=== PATIENT | female | born 1935 | race Caucasian/White ===

== ENCOUNTER 2017-10-08 18:18 | Inpatient (IN) | payer MEDICARE ==
[~2017-10-08] VITALS: Ht 157.5 cm; Wt 89.0 kg
[~2017-10-08 18:18] MED LIST: BUPROPION HCL75 MG PO; FUROSEMIDE40 MG PO; ISOSORBIDE MONO30 MG PO; LISINOPRIL-HCT1 EAC1 PO; LISINOPRIL10 MG PO; NAMENDA10 MG PO; NITROSTAT0.4 MG SL; RANEXA500 MG PO; SIMVASTATIN40 MG PO; SOTALOL80 MG PO; ULTRAM 50MG50 MG PO; [UNRECOGNIZED DRUG - OTHER] PO
[2017-10-08 19:29] LABS: BILIRUBIN,URINE NEGATIVE (NEGATIVE); CLARITY,URINE SL CLOUDY (CLEAR); COLOR,URINE YELLOW (YELLOW); KETONES,URINE NEGATIVE (NEGATIVE); LEUKOCYTE ESTERASE ,URINE 1+ (NEGATIVE); NITRITE,URINE NEGATIVE (NEGATIVE); PROTEIN,URINE DIPSTICK NEGATIVE (NEGATIVE); URINE UROBILINOGEN 0.2 mg/dL (0.2 - 1)
[2017-10-08 19:47] LABS: BACTERIA,URINE MODERATE /HPF; EPITHELIAL CELLS,URINE MODERATE /LPF; TRANSITIONAL EPI CELLS,URINE FEW
[2017-10-08 20:10] LABS: BASOPHILS # (AUTO) 0.1 (0.0-0.1); BASOPHILS % 0.7 % (0.0-1.0); EOSINOPHILS # (AUTO) 0.2 (0.0-0.4); EOSINOPHILS % 1.6 % (0.0-6.0); HEMATOCRIT 36.7 % (34.2-44.1); HEMOGLOBIN 12.1 g/dL (12.0-16.0); LYMPHOCYTES % 29.7 % (18.0-39.1); MEAN CORPUSCULAR HEMOGLOBIN 29.4 pg (28-32); MEAN CORPUSCULAR VOLUME 89.1 fL (81-99); MONOCYTES # (AUTO) 0.7 (0.2-0.8); MONOCYTES % 7.4 % (4.4-11.3); NEUTROPHILS # (AUTO) 6.1 (2.1-6.9); NEUTROPHILS % 60.3 % (38.7-80.0); PLATELET COUNT 269 x10e3/uL (140-360); RED BLOOD COUNT 4.12 x10e6/uL (3.6-5.1); RED CELL DISTRIBUTION WIDTH 17.2 % (11.7-14.4)
--- NOTE | 2017-10-08 20:20 | Diagnostic Imaging Report ---
EXAMINATION: CHEST 2 VIEWS INDICATION: Shortness of breath COMPARISON: Chest x-ray 07/30/2016 FINDINGS: PA and lateral views TUBES and LINES: None. LUNGS: Lungs are well inflated. Unchanged residual scarring in the lung bases. Lungs are clear. There is no evidence of pneumonia or pulmonary edema. PLEURA: No pleural effusion or pneumothorax. HEART AND MEDIASTINUM: The cardiomediastinal silhouette is unremarkable. There are atherosclerotic calcifications within the aorta. BONES AND SOFT TISSUES: No acute osseous lesion. Soft tissues are unremarkable. UPPER ABDOMEN: No free air under the diaphragm. IMPRESSION: Unchanged mild residual scar in the lung bases. No acute pulmonary opacities. Signed by: Dr. Sushant Ny M.D. on 10/08/2017 8:17 PM
[2017-10-08 20:23] LABS: INR 1.99; PROTHROMBIN TIME 21.2 seconds (11.9-14.5)
[2017-10-08 20:24] LABS: PARTIAL THROMBOPLASTIN TIME 37.7 seconds (23.8-35.5)
[2017-10-08 20:30] LABS: ALBUMIN 3.6 g/dL (3.5-5.0); CALCIUM 9.4 mg/dL (8.4-10.2); CREATININE, SERUM 1.43 mg/dL (0.57-1.11)
[2017-10-08 20:39] LABS: CREATINE KINASE MB 1.8 ng/mL (0-5.0)
[2017-10-08 20:52] LABS: FREE THYROXINE INDEX 1.7312 (1.4-3.8); THYROID STIMULATING HORMONE 2.476 uIU/mL (0.350-4.940)
[2017-10-08] MEDS ORDERED: CEFTRIAXONE SOD 1 GM VIAL IV ONE (22:00)
[2017-10-08] MEDS ORDERED: METOPROLOL TARTRATE INJ 1 MG/ML VIAL IV ONE (22:00)
[2017-10-08] MEDS ORDERED: METOPROLOL TARTRATE INJ 1 MG/ML VIAL IV PRN (23:45)
[2017-10-08] MEDS ORDERED: SODIUM CHLORIDE 0.9% 1000ML 1,000 ML IV ONE (23:45)
[2017-10-09] VITALS (9 sets, daily range): BP systolic 112–156; BP diastolic 53–84
[2017-10-09 04:45] LABS: BASOPHILS # (AUTO) 0.1 (0.0-0.1); BASOPHILS % 0.6 % (0.0-1.0); EOSINOPHILS # (AUTO) 0.2 (0.0-0.4); EOSINOPHILS % 1.9 % (0.0-6.0); HEMATOCRIT 32.4 % (34.2-44.1); HEMOGLOBIN 10.4 g/dL (12.0-16.0); LYMPHOCYTES # (AUTO) 2.7 (1.0-3.2); LYMPHOCYTES % 32.1 % (18.0-39.1); MEAN CORPUSCULAR HEMOGLOBIN 29.4 pg (28-32); MEAN CORPUSCULAR HGB CONC 32.1 g/dL (31-35); MEAN CORPUSCULAR VOLUME 91.5 fL (81-99); MONOCYTES # (AUTO) 0.7 (0.2-0.8); MONOCYTES % 8.5 % (4.4-11.3); NEUTROPHILS # (AUTO) 4.7 (2.1-6.9); NEUTROPHILS % 56.5 % (38.7-80.0); PLATELET COUNT 248 x10e3/uL (140-360); RED BLOOD COUNT 3.54 x10e6/uL (3.6-5.1); RED CELL DISTRIBUTION WIDTH 17.2 % (11.7-14.4)
[2017-10-09 05:16] LABS: ALBUMIN/GLOBULIN RATIO 1.1 (0.8-2.0); ANION GAP 11.7 mmol/L (8-16); CALCIUM 8.7 mg/dL (8.4-10.2); CREATININE, SERUM 1.21 mg/dL (0.57-1.11); POTASSIUM 3.7 mmol/L (3.5-5.1)
[2017-10-09 06:27] LABS: CREATINE KINASE MB 1.6 ng/mL (0-5.0)
[2017-10-09 12:01] LABS: CREATINE KINASE MB 1.9 ng/mL (0-5.0)
[2017-10-09] MEDS: WARFARIN SOD 2.5 MG TAB PO SCH (16:24)
--- NOTE | 2017-10-09 16:28 | Consultation ---
DATE OF CONSULTATION: October 09, 2017 CARDIOLOGY CONSULTATION CHIEF COMPLAINT: My heart is racing and I don't feel well. REASON FOR CONSULTATION 1. Atrial fibrillation with RVR. 2. Coronary artery disease. HISTORY OF PRESENT ILLNESS: Patient is a 81-year-old white female who is well known to our service. She has a history of coronary artery disease status post stenting at an outside facility in year 1998, has chronic stable angina with small-vessel disease on most recent cath several years ago. Patient also has history of paroxysmal atrial fibrillation and has been difficult to rate control despite multiple medical regimens. Her medical management is complicated by her memory issues as it is difficult for her to understand and be compliant with all medications. She presented to our clinical yesterday for evaluation of palpitations and feeling unwell, was evaluated in clinic and was noted to be in AFib with RVR. Her home health nurse also noted her to be in AFib with RVR with rates at times in the 200s. Therefore, she was sent to the ER for further evaluation. Patient reports that looking at her diary of medications that she has been holding her metoprolol since September 21 and most recently was also holding her digoxin which was recently started to improve her rate control. She denies any chest pain, PND, orthopnea or worsening lower extremity swelling. She denies any syncope, fevers, chills or constitutional symptoms. REVIEW OF SYSTEMS: A 10-point review of systems was performed and was negative other than what is mentioned in HPI. PAST MEDICAL HISTORY 1. Coronary artery disease. 2. Paroxysmal atrial fibrillation. 3. Peripheral arterial disease. 4. Peripheral venous disease. 5. Dementia with memory loss. FAMILY HISTORY: No early history of CAD. SOCIAL HISTORY: Patient does not smoke or drink. PHYSICAL EXAMINATION VITAL SIGNS: Temperature 97.3, heart rate 118, respiratory rate 20, blood pressure 112/53, satting 95% on room air. EYES: Conjunctivae are clear. EARS, NOSE, MOUTH AND THROAT: Normal mucosa, no pallor or bleeding. NECK: Jugular venous pulsation noted with estimated right atrial pressure of 10 mmHg. MSK: Normal muscle tone and strength. No atrophy or abnormal movements. EXTREMITIES: No clubbing or cyanosis. SKIN: There are no chronic venous stasis changes or ulcerations noted. GENERAL: A well-developed, well-nourished white female, obese. CARDIOVASCULAR: PMI is nondisplaced. Regular heart tones. S1 and S2. No murmur, rubs or gallops. Normal carotid pulses. Palpable femoral pulses. Diminished pedal pulses are not palpable. Has 1+ peripheral edema with significant varicosities in bilateral lower extremities without chronic venous stasis changes or ulcerations. RESPIRATORY: No respiratory distress. Lungs are clear to auscultation bilaterally. ABDOMEN: Soft, nontender and obese. There are no masses or hepatosplenomegaly noted. NEURO AND PSYCH: Alert and oriented to person, place and time. Normal affect. ALLERGIES: NO KNOWN DRUG ALLERGIES. CARDIOVASCULAR MEDICATIONS 1. Aspirin 81 mg daily. 2. Atorvastatin 40 mg at bedtime. 3. Furosemide 40 mg daily. 4. Metoprolol succinate 50 mg daily. 5. Pantoprazole 40 mg daily. 6. Ranolazine 1000 mg twice a day. 7. Warfarin 2.5 mg every evening. 8. Digoxin 0.125 mg daily. LABS: All laboratory data reviewed, is notable for a hemoglobin of 10.4, creatinine of 1.2 with potassium of 3.7. Her BNP is noted to be 358. Her troponin has remained negative. Her TSH is normal at 2.4. Her PT is 21.2 and INR of 1.99. IMAGING: All imaging data reviewed, notable for a chest x-ray without significant cardiopulmonary abnormality. EGD reviewed, shows atrial fibrillation with RVR with rates in the 120s. TELEMETRY: Data reviewed, shows atrial fibrillation with RVR, rates in the 110s to 120s on average. ASSESSMENT 1. Coronary artery disease. 2. Paroxysmal atrial fibrillation. 3. Peripheral arterial disease. 4. Peripheral venous disease. 5. Hypertension. 6. Hyperlipidemia. Discussed with patient extensively regarding her medical regimen. Patient seems confused and forgetful regarding which medications she is supposed to be on and which medications she is supposed to stop taking. The patient reports that whenever she is not sure about a medication, she tends to just stop taking it and because of this she has not been taking her metoprolol succinate and most recently her digoxin, and this likely resulted in her AFib with RVR. Will resume her medications as stated above and see how her heart rates respond to this regimen. Will continue her anticoagulation for atrial fibrillation with warfarin as stated above. Her current INR is 1.99, which is acceptable. Thank you for involving us in this patient's care. Will continue to follow. Job#: [id number] EV
[2017-10-09] MEDS: RANOLAZINE 500 MG TABSR PO SCH (16:38)
[2017-10-09] MEDS ORDERED: ATORVASTATIN 40 MG TAB PO SCH (21:00)
[2017-10-09 21:45] LABS: CREATINE KINASE MB 2.2 ng/mL (0-5.0)
[2017-10-09] MEDS ORDERED: CEFTRIAXONE SOD 1 GM VIAL IV SCH (22:00)
[2017-10-10 00:12] VITALS: BP 126/24
[2017-10-10 05:41] VITALS: BP 134/55
[2017-10-10] MEDS ORDERED: PANTOPRAZOLE SOD 40 MG TABEC PO SCH (07:30)
[2017-10-10 08:00] VITALS: BP 117/58
[2017-10-10 08:30] VITALS: BP 117/58
[2017-10-10] MEDS ORDERED: FUROSEMIDE 40 MG TAB PO SCH (09:00)
[2017-10-10] MEDS ORDERED: METOPROLOL SUCCINATE 50 MG TAB XL PO SCH (09:00)
[2017-10-10] MEDS ORDERED: DIGOXIN 0.125 MG TAB PO SCH (09:00)
[2017-10-10] MEDS: RANOLAZINE 500 MG TABSR PO SCH ×2 (09:00→17:30)
[2017-10-10] MEDS ORDERED: ASPIRIN 81 MG ENTERIC COATED PO SCH (09:00)
--- NOTE | 2017-10-10 10:48 | Discharge Summary ---
Ms. Gomez is a 81-year-old female with a history of coronary artery disease, status post stent, hypertension, hyperlipidemia, some memory problems, came to the emergency room and seen by learning support aide because of irregular rate with rapid ventricular at 200 per minute. As per the patient, she has not been taking the medications as directed. She has not been taking the metoprolol or the digoxin. She was restarted on all of her medications. Her rate is doing much better. We are going to discharge her home if it is okay with learning support aide. PHYSICAL EXAMINATION GENERAL: She is awake and alert. VITALS: Temperature is 97, blood pressure 124/55, heart rate is 66, respiratory rate 18. LUNGS: Clear to auscultation. ABDOMEN: Distended and soft. BLOOD WORK: Potassium 3.7, creatinine 1.21, glucose 100. White count 8.37, hemoglobin 10.4, hematocrit 32.4, and platelets 248,000. INR 1.99. DISCHARGE DIAGNOSES 1. Paroxysmal atrial fibrillation with rapid ventricular rate. 2. Coronary artery disease, status post stent. 3. Hypertension. 4. Hyperlipidemia. 5. Dementia with memory loss. PLAN: Discharge her home today. She is going to be on: 1. Metoprolol 50 mg daily. 2. Furosemide 40 mg daily. 3. Warfarin 2.5 mg daily. 4. Digoxin 0.125 mg daily. 5. Atorvastatin 40 mg daily. 6. Protonix 40 mg daily. 7. Ranexa 1000 mg twice a day. She needs follow up with me in 1 week. All of this was discussed with the patient. All questions were answered to satisfaction. ULI ZAPATA MD Job#: [id number] HI
--- NOTE | 2017-10-10 11:33 | Progress Note ---
DATE: October 10, 2017 CARDIOLOGY PROGRESS NOTE SUBJECTIVE AND OVERNIGHT EVENTS: Feeling well today. No major events overnight. REVIEW OF SYSTEMS: Negative, other than as stated in the HPI. OBJECTIVE VITAL SIGNS: Temperature 96.6, heart rate 69, respiratory rate 19, blood pressure 117/58, satting 96% on room air. GENERAL: Well-developed, well-nourished, white female. CARDIOVASCULAR: PMI nondisplaced. Normal heart tones. Irregular rhythm. Normal S1 and S2. No murmur, rubs or gallops. Normal carotid pulses. Normal pedal pulses. Significant varicosities in bilateral lower extremities without ulcerations or chronic venous stasis changes. LUNGS: No respiratory distress. Clear to auscultation bilaterally. ABDOMEN: Soft, nontender and nondistended. No hepatosplenomegaly. NEURO AND PSYCH: Alert and oriented to person, place and time. Normal affect. CARDIOVASCULAR MEDICATIONS 1. Aspirin 81 mg daily. 2. Ranolazine 1,000 mg b.i.d. 3. Furosemide 40 mg daily. 4. Pantoprazole 40 mg daily. 5. Digoxin 0.125 mg daily. 6. Atorvastatin 40 mg at bedtime. 7. Metoprolol succinate 50 mg daily. 8. Warfarin 2.5 mg every evening. LABS: Lab data reviewed. No significant changes noted. IMAGING: No new imaging data to review today. TELEMETRY: Telemetry data reviewed. The patient is in atrial fibrillation with rates from 50s to 100s. ASSESSMENT 1. Coronary artery disease. 2. Paroxysmal atrial fibrillation. 3. Peripheral arterial disease. 4. Peripheral venous disease. 5. Hypertension. 6. Hyperlipidemia. PLAN: The patient's rates are much better controlled now that she is back on her recommended medical regimen. Please continue the above cardiovascular medication regimen. The patient is okay to discharge from a cardiovascular standpoint. We will follow her up in clinic 2 weeks after discharge. Thank you for involving me in this patient's care. We will continue to follow while she is in the hospital. Job#: [id number]
[2017-10-10 12:00] VITALS: BP 120/57
[2017-10-10 16:00] VITALS: BP 128/60
[2017-10-10] MEDS: WARFARIN SOD 2.5 MG TAB PO SCH (17:28)
[2017-10-10] MEDS ORDERED: CEFTRIAXONE SOD 1 GM VIAL IV SCH (22:00)
== END 2017-10-10 18:39 | disposition home or self-care (01) | DRG 310 ==
LOC: ER 18:18 → ERHOLD 23:50 → MED/SURG2 10-09 01:04
PROVIDERS: ADMIT Internal Medicine; ATTEND Internal Medicine
DX: I48.0 Paroxysmal atrial fibrillation (principal); I25.10 Atherosclerotic heart disease of native coronary artery without angina pectoris; I10 Essential (primary) hypertension; E78.5 Hyperlipidemia, unspecified; I73.9 Peripheral vascular disease, unspecified; F03.90 Unspecified dementia, unspecified severity, without behavioral disturbance, psychotic disturbance, mood disturbance, and anxiety; Z95.5 Presence of coronary angioplasty implant and graft; Z91.128 Patient's intentional underdosing of medication regimen for other reason; I87.2 Venous insufficiency (chronic) (peripheral); I25.2 Old myocardial infarction
CPT/HCPCS: 36415; 71046; 80053; 81001; 82550; 82553; 83605; 83880; 84436; 84443; 84479; 84484; 85025; 85379; 85610; 85730; 87040; 87086; 93005; 96361; 99284; J0696; J7030

== ENCOUNTER 2018-02-07 06:13 | Observation (INO) | payer MEDICARE ==
[2018-02-06 13:04] LABS: BASOPHILS % 0.4 % (0.0-1.0); EOSINOPHILS % 0.4 % (0.0-6.0); HEMATOCRIT 36.6 % (34.2-44.1); HEMOGLOBIN 11.7 g/dL (12.0-16.0); LYMPHOCYTES # (AUTO) 1.7 (1.0-3.2); LYMPHOCYTES % 18.5 % (18.0-39.1); MEAN CORPUSCULAR VOLUME 96.8 fL (81-99); MONOCYTES # (AUTO) 0.9 (0.2-0.8); MONOCYTES % 9.8 % (4.4-11.3); NEUTROPHILS # (AUTO) 6.5 (2.1-6.9); NEUTROPHILS % 70.6 % (38.7-80.0); PLATELET COUNT 250 x10e3/uL (140-360); RED BLOOD COUNT 3.78 x10e6/uL (3.6-5.1); RED CELL DISTRIBUTION WIDTH 16.7 % (11.7-14.4)
[2018-02-06 13:26] LABS: INR 1.02; PROTHROMBIN TIME 14.3 seconds (11.9-14.5)
[2018-02-06 13:34] LABS: ALBUMIN 3.5 g/dL (3.5-5.0); ALBUMIN/GLOBULIN RATIO 1.1 (0.8-2.0); ANION GAP 14.2 mmol/L (8-16); CALCIUM 9.5 mg/dL (8.4-10.2); CHOL/HDL RATIO 2.8 (3.0-3.6); CREATININE, SERUM 1.2 mg/dL (0.57-1.11); POTASSIUM 4.2 mmol/L (3.5-5.1)
[2018-02-07] VITALS (15 sets, daily range): BP systolic 108–179; BP diastolic 54–105
[~2018-02-07 06:13] MED LIST changes: +ALLOPURINOL100 MG PO; +ARICEPT5 MG PO; +ATORVASTATIN CA20 MG PO; +DIGOXIN125 MCG PO; +METOPROLOL SUCC50 MG PO; +PANTOPRAZOLE SO40 MG PO; +WARFARIN SODIU2.5 MG PO; +ZOFRAN ODT4 MG PO
[2018-02-07] MEDS ORDERED: ALPRAZOLAM 0.5 MG TAB ONE (06:54)
[2018-02-07] MEDS ORDERED: DIPHENHYDRAMINE HCL 25 MG CAP ONE (06:54)
[2018-02-07] MEDS ORDERED: LIDOCAINE HCL 2% LOCAL 20 ML VIAL ONE (06:54)
[2018-02-07] MEDS ORDERED: HEPARIN SOD/SOD CHLORIDE 2,000 ML ONE (06:55)
[2018-02-07] MEDS ORDERED: IOPAMIDOL 370 MG/ML 200 ML INFUS..BTL INJ ONE ×2 (06:55→08:54)
[2018-02-07] MEDS ORDERED: SODIUM CHLORIDE 0.9% 1000ML 1,000 ML ONE (06:55)
[2018-02-07] MEDS ORDERED: MIDAZOLAM HCL 2 MG/2 ML VIAL ONE ×2 (07:49→09:07)
[2018-02-07] MEDS ORDERED: FENTANYL CITRATE/PF 100MCG/2 ML INJ ONE (07:50)
[2018-02-07] MEDS ORDERED: ADENOSINE 3MG/1ML 30ML VIAL ONE (08:39)
[2018-02-07] MEDS ORDERED: SODIUM CHLORIDE 0.9% 50ML 50 ML ONE (08:41)
[2018-02-07] MEDS ORDERED: HEPARIN SOD (PORCINE) 1000 UNIT/ML 30ML ONE (08:44)
[2018-02-07] MEDS ORDERED: NITROGLYCERIN/D5W 200 MCG/ML 250 ML ONE (09:20)
[2018-02-07] MEDS ORDERED: ASPIRIN 325 MG TAB ONE (09:25)
[2018-02-07] MEDS ORDERED: TICAGRELOR 90 MG TABLET ONE (09:25)
[2018-02-07] MEDS ORDERED: ACETAMINOPHEN 325 MG TAB PO PRN (11:15)
[2018-02-07] MEDS ORDERED: SODIUM CHLORIDE 0.9% 1000ML 750 ML IV ONE (11:15)
[2018-02-07] MEDS ORDERED: MORPHINE SULFATE 2 MG/ML SYR IV PRN (11:15)
[2018-02-07] MEDS ORDERED: METOPROLOL SUCCINATE 50 MG TAB XL PO NR (11:30)
[2018-02-07] MEDS ORDERED: ATORVASTATIN 40 MG TAB PO SCH (21:00)
[2018-02-07] MEDS ORDERED: ATORVASTATIN 20 MG TAB PO SCH (21:00)
[2018-02-08] VITALS: BP 169/67
[2018-02-08 04:00] VITALS: BP 139/69
[2018-02-08 08:03] VITALS: BP 129/75
[2018-02-08] MEDS ORDERED: ASPIRIN 81 MG CHEW TAB PO SCH (09:00)
[2018-02-08] MEDS ORDERED: CLOPIDOGREL BISULFATE 75 MG TAB PO SCH (09:00)
[2018-02-08] MEDS ORDERED: DIGOXIN 0.125 MG TAB PO SCH (09:00)
[2018-02-08] MEDS ORDERED: METOPROLOL SUCCINATE 50 MG TAB XL PO SCH (09:00)
[2018-02-08 09:01] VITALS: BP 129/75
--- NOTE | 2018-02-08 11:06 | Operative Report ---
PROCEDURES PERFORMED 1. Conscious sedation, 45 minutes. 2. Selective coronary angiography times 2. 3. Left heart catheterization. 4. Intravascular ultrasound of the left circumflex. 5. Percutaneous transluminal coronary angioplasty and drug-eluting stent placement of the proximal left circumflex coronary artery. ESTIMATED BLOOD LOSS: Less than 20 mL. SPECIMENS REMOVED: None. PROCEDURE DETAILS: After informed consent was obtained, the patient was brought to the cardiac catheterization laboratory in the fasting, nonsedated state. Bilateral groins were prepped and draped in the usual sterile fashion. Two percent lidocaine was infiltrated over the right anterior groin for local anesthesia. Using micropuncture needle, the right common femoral artery was accessed via the modified Seldinger technique, and a 5-Tongan sheath was placed. Next, diagnostic coronary angiography was performed using a 5-Tongan JL4 and 3DRC catheter. Left heart catheterization was performed using a modified angled pigtail catheter. Diagnostic angiography revealed a 60% to 70% proximal left circumflex stenosis. Decision was made to further interrogate this lesion. Fraction flow reserve measurement software was nonfunctional. So, I chose to perform intravascular ultrasound of the lesion. Minimal luminal area here was 2.7 mm squared deeming this a significant stenosis. The lesion was predilated with a 2.5-mm balloon. The next lesion was stented with a 3 x 24 cm drug-eluting stent, and then post dilated with a 3.5 noncompliant balloon. Final angiography revealed excellent stent position with reverse HILDA-III flow distally. There was no evidence of vessel , distal embolization or vessel perforation at the end of the case. Hemostasis was achieved via Mynx device. The patient tolerated the procedure well with no immediate complications, and transported back to her room in stable condition. PROCEDURAL FINDINGS 1. Left main coronary artery is patent without significant coronary artery disease. 2. Left anterior descending coronary artery has a proximal 40% stenosis. The midportion of the LAD is patent with mild luminal irregularities. There appears to be a chronic total occlusion of a very apical portion of the LAD, which is a small vessel. There are bridging collaterals seen filling the distal aspect of the LAD. 3. Left circumflex coronary artery provides 3 obtuse marginal vessels. There is a proximal left circumflex stenosis of approximately 60% to 70%. The minimal luminal area here is 2.7 mm squared. There is one small first obtuse marginal vessel, which is patent. There is a 2nd obtuse marginal vessel with a previously placed stent, which has a chronic total occlusion. The distal vessel fills via collaterals. The mid to distal portion of the left circumflex has a patent stent. 4. The right coronary artery has a known chronic total occlusion, and the distal vessel itself fills via collaterals from the left coronary system. 5. Left ventricular end-diastolic pressure is 23 mmHg with no aortic valve gradient present upon pullback. INTERVENTIONAL RESULTS: Successful percutaneous coronary intervention of the left circumflex coronary artery. Pre-PCI HILDA flow was 2. Post PCI HILDA flow was 3. Post procedure stenosis less than 10%. IMPRESSION AND RECOMMENDATIONS: This is an 82-year-old woman who presented to the mechanical shop laborer with abnormal stress test showing possible inferior ischemia. She was found to have a significant proximal left circumflex coronary artery stenosis, and she underwent successful percutaneous coronary intervention. She will remain on dual antiplatelet therapy and receive optimal medical therapy for coronary artery disease. Job#: [id number] LC
--- NOTE | 2018-04-11 15:16 | Discharge Summary ---
DISCHARGE DIAGNOSIS: Coronary artery disease, status post percutaneous coronary intervention. DISCHARGE MEDICATIONS: See medication reconciliation form. DISCHARGE DISPOSITION: Home. DISCHARGE ACTIVITY: As tolerated. DISCHARGE FOLLOWUP: In 2 weeks. HOSPITAL DETAILS: The patient was brought to the cardiac catheterization laboratory on an outpatient basis after an abnormal stress test. She underwent successful percutaneous coronary intervention of the left circumflex coronary artery. She received optimal medical care and was monitored overnight. She was discharged in stable condition. ROBBIN GONZALEZ D.O. Job#: [id number] LC
== END 2018-02-08 12:57 | disposition home or self-care (01) ==
LOC: CATH LAB 06:13 → CATH LAB V 09:57 → IMCU 10:18
PROVIDERS: ADMIT Internal Medicine Interventional Cardiology; ATTEND Internal Medicine Interventional Cardiology
DX: I25.119 Atherosclerotic heart disease of native coronary artery with unspecified angina pectoris (principal); I48.0 Paroxysmal atrial fibrillation; Z79.01 Long term (current) use of anticoagulants; Z95.5 Presence of coronary angioplasty implant and graft; I25.10 Atherosclerotic heart disease of native coronary artery without angina pectoris; I10 Essential (primary) hypertension; I73.9 Peripheral vascular disease, unspecified; I70.219 Atherosclerosis of native arteries of extremities with intermittent claudication, unspecified extremity; Z01.812 Encounter for preprocedural laboratory examination; Z83.3 Family history of diabetes mellitus; Z82.49 Family history of ischemic heart disease and other diseases of the circulatory system; Z84.1 Family history of disorders of kidney and ureter
CPT/HCPCS: 92978; 93458; C9600; 36415; 80053; 80061; 85025; 85347; 85610; 92928; C1769; C1874; G0378; J0153; J1644; J2001; J2250; J7030; Q9967

== ENCOUNTER 2018-04-21 12:36 | Inpatient (IN) | payer MEDICARE ==
[~2018-04-21] VITALS: Ht 157.5 cm; Wt 80.9 kg
[2018-04-21] MEDS ORDERED: PLAVIX75 MG PO (12:53)
[2018-04-21 12:56] LABS: BASOPHILS % 0.4 % (0.0-1.0); EOSINOPHILS # (AUTO) 0.1 (0.0-0.4); EOSINOPHILS % 0.6 % (0.0-6.0); HEMATOCRIT 26.8 % (34.2-44.1); HEMOGLOBIN 8.8 g/dL (12.0-16.0); LYMPHOCYTES # (AUTO) 2.2 (1.0-3.2); LYMPHOCYTES % 22.4 % (18.0-39.1); MEAN CORPUSCULAR HEMOGLOBIN 30.2 pg (28-32); MEAN CORPUSCULAR HGB CONC 32.8 g/dL (31-35); MEAN CORPUSCULAR VOLUME 92.1 fL (81-99); MONOCYTES # (AUTO) 0.8 (0.2-0.8); MONOCYTES % 8.6 % (4.4-11.3); NEUTROPHILS # (AUTO) 6.5 (2.1-6.9); NEUTROPHILS % 67.4 % (38.7-80.0); PLATELET COUNT 267 x10e3/uL (140-360); RED BLOOD COUNT 2.91 x10e6/uL (3.6-5.1); RED CELL DISTRIBUTION WIDTH 15.9 % (11.7-14.4)
[2018-04-21 13:15] LABS: ALBUMIN 3.3 g/dL (3.5-5.0); ALBUMIN/GLOBULIN RATIO 1.1 (0.8-2.0); CALCIUM 8.5 mg/dL (8.4-10.2); CREATININE, SERUM 1.02 mg/dL (0.57-1.11)
--- NOTE | 2018-04-21 13:19 | NUR ---
PER PT SHE'S NOTICED A LOT BRUISING ON EXTEMITIES X 4 DAYS PT COULD NOT WALK AND DAUGHTER ADVISED HER TO GO TO HOSP PT C/O RECTAL BLEEDING AND BLOOD IN BOWELS X 3 DAYS AND STATES WHEN SHE BLOWS HER NOSE SHE NOTICES BLOOD CLOTS PT STATES HISTORY OF A FIB DENIES ANY PAIN BUT STATES SHE IS GENERALLY SORE WITH NUMBNESS TO BILATERAL HANDS PT DENIES FEELING HEART RACE PT SPO2 100% ON ROOM AIR
--- NOTE | 2018-04-21 13:39 | NUR ---
PT PUT IN HOSP BED
--- NOTE | 2018-04-21 13:55 | Diagnostic Imaging Report ---
A single frontal view of the chest. HISTORY: Chest pain, weakness, shortness of breath, rapid heartbeat COMPARISON: Chest radiograph November 20, 2017 DISCUSSION: Portable technique, limits sensitivity of the exam. Soft tissue attenuation partially limits sensitivity of the exam. Overlying monitoring leads. Tubes/Lines: None Lungs and pleura: The lungs are well inflated. No evidence of a consolidative pneumonia or pulmonary alveolar edema. No definite pleural effusion or pneumothorax is identified. Heart and mediastinum: The cardiomediastinal silhouette appears unremarkable. Atherosclerotic vascular calcifications at the aortic arch. Bones and soft tissues: Appear unremarkable, given this limited exam. IMPRESSION: 1. No acute radiographic abnormality. 2. No significant interval change. Signed by: Dr. Richard Catalan D.O., M.M.M. on 04/21/2018 1:52 PM
[2018-04-21] MEDS ORDERED: PHYTONADIONE 10 MG/ML AMP SC ONE (14:30)
[2018-04-21] MEDS: OCTREOTIDE ACETATE 500 MCG in SODIUM CHLORIDE 0.9% 250ML 249 ML IV SCH (14:32)
[2018-04-21] MEDS ORDERED: PANTOPRAZOLE 40 MG 10ML VIAL IV ONE (15:00)
[2018-04-21] MEDS ORDERED: ONDANSETRON HCL 4 MG ORAL DISINTEGRATING TAB PO PRN (15:00)
[2018-04-21] MEDS ORDERED: NITROGLYCERIN 0.4 MG SUBL SL PRN (15:00)
[2018-04-21 15:03] LABS: INR > 15; PARTIAL THROMBOPLASTIN TIME > 150.0 seconds (23.8-35.5); PROTHROMBIN TIME > 100.0 seconds (11.9-14.5)
--- NOTE | 2018-04-21 15:03 | NUR ---
FERNANDO FROM LAB CALLED TO REPORT COAGS PT >100, INR >15, PTT >150. INFORMED DR. DU OF CRITICAL VALUES.
[2018-04-21] MEDS: PANTOPRAZOL 40MG/SOD CHL 0.9% 50 ML IV SCH (15:26)
[2018-04-21 15:29] LABS: BAND NEUTROPHILS % (MANUAL) 2 %; LYMPHOCYTES % (MANUAL) 13 % (19-48); MONOCYTES % (MANUAL) 10 % (3.4-9.0); NEUTROPHILS % (MANUAL) 75 % (40-74)
[2018-04-21 15:30] LABS: ANISOCYTOSIS F; OVALOCYTES FEW; PLATELET ESTIMATE SLIGHTLY DECREASED; PLATELET MORPHOLOGY COMMENT NORMAL; POLYCHROMASIA FEW; RBC MORPHOLOGY COMMENT ABNORMAL
[2018-04-21 15:31] LABS: ELLIPTOCYTE, RBC SLIGHT; POIKILOCYTOSIS MODERATE; TEAR DROP CELLS FEW
--- NOTE | 2018-04-21 16:00 | NUR ---
Dr. Kline notified of coagulation studies. No new orders obtained at this time. Patient to receive 3 units of FFP.
[2018-04-21] MEDS ORDERED: SODIUM CHLORIDE 0.9% 250ML 250 ML ONE (16:01)
--- NOTE | 2018-04-21 16:30 | NUR ---
pt re-evaluated 15 min after ffp admin and pt denies any complaints at this time
--- NOTE | 2018-04-21 16:57 | History and Physical ---
HPI: Patient is an 82-year-old female with past medical history positive for chronic atrial fibrillation, hypertension, history of diabetes. Patient admitted to the hospital because of rectal bleeding. REVIEW OF SYSTEMS CARDIOVASCULAR: No chest pain or palpitation. RESPIRATORY: No shortness of breath. No cough. GASTROINTESTINAL: No nausea. No vomiting. No diarrhea. She did have rectal bleeding. GENITOURINARY: No frequency or dysuria. ALLERGIES: NOT ALLERGIC TO ANY MEDICATION. SOCIAL HISTORY: She does not smoke. She does not drink. PAST MEDICAL HISTORY: Chronic atrial fibrillation, hypertension, diabetes. PHYSICAL EXAMINATION VITAL SIGNS: Afebrile. Blood pressure is 147/57, temperature 98.1, heart rate 97 per minute, respiratory rate 16 per minute, oxygen saturation 100%. IMAGING: The chest x-ray showed no acute radiographic abnormality, no significant interval change. LAB WORK: We had a coagulation, which is pending. Digoxin is 0.55. FINAL IMPRESSION 1. Rectal bleeding, most likely secondary to coagulopathy. 2. Chronic atrial fibrillation. 3. Hypertension. 4. Uncontrolled diabetes mellitus type 2. 5. Coagulopathy secondary to Coumadin. 6. Acute anemia secondary to rectal bleeding. 7. Rhabdomyolysis. PLAN OF TREATMENT: Patient going to be on Protonix drip. Vitamin K has been given. Fresh frozen plasma has been given. We are going resume the rest of the home medications which include allopurinol 100 mg twice a day, Lipitor 40 mg daily. We are going to hold on the Plavix because of rectal bleeding. Continue digoxin 0.125 mg daily, Aricept 5 mg at bedtime, furosemide 40 mg daily, isosorbide mononitrate 30 mg daily, Namenda 10 mg daily, metoprolol 50 mg daily, Zofran 4 mg p.o. q.6 hours as needed for nausea and vomiting. Continue Ranexa 1000 mg twice a day, simvastatin 40 mg daily. Coumadin is going to placed on hold because of the bleeding. Continue bupropion 150 mg daily and nitroglycerin 0.4 mg sublingual p.r.n. for chest pain. Patient is going to be admitted to the hospital. Dr. Erick Liriano has been consulted from a gastroenterology point of view and Dr. Jha from the cardiology point of view. We are going to repeat a PT and INR and a CBC tomorrow. Job#: [id number] LPA
[2018-04-21] MEDS ORDERED: ALLOPURINOL 100 MG TAB PO SCH (17:00)
--- NOTE | 2018-04-21 17:00 | NUR ---
pt reassessed at 1700 pt resting comfortably denies any complaints at this time
--- NOTE | 2018-04-21 17:10 | Consultation ---
DATE OF CONSULTATION: April 21, 2018 CARDIOLOGY CONSULTATION NOTE INDICATION: Atrial fibrillation. HISTORY OF PRESENT ILLNESS: Ms. Gomez is an 82-year-old female with history of atrial fibrillation. She has had marked abnormalities in her coagulation profile. She comes to the emergency room with marked bruising, GI bleeding, in atrial fibrillation. Hemoglobin is 8.8. INR is greater than 15. PTT is greater than 150. Her kidney function is normal and BNP is 406. PAST MEDICAL HISTORY: Atrial fibrillation, congestive heart failure, coronary artery disease. SOCIAL HISTORY: Patient does not smoke or drink. ALLERGIES: NO KNOWN DRUG ALLERGIES. REVIEW OF SYSTEMS: Negative except as dictated in the history of present illness. PHYSICAL EXAMINATION VITAL SIGNS: Afebrile. Heart rate 107, blood pressure 152/71, and O2 sats 100%. CARDIOVASCULAR: Irregularly irregular rhythm. Systolic murmur. RESPIRATORY: Lungs, decreased breath sounds. A 2+ edema. Diffuse bruising on the skin and hematomas are noted. LABS: Reviewed. EKG shows atrial fibrillation. Chest x-ray shows no acute abnormality. ASSESSMENT 1. Atrial fibrillation, unable to anticoagulate. 2. Gastrointestinal bleeding with supratherapeutic INR. RECOMMENDATIONS: Reversal of supratherapeutic INR with plasma as well as vitamin K. No further anticoagulation, rate control beta geovanna and the patient will be referred for left atrial appendage closer as an outpatient. Job#: [id number] GLENNA
[2018-04-21] MEDS: RANOLAZINE 500 MG TABSR PO SCH (18:00)
[2018-04-21 18:41] LABS: HEMOGLOBIN 7.3 g/dL (12.0-16.0)
--- NOTE | 2018-04-21 18:50 | NUR ---
FERNANDO FROM LAB CALLED TO REPORT H&H 7.06/22. INFORMED DR. DU AND ABBY RN/CATHERINE BASILIO PT'S PRIMARY NURSES.
[2018-04-21 19:10] LABS: INR 3.7; PROTHROMBIN TIME 39.2 seconds (11.9-14.5)
--- NOTE | 2018-04-21 19:10 | NUR ---
Report to MAURY Wilde. Charge nurse notified CATHERINE Rosales in nuclear medicine with patient at this time because of IMCU status.
[2018-04-21 20:00] VITALS: BP 126/74
--- NOTE | 2018-04-21 20:20 | NUR ---
REPORT CALLED TO RN ROOM 198 AT THIS TIME.
--- NOTE | 2018-04-21 20:29 | Diagnostic Imaging Report ---
EXAM: G I BLEED INDICATION: Rectal bleeding, dizziness COMPARISON: CT of the abdomen and pelvis November 21, 2017 FINDINGS: The patient's own red blood cells were labeled with 25.8 mCi of technetium-99m pertechnetate using the in vitro method (UltraTag). Dynamic images of the abdomen were obtained through 60 minutes. Distribution of tracer activity appears physiologic throughout the abdomen. No abnormal accumulation of tracer is seen within the gastrointestinal lumen. IMPRESSION: There is no scan evidence of active gastrointestinal bleeding at this time. Signed by: Dr. Kenzie Bruce M.D. on 04/21/2018 8:26 PM
--- NOTE | 2018-04-21 20:35 | NUR ---
RECEIVED REPORT FROM [facility] ICU, PT AAOX3, BREATHING EVEN AND UNLABORED. PT BRUISED ALL OVER BODY FROM LOW PTL COUNT, UPON ASSESSMENT PT HAS STAGE 1 TO SACRAL. WILL INFORM CHARGE NURSE. PT CAME TO AND MADE COMFORTABLE., ORIENTED TO CALL VERDUZCO USE. AND SAFETY MEASURES.
[2018-04-21] MEDS: SIMVASTATIN 40 MG TAB PO SCH (21:00)
[2018-04-21] MEDS ORDERED: ATORVASTATIN 40 MG TAB PO SCH (21:00)
[2018-04-21] MEDS: DONEPEZIL HCL 5 MG TAB PO SCH (21:00)
[2018-04-21 22:00] VITALS: BP_SYST 124; BP_SYST 126; BP_SYST 130; BP_DIAS 63; BP_DIAS 74
[2018-04-22] VITALS (8 sets, daily range): BP systolic 102–133; BP diastolic 57–87
--- NOTE | 2018-04-22 00:01 | NUR ---
PT RESTING WELL WITH EYES CLOSED BREATHING EVEN AND UNLABORED. DENIES ANY RECTAL BLEEDING AT THIS TIME,
[2018-04-22] MEDS ORDERED: ONDANSETRON HCL 4 MG ORAL DISINTEGRATING TAB PO PRN (01:00)
[2018-04-22] MEDS ORDERED: METOPROLOL SUCCINATE 50 MG TAB XL PO ONE (01:30)
[2018-04-22 02:40] LABS: HEMATOCRIT 20.6 % (34.2-44.1); HEMOGLOBIN 6.9 g/dL (12.0-16.0)
[2018-04-22] MEDS ORDERED: OCTREOTIDE ACETATE 2 ML ONE (03:10)
[2018-04-22] MEDS ORDERED: SODIUM CHLORIDE 0.9% 250ML 250 ML ONE ×3 (03:10→22:06)
[2018-04-22] MEDS: PANTOPRAZOL 40MG/SOD CHL 0.9% 50 ML IV SCH ×5 (04:00→18:00)
[2018-04-22] MEDS: OCTREOTIDE ACETATE 500 MCG in SODIUM CHLORIDE 0.9% 250ML 249 ML IV SCH ×2 (06:59→10:00)
--- NOTE | 2018-04-22 07:00 | NUR ---
HANDOFF REPORT REC'D DURING WALKING ROUNDS. PT AWAKE AND ALERT. NAD OBSERVED OR REPORTED.
--- NOTE | 2018-04-22 07:06 | NUR ---
REPORTED OFF TO LOGAN OCONNOR RN, PT STABLE, AWAKE AT THIS TIME AND READY FOR THE MORNINGS ACTIVITY.
[2018-04-22] MEDS: ACETAMINOPHEN 325 MG TAB PO PRN ×2 (09:00→20:37)
[2018-04-22] MEDS ORDERED: BUPROPION HCL 75 MG TAB PO SCH (09:00)
[2018-04-22] MEDS ORDERED: PANTOPRAZOLE 40 MG 10ML VIAL IV SCH (09:00)
[2018-04-22] MEDS ORDERED: METOPROLOL SUCCINATE 50 MG TAB XL PO SCH (09:00)
[2018-04-22] MEDS ORDERED: RANOLAZINE 500 MG TABSR PO SCH (09:00)
[2018-04-22] MEDS: RANOLAZINE 500 MG TABSR PO SCH ×2 (09:00→17:00)
[2018-04-22] MEDS ORDERED: DIGOXIN 0.125 MG TAB PO SCH (09:00)
[2018-04-22] MEDS ORDERED: FUROSEMIDE 40 MG TAB PO SCH (09:00)
[2018-04-22] MEDS ORDERED: ISOSORBIDE DINITRATE 20 MG TAB PO SCH (09:00)
[2018-04-22 09:01] LABS: BASOPHILS % 0.4 % (0.0-1.0); EOSINOPHILS # (AUTO) 0.1 (0.0-0.4); EOSINOPHILS % 1.1 % (0.0-6.0); LYMPHOCYTES # (AUTO) 1.9 (1.0-3.2); LYMPHOCYTES % 25.3 % (18.0-39.1); MEAN CORPUSCULAR HEMOGLOBIN 30.8 pg (28-32); MEAN CORPUSCULAR HGB CONC 32.8 g/dL (31-35); MEAN CORPUSCULAR VOLUME 93.8 fL (81-99); MONOCYTES # (AUTO) 0.9 (0.2-0.8); NEUTROPHILS # (AUTO) 4.5 (2.1-6.9); NEUTROPHILS % 60.7 % (38.7-80.0); PLATELET COUNT 205 x10e3/uL (140-360); RED BLOOD COUNT 2.08 x10e6/uL (3.6-5.1); RED CELL DISTRIBUTION WIDTH 15.9 % (11.7-14.4)
--- NOTE | 2018-04-22 09:05 | NUR ---
Dr. Miguel Ángel ro. Questioned Dr. Del Rosario regarding Ranexa ER order. Per Dr. Del Rosario, defer to cardiology. Call placed to Dr. Jha, awaiting call back. Addendum: 04/22/18 at 1106 by Ana Murillo RN Dr. Del Rosario aware of CBC result.
[2018-04-22 09:09] LABS: HEMATOCRIT 19.5 % (34.2-44.1); HEMOGLOBIN 6.4 g/dL (12.0-16.0)
[2018-04-22 09:12] LABS: INR 1.8; PROTHROMBIN TIME 22.3 seconds (11.9-14.5)
[2018-04-22 09:19] LABS: ANION GAP 14.2 mmol/L (8-16); BLOOD UREA NITROGEN 20 mg/dL (7-26); BUN/CREATININE RATIO 24 (6-25); CALCIUM 8.7 mg/dL (8.4-10.2); CARBON DIOXIDE 25 mmol/L (22-29); CHLORIDE 106 mmol/L (98-107); CREATININE, SERUM 0.83 mg/dL (0.57-1.11); EST GLOMERULAR FILTRATION RATE > 60 ML/MIN (60-); GLUCOSE 106 mg/dL (74-118); POTASSIUM 4.2 mmol/L (3.5-5.1); SODIUM 141 mmol/L (136-145)
[2018-04-22] MEDS: MEMANTINE 10 MG TAB PO SCH (09:30)
[2018-04-22] MEDS: PANTOPRAZOLE SOD 40 MG TABEC PO SCH (09:30)
[2018-04-22] MEDS: FUROSEMIDE 40 MG TAB PO SCH (09:30)
[2018-04-22] MEDS: ALLOPURINOL 100 MG TAB PO SCH ×2 (09:30→18:29)
[2018-04-22] MEDS: METOPROLOL SUCCINATE 50 MG TAB XL PO SCH (09:30)
[2018-04-22] MEDS: ISOSORBIDE MONONITRATE 30 MG TAB CR PO SCH (09:30)
[2018-04-22] MEDS: DIGOXIN 0.125 MG TAB PO SCH (09:30)
[2018-04-22] MEDS: BUPROPION HCL 75 MG TAB PO SCH (09:30)
--- NOTE | 2018-04-22 09:43 | Progress Note ---
DATE: April 22, 2018 SUBJECTIVE: Ms. Gomez is an 82-year-old female with history of hypertension, diabetes, atrial fibrillation, dementia, came to the emergency room because she started having bruising in her arms and rectal bleeding. She was found to have a low hemoglobin, INR was greater than 15, PTT was greater than 150. So, patient was admitted to the hospital, received blood transfusion, fresh frozen plasma. She has been seen by narrow fabric loom fixer and GI. PHYSICAL EXAMINATION: GENERAL: Today, she is awake, she is alert, but she does not remember she says how she takes her medications at home, and I think she sometimes gets confused how she takes her medications. VITAL SIGNS: Temperature is 98.2, blood pressure is 133/70. HEART: Irregularly irregular. LUNGS: Clear to auscultation. ABDOMEN: Distended and soft. SKIN: She has big bruises in her arms especially in the right upper extremity. BLOOD WORK: Potassium is 4.0, creatinine 1.02, glucose is 101. White count from today is pending, but the hemoglobin was 6.9 and 20.6 before blood transfusion. BMP from today is pending. Creatine kinase was 211. BNP was 406. INR went down to 3.70 yesterday, the one from today is pending. Digoxin is 0.55. Stool guaiac came back positive. Chest x-ray on admission showed no acute abnormalities. GI bleed scan showed there is no scan evidence of active GI bleeding at this time. ASSESSMENT: 1. Rectal bleeding secondary to coagulopathy. 2. Coagulopathy secondary to Coumadin. 3. History of chronic atrial fibrillation. 4. Hypertension. 5. Acute anemia secondary to rectal bleeding. 6. Rhabdomyolysis. 7. Diabetes type 2. PLAN: At present time is to continue to monitor hemoglobin and hematocrit, transfuse patient as needed. She already received fresh frozen plasma. Continue to monitor INR. Upon discharge, this patient is going to need help by her probably family member to remember how to take her medications and not to take double doses or forget to take her medications. All this was discussed with patient. All questions were answered to satisfaction. The overall prognosis of the patient remains guarded. Job#: [id number]
--- NOTE | 2018-04-22 10:21 | NUR ---
2nd call placed to Dr. Jha at this time. Addendum: 04/22/18 at 1023 by Ana Murillo RN Awaiting call back from bonsai tender, Dr. Schultz.
--- NOTE | 2018-04-22 11:50 | NUR ---
Call back rec'd from Dr. Teresa Chavez. Orders rec'd.
[2018-04-22] MEDS ORDERED: ACETAMINOPHEN 325 MG TAB PO STA (11:57)
[2018-04-22] MEDS ORDERED: SODIUM CHLORIDE 0.9% 250ML 250 ML IV ONE ×2 (13:00→18:30)
--- NOTE | 2018-04-22 14:55 | NUR ---
WOUND CARE CONSULT - INITIAL EVALUATION - Patient admitted from home to ER for Lower GI Bleed, Nausea and Vomiting. Coumadin requiring further control. -DX: LGI BLEED, Anemia -HX: CAD, CHF, HTN< DM type 2. - Pt is NPO - Pending GI Studies for Bleed. LABS: WBC9.65 HGB6.9 HCT20.6 NEUT%67.4 ALB3.3 QYD192 WC CONSULTED FOR POSSIBLE PRESSURE ULCER STAGE 1 to SACRUM/ GLUTEAL VISIT: - Patient in bed, calm and in good spirits. AAOX4 - Denies wounds - Bruising noted throughout different parts body. - Left Gluteal Bruise. Not in a bony area. Patient Ambulates with walker/ cane. - No Redness noted to sacral area. - No Redness to bilateral heels. - Able to turn self - States to get out of bed with assistance from staff to bedside commode for toileting. - Aníbal Score 18 - Patient on Alt- Pressure Mattress. - Okay to keep on at this time since pt is frail and easily bruises. IMPRESSION: No Pressure Ulcers Identified No Rash Noted No Wounds noted. RECOMMENDATION: - Continue Alternating Air Mattress. - Shear Friction Precautions. Thank you for consulting with Wound Care. Addendum: 04/22/18 at 1508 by Jose C Emery RN Amended: Links added.
--- NOTE | 2018-04-22 17:55 | NUR ---
Dr. Ihsan ro. Orders rec'd.
[2018-04-22] MEDS ORDERED: FUROSEMIDE INJ 10 MG/ML 2 ML VIAL IV PRN (18:30)
--- NOTE | 2018-04-22 18:30 | NUR ---
DaughterMarleen called and updated on POC. [phone]
[2018-04-22] MEDS ORDERED: PHYTONADIONE 10 MG/ML AMP IV ONE (18:45)
--- NOTE | 2018-04-22 18:52 | NUR ---
Handoff report and walking rounds with incoming night warehouse manager nurse. Pt stable at this time, infusing 2nd unit of blood. Son at bedside. Call light in reach.
[2018-04-22] MEDS: ATORVASTATIN 20 MG TAB PO SCH (20:37)
[2018-04-22] MEDS: SIMVASTATIN 40 MG TAB PO SCH (20:37)
[2018-04-22] MEDS: DONEPEZIL HCL 5 MG TAB PO SCH (20:37)
[2018-04-22] MEDS ORDERED: SIMVASTATIN 40 MG TAB PO SCH (21:00)
[2018-04-22] MEDS: FUROSEMIDE INJ 10 MG/ML 2 ML VIAL IV PRN (21:15)
--- NOTE | 2018-04-22 22:20 | NUR ---
Transfusing 3 of 3 units of blood at this time as order.
[2018-04-23] VITALS (9 sets, daily range): BP systolic 114–131; BP diastolic 40–76
--- NOTE | 2018-04-23 00:02 | Progress Note ---
DATE: April 22, 2018 CARDIOLOGY PROGRESS NOTE SUBJECTIVE: No major events overnight. OBJECTIVE VITAL SIGNS: Temperature 97.6, pulse 85, respiratory rate 16, blood pressure 107/87, and satting 100% on room air. GENERAL: Elderly, frail, chronically ill appearing. CARDIOVASCULAR: Irregular rhythm. Systolic murmur. Palpable carotid pulses. Palpable radial pulses. LUNGS: Clear to auscultation. No respiratory distress. ABDOMEN: Soft, nontender, and nondistended. NEURO AND PSYCH: Alert and oriented to person, place, and time. Normal affect. CARDIOVASCULAR MEDICATIONS: Reviewed. LABORATORY DATA: Reviewed. ASSESSMENT 1. Atrial fibrillation, off anticoagulation. 2. Gastrointestinal bleeding with supratherapeutic international normalized ratio. RECOMMENDATIONS 1. INR has now been reversed with FFP and vitamin K. No further anticoagulation. 2. Rate control with beta geovanna. 3. Will refer her for left atrial appendage closure as an outpatient once acute issues resolve. 4. Transfuse as needed. Job#: [id number]
[2018-04-23] MEDS: OCTREOTIDE ACETATE 500 MCG in SODIUM CHLORIDE 0.9% 250ML 249 ML IV SCH ×4 (00:39→23:22)
[2018-04-23] MEDS: PANTOPRAZOLE INJ 40 MG in SODIUM CHLORIDE 0.9% 50ML 50 ML IV SCH ×5 (00:39→20:32)
[2018-04-23] MEDS: FUROSEMIDE INJ 10 MG/ML 2 ML VIAL IV PRN (01:43)
[2018-04-23] MEDS ORDERED: PEG (High)/E-LYTE SOLN 4,000 ML BTL PO ONE (05:00)
[2018-04-23 05:32] LABS: BASOPHILS # (AUTO) 0.1 (0.0-0.1); BASOPHILS % 0.7 % (0.0-1.0); EOSINOPHILS # (AUTO) 0.1 (0.0-0.4); HEMATOCRIT 32.8 % (34.2-44.1); HEMOGLOBIN 10.8 g/dL (12.0-16.0); LYMPHOCYTES # (AUTO) 2.2 (1.0-3.2); LYMPHOCYTES % 20.1 % (18.0-39.1); MEAN CORPUSCULAR HEMOGLOBIN 30.3 pg (28-32); MEAN CORPUSCULAR HGB CONC 32.9 g/dL (31-35); MEAN CORPUSCULAR VOLUME 92.1 fL (81-99); MONOCYTES # (AUTO) 1.1 (0.2-0.8); MONOCYTES % 9.7 % (4.4-11.3); NEUTROPHILS # (AUTO) 7.4 (2.1-6.9); NEUTROPHILS % 67.2 % (38.7-80.0); PLATELET COUNT 227 x10e3/uL (140-360); RED BLOOD COUNT 3.56 x10e6/uL (3.6-5.1); RED CELL DISTRIBUTION WIDTH 15.9 % (11.7-14.4)
[2018-04-23 05:58] LABS: INR 1.14; PROTHROMBIN TIME 15.6 seconds (11.9-14.5)
[2018-04-23 06:11] LABS: ANION GAP 16.6 mmol/L (8-16); CALCIUM 8.9 mg/dL (8.4-10.2); CREATININE, SERUM 0.94 mg/dL (0.57-1.11); POTASSIUM 3.6 mmol/L (3.5-5.1)
[2018-04-23] MEDS ORDERED: CITRATE OF MAGNESIA 300ML BOTTLE PO STA (08:13)
[2018-04-23] MEDS ORDERED: BISACODYL 5 MG TAB EC PO ONE ×3 (08:15→09:15)
[2018-04-23] MEDS: MEMANTINE 10 MG TAB PO SCH (08:28)
[2018-04-23] MEDS: PANTOPRAZOLE SOD 40 MG TABEC PO SCH (08:28)
[2018-04-23] MEDS: BUPROPION HCL 75 MG TAB PO SCH (08:28)
[2018-04-23] MEDS: FUROSEMIDE 40 MG TAB PO SCH (08:28)
[2018-04-23] MEDS: ALLOPURINOL 100 MG TAB PO SCH ×2 (08:28→16:52)
[2018-04-23] MEDS: ISOSORBIDE MONONITRATE 30 MG TAB CR PO SCH (08:28)
[2018-04-23] MEDS: DIGOXIN 0.125 MG TAB PO SCH (08:42)
[2018-04-23] MEDS: METOPROLOL SUCCINATE 50 MG TAB XL PO SCH (08:43)
[2018-04-23] MEDS: RANOLAZINE 500 MG TABSR PO SCH ×2 (08:43→16:52)
[2018-04-23] MEDS ORDERED: CITRATE OF MAGNESIA 300ML BOTTLE PO ONE (09:15)
--- NOTE | 2018-04-23 09:33 | Progress Note ---
DATE: April 23, 2018 SUBJECTIVE: Ms. Gomez is 82-year-old female with history of hypertension, diabetes, atrial fibrillation, dementia, came to the emergency room complaining of rectal bleeding and bruising in her arms. INR was every elevated, received fresh frozen plasma and vitamin K. She has been seen by GI, library page, and spiral tube winder. Anticoagulation was stopped. Patient is going to go for EGD and colonoscopy today. PHYSICAL EXAMINATION: GENERAL: She is awake and alert. VITAL SIGNS: Temperature is 98.6, blood pressure 129/66. HEART: Irregularly irregular. LUNGS: Clear to auscultation. ABDOMEN: Soft. BLOOD WORK: Potassium 3.6, creatinine is 0.94, glucose is 91. White count is 11, hemoglobin is 9.8, hematocrit is 32.8, platelets are 223,000. INR is 1.14. ASSESSMENT: 1. Rectal bleeding secondary to coagulopathy. 2. Anemia secondary to rectal bleeding. 3. Coagulopathy secondary to Coumadin. 4. Chronic atrial fibrillation. 5. Hypertension. 6. Diabetes type 2. 7. Dementia. 8. Rhabdomyolysis. PLAN: At present time is to continue to transfuse the patient p.r.n. Continue to monitor hemoglobin and hematocrit. INR today is normal. Patient is going to go for EGD and colonoscopy today. As per spiral tube winder, we are going to stop anticoagulation, control heart rate with beta blockers, and she will need left atrial appendage closure as an outpatient after these acute issues are resolved. All this was discussed with patient. All questions were answered to satisfaction. Job#: [id number]
--- NOTE | 2018-04-23 15:10 | NUR ---
Visit made by the Spiritual Care Department Pastoral Visitor, Janie Costello. PV provided pastoral presence, prayer, hospitality, and supportive listening. Pastoral Visitor informed pt/family of the scope of Drawing Supervisor Services and availability. GERHARD CHAVEZ Concrete Buster Operator Spiritual Care Department O: [phone] Pager: [phone] ([phone] number calling from)
[2018-04-23] MEDS ORDERED: BISACODYL 5 MG TAB EC PO NR ×3 (15:45→16:45)
--- NOTE | 2018-04-23 18:01 | NUR ---
informed dr irwin patient with episode of N/V x1, new orders received
--- NOTE | 2018-04-23 19:16 | Progress Note ---
DATE: April 23, 2018 CARDIOLOGY PROGRESS NOTE SUBJECTIVE: No major events overnight. Reports some dyspepsia and nausea. OBJECTIVE: VITAL SIGNS: Temperature 98.3, pulse 90, respiratory rate 20, blood pressure 131/76, satting 98% on room air. GENERAL: Elderly female, in no acute distress. CARDIOVASCULAR: Irregular rate and rhythm. No murmurs, rubs, or gallops. Palpable carotid pulses. Palpable radial pulses. LUNGS: Diminished breath sounds anteriorly at the bases. ABDOMEN: Obese, soft, nontender, nondistended. NEURO AND PSYCH: Alert and oriented to person, place, and time. Normal affect. INPATIENT MEDICATIONS: Reviewed. LABORATORY DATA: Reviewed, notable for hemoglobin drop down to 6.4 again yesterday, status post blood transfusion, hemoglobin today is 10.8. IMAGING DATA: Reviewed. TELEMETRY DATA: Shows atrial fibrillation, rate controlled. ASSESSMENT AND PLAN: 1. Atrial fibrillation, chronic. 2. Gastrointestinal bleeding due to supratherapeutic INR. RECOMMENDATIONS: INR has now normalized. Patient will be low risk for any GI procedures from a cardiovascular standpoint. Transfuse as needed. No further anticoagulation for atrial fibrillation until patient seen in clinic 2 weeks after discharge. Thank you for this consult. Will continue to follow. Job#: [id number]
[2018-04-23] MEDS: ONDANSETRON HCL INJ 2MG/ML 2ML 2 MG/ML VIAL IV PRN (20:09)
[2018-04-23] MEDS: SIMVASTATIN 40 MG TAB PO SCH (20:32)
[2018-04-23] MEDS: ATORVASTATIN 20 MG TAB PO SCH (20:32)
[2018-04-23] MEDS: DONEPEZIL HCL 5 MG TAB PO SCH (20:32)
[2018-04-23 23:06] LABS: INR 1.06; PROTHROMBIN TIME 14.8 seconds (11.9-14.5)
[2018-04-23 23:07] LABS: PARTIAL THROMBOPLASTIN TIME 30.9 seconds (23.8-35.5)
[2018-04-24] MEDS: PANTOPRAZOLE INJ 40 MG in SODIUM CHLORIDE 0.9% 50ML 50 ML IV SCH ×5 (02:35→20:58)
[2018-04-24 04:00] VITALS: BP 122/65
[2018-04-24] MEDS ORDERED: CITRATE OF MAGNESIA 300ML BOTTLE PO ONE (05:00)
[2018-04-24 05:37] LABS: BASOPHILS # (AUTO) 0.1 (0.0-0.1); BASOPHILS % 0.5 % (0.0-1.0); EOSINOPHILS # (AUTO) 0.1 (0.0-0.4); EOSINOPHILS % 0.8 % (0.0-6.0); HEMOGLOBIN 11.3 g/dL (12.0-16.0); LYMPHOCYTES % 19.5 % (18.0-39.1); MEAN CORPUSCULAR HEMOGLOBIN 30.2 pg (28-32); MEAN CORPUSCULAR HGB CONC 33.2 g/dL (31-35); MEAN CORPUSCULAR VOLUME 90.9 fL (81-99); MONOCYTES # (AUTO) 1.1 (0.2-0.8); MONOCYTES % 10.6 % (4.4-11.3); NEUTROPHILS % 66.7 % (38.7-80.0); PLATELET COUNT 263 x10e3/uL (140-360); RED BLOOD COUNT 3.74 x10e6/uL (3.6-5.1); RED CELL DISTRIBUTION WIDTH 16.6 % (11.7-14.4)
[2018-04-24 05:52] LABS: INR 1.1; PROTHROMBIN TIME 15.2 seconds (11.9-14.5)
[2018-04-24 06:03] LABS: ANION GAP 16.8 mmol/L (8-16); CALCIUM 8.9 mg/dL (8.4-10.2); CREATININE, SERUM 1.23 mg/dL (0.57-1.11)
[2018-04-24 06:06] LABS: POTASSIUM 2.8 mmol/L (3.5-5.1)
--- NOTE | 2018-04-24 06:15 | NUR ---
PAGED DR. ZAPATA FOR K 2.8, AWAITING CALL BACK.
[2018-04-24] MEDS ORDERED: POTASSIUM CHLORIDE 20MEQ/100ML 100 ML IV ONE ×3 (07:00→11:00)
[2018-04-24 08:00] VITALS: BP 130/76
[2018-04-24] MEDS: ONDANSETRON HCL INJ 2MG/ML 2ML 2 MG/ML VIAL IV PRN (08:47)
[2018-04-24] MEDS: ALLOPURINOL 100 MG TAB PO SCH ×2 (08:58→18:39)
[2018-04-24] MEDS: RANOLAZINE 500 MG TABSR PO SCH ×2 (08:58→18:47)
[2018-04-24] MEDS ORDERED: ACETAMINOPHEN 1000 MG/100 ML IV PRN (09:00)
[2018-04-24] MEDS: PANTOPRAZOLE SOD 40 MG TABEC PO SCH (09:00)
[2018-04-24] MEDS: METOPROLOL SUCCINATE 50 MG TAB XL PO SCH (09:00)
[2018-04-24] MEDS ORDERED: MORPHINE SULFATE INJ 4 MG/ML INJ 1ML IV PRN (09:00)
[2018-04-24] MEDS: FUROSEMIDE 40 MG TAB PO SCH (09:00)
--- NOTE | 2018-04-24 09:42 | Progress Note ---
DATE: April 24, 2018 Ms. Gomez is an 82-year-old female with a history of hypertension, diabetes, atrial fibrillation, dementia, came to the emergency room complaining of rectal bleeding and bruising in her arms. INR was very elevated. She received fresh frozen plasma and vitamin K. She is not very sure how she was taking her Coumadin. We are waiting for INR to go down so the patient can go for an EGD and colonoscopy. That is going to be probably today. PHYSICAL EXAMINATION GENERAL: She is awake and alert. VITALS: Temperature is 98.4, blood pressure 122/65. HEART: Irregularly irregular. LUNGS: Clear to auscultation. ABDOMEN: Soft. BLOOD WORK: Potassium is 2.8, creatinine is 1.23. White count 10.4, hemoglobin 11.3, hematocrit 34. INR is 1.1. PTT is 30.9. ASSESSMENT AND PLAN 1. Rectal bleeding secondary to coagulopathy. 2. Anemia secondary to rectal bleeding. 3. Coagulopathy secondary to Coumadin. 4. Chronic atrial fibrillation. 5. Hypertension. 6. Diabetes, type 2. 7. Dementia. 8. Hypokalemia. PLAN: At the present time, is to continue to monitor hemoglobin and hematocrit. Transfuse the patient as needed. We are going to replace her potassium. She is supposed to go for EGD and colonoscopy today. She has been cleared by landcare facilitator. Anticoagulation was stopped. The patient is going to continue on beta blockers. She will need a left atrial appendage closure as an outpatient once these acute problems resolve. All of this was discussed with the patient. All questions were answered to satisfaction. Job#: [id number] LC
[2018-04-24] MEDS: OCTREOTIDE ACETATE 500 MCG in SODIUM CHLORIDE 0.9% 250ML 249 ML IV SCH ×2 (10:46→23:04)
[2018-04-24 13:03] VITALS: BP 130/66
[2018-04-24 14:37] VITALS: BP 144/77
--- NOTE | 2018-04-24 15:02 | NUR ---
Patient transported to endoscopy floor.
--- NOTE | 2018-04-24 16:28 | Operative Report ---
DATE OF PROCEDURE: April 24, 2018 REFERRING PHYSICIAN: Dr. Marce Miller PROCEDURES PERFORMED 1. Esophagogastroduodenoscopy with biopsies. 2. Colonoscopy with polypectomy. INDICATIONS FOR EGD: Upper abdominal pain and nausea. INDICATIONS FOR COLONOSCOPY: Rectal bleeding. MEDICATION: Patient was done under MAC. Please see anesthesiologist's note. PROCEDURE: With the patient in the left lateral decubitus position, the flexible fiberoptic Olympus gastroscope was introduced into the esophagus under direct visualization without any difficulty. There was some patchy erythema noted in the distal esophagus. The scope was then advanced with ease into the stomach traversing a small hiatal hernia. Mucosa overlying the antrum and the body revealed some patchy erythema and low-grade to moderate edema, and biopsies were obtained and sent to stain for H. pylori. Approximately, a 1.5 cm submucosal lesion was noted in the proximal antrum greater curvature and that was biopsied. The pylorus was of normal contour and shape. It was intubated with ease. The scope was advanced all the way to the 2nd portion of the duodenum. The scope was then withdrawn slowly. Mucosa overlying the proximal 2nd portion and the duodenal bulb appeared to be within normal limits. The scope was then withdrawn back into the stomach and retroflexed. Mucosa overlying the fundus and the cardia appeared to be within normal limits. The scope was then straightened out. It was subsequently withdrawn. Patient tolerated the procedure well. IMPRESSION 1. Distal esophagitis, mild. 2. Small hiatal hernia. 3. Gastritis, biopsied. Biopsies sent to stain for Helicobacter pylori. 4. Approximately, 1.5 cm submucosal lesion, proximal antrum greater curvature, biopsied. PLAN: Follow up histology. Initiate Protonix 40 mg 1 p.o. q.a.m. a.c. Patient was then turned around. After adequate lubrication of the anal canal, a flexible fiberoptic Olympus colonoscope was inserted into the rectum with ease and advanced all the way to the cecum. Mucosa overlying the cecum appeared to be within normal limits. The scope was then withdrawn slowly. An approximately 8 mm sessile polyp was noted in the midaspect of the ascending colon. That was removed per snare electrocautery and polypectomy site was hemoclipped. The rest of the ascending and transverse other than for scattered diverticular disease appeared to be within normal limits. One polyp was hot biopsied from the descending colon. Diverticular disease was more prominent in the left colon. Four polyps up to 1.2 cm in size were snared from the sigmoid colon. One polypectomy site was hemoclipped times 2. One polyp was snared from the rectum. The scope was then retroflexed into the distal rectum and hypertrophic anal papillae were noted. The scope was then straightened out. It was subsequently withdrawn. Patient tolerated the procedure well. IMPRESSION 1. Ascending colon polyp, approximately 8 mm in size snared and hemoclipped times 1. 2. Diverticulosis, more prominent in the left colon. 3. Descending colon polyp, hot biopsied. 4. Sigmoid colon polyps times 4 up to 1.2 cm in size and snared and one polypectomy site was hemoclipped times 2. 5. Rectal polyps, snared. 6. Hypertrophic anal papillae. PLAN: Follow up histology. Timing of followup colonoscopy pending pathology report. Job#: [id number] RI cc:MARCE MILLER MD
[2018-04-24] MEDS ORDERED: GLUCAGON FOR INJ 1 MG VIAL ONE (17:28)
[2018-04-24] MEDS ORDERED: PROPOFOL IV EMULSION 10 MG/ML 50 ML VIAL ONE (17:28)
--- NOTE | 2018-04-24 18:05 | Progress Note ---
DATE: April 24, 2018 SUBJECTIVE: No major events overnight. Had GI procedure today. OBJECTIVE VITAL SIGNS: Temperature 98.9, pulse 76, blood pressure 132/79, satting 100% on 2 liters. GENERAL: Elderly white female, in no acute distress. CARDIOVASCULAR: Irregular rate and rhythm. No murmurs, rubs, or gallops. LUNGS: Clear to auscultation bilaterally. Decreased at the bases. ABDOMEN: Soft, nontender, nondistended. NEURO AND PSYCH: Alert and oriented to person, place and time. Normal affect. INPATIENT MEDICATIONS: Reviewed. LABORATORY DATA: Reviewed. IMAGING DATA: Reviewed. TELEMETRY DATA: Reviewed. ASSESSMENTS 1. Atrial fibrillation, chronic. 2. Gastrointestinal bleeding due to subtherapeutic international normalized ratio. RECOMMENDATIONS: Continue holding anticoagulation. Transfuse as needed. Follow up in clinic 2 weeks post discharge. Will refer her for a left atrial appendage closure device as being on long-term anticoagulation is not a good option for her. Job#: [id number] ARON
[2018-04-24] MEDS ORDERED: FENTANYL CITRATE/PF 100MCG/2 ML INJ ONE (18:16)
[2018-04-24] MEDS: DIGOXIN 0.125 MG TAB PO SCH (18:38)
[2018-04-24] MEDS: BUPROPION HCL 75 MG TAB PO SCH (18:39)
[2018-04-24] MEDS: MEMANTINE 10 MG TAB PO SCH (18:39)
[2018-04-24] MEDS: ISOSORBIDE MONONITRATE 30 MG TAB CR PO SCH (18:47)
[2018-04-24 20:00] VITALS: BP 152/59
[2018-04-24] MEDS: SIMVASTATIN 40 MG TAB PO SCH (20:21)
[2018-04-24] MEDS: ATORVASTATIN 20 MG TAB PO SCH (20:21)
[2018-04-24] MEDS: DONEPEZIL HCL 5 MG TAB PO SCH (20:21)
--- NOTE | 2018-04-24 23:02 | NUR ---
patient is awaken, no distress noted, denied any discomfort, bed alarm is on, will continue to monitor.
[2018-04-24 23:25] VITALS: BP 152/59
[2018-04-25] VITALS (7 sets, daily range): BP systolic 88–168; BP diastolic 51–75
[2018-04-25] MEDS: PANTOPRAZOLE INJ 40 MG in SODIUM CHLORIDE 0.9% 50ML 50 ML IV SCH (02:20)
--- NOTE | 2018-04-25 06:33 | NUR ---
patient is resting eyes closed, no distress noted, vitals checked, bed alarm is on. will continue to monitor.
[2018-04-25] MEDS: OCTREOTIDE ACETATE 500 MCG in SODIUM CHLORIDE 0.9% 250ML 249 ML IV SCH (08:00)
[2018-04-25] MEDS: ONDANSETRON HCL INJ 2MG/ML 2ML 2 MG/ML VIAL IV PRN (08:32)
[2018-04-25] MEDS: FUROSEMIDE 40 MG TAB PO SCH (09:00)
--- NOTE | 2018-04-25 09:16 | Progress Note ---
DATE: April 25, 2018 Ms. Gomez is an 82-year-old female with a history of hypertension, diabetes, atrial fibrillation, dementia, came to the emergency room complaining of rectal bleeding and bruising in her arms. She was found to have a very elevated INR. She has received fresh frozen plasma and vitamin K. Patient was also confused how she was taking Coumadin. She has memory problems. Went for EGD and colonoscopy yesterday. She did show some hiatal hernia and gastritis. Colonoscopy showed she had 7 polyps removed. PHYSICAL EXAMINATION GENERAL: Today, she is awake and alert. She is feeling better. She is still nauseated. VITALS: Temperature is 97.6, blood pressure 131/51. HEART: Irregularly irregular. LUNGS: Clear to auscultation. ABDOMEN: Distended and soft. BLOOD WORK: Potassium is 3.7, creatinine is 1.23, glucose is 92. White count 10.4, hemoglobin 11.3, hematocrit 34. ASSESSMENT AND PLAN 1. Rectal bleeding secondary to coagulopathy. 2. Coagulopathy secondary to Coumadin use. 3. Anemia secondary to rectal bleeding, improving. 4. Chronic atrial fibrillation. 5. Hypertension. 6. Diabetes, type 2. 7. Dementia. 8. Hypokalemia, resolved. PLAN: At the present time with this patient is continue to monitor hemoglobin and hematocrit. Start her on heart-healthy diet. Continue PPI. Continue beta blockers. Anticoagulation was stopped. She will need a left atrial appendage closure as an outpatient once she is stable. All of this was discussed with the patient. All questions were answered to satisfaction. We are planning to probably discharge her tomorrow if stable. Job#: [id number] [place]
[2018-04-25] MEDS: RANOLAZINE 500 MG TABSR PO SCH ×2 (10:30→17:28)
[2018-04-25] MEDS: DIGOXIN 0.125 MG TAB PO SCH (10:30)
[2018-04-25] MEDS: METOPROLOL SUCCINATE 50 MG TAB XL PO SCH (10:30)
[2018-04-25] MEDS: BUPROPION HCL 75 MG TAB PO SCH (10:40)
[2018-04-25] MEDS: MEMANTINE 10 MG TAB PO SCH (10:41)
[2018-04-25] MEDS: ALLOPURINOL 100 MG TAB PO SCH ×2 (10:41→17:28)
[2018-04-25] MEDS: ISOSORBIDE MONONITRATE 30 MG TAB CR PO SCH (10:42)
--- NOTE | 2018-04-25 12:49 | Progress Note ---
DATE: April 25, 2018 CARDIOLOGY PROGRESS NOTE SUBJECTIVE: No major events overnight. Had EGD done yesterday. Hemoglobin remains stable. OBJECTIVE VITAL SIGNS: Temperature afebrile, pulse 66, respiratory rate 18, blood pressure 131/51, satting 96% on room air. GENERAL: Elderly female in no acute distress. CARDIOVASCULAR: Irregular rate and rhythm. No murmurs, rubs or gallops. LUNGS: Clear to auscultation. Decreased breath sounds at the bases. ABDOMEN: Soft, nontender, nondistended. Obese. NEURO AND PSYCH: Alert and oriented to person, place, and time. Normal affect. LABORATORY DATA: Reviewed. IMAGING DATA: Reviewed. TELEMETRY DATA: Reviewed. Shows rate-controlled atrial fibrillation. ASSESSMENT AND PLAN 1. Atrial fibrillation, chronic. 2. Gastrointestinal bleeding due to coagulopathy. 3. Coagulopathy secondary to supratherapeutic use of anticoagulant. RECOMMENDATION: Discontinue Coumadin. Follow up in clinic 2 weeks post discharge. Will plan for left atrial appendage closure device as an outpatient. Thank you for this consult. We will continue to follow. Job#: [id number]
[2018-04-25] MEDS ORDERED: ONDANSETRON HCL INJ 2MG/ML 2ML 2 MG/ML VIAL IV PRN (13:15)
--- NOTE | 2018-04-25 15:55 | NUR ---
pt arrived to room via wheel chair, resp even and unlabored pt was accompanied by her family members, no has no c/o pain no c/o SOB when asked, pt oriented to room and call light. call light in reach.
[2018-04-25] MEDS: PANTOPRAZOLE SOD 40 MG TABEC PO SCH (17:29)
--- NOTE | 2018-04-25 19:28 | NUR ---
Patient received asleep in bed. Arousable to tactile stimuli. No signs of pain or respiratory distress. Fall precautions maintained. Call light within reach.
--- NOTE | 2018-04-25 19:33 | NUR ---
report given to oncoming nurse for continued care.
[2018-04-25] MEDS: DONEPEZIL HCL 5 MG TAB PO SCH (20:30)
[2018-04-25] MEDS: ATORVASTATIN 20 MG TAB PO SCH (20:30)
[2018-04-25] MEDS: SIMVASTATIN 40 MG TAB PO SCH (20:30)
[2018-04-26] VITALS: BP 146/65
[2018-04-26 04:00] VITALS: BP 131/60
[2018-04-26 04:17] VITALS: BP 146/65
--- NOTE | 2018-04-26 07:15 | NUR ---
PATIENT SEEN THIS AM IN BED, BEDSIDE ROUNDS COMPLETE. PATIENT LEFT TO SLEEP.
[2018-04-26 08:00] VITALS: BP 134/75
--- NOTE | 2018-04-26 08:16 | NUR ---
PATIENT TRANSFERRED TO [place] [id number] FROM [facility] LAST NIGHT. PATIENT WITH LGI BLEED BUT STABLE. CM SPOKE TO DR. ZAPATA. STATES PATIENT WILL GO HOME WITH NO ANTICOAG PER CARDIOLOGY NOTE. MD TO WRITE DISCHARGE ORDER.
[2018-04-26] MEDS: FUROSEMIDE 40 MG TAB PO SCH (09:00)
--- NOTE | 2018-04-26 09:35 | NUR ---
CASE MANAGEMENT INITIAL ASSESSMENT Doorperson Or Luggage Porter to bedside to discuss plan of care with patient/family. CM/SW role and care transitions discussed. Anticipated discharge plan discussed along with duration of care. CM discussed patients right to make decisions in care. CM/SW work hours given. Patient lives: PATIENT LIVES ON [address] IN [facility] WITH DAUGHTER Admit/Transfer: ED POA/Emergency contact: DAUGHTER- KELTON NEVILLE [phone] Current/Previous Home Health: NO PCP/Follow-up Care: DR. ZAPATA Current/Previous DME: LEW[facility] L[facility] Other Services: NONE AT THIS TIME Employment Status: RETIRED Areas of Concerns: NONE AT THIS TIME Referral Needs: NONE Education Needs: N/A IMM/ADRIAN given and signed (if applicable): IMM Goal for discharge: DISCHARGE HOME INDEPENDENT WITH NO NEEDS CM left business card at the bedside with contact information. Name and number was also written on the patients whiteboard. Patient verbalized understanding of discussion. CM will follow-up with ongoing discharge and transition of care needs.
--- NOTE | 2018-04-26 11:00 | NUR ---
PATIENT GIVEN MEDS THIS AM WITH NO ISSUE, PATIENT COMPLAINS OF MILD NAUSEA, THE PATIENT WANTS TO LEAVE TO GO HOME TO EAT. SHE HAS BEEN GIVEN HER DISCHARGE INSTRUCTIONS AND SHE HAS VERB UNDERSTANDING. A RX FOR PROTONIX WAS GIVEN TO PATIENT.
[2018-04-26] MEDS: ISOSORBIDE MONONITRATE 30 MG TAB CR PO SCH (11:26)
[2018-04-26] MEDS: DIGOXIN 0.125 MG TAB PO SCH (11:27)
[2018-04-26] MEDS: RANOLAZINE 500 MG TABSR PO SCH (11:28)
[2018-04-26] MEDS: MEMANTINE 10 MG TAB PO SCH (11:28)
[2018-04-26] MEDS: PANTOPRAZOLE SOD 40 MG TABEC PO SCH (11:28)
[2018-04-26] MEDS: ALLOPURINOL 100 MG TAB PO SCH (11:29)
[2018-04-26] MEDS: BUPROPION HCL 75 MG TAB PO SCH (11:29)
[2018-04-26] MEDS: METOPROLOL SUCCINATE 50 MG TAB XL PO SCH (11:29)
[2018-04-26 11:54] VITALS: BP 145/64
--- NOTE | 2018-04-26 12:27 | NUR ---
CM SPOKE TO PATIENT AT BEDSIDE REGARDING IMM LETTER. IMM LETTER GIVEN WITH EXPLANATION. ORIGINAL SIGNED AND PLACED IN CHART; COPY OF ORIGINAL DOCUMENT GIVEN TO PATIENT AT BEDSIDE AND PLACED IN CARE TRANSITION FOLDER. CM CONTACT INFORMATION GIVEN TO PATIENT FOR ANY NEEDS OR CONCERNS. PATIENT WITH NO FURTHER QUESTIONS.
[2018-04-26 13:02] VITALS: BP 145/64
--- NOTE | 2018-04-26 13:21 | NUR ---
PATIENTS DAUGHTER HERE TO PICK HER UP FOR DISCHARGE.
--- NOTE | 2018-04-26 13:48 | Discharge Summary ---
Ms. Gomez is an 82-year-old female with a history of hypertension, diabetes, atrial fibrillation, dementia, came to the hospital because of rectal bleeding and bruising in her arms. Her INR was found to be very elevated. She received fresh frozen plasma and vitamin K. She has not been very good about taking her Coumadin because of her memory problems. Had an EGD and a colonoscopy yesterday. EGD showed gastritis and hiatal hernia. On colonoscopy, she had 7 polyps removed. Today, she is doing much better. She is not going to be on any anticoagulation, so the plan is to discharge her home. PHYSICAL EXAMINATION GENERAL: She is awake and alert. VITAL SIGNS: Temperature is 96.4 and blood pressure 134/75. HEART: Irregularly irregular. LUNGS: Clear to auscultation. ABDOMEN: Soft. BLOOD WORK: Potassium 3.7, creatinine 1.23, glucose is 92. White count is 10.4, hemoglobin 11.3, hematocrit 34. DISCHARGE DIAGNOSES 1. Rectal bleeding secondary to coagulopathy. 2. Coagulopathy secondary to Coumadin overuse. 3. Anemia secondary to rectal bleeding, resolving. 4. Chronic atrial fibrillation. 5. Hypertension. 6. Diabetes, type 2. 7. Dementia. PLAN: At the present time, is to discharge the patient home since hemoglobin and hematocrit have been stable. Continue ADA diet. Continue PPIs and beta geovanna. Coumadin is going to be stopped. Patient is going to have to follow up with motor carrier inspector in 2 weeks for left atrial appendage closure as an outpatient. All this was discussed with the patient and nurse. All questions were answered to satisfaction. Please see home medication reconciliation list. She needs followup with me in 1 week. She is to call me or come back to the emergency room if any recurrent problem. Job#: [id number] [place]
--- NOTE | 2018-04-26 13:53 | NUR ---
CM SPOKE TO PATIENT AT BEDSIDE REGARDING PATIENT DISCHARGE PLAN AND HOME HEALTH ORDER. PATIENT INFORMED OF HOME HEALTH SERVICES AND VERBALLY AGREED TO HOME HEALTH SERVICES. PATIENT GIVEN CHOICE AND CHOSE [facility]. CLINICAL SENT TO [facility] AT [phone]. PATIENT DISCHARGING HOME WITH HOME HEALTH SERVICES FROM: [facility] (P) [phone] (F) [phone] PATIENT INFORMED TO CALL CM IF HOME HEALTH COMPANY DOES NOT REACH OUT TO SERVICE MEDICATION EDUCATION. CM GAVE PATIENT CONTACT INFORMATION. Addendum: 04/26/18 at 1357 by Hannah Stockton CM CHOICE LETTER SIGNED AND PLACED IN CHART.
== END 2018-04-26 13:33 | disposition home health service (06) | DRG 813 ==
LOC: ER 12:36 → ERHOLD 14:04 → IMCU 20:48 → MED/SURG2 04-25 13:19
PROVIDERS: ADMIT Internal Medicine; ATTEND Internal Medicine
PROC: 30233K1 Transfusion of Nonautologous Frozen Plasma into Peripheral Vein, Percutaneous Approach (ICD-10-PCS; principal; 2018-04-21)
PROC: 0DDK8ZX Extraction of Ascending Colon, Via Natural or Artificial Opening Endoscopic, Diagnostic (ICD-10-PCS; 2018-04-21)
PROC: 0DDN8ZX Extraction of Sigmoid Colon, Via Natural or Artificial Opening Endoscopic, Diagnostic (ICD-10-PCS; 2018-04-21)
PROC: 0DDP8ZX Extraction of Rectum, Via Natural or Artificial Opening Endoscopic, Diagnostic (ICD-10-PCS; 2018-04-21)
PROC: 0DDM8ZX Extraction of Descending Colon, Via Natural or Artificial Opening Endoscopic, Diagnostic (ICD-10-PCS; 2018-04-21)
PROC: 30233N1 Transfusion of Nonautologous Red Blood Cells into Peripheral Vein, Percutaneous Approach (ICD-10-PCS; 2018-04-21)
PROC: 0DB68ZX Excision of Stomach, Via Natural or Artificial Opening Endoscopic, Diagnostic (ICD-10-PCS; 2018-04-24 14:48)
PROC: 0DB78ZX Excision of Stomach, Pylorus, Via Natural or Artificial Opening Endoscopic, Diagnostic (ICD-10-PCS; 2018-04-24 14:48)
DX: D68.32 Hemorrhagic disorder due to extrinsic circulating anticoagulants (principal); D62 Acute posthemorrhagic anemia; M62.82 Rhabdomyolysis; T45.515A Adverse effect of anticoagulants, initial encounter; Y92.019 Unspecified place in single-family (private) house as the place of occurrence of the external cause; Z79.01 Long term (current) use of anticoagulants; I48.2 Chronic atrial fibrillation; I10 Essential (primary) hypertension; F03.90 Unspecified dementia, unspecified severity, without behavioral disturbance, psychotic disturbance, mood disturbance, and anxiety; K29.70 Gastritis, unspecified, without bleeding
CPT/HCPCS: 36415; 43239; 45378; 45384; 45385; 71045; 78278; 80048; 80053; 80162; 82270; 82550; 82553; 82948; 83880; 84132; 84484; 85014; 85018; 85025; 85610; 85730; 86850; 86900; 86920; 88305; 88312; 93005; 96366; 99284; A9512; J1610; J1940; J2270; J2353; J2405; J3430; J3480; J7050; P9016; P9017

== ENCOUNTER → 2018-08-20 | Day surgery (SDC) | payer MEDICARE ==
[2018-08-16 13:50] LABS: BASOPHILS % 0.4 % (0.0-1.0); EOSINOPHILS # (AUTO) 0.1 (0.0-0.4); HEMATOCRIT 35.2 % (34.2-44.1); HEMOGLOBIN 11.4 g/dL (12.0-16.0); LYMPHOCYTES % 29.1 % (18.0-39.1); MEAN CORPUSCULAR HEMOGLOBIN 31.2 pg (28-32); MEAN CORPUSCULAR HGB CONC 32.4 g/dL (31-35); MEAN CORPUSCULAR VOLUME 96.4 fL (81-99); MONOCYTES # (AUTO) 0.5 (0.2-0.8); NEUTROPHILS # (AUTO) 4.2 (2.1-6.9); NEUTROPHILS % 62.2 % (38.7-80.0); PLATELET COUNT 223 x10e3/uL (140-360); RED BLOOD COUNT 3.65 x10e6/uL (3.6-5.1); RED CELL DISTRIBUTION WIDTH 14.6 % (11.7-14.4)
[2018-08-16 13:53] LABS: INR 1.69; PROTHROMBIN TIME 20.5 seconds (11.9-14.5)
[2018-08-16 14:03] LABS: ALBUMIN 3.4 g/dL (3.5-5.0); ANION GAP 11.6 mmol/L (8-16); CALCIUM 9.3 mg/dL (8.4-10.2); CREATININE, SERUM 0.97 mg/dL (0.57-1.11); POTASSIUM 4.6 mmol/L (3.5-5.1)
[~2018-08-20] VITALS: Ht 157.5 cm; Wt 79.4 kg
[~2018-08-20] MED LIST changes: +ASPIR 8181 MG PO; +BENZOCAINE 20% SPR 60 ML CAN ONE; +FENTANYL CITRATE/PF 100MCG/2 ML INJ ONE; +LIDOCAINE HCL 2% LOCAL INJ 5 ML SDV VIAL INJ ONE; +METOPROLOL PO; +MIDAZOLAM HCL 2 MG/2 ML VIAL ONE; +PLAVIX75 MG PO; +PROPOFOL IV EMULSION 10 MG/ML 20 ML VIAL ONE; +SODIUM CHLORIDE 0.9% 1000ML 1,000 ML ONE; +WARFARIN SODIUM3 MG PO
--- OUTSIDE RECORDS SUMMARY | 2018-08-20 09:15 | XMS REPORT | Continuity of Care Document ---
Author Author [facility] Interface Address Unknown Phone Unavailable Problems Problem Status Onset Date Classification Date Reported Comments Source PREADMIT / WATCHMAN / GA / CHANTEL Active 05/29/2018 [facility] LT HEART CATH / CORONARY STENTS Active 02/01/2018 [facility] a-fib Active Problem 04/26/2018 [facility] Diverticulitis large intestine Active Problem 04/26/2018 [facility] LGI bleed Active Problem 04/26/2018 [facility] Nausea Active Problem 04/26/2018 [facility] SBO Active Problem 04/26/2018 [facility] UTI Active Problem 04/26/2018 [facility] Medications Medication Details Route Status Patient Instructions Ordering Provider Order Date Source Furosemide 40 MG Oral Tablet 40 mg, 1 tab, Route: PO, Drug form: TAB, Daily, Dosing Weight 82.364, kg, Start date: 06/06/18 9:00:00 IN MOLD COATER, Duration: 30 day, Stop date: 07/05/18 9:00:00 CDTNotes: (Same as: Lasix) May cause GI upset. Give with food or milk. Inactive 06/06/2018 [facility] Warfarin 3 mg, Route: PO, Drug form: TAB, Every Other Day, Dosing Weight 82.364, kg, Start date: 06/06/18 9:00:00 IN MOLD COATER, Duration: 30 day, Stop date: 07/04/18 9:00:00 CDT Inactive 06/06/2018 [facility] 24 HR Metoprolol Tartrate 50 MG Extended Release Tablet [Toprol] 50 mg, 1 tab, Route: PO, Drug form: ERTAB, Daily, Start date: 06/06/18 9:00:00 IN MOLD COATER, Duration: 30 day, Stop date: 07/05/18 9:00:00 CDTNotes: (Same as: Toprol XL) May split tab, but do not crush. Inactive 06/06/2018 [facility] Isosorbide 30 mg, 1 tab, Route: PO, Drug form: ERTAB, QAM, Dosing Weight 82.364, kg, Start date: 06/06/18 9:00:00 IN MOLD COATER, Duration: 30 day, Stop date: 07/05/18 9:00:00 CDTNotes: (Same as:Imdur) "Do Not Crush" Take on empty stomach/ full glass of water. Do not crush Inactive 06/06/2018 [facility] Digoxin 0.125 MG Oral Tablet 125 microgram, 1 tab, Route: PO, Drug form: TAB, Daily, Dosing Weight 82.364, kg, Start date: 06/06/18 9:00:00 IN MOLD COATER, Duration: 30 day, Stop date: 07/05/18 9:00:00 CDTNotes: Take on an Empty Stomach (Same as: Lanoxin) Inactive 06/06/2018 [facility] Bupropion 150 mg, 1 tab, Route: PO, Drug form: ERTAB, Daily, Dosing Weight 82.364, kg, Start date: 06/06/18 9:00:00 IN MOLD COATER, Duration: 30 day, Stop date: 07/05/18 9:00:00 CDTNotes: (Do not crush) (Same As: Wellbutrin SR) Inactive 06/06/2018 [facility] Aspirin 81 mg, 1 tab, Route: PO, Drug form: ECTAB, Daily, Dosing Weight 82.364, kg, Start date: 06/06/18 9:00:00 IN MOLD COATER, Duration: 30 day, Stop date: 07/05/18 9:00:00 CDTNotes: Do not crush or chew. (Same As: Ecotrin) Inactive 06/06/2018 [facility] Magnesium Sulfate 2 gm, 50 mL, Route: IVPB, Drug form: INJ, PRN, Dosing Weight 82.364, kg, PRN Abnormal Lab Result, For NON-ICU Patients Only., Start date: 06/06/18 4:36:00 IN MOLD COATER, Duration: 30 day, Stop date: 07/06/18 5:35:00 CDTNotes: WASTE: F/P - Sink; E - Municipal Trash Bin Inactive 06/06/2018 [facility] Magnesium Oxide 800 mg, 2 tab, Route: PO, Drug form: TAB, PRN, Dosing Weight 82.364, kg, PRN Abnormal Lab Result, For NON-ICU Patients Only., Start date: 06/06/18 4:36:00 IN MOLD COATER, Duration: 30 day, Stop date: 07/06/18 5 :35:00 CDTNotes: (Same as: Mag-Ox 400) Magnesium oxide [id number] elemental magnesium Dose=____mg magnesium oxide (___mg elemental magnesium) Inactive 06/06/2018 [facility] Calcium Gluconate 2 gm, 20 mL, Route: IVPB, PRN, Dosing Weight 82.364, kg, PRN Abnormal Lab Result, For NON-ICU Patients Only., Start date: 06/06/18 4:36:00 IN MOLD COATER, Duration: 30 day, Stop date: 07/06/18 5:35:00 CDTNotes: WASTE: F/P - Sink; E - Municipal Trash Bin Inactive 06/06/2018 [facility] potassium phosphate 15 mmol, 5 mL, Route: IVPB, PRN, Dosing Weight 82.364, kg, PRN Abnormal Lab Result, For NON-ICU Patients Only., Start date: 06/06/18 4:36:00 IN MOLD COATER, Duration: 30 day, Stop date: 07/06/18 5:35:00 CDTNotes: (Same as: K Phosphate.) Do not infuse phosphorous concurrently in the same line as TPN or IVF that contains calcium. For double lumen central lines, phosphorous may be infused in a separate lumen from TPN. 1 mMol phoshate has 1.47 mEq potassium Infuse over 4 hours Inactive 06/06/2018 [facility] sodium phosphate 15 mmol, 5 mL, Route: IVPB, PRN, Dosing Weight 82.364, kg, PRN Abnormal Lab Result, For NON-ICU Patients Only., Start date: 06/06/18 4:36:00 IN MOLD COATER, Duration: 30 day, Stop date: 07/06/18 5:35:00 CDTNotes: Infuse over 4 hour. Do not infuse phosphorous concurrently in the same line as TPN or IVF that contains calcium. For double lumen central lines, phosphorous may be infused in a separate lumen from TPN. Inactive 06/06/2018 [facility] potassium phosphate-sodium phosphate 250 mg-280 mg-160 mg oral powder for reconstitution 2 pkt, Route: PO, Drug Form: PDR/REC, Dosing Weight 82.364, kg, PRN, PRN Abnormal Lab Result, For NON-ICU Patients Only, Start date: 06/06/18 4:36:00 IN MOLD COATER, Duration: 30 day, Stop date: 07/06/18 5:35:00 CDTNotes: (Same as: Phos-NaK) Each 1.5 gm pkt has 250mg phosphorous. Mix w/2.5oz water and stir. Inactive 06/06/2018 [facility] Potassium Chloride 20 mEq, 1 tab, Route: PO, Drug form: ERTAB, PRN, Dosing Weight 82.364, kg, PRN Abnormal Lab Result, For NON-ICU Patients Only, Start date: 06/06/18 4:36:00 IN MOLD COATER, Duration: 30 day, Stop date: 07/06/18 5:35:00 CDTNotes: (Same as: K-Dur 20) "Do Not Crush" Give with food and full glass of water For patients unable to swallow tablet, dissolve in one half glass of water. Allow about 2 minutes for the tablets to disintegrate. Stir before giving to prepare slurry and administer. Please exclude Patients with feeding tube less than 14 [place] (Dobhoff, J-tube etc) and pediatric and patients. Inactive 06/06/2018 [facility] Warfarin 6 mg, 2 tab, Route: PO, Drug form: TAB, ONCE, Dosing Weight 82.364, kg, Start date: 06/05/18 23:45:00 IN MOLD COATER, Stop date: 06/05/18 23:45:00 CSTNotes: Nurse to ensure documentation of patient education per a nticoagulation policy. Avoid large intake of vitamin-K containing foods diet. (Same As: Coumadin) WASTE: F/P - P Waste Black; E - P Waste Black No Longer Active 06/06/2018 [facility] Ranexa 500 mg oral tablet, extended release 1,000 mg, 2 tab, Route: PO, Drug form: TAB, BID, Dosing Weight 82.364, kg, Start date: 06/05/18 22:04:00 IN MOLD COATER, Duration: 30 day, Stop date: 07/05/18 17:00:00 CDTNotes: Same as Ranexa "Do Not Crush" No Longer Active 06/06/2018 [facility] Zyloprim 100 mg, 1 tab, Route: PO, Drug form: TAB, BID, Dosing Weight 82.364, kg, Start date: 06/05/18 22:04:00 IN MOLD COATER, Duration: 30 day, Stop date: 07/05/18 17:00:00 CDTNotes: (Same as: Zyloprim) No Longer Active 06/06/2018 [facility] Saline Flush 0.9% 10 ml, Route: IVP, Drug Form: INJ, Dosing Weight 82.364, kg, Q12H, Start date: 06/05/18 21:00:00 IN MOLD COATER, Duration: 30 day, Stop date: 07/05/18 9:00:00 CDTNotes: (Same as: BD Posiflush) No Longer Active 06/06/2018 [facility] Ranexa 1,000 mg, 2 tab, Route: PO, Drug form: TAB, BID, Dosing Weight 82.364, kg, Start date: 06/05/18 17:00:00 IN MOLD COATER, Duration: 30 day, Stop date: 07/05/18 9:00:00 CDTNotes: Same as Ranexa "Do Not Crush" Inactive 06/05/2018 [facility] Allopurinol 100 mg, 1 tab, Route: PO, Drug form: TAB, BID, Dosing Weight 82.364, kg, Start date: 06/05/18 17:00:00 IN MOLD COATER, Duration: 30 day, Stop date: 07/05/18 9:00:00 CDTNotes: (Same as: Zyloprim) Inactive 06/05/2018 [facility] Naloxone 0.4 mg, 1 mL, Route: IVP, Drug form: INJ, Q2MIN, Dosing Weight 82.364, kg, PRN Narcotic Reversal, Start date: 06/05/18 12:23:00 IN MOLD COATER, Duration: 8 doses or times, Stop date: 06/06/18 12:25:00 CSTNotes: Same as Narcan Inactive 06/05/2018 [facility] Flumazenil 0.2 mg, 2 mL, Route: IVP, Drug form: INJ, PRN, Dosing Weight 82.364, kg, PRN Benzodiazepine Reversal, Initial dose, Start date: 06/05/18 12:23:00 IN MOLD COATER, Duration: 1 day, Stop date: 06/06/18 12:25:00 CS TNotes: (Same as: Romazicon) Inactive 06/05/2018 [facility] Ondansetron 4 mg, 2 mL, Route: IVP, Drug form: INJ, ONCE, Dosing Weight 82.364, kg, PRN Nausea & Vomiting, Start date: 06/05/18 12:23:00 CSTNotes: (Same as: Zofran) MEDICATION WASTE Product Size: 4 mg Product Wasted: ___ mg Inactive 06/05/2018 [facility] Saline Flush 0.9% 10 ml, Route: IVP, Drug Form: INJ, Dosing Weight 82.364, kg, PRN, PRN Line Flush, Start date: 06/05/18 12:14:00 IN MOLD COATER, Duration: 30 day, Stop date: 07/05/18 13:13:00 CDTNotes: (Same as: BD Posiflush) No Longer Active 06/05/2018 [facility] DME Rx-external wearable defibrillator Inactive 06/05/2018 [facility] glycopyrrolate (ANES) Route: IV, Drug form: INJ, ONCE, Stop date: 06/05/18 12:11:00 IN MOLD COATER Inactive 06/05/2018 [facility] neostigmine (ANES) Route: IV, Drug form: INJ, ONCE, Stop date: 06/05/18 12:11:00 IN MOLD COATER Inactive 06/05/2018 [facility] ondansetron (ANES) Route: IV, Drug form: INJ, ONCE, Stop date: 06/05/18 12:11:00 IN MOLD COATER Inactive 06/05/2018 [facility] heparin (ANES) Route: IV, Drug form: INJ, ONCE, Stop date: 06/05/18 12:11:00 IN MOLD COATER Inactive 06/05/2018 [facility] protamine (ANES) 10 mg Route: IV, Drug form: INJ, Start date: 06/05/18 12:03:00 IN MOLD COATER, Stop date: 06/05/18 13:03:00 IN MOLD COATER Inactive 06/05/2018 [facility] fentaNYL (ANES) Route: IV, Drug form: INJ, ONCE, Stop date: 06/05/18 11:27:00 IN MOLD COATER Inactive 06/05/2018 [facility] rocuronium (ANES) Route: IV, Drug form: INJ, ONCE, Stop date: 06/05/18 11:27:00 IN MOLD COATER Inactive 06/05/2018 [facility] propofol (ANES) Route: IV, Drug form: INJ, ONCE, Stop date: 06/05/18 11:27:00 IN MOLD COATER Inactive 06/05/2018 [facility] lidocaine (ANES) Route: IV, Drug form: INJ, ONCE, Stop date: 06/05/18 11:22:00 IN MOLD COATER Inactive 06/05/2018 [facility] Sodium Chloride 0.9% IV ([facility]) 1000 mL Route: IV, Total Volume: 1,000, Start date: 06/05/18 10:20:00 IN MOLD COATER, Stop date: 06/05/18 11:20:00 IN MOLD COATER Inactive 06/05/2018 [facility] metoprolol succinate 50 mg oral capsule, extended release 50 mg=1 cap, PO, BID, 0 Refill(s) Active 06/05/2018 [facility] isosorbide mononitrate 30 mg oral tablet, extended release 30 mg=1 tab, PO, QAM, 0 Refill(s) Active 06/05/2018 [facility] warfarin 6 mg oral tablet 6 mg=1 tab, PO, Every Other Day, 0 Refill(s) Active 06/05/2018 [facility] warfarin 3 mg oral tablet 3 mg=1 tab, PO, Every Other Day, 0 Refill(s) Active 06/05/2018 [facility] Aspirin 81 mg, PO, Daily, 0 Refill(s) Active 06/05/2018 [facility] Bupropion 150 mg, PO, Daily, 0 Refill(s) Active 06/05/2018 [facility] allopurinol 100 mg oral tablet 100 mg=1 tab, PO, BID, 0 Refill(s) Active 06/05/2018 [facility] Ranexa 1,000 mg, PO, BID, 0 Refill(s) Active 06/05/2018 [facility] pantoprazole 40 mg oral granule =1 Pack, PO, BID, # 30 ea, 0 Refill(s) Active 06/05/2018 [facility] Furosemide 40 MG Oral Tablet 40 mg=1 tab, PO, Daily, 0 Refill(s) Active 06/05/2018 [facility] Digoxin 0.125 MG Oral Tablet 125 microgram=1 tab, PO, Daily, 0 Refill(s) Active 06/05/2018 [facility] NS 1,000 mL 1,000 mL, Rate: 50 ml/hr, Infuse over: 20 hr, Route: IV, Dosing Weight 82.364 kg, Total Volume: 1,000, Start date: 06/05/18 6:36:00 IN MOLD COATER, Duration: 30 day, Stop date: 07/05/18 6:35:00 CDT, 1.93, m2 No Longer Active 06/05/2018 [facility] Simvastatin 40 Mg Tablet, 40 Mg Oral Today At 9:00PM Active 04/26/2018 [facility] Warfarin Sodium 2.5 Mg Tablet, 2.5 Mg Oral Daily Active 04/26/2018 [facility] Warfarin Sodium 2.5 Mg Tablet, 5 Mg Oral Use As Directed Active 11/24/2017 [facility] Lisinopril 10 Mg Tablet, 20 Mg Oral Daily Active 11/20/2017 [facility] Memantine Hcl (Namenda) 10 Mg Tablet, 10 Mg Oral Daily Active 11/20/2017 [facility] Sotalol Hcl (Sotalol) 80 Mg Tablet, 80 Mg Oral Twice A Day Active 11/20/2017 [facility] Acetaminophen/Diphenhydramine (Ra Acetaminophen Pm Caplet) 1 Each Tablet, 1 Tab Oral Bedtime Active 10/10/2017 [facility] Tramadol Hcl (Ultram 50MG*) 50 Mg Tab, 50 Mg Oral Every 6 Hours as needed for Pain Active 10/10/2017 [facility] Lisinopril/Hydrochlorothiazide (Lisinopril-Hctz 20-25 Mg Tab) 1 Each Tablet, 1 Tab Oral Daily Active 07/28/2016 [facility] Allopurinol 100 Mg Tablet Twice A Day Active [facility] Atorvastatin Calcium 20 Mg Tablet Bedtime Active [facility] Bupropion Hcl 75 Mg Tablet Daily Active [facility] Clopidogrel Bisulfate (Plavix) 75 Mg Tablet Daily Active [facility] Digoxin 125 Mcg Tablet Daily Active [facility] Donepezil Hcl (Aricept) 5 Mg Tablet Bedtime Active [facility] Furosemide 40 Mg Tablet Daily Active [facility] Isosorbide Mononitrate (Isosorbide Mononitrate Er) 30 Mg Tab.er.24h Daily Active [facility] Memantine Hcl (Namenda) 10 Mg Tablet Daily Active [facility] Metoprolol Succinate 50 Mg Tab.er.24h Daily Active [facility] Nitroglycerin (Nitrostat) 0.4 Mg Tab.subl As Needed Active [facility] Ondansetron (Zofran Odt) 4 Mg Tab.rapdis Every 6 Hours as needed for Nausea Active [facility] Pantoprazole Sodium (Protonix) 40 Mg Tablet.dr Daily Active [facility] Ranolazine (Ranexa) 500 Mg Tabsr Twice A Day Active [facility] Allergies, Adverse Reactions, Alerts Substance Category Reaction Severity Reaction type Status Date Reported Comments Source No Known Drug Allergies Unknown Allergy to Substance Active 10/08/2017 [facility] Immunizations Immunization Date Given Site Status Last Updated Comments Source pneumococcal 13-valent vaccine 06/06/2018 Not Given [facility] influenza virus vaccine, inactivated 06/06/2018 Not Given [facility] Results Order Name Results Value Reference Range Date Interpretation Comments Source CHEM PANEL Magnesium Lvl 1.9 mg/dL 1.8 - 2.4 06/06/2018 [facility] CHEM PANEL eGFR 73 mL/min/1.73m2 06/06/2018 Result Comment: The eGFR is calculated using the CKD-EPI formula. In most young, healthy individuals the eGFR will be >90 mL/min/1.73m2. The eGFR declines with age. An eGFR of 60-89 may be normal in some populations, particularly the elderly, for whom the CKD-EPI formula has not been extensively validated. Use of the eGFR is not recommended in the following populations: Individuals with unstable creatinine concentrations, including patients and those with serious co-morbid conditions. Patients with extremes in muscle mass or diet. The data above are obtained from the National Kidney Disease Education Program (NKDEP) which additionally recommends that when the eGFR is used in patients with extremes of body mass index for purposes of drug dosing, the eGFR should be multiplied by the estimated BMI. [facility] CHEM PANEL Calcium Lvl 7.9 mg/dL 8.5 - 10.5 06/06/2018 [facility] CHEM PANEL CO2 25 meq/L 24 - 32 06/06/2018 [facility] CHEM PANEL AGAP 12.7 meq/L 10.0 - 20.0 06/06/2018 [facility] CHEM PANEL Potassium Lvl 3.7 meq/L 3.5 - 5.1 06/06/2018 [facility] CHEM PANEL Chloride Lvl 112 meq/L 95 - 109 06/06/2018 [facility] CHEM PANEL Glucose Lvl 73 mg/dL 70 - 99 06/06/2018 [facility] CHEM PANEL BUN 14 mg/dL 7 - 22 06/06/2018 [facility] CHEM PANEL Creatinine Lvl 0.77 mg/dL 0.50 - 1.40 06/06/2018 [facility] CHEM PANEL Sodium Lvl 146 meq/L 135 - 145 06/06/2018 [facility] CHEM PANEL Phosphorus 3.2 mg/dL 2.5 - 4.5 06/06/2018 [facility] HEMATOLOGY Lymphocytes # 1.5 K/CMM 1.0 - 5.5 06/06/2018 [facility] HEMATOLOGY Monocytes # 0.6 K/CMM 0.0 - 0.8 06/06/2018 [facility] HEMATOLOGY Eosinophils 0.4 % 0.0 - 4.0 06/06/2018 [facility] HEMATOLOGY Basophils 0.4 % 0.0 - 1.0 06/06/2018 [facility] HEMATOLOGY Neutrophils # 4.9 K/CMM 1.5 - 8.1 06/06/2018 [facility] HEMATOLOGY Monocytes 8.0 % 2.0 - 12.0 06/06/2018 [facility] HEMATOLOGY Lymphocytes 21.6 % 20.0 - 40.0 06/06/2018 [facility] HEMATOLOGY Segs 69.6 % 45.0 - 75.0 06/06/2018 [facility] HEMATOLOGY PT 21.5 s 12.0 - 14.7 06/06/2018 [facility] HEMATOLOGY PTT 56.6 s 22.9 - 35.8 06/06/2018 [facility] HEMATOLOGY INR 1.91 0.85 - 1.17 06/06/2018 [facility] HEMATOLOGY Hgb 11.2 g/dL 12.0 - 16.0 06/06/2018 [facility] HEMATOLOGY MPV 9.2 fL 7.4 - 10.4 06/06/2018 [facility] HEMATOLOGY Platelet 260 K/CMM 133 - 450 06/06/2018 [facility] HEMATOLOGY RDW 19.9 % 11.5 - 14.5 06/06/2018 [facility] HEMATOLOGY MCHC 32.8 g/dL 32.0 - 36.0 06/06/2018 [facility] HEMATOLOGY RBC 3.49 M/CMM 4.20 - 5.40 06/06/2018 [facility] HEMATOLOGY WBC 7.0 K/CMM 3.7 - 10.4 06/06/2018 [facility] HEMATOLOGY MCH 32.2 pg 27.0 - 31.0 06/06/2018 [facility] HEMATOLOGY MCV 98.4 fL 80.0 - 98.0 06/06/2018 [facility] HEMATOLOGY Hct 34.3 % 36.0 - 48.0 06/06/2018 [facility] HEMATOLOGY INR 1.83 0.85 - 1.17 06/05/2018 [facility] HEMATOLOGY PT 20.8 s 12.0 - 14.7 06/05/2018 [facility] HEMATOLOGY PTT 61.7 s 22.9 - 35.8 06/05/2018 [facility] BLOOD BANK RESULTS RBC product Product available (06/05/18 6:40 AM) 06/05/2018 [facility] BLOOD BANK RESULTS Antibody Scrn Negative (06/05/18 6:40 AM) 06/05/2018 [facility] BLOOD BANK RESULTS ABO/Rh B POS 06/05/2018 [facility] CHEM PANEL Magnesium Lvl 1.9 mg/dL 1.8 - 2.4 06/05/2018 [facility] CHEM PANEL Phosphorus 3.2 mg/dL 2.5 - 4.5 06/05/2018 [facility] ELECTROLYTES AGAP 12.3 meq/L 10.0 - 20.0 06/05/2018 [facility] ELECTROLYTES Calcium Lvl 8.5 mg/dL 8.5 - 10.5 06/05/2018 [facility] ELECTROLYTES CO2 27 meq/L 24 - 32 06/05/2018 [facility] ELECTROLYTES Chloride Lvl 110 meq/L 95 - 109 06/05/2018 [facility] ELECTROLYTES Potassium Lvl 3.3 meq/L 3.5 - 5.1 06/05/2018 [facility] ELECTROLYTES Sodium Lvl 146 meq/L 135 - 145 06/05/2018 [facility] ELECTROLYTES eGFR 49 mL/min/1.73m2 06/05/2018 Result Comment: The eGFR is calculated using the CKD-EPI formula. In most young, healthy individuals the eGFR will be >90 mL/min/1.73m2. The eGFR declines with age. An eGFR of 60-89 may be normal in some populations, particularly the elderly, for whom the CKD-EPI formula has not been extensively validated. Use of the eGFR is not recommended in the following populations: Individuals with unstable creatinine concentrations, including patients and those with serious co-morbid conditions. Patients with extremes in muscle mass or diet. The data above are obtained from the National Kidney Disease Education Program (NKDEP) which additionally recommends that when the eGFR is used in patients with extremes of body mass index for purposes of drug dosing, the eGFR should be multiplied by the estimated BMI. [facility] ELECTROLYTES Glucose Lvl 93 mg/dL 70 - 99 06/05/2018 [facility] ELECTROLYTES Creatinine Lvl 1.07 mg/dL 0.50 - 1.40 06/05/2018 [facility] ELECTROLYTES BUN 17 mg/dL 7 - 22 06/05/2018 [facility] HEMATOLOGY Eosinophils # 0.1 K/CMM 0.0 - 0.5 06/05/2018 [facility] HEMATOLOGY Lymphocytes # 1.9 K/CMM 1.0 - 5.5 06/05/2018 [facility] HEMATOLOGY Monocytes # 0.6 K/CMM 0.0 - 0.8 06/05/2018 [facility] HEMATOLOGY Eosinophils 0.6 % 0.0 - 4.0 06/05/2018 [facility] HEMATOLOGY Neutrophils # 5.1 K/CMM 1.5 - 8.1 06/05/2018 [facility] HEMATOLOGY Basophils 0.6 % 0.0 - 1.0 06/05/2018 [facility] HEMATOLOGY Monocytes 8.4 % 2.0 - 12.0 06/05/2018 [facility] HEMATOLOGY Segs 66.0 % 45.0 - 75.0 06/05/2018 [facility] HEMATOLOGY Lymphocytes 24.4 % 20.0 - 40.0 06/05/2018 [facility] HEMATOLOGY MCH 32.7 pg 27.0 - 31.0 06/05/2018 [facility] HEMATOLOGY MCV 98.4 fL 80.0 - 98.0 06/05/2018 [facility] HEMATOLOGY MCHC 33.2 g/dL 32.0 - 36.0 06/05/2018 [facility] HEMATOLOGY Hct 36.4 % 36.0 - 48.0 06/05/2018 [facility] HEMATOLOGY Hgb 12.1 g/dL 12.0 - 16.0 06/05/2018 [facility] HEMATOLOGY MPV 9.1 fL 7.4 - 10.4 06/05/2018 [facility] HEMATOLOGY RDW 20.0 % 11.5 - 14.5 06/05/2018 [facility] HEMATOLOGY Platelet 278 K/CMM 133 - 450 06/05/2018 [facility] HEMATOLOGY WBC 7.7 K/CMM 3.7 - 10.4 06/05/2018 [facility] HEMATOLOGY RBC 3.70 M/CMM 4.20 - 5.40 06/05/2018 [facility] Capillary blood glucose measurement by glucometer (mass/volume) 88 70 - 120 04/24/2018 [facility] Serum or plasma potassium measurement (moles/volume) 3.7 3.5 - 5.1 04/24/2018 [facility] Blood leukocytes automated count (number/volume) 10.44 4.8 - 10.8 04/24/2018 [facility] Blood erythrocytes automated count (number/volume) 3.74 3.6 - 5.1 04/24/2018 [facility] Blood hemoglobin measurement (moles/volume) 11.3 12.0 - 16.0 04/24/2018 [facility] Automated blood hematocrit (volume fraction) 34.0 34.2 - 44.1 04/24/2018 [facility] Automated erythrocyte mean corpuscular volume 90.9 81 - 99 04/24/2018 [facility] Automated erythrocyte mean corpuscular hemoglobin (mass per erythrocyte) 30.2 28 - 32 04/24/2018 [facility] Automated erythrocyte mean corpuscular hemoglobin concentration measurement (mass/volume) 33.2 31 - 35 04/24/2018 [facility] RDW BldCo-Rto 16.6 11.7 - 14.4 04/24/2018 [facility] Automated blood platelet count (count/volume) 263 140 - 360 04/24/2018 [facility] Automated blood segmented neutrophil count as percentage of total leukocytes 66.7 38.7 - 80.0 04/24/2018 [facility] Automated blood lymphocyte count as percentage ot total leukocytes 19.5 18.0 - 39.1 04/24/2018 [facility] Automated blood monocyte count as percentage of total leukocytes 10.6 4.4 - 11.3 04/24/2018 [facility] Automated blood eosinophil count as percentage of total leukocytes 0.8 0.0 - 6.0 04/24/2018 [facility] Automated blood basophil count as percentage of total leukocytes 0.5 0.0 - 1.0 04/24/2018 [facility] IM GRANULOCYTES % 1.9 0.0 - 1.0 04/24/2018 [facility] Automated blood neutrophil count 7.0 2.1 - 6.9 04/24/2018 [facility] Blood lymphocytes count (number/volume) 2.0 1.0 - 3.2 04/24/2018 [facility] Blood monocytes automated count (number/volume) 1.1 0.2 - 0.8 04/24/2018 [facility] Automated blood eosinophil count 0.1 0.0 - 0.4 04/24/2018 [facility] Automated blood basophil count (count/volume) 0.1 0.0 - 0.1 04/24/2018 [facility] Absolute Immature Granulocyte (auto 0.20 0 - 0.1 04/24/2018 [facility] Prothrombin time (PT) in platelet poor plasma by coagulation assay 15.2 11.9 - 14.5 04/24/2018 [facility] INR in Platelet poor plasma by Coagulation assay 1.10 04/24/2018 [facility] Serum or plasma sodium measurement (moles/volume) 139 136 - 145 04/24/2018 [facility] Serum or plasma chloride measurement (moles/volume) 104 98 - 107 04/24/2018 [facility] Serum or plasma carbon dioxide, total measurement (moles/volume) 21 22 - 29 04/24/2018 [facility] Serum or plasma anion gap 16.8 8 - 16 04/24/2018 [facility] Serum or plasma urea nitrogen measurement (mass/volume) 31 7 - 26 04/24/2018 [facility] Serum or plasma creatinine measurement (mass/volume) 1.23 0.57 - 1.11 04/24/2018 [facility] Serum or plasma urea nitrogen/creatinine mass ratio 25 6 - 25 04/24/2018 [facility] Estimated glomerular filtration rate (GFR) determination 42 60 04/24/2018 [facility] Glucose measurement 92 74 - 118 04/24/2018 [facility] Serum or plasma calcium measurement (mass/volume) 8.9 8.4 - 10.2 04/24/2018 [facility] Activated partial thromboplastin time (aPTT) in platelet poor plasma bycoagulation assay 30.9 23.8 - 35.5 04/23/2018 [facility] Differential Total Cells Counted 100 04/21/2018 [facility] Manual blood neutrophils/100 leukocytes 75 40 - 74 04/21/2018 [facility] Manual blood band neutrophils form/100 leukocytes 2 04/21/2018 [facility] Manual blood lymphocytes/100 leukocytes 13 19 - 48 04/21/2018 [facility] Manual blood monocytes/100 leukocytes 10 3.4 - 9.0 04/21/2018 [facility] Blood platelets count by estimate (number/volume) SLIGHTLY DECREASED 04/21/2018 [facility] Platelet morphology NORMAL 04/21/2018 [facility] Blood polychromasia detection by light microscopy FEW 04/21/2018 [facility] Blood poikilocytosis detection by light microscopy MODERATE 04/21/2018 [facility] Blood anisocytosis detection by light microscopy F 04/21/2018 [facility] Blood dacrocytes detection by light microscopy FEW 04/21/2018 [facility] Blood ovalocytes detection by light microscopy FEW 04/21/2018 [facility] Elliptocyte detection SLIGHT 04/21/2018 [facility] RBC morphology ABNORMAL 04/21/2018 [facility] Serum or plasma total bilirubin measurement (mass/volume) 1.1 0.2 - 1.2 04/21/2018 [facility] Aspartate Amino Transf (AST/SGOT) 20 5 - 34 04/21/2018 [facility] Serum or plasma alanine aminotransferase measurement (enzymatic activity/volume) 11 0 - 55 04/21/2018 [facility] Serum or plasma protein measurement (mass/volume) 6.4 6.5 - 8.1 04/21/2018 [facility] Serum or plasma albumin measurement (mass/volume) 3.3 3.5 - 5.0 04/21/2018 [facility] Plasma globulin measurement (mass/volume) 3.1 2.3 - 3.5 04/21/2018 [facility] Serum or plasma albumin/globulin mass ratio 1.1 0.8 - 2.0 04/21/2018 [facility] Serum or plasma alkaline phosphatase measurement (enzymatic activity/volume) 74 40 - 150 04/21/2018 [facility] BNP Bld-mCnc 406.0 0 - 100 04/21/2018 [facility] Serum or plasma creatine kinase measurement (enzymatic activity/volume) 211 29 - 168 04/21/2018 [facility] Serum or plasma creatine kinase MB measurement (mass/volume) 2.00 0 - 5.0 04/21/2018 [facility] Troponin I measurement by highly sensitive enzyme immunoassay 0.009 0 - 0.300 04/21/2018 [facility] Serum or plasma digoxin measurement (mass/volume) 0.55 0.8 - 2.0 04/21/2018 [facility] Stool gastrointestinal hemoglobin detection POSITIVE NEGATIVE 04/21/2018 [facility] Activated clotting time at point of care 343 02/07/2018 [facility] Serum or plasma triglyceride measurement (mass/volume) 129 0 - 149 02/06/2018 [facility] Serum or plasma cholesterol measurement (mass/volume) 167 0 - 199 02/06/2018 [facility] Serum or plasma cholesterol in LDL measurement (mass/volume) 82 60 - 130 02/06/2018 [facility] Serum or plasma cholesterol in HDL measurement (mass/volume) 59 40 - 60 02/06/2018 [facility] Serum or plasma total cholesterol/cholesterol in HDL mass ratio 2.8 3.0 - 3.6 02/06/2018 [facility] Manual blood eosinophil count as percentage of total leukocytes 2 0 - 7 11/23/2017 [facility] Blood hypochromia detection by light microscopy SLIGHT 11/23/2017 [facility] Blood macrocytes detection by light microscopy MODERATE 11/23/2017 [facility] Urine color determination JOHN YELLOW 11/20/2017 [facility] Urine clarity CLEAR CLEAR 11/20/2017 [facility] Specific gravity of Urine by Test strip 1.030 1.010 - 1.025 11/20/2017 [facility] Urine pH measurement by automated test strip 6 5 - 7 11/20/2017 [facility] Urine leukocyte esterase detection by dipstick NEGATIVE NEGATIVE 11/20/2017 [facility] Urine nitrite detection NEGATIVE NEGATIVE 11/20/2017 [facility] Urine protein measurement by test strip (mass/volume) TRACE NEGATIVE 11/20/2017 [facility] Urine glucose detection NEGATIVE NEGATIVE 11/20/2017 [facility] Urine ketones detection by automated test strip NEGATIVE NEGATIVE 11/20/2017 [facility] Urine urobilinogen measurement by test strip (mass/volume) 0.2 0.2 - 1 11/20/2017 [facility] Urine total bilirubin measurement (mass/volume) NEGATIVE NEGATIVE 11/20/2017 [facility] Urine erythrocytes detection NEGATIVE NEGATIVE 11/20/2017 [facility] Automated urine sediment leukocyte count by microscopy (number/high power field) NONE 0 - 5 11/20/2017 [facility] Erythrocytes detection in urine sediment by light microscopy NONE 0 - 5 11/20/2017 [facility] Bacteria detection in urine sediment by light microscopy NONE NONE 11/20/2017 [facility] Epithelial cells detection in urine sediment by light microscopy FEW NONE 11/20/2017 [facility] Mucus detection in urine sediment by light microscopy MODERATE RARE 11/20/2017 [facility] Lactic Acid Level 9.2 4.5 - 19.8 11/20/2017 [facility] Blood culture NO GROWTH AFTER 5 DAYS, FINAL REPORT 11/20/2017 [facility] Serum or plasma amylase measurement (enzymatic activity/volume) 79 25 - 125 11/20/2017 [facility] Serum or plasma lipase measurement (enzymatic activity/volume) 29 8 - 78 11/20/2017 [facility] Fibrin D-dimer DDU measurement in platelet poor plasma (mass/volume) 0.26 0.00 - 0.45 10/08/2017 [facility] Free thyroxine index 1.7312 1.4 - 3.8 10/08/2017 [facility] Serum or plasma thyroxine (T4) measurement (mass/volume) 5.40 4.5 - 10.9 10/08/2017 [facility] Serum or plasma triiodothyronine resin uptake (T3RU) 32.06 22.5 - 37.0 10/08/2017 [facility] Serum or plasma thyrotropin measurement by detection limit <=0.005 miu/l (units/volume) 2.476 0.350 - 4.940 10/08/2017 [facility] Transitional cells detection in urine sediment by light microscopy FEW NONE 10/08/2017 [facility] Vital Signs Vital Sign Value Date Comments Source Systolic (mm Hg) 121 06/06/2018 [facility] Diastolic (mm Hg) 70 06/06/2018 [facility] Systolic (mm Hg) 125 06/06/2018 [facility] Diastolic (mm Hg) 77 06/06/2018 [facility] Systolic (mm Hg) 136 06/06/2018 [facility] Diastolic (mm Hg) 78 06/06/2018 [facility] Temperature Oral (F) 98.5 F 06/06/2018 [facility] Temperature Oral (F) 98.8 F 06/06/2018 [facility] Respitory Rate 13 06/06/2018 [facility] Respitory Rate 13 06/06/2018 [facility] Respitory Rate 13 06/06/2018 [facility] Temperature Oral (F) 99.6 F 06/06/2018 [facility] Height 157.48 cm 06/05/2018 [facility] Weight 82.364 06/05/2018 [facility] BMI Calculated 33.21 06/05/2018 [facility] Encounters Location Location Details Encounter Type Encounter Number Reason For Visit Attending Provider ADM Date DC Date Status Source Discharged Inpatient [id number] ULI ZAPATA MD 10/08/2017 10/10/2017 [facility] Discharged Inpatient [id number] ULI ZAPATA MD 11/21/2017 11/24/2017 [facility] Discharged Inpatient (obs) [id number] KEN BAUMANN MD 02/07/2018 02/08/2018 [facility] Discharged Inpatient [id number] ULI ZAPATA MD 04/21/2018 04/26/2018 [facility] Inpatient [id number] Helen Louis 06/05/2018 06/06/2018 [facility] Procedures Procedure Code Date Perfomer Comments Source EGD with biopsy [id number] 04/24/2018 [facility] Colonoscopy with polypectomy [id number] 04/24/2018 [facility] ENDOLUMINL IVUS OCT C 1ST [id number] 02/07/2018 [facility] L HRT ARTERY/VENTRICLE ANGIO [id number] 02/07/2018 [facility] Computed tomography of abdomen and pelvis with contrast [id number] 11/21/2017 [facility] US Gallbladder [id number] 11/20/2017 [facility] X-ray of chest, two views [id number] 10/08/2017 [facility] PCI - Percutaneous coronary intervention [id number] [facility]
--- OUTSIDE RECORDS SUMMARY | 2018-08-20 09:16 | XMS REPORT | Summary of Care ---
Author Author [facility] Organization [facility] Address Unknown Phone Unavailable Encounter VENICE Alfonso(SAYRA) [id number] Date(s): 06/05/18 - 06/06/18 [facility] [address] [employer] provided by [facility] [employer] [facility] [place] [address]- Discharge Disposition: Home or Self Care Attending Physician: Helen Louis MD Admitting Physician: Helen Louis MD Referring Physician: Helen Louis MD Vital Signs 1 2 3 Most recent to oldest [Reference Range]: 157.48 cm (06/05/18 6:35 AM) Height 98.5 DegF (06/06/18 8:00 AM) 98.8 DegF (06/06/18 5:37 AM) 99.6 DegF *HI* (06/05/18 10:30 PM) Temperature Oral [96.4-99.1 DegF] 121/70 mmHg (06/06/18 12:00 PM) 125/77 mmHg (06/06/18 11:00 AM) 136/78 mmHg (06/06/18 10:00 AM) Blood Pressure [90-140/60-90 mmHg] 13 BRMIN *LOW* (06/06/18 4:00 AM) 13 BRMIN *LOW* (06/06/18 3:00 AM) 13 BRMIN *LOW* (06/06/18 2:00 AM) Respiratory Rate [14-20 BRMIN] 82.364 kg (06/05/18 6:35 AM) Weight 33.21 m2 (06/05/18 6:35 AM) Body Mass Index Problem List No data available for this section Allergies, Adverse Reactions, Alerts Substance Reaction Severity Status NKDA Active Medications allopurinol 100 mg, 1 tab, Route: PO, Drug form: TAB, BID, Dosing Weight 82.364, kg, Start d ate: 06/05/18 17:00:00 [employer], Duration: 30 day, Stop date: 07/05/18 9:00:00 CDT Notes: (Same as: Zyloprim) Start Date: 06/05/18 Stop Date: 06/05/18 Status: Deleted allopurinol 100 mg oral tablet 100 mg=1 tab, PO, BID, 0 Refill(s) Start Date: 06/05/18 Status: Ordered ANES flumazenil 0.2 mg, 2 mL, Route: IVP, Drug form: INJ, PRN, Dosing Weight 82.364, kg, PRN Cody zodiazepine Reversal, Initial dose, Start date: 06/05/18 12:23:00 [employer] MILL WORKER, Duration: 1 day, Stop date: 06/06/18 12:25:00 [employer] MILL WORKER Notes: (Same as: Romazicon) Start Date: 06/05/18 Stop Date: 06/05/18 Status: Discontinued ANES naloxone 0.4 mg, 1 mL, Route: IVP, Drug form: INJ, Q2MIN, Dosing Weight 82.364, kg, PRN N arcotic Reversal, Start date: 06/05/18 12:23:00 [employer]IL MILL WORKER, Duration: 8 doses or times, Stop date: 06/06/18 12:25:00 [employer]IL MILL WORKER Notes: Same as Narcan Start Date: 06/05/18 Stop Date: 06/05/18 Status: Discontinued ANES ondansetron 4 mg, 2 mL, Route: IVP, Drug form: INJ, ONCE, Dosing Weight 82.364, kg, PRN Naus ea & Vomiting, Start date: 06/05/18 12:23:00 NAIL MILL WORKER Notes: (Same as: Zofran) MEDICATION WASTE Product Size: 4 mgProduct Was carmen: ___ mg Start Date: 06/05/18 Stop Date: 06/05/18 Status: Discontinued aspirin 81 mg, 1 tab, Route: PO, Drug form: ECTAB, Daily, Dosing Weight 82.364, kg, Star t date: 06/06/18 9:00:00 NA[employer] MILL WORKER, Duration: 30 day, Stop date: 07/05/18 9:00:00 CDT Notes: Do not crush or chew.(Same As: Ecotrin) Start Date: 06/06/18 Stop Date: 06/06/18 Status: Discontinued aspirin 81 mg, PO, Daily, 0 Refill(s) Start Date: 06/05/18 Status: Ordered buPROPion 150 mg, 1 tab, Route: PO, Drug form: ERTAB, Daily, Dosing Weight 82.364, kg, Sta rt date: 06/06/18 9:00:00 NAIL MILL WORKER, Duration: 30 day, Stop date: 07/05/18 9:00:00 CDT Notes: (Do not crush) (Same As: Wellbutrin SR) Start Date: 06/06/18 Stop Date: 06/06/18 Status: Discontinued buPROPion 150 mg, PO, Daily, 0 Refill(s) Start Date: 06/05/18 Status: Ordered calcium gluconate + Sodium Chloride 0.9% IV 100 mL 3 gm, 30 mL, Route: IVPB, PRN, Dosing Weight 82.364, kg, PRN Abnormal Lab Result , For NON-ICU Patients Only., Start date: 06/06/18 4:36:00 NAIL MILL WORKER, Duration: 30 day , Stop date: 07/06/18 5:35:00 CDT Notes: WASTE: F/P - Sink; E - Municipal Trash Bin Start Date: 06/06/18 Stop Date: 06/06/18 Status: Discontinued calcium gluconate + Sodium Chloride 0.9% IV 80 mL 2 gm, 20 mL, Route: IVPB, PRN, Dosing Weight 82.364, kg, PRN Abnormal Lab Result , For NON-ICU Patients Only., Start date: 06/06/18 4:36:00 NAIL MILL WORKER, Duration: 30 day , Stop date: 07/06/18 5:35:00 CDT Notes: WASTE: F/P - Sink; E - Municipal Trash Bin Start Date: 06/06/18 Stop Date: 06/06/18 Status: Discontinued digoxin 125 mcg (0.125 mg) oral tablet 125 microgram=1 tab, PO, Daily, 0 Refill(s) Start Date: 06/05/18 Status: Ordered digoxin 125 mcg (0.125 mg) oral tablet 125 microgram, 1 tab, Route: PO, Drug form: TAB, Daily, Dosing Weight 82.364, kg , Start date: 06/06/18 9:00:00 NA[employer] MILL WORKER, Duration: 30 day, Stop date: 07/05/18 9:00:0 0 CDT Notes: Take on an Empty Stomach (Same as: Lanoxin) Start Date: 06/06/18 Stop Date: 06/06/18 Status: Discontinued DME Rx-external wearable defibrillator Start Date: 06/05/18 Stop Date: 06/05/18 Status: Incomplete fentaNYL (ANES) Route: IV, Drug form: INJ, ONCE, Stop date: 06/05/18 11:27:00 NA[employer] MILL WORKER Start Date: 06/05/18 Stop Date: 06/05/18 Status: Completed furosemide 40 mg oral tablet 40 mg=1 tab, PO, Daily, 0 Refill(s) Start Date: 06/05/18 Status: Ordered furosemide 40 mg oral tablet 40 mg, 1 tab, Route: PO, Drug form: TAB, Daily, Dosing Weight 82.364, kg, Start date: 06/06/18 9:00:00 NAIL MILL WORKER, Duration: 30 day, Stop date: 07/05/18 9:00:00 CDT Notes: (Same as: Lasix) May cause GI upset. Give with food or milk. Start Date: 06/06/18 Stop Date: 06/06/18 Status: Discontinued glycopyrrolate (ANES) Route: IV, Drug form: INJ, ONCE, Stop date: 06/05/18 12:11:00 NA[employer] MILL WORKER Start Date: 06/05/18 Stop Date: 06/05/18 Status: Completed heparin (ANES) Route: IV, Drug form: INJ, ONCE, Stop date: 06/05/18 12:11:00 NAIL MILL WORKER Start Date: 06/05/18 Stop Date: 06/05/18 Status: Completed isosorbide mononitrate 30 mg, 1 tab, Route: PO, Drug form: ERTAB, QAM, Dosing Weight 82.364, kg, Start date: 06/06/18 9:00:00 NAIL MILL WORKER, Duration: 30 day, Stop date: 07/05/18 9:00:00 CDT Notes: (Same as:Imdur)"Do Not Crush" Take on empty stomach/ full glass of water . Do not crush Start Date: 06/06/18 Stop Date: 06/06/18 Status: Discontinued isosorbide mononitrate 30 mg oral tablet, extended release 30 mg=1 tab, PO, QAM, 0 Refill(s) Start Date: 06/05/18 Status: Ordered lidocaine (ANES) Route: IV, Drug form: INJ, ONCE, Stop date: 06/05/18 11:22:00 NAIL MILL WORKER Start Date: 06/05/18 Stop Date: 06/05/18 Status: Completed magnesium oxide 800 mg, 2 tab, Route: PO, Drug form: TAB, PRN, Dosing Weight 82.364, kg, PRN Abn ormal Lab Result, For NON-ICU Patients Only., Start date: 06/06/18 4:36:00 NAIL MILL WORKER, Duration: 30 day, Stop date: 07/06/18 5:35:00 CDT Notes: (Same as: Mag-Ox 400)Magnesium oxide [id number] elemental magnesiumDose= ____mg magnesium oxide (___mg elemental magnesium) Start Date: 06/06/18 Stop Date: 06/06/18 Status: Discontinued magnesium sulfate 2 gm, 50 mL, Route: IVPB, Drug form: INJ, PRN, Dosing Weight 82.364, kg, PRN Abn ormal Lab Result, For NON-ICU Patients Only., Start date: 06/06/18 4:36:00 NAIL MILL WORKER, Duration: 30 day, Stop date: 07/06/18 5:35:00 CDT Notes: WASTE: F/P - Sink; E - Municipal Trash Bin Start Date: 06/06/18 Stop Date: 06/06/18 Status: Discontinued magnesium sulfate 1 gm, 100 mL, Route: IVPB, Drug form: INJ, PRN, Dosing Weight 82.364, kg, PRN Ab normal Lab Result, For NON-ICU Patients Only., Start date: 06/06/18 4:36:00 NAIL MILL WORKER, Duration: 30 day, Stop date: 07/06/18 5:35:00 CDT Notes: WASTE: F/P - Sink; E - Municipal Trash Bin Start Date: 06/06/18 Stop Date: 06/06/18 Status: Discontinued metoprolol succinate 50 mg oral capsule, extended release 50 mg=1 cap, PO, BID, 0 Refill(s) Start Date: 06/05/18 Status: Ordered neostigmine (ANES) Route: IV, Drug form: INJ, ONCE, Stop date: 06/05/18 12:11:00 NAIL MILL WORKER Start Date: 06/05/18 Stop Date: 06/05/18 Status: Completed NS 1,000 mL 1,000 mL, Rate: 50 ml/hr, Infuse over: 20 hr, Route: IV, Dosing Weight 82.364 kg , Total Volume: 1,000, Start date: 06/05/18 6:36:00 NAIL MILL WORKER, Duration: 30 day, Stop date: 07/05/18 6:35:00 CDT, 1.93, m2 Start Date: 06/05/18 Stop Date: 06/06/18 Status: Discontinued ondansetron (ANES) Route: IV, Drug form: INJ, ONCE, Stop date: 06/05/18 12:11:00 NAIL MILL WORKER Start Date: 06/05/18 Stop Date: 06/05/18 Status: Completed pantoprazole 40 mg oral granule =1 Pack, PO, BID, # 30 ea, 0 Refill(s) Start Date: 06/05/18 Status: Ordered potassium chloride 20 mEq, 1 tab, Route: PO, Drug form: ERTAB, PRN, Dosing Weight 82.364, kg, PRN A bnormal Lab Result, For NON-ICU Patients Only, Start date: 06/06/18 4:36:00 NAIL MILL WORKER, Duration: 30 day, Stop date: 07/06/18 5:35:00 CDT Notes: (Same as: K-Dur 20)"Do Not Crush" Give with food and full glass of water For patients unable to swallow tablet, dissolve in one half glass of water. Allo w about 2 minutes for the tablets to disintegrate. Stir before giving to prepare slurry and administer.Please exclude Patients with feeding tube less than 14 [place] (Dobhoff, J-tube etc) and pediatric and patients. Start Date: 06/06/18 Stop Date: 06/06/18 Status: Discontinued potassium chloride 20 mEq, 15 mL, Route: NJ, Drug form: LIQ, PRN, Dosing Weight 82.364, kg, PRN Abn ormal Lab Result, For NON-ICU Patients Only, Start date: 06/06/18 4:36:00 NAIL MILL WORKER, D uration: 30 day, Stop date: 07/06/18 5:35:00 CDT Notes: (Same as: Potassium Chloride) Start Date: 06/06/18 Stop Date: 06/06/18 Status: Discontinued potassium chloride 10 mEq, 50 mL, Route: IVPB, Drug form: INJ, PRN, Dosing Weight 82.364, kg, PRN A bnormal Lab Result, For NON-ICU Patients Only, Start date: 06/06/18 4:36:00 NAIL MILL WORKER, Duration: 30 day, Stop date: 07/06/18 5:35:00 CDT Notes: (Same as: KCL) Infuse over 2 hours. Start Date: 06/06/18 Stop Date: 06/06/18 Status: Discontinued potassium phosphate + Sodium Chloride 0.9% IV 250 mL 15 mmol, 5 mL, Route: IVPB, PRN, Dosing Weight 82.364, kg, PRN Abnormal Lab Resu lt, For NON-ICU Patients Only., Start date: 06/06/18 4:36:00 NAIL MILL WORKER, Duration: 30 d ay, Stop date: 07/06/18 5:35:00 CDT Notes: (Same as: K Phosphate.)Do not infuse phosphorous concurrently in the same line as TPN or IVF that contains calcium. For double lumen central lines, phosp horous may be infused in a separate lumen from TPN. 1 mMol phoshate has 1.47 mE q potassium Infuse over 4 hours Start Date: 06/06/18 Stop Date: 06/06/18 Status: Discontinued potassium phosphate + Sodium Chloride 0.9% IV 250 mL 30 mmol, 10 mL, Route: IVPB, PRN, Dosing Weight 82.364, kg, PRN Abnormal Lab Res ult, For NON-ICU Patients Only., Start date: 06/06/18 4:36:00 NAIL MILL WORKER, Duration: 30 day, Stop date: 07/06/18 5:35:00 CDT Notes: (Same as: K Phosphate.)Do not infuse phosphorous concurrently in the same line as TPN or IVF that contains calcium. For double lumen central lines, phosp horous may be infused in a separate lumen from TPN. 1 mMol phoshate has 1.47 mE q potassium Infuse over 4 hours Start Date: 06/06/18 Stop Date: 06/06/18 Status: Discontinued potassium phosphate-sodium phosphate 250 mg-280 mg-160 mg oral powder for recons titution 2 pkt, Route: PO, Drug Form: PDR/REC, Dosing Weight 82.364, kg, PRN, PRN Abnorma l Lab Result, For NON-ICU Patients Only, Start date: 06/06/18 4:36:00 NAIL MILL WORKER, Durat ion: 30 day, Stop date: 07/06/18 5:35:00 CDT Notes: (Same as: Phos-NaK) Each 1.5 gm pkt has 250mg phosphorous. Mix w/2.5oz w ater and stir. Start Date: 06/06/18 Stop Date: 06/06/18 Status: Discontinued propofol (ANES) Route: IV, Drug form: INJ, ONCE, Stop date: 06/05/18 11:27:00 NAIL MILL WORKER Start Date: 06/05/18 Stop Date: 06/05/18 Status: Completed protamine (ANES) 10 mg Route: IV, Drug form: INJ, Start date: 06/05/18 12:03:00 NAIL MILL WORKER, Stop date: 9 13:03:00 NAIL MILL WORKER Start Date: 06/05/18 Stop Date: 06/05/18 Status: Completed Ranexa 1,000 mg, 2 tab, Route: PO, Drug form: TAB, BID, Dosing Weight 82.364, kg, Start date: 06/05/18 17:00:00 NAIL MILL WORKER, Duration: 30 day, Stop date: 07/05/18 9:00:00 CDT Notes: Same as Ranexa"Do Not Crush" Start Date: 06/05/18 Stop Date: 06/05/18 Status: Deleted Ranexa 1,000 mg, PO, BID, 0 Refill(s) Start Date: 06/05/18 Status: Ordered Ranexa 500 mg oral tablet, extended release 1,000 mg, 2 tab, Route: PO, Drug form: TAB, BID, Dosing Weight 82.364, kg, Start date: 06/05/18 22:04:00 NAIL MILL WORKER, Duration: 30 day, Stop date: 07/05/18 17:00:00 CDT Notes: Same as Ranexa"Do Not Crush" Start Date: 06/05/18 Stop Date: 06/06/18 Status: Discontinued rocuronium (ANES) Route: IV, Drug form: INJ, ONCE, Stop date: 06/05/18 11:27:00 NAIL MILL WORKER Start Date: 06/05/18 Stop Date: 06/05/18 Status: Completed Saline Flush 0.9% 10 ml, Route: IVP, Drug Form: INJ, Dosing Weight 82.364, kg, Q12H, Start date: 0 06/05/18 21:00:00 NAIL MILL WORKER, Duration: 30 day, Stop date: 07/05/18 9:00:00 CDT Notes: (Same as: BD Posiflush) Start Date: 06/05/18 Stop Date: 06/06/18 Status: Discontinued Saline Flush 0.9% 10 ml, Route: IVP, Drug Form: INJ, Dosing Weight 82.364, kg, PRN, PRN Line Flush , Start date: 06/05/18 12:14:00 NAIL MILL WORKER, Duration: 30 day, Stop date: 07/05/18 13:13 :00 CDT Notes: (Same as: BD Posiflush) Start Date: 06/05/18 Stop Date: 06/06/18 Status: Discontinued Sodium Chloride 0.9% IV (ANES) 1000 mL Route: IV, Total Volume: 1,000, Start date: 06/05/18 10:20:00 NAIL MILL WORKER, Stop date: 11:20:00 NAIL MILL WORKER Start Date: 06/05/18 Stop Date: 06/05/18 Status: Completed sodium phosphate + Sodium Chloride 0.9% IV 250 mL 15 mmol, 5 mL, Route: IVPB, PRN, Dosing Weight 82.364, kg, PRN Abnormal Lab Resu lt, For NON-ICU Patients Only., Start date: 06/06/18 4:36:00 NAIL MILL WORKER, Duration: 30 d ay, Stop date: 07/06/18 5:35:00 CDT Notes: Infuse over 4 hour. Do not infuse phosphorous concurrently in the same li ne as TPN or IVF that contains calcium. For double lumen central lines, phosphor ous may be infused in a separate lumen from TPN. Start Date: 06/06/18 Stop Date: 06/06/18 Status: Discontinued sodium phosphate + Sodium Chloride 0.9% IV 250 mL 30 mmol, 10 mL, Route: IVPB, PRN, Dosing Weight 82.364, kg, PRN Abnormal Lab Res ult, For NON-ICU Patients Only., Start date: 06/06/18 4:36:00 NAIL MILL WORKER, Duration: 30 day, Stop date: 07/06/18 5:35:00 CDT Notes: Infuse over 4 hour. Do not infuse phosphorous concurrently in the same li ne as TPN or IVF that contains calcium. For double lumen central lines, phosphor ous may be infused in a separate lumen from TPN. Start Date: 06/06/18 Stop Date: 06/06/18 Status: Discontinued Toprol-XL 50 mg oral tablet, extended release 50 mg, 1 tab, Route: PO, Drug form: ERTAB, Daily, Start date: 06/06/18 9:00:[address], Duration: 30 day, Stop date: 07/05/18 9:00:00 CDT Notes: (Same as: Toprol XL) May split tab, but do not crush. Start Date: 06/06/18 Stop Date: 06/06/18 Status: Discontinued warfarin 6 mg, 2 tab, Route: PO, Drug form: TAB, ONCE, Dosing Weight 82.364, kg, Start da te: 06/05/18 23:45:00 NAIL MILL WORKER, Stop date: 06/05/18 23:45:00 NAIL MILL WORKER Notes: Nurse to ensure documentation of patient education per anticoagulation po licy.Avoid large intake of vitamin-K containing foods diet.(Same As: Coumadin)WA MOOK: F/P - P Waste Black; E - P Waste Black Start Date: 06/05/18 Stop Date: 06/06/18 Status: Completed warfarin 3 mg, Route: PO, Drug form: TAB, Every Other Day, Dosing Weight 82.364, kg, Star t date: 06/06/18 9:00:00 NAIL MILL WORKER, Duration: 30 day, Stop date: 07/04/18 9:00:00 CDT Start Date: 06/06/18 Stop Date: 06/06/18 Status: Discontinued warfarin 3 mg oral tablet 3 mg=1 tab, PO, Every Other Day, 0 Refill(s) Start Date: 06/05/18 Status: Ordered warfarin 6 mg oral tablet 6 mg=1 tab, PO, Every Other Day, 0 Refill(s) Start Date: 06/05/18 Status: Ordered Zyloprim 100 mg, 1 tab, Route: PO, Drug form: TAB, BID, Dosing Weight 82.364, kg, Start d ate: 06/05/18 22:04:00 NAIL MILL WORKER, Duration: 30 day, Stop date: 07/05/18 17:00:00 CDT Notes: (Same as: Zyloprim) Start Date: 06/05/18 Stop Date: 06/06/18 Status: Discontinued Results BLOOD BANK RESULTS Most recent to 1 2 oldest [Reference Range]: ABO/Rh B POS *Unknown* (06/05/18 6:40 AM) Antibody Scrn Negative (06/05/18 6:40 AM) RBC product Product available (06/05/18 6:40 AM) ELECTROLYTES Most recent to 1 2 oldest [Reference Range]: Sodium Lvl [135-145 146 mEq/L 146 mEq/L mEq/L] *HI* *HI* (06/06/18 12:53 AM) (06/05/18 6:40 AM) Potassium Lvl 3.7 mEq/L 3.3 mEq/L [3.5-5.1 mEq/L] (06/06/18 12:53 AM) *LOW* (06/05/18 6:40 AM) Chloride Lvl [95-109 112 mEq/L 110 mEq/L mEq/L] *HI* *HI* (06/06/18 12:53 AM) (06/05/18 6:40 AM) CO2 [24-32 mEq/L] 25 mEq/L 27 mEq/L (06/06/18 12:53 AM) (06/05/18 6:40 AM) AGAP [10.0-20.0 12.7 mEq/L 12.3 mEq/L mEq/L] (06/06/18 12:53 AM) (06/05/18 6:40 AM) CHEM PANEL Most recent to 1 2 oldest [Reference Range]: Creatinine Lvl 0.77 mg/dL 1.07 mg/dL [0.50-1.40 mg/dL] (06/06/18 12:53 AM) (06/05/18 6:40 AM) eGFR 73 mL/min/1.73m2 1 49 mL/min/1.73m2 2 *NA* *NA* (06/06/18 12:53 AM) (06/05/18 6:40 AM) BUN [7-22 mg/dL] 14 mg/dL 17 mg/dL (06/06/18 12:53 AM) (06/05/18 6:40 AM) Glucose Lvl [70-99 73 mg/dL 93 mg/dL mg/dL] (06/06/18 12:53 AM) (06/05/18 6:40 AM) Calcium Lvl 7.9 mg/dL 8.5 mg/dL [8.5-10.5 mg/dL] *LOW* (06/05/18 6:40 AM) (06/06/18 12:53 AM) Phosphorus [2.5-4.5 3.2 mg/dL 3.2 mg/dL mg/dL] (06/06/18 12:53 AM) (06/05/18 6:40 AM) Magnesium Lvl 1.9 mg/dL 1.9 mg/dL [1.8-2.4 mg/dL] (06/06/18 12:53 AM) (06/05/18 6:40 AM) 1Result Comment: The eGFR is calculated using the [...] from the National Kidney Disease Education Program ( NKDEP) which additionally recommends that when the eGFR is used in patients with extremes of body mass index for purposes of drug dosing, the eGFR should be mul tiplied by the estimated BMI. 2Result Comment: The eGFR is calculated using the [...] from the National Kidney Disease Education Program ( NKDEP) which additionally recommends that when the eGFR is used in patients with extremes of body mass index for purposes of drug dosing, the eGFR should be mul tiplied by the estimated BMI. HEMATOLOGY Most recent to 1 2 oldest [Reference Range]: WBC [3.7-10.4 K/CMM] 7.0 K/CMM 7.7 K/CMM (06/06/18 12:53 AM) (06/05/18 6:40 AM) RBC [4.20-5.40 3.49 M/CMM 3.70 M/CMM M/CMM] *LOW* *LOW* (06/06/18 12:53 AM) (06/05/18 6:40 AM) Hgb [12.0-16.0 g/dL] 11.2 g/dL 12.1 g/dL *LOW* (06/05/18 6:40 AM) (06/06/18 12:53 AM) Hct [36.0-48.0 %] 34.3 % 36.4 % *LOW* (06/05/18 6:40 AM) (06/06/18 12:53 AM) MCV [80.0-98.0 fL] 98.4 fL 98.4 fL *HI* *HI* (06/06/18 12:53 AM) (06/05/18 6:40 AM) MCH [27.0-31.0 pg] 32.2 pg 32.7 pg *HI* *HI* (06/06/18 12:53 AM) (06/05/18 6:40 AM) MCHC [32.0-36.0 32.8 g/dL 33.2 g/dL g/dL] (06/06/18 12:53 AM) (06/05/18 6:40 AM) RDW [11.5-14.5 %] 19.9 % 20.0 % *HI* *HI* (06/06/18 12:53 AM) (06/05/18 6:40 AM) MPV [7.4-10.4 fL] 9.2 fL 9.1 fL (06/06/18 12:53 AM) (06/05/18 6:40 AM) Platelet [133-450 260 K/CMM 278 K/CMM K/CMM] (06/06/18 12:53 AM) (06/05/18 6:40 AM) Segs [45.0-75.0 %] 69.6 % 66.0 % (06/06/18 12:53 AM) (06/05/18 6:40 AM) Lymphocytes 21.6 % 24.4 % [20.0-40.0 %] (06/06/18 12:53 AM) (06/05/18 6:40 AM) Monocytes [2.0-12.0 8.0 % 8.4 % %] (06/06/18 12:53 AM) (06/05/18 6:40 AM) Eosinophils [0.0-4.0 0.4 % 0.6 % %] (06/06/18 12:53 AM) (06/05/18 6:40 AM) Basophils [0.0-1.0 0.4 % 0.6 % %] (06/06/18 12:53 AM) (06/05/18 6:40 AM) Neutrophils # 4.9 K/CMM 5.1 K/CMM [1.5-8.1 K/CMM] (06/06/18 12:53 AM) (06/05/18 6:40 AM) Lymphocytes # 1.5 K/CMM 1.9 K/CMM [1.0-5.5 K/CMM] (06/06/18 12:53 AM) (06/05/18 6:40 AM) Monocytes # [0.0-0.8 0.6 K/CMM 0.6 K/CMM K/CMM] (06/06/18 12:53 AM) (06/05/18 6:40 AM) Eosinophils # 0.1 K/CMM [0.0-0.5 K/CMM] (06/05/18 6:40 AM) PT [12.0-14.7 21.5 seconds 20.8 seconds seconds] *HI* *HI* (06/06/18 12:53 AM) (06/05/18 7:33 AM) INR [0.85-1.17] 1.91 1.83 *HI* *HI* (06/06/18 12:53 AM) (06/05/18 7:33 AM) PTT [22.9-35.8 56.6 seconds 61.7 seconds seconds] *HI* *HI* (06/06/18 12:53 AM) (06/05/18 7:33 AM) Immunizations Not Given Vaccine Date Status Refusal Reason pneumococcal 13-valent vaccine 06/06/18 Not Given Patient Refuses influenza virus vaccine, inactivated 06/06/18 Not Given Patient Refuses Procedures Procedure Date Related Diagnosis Body Site Status PCI - Percutaneous coronary intervention Completed Social History Social History Type Response Smoking Status Current some day smoker; Type: Cigarettes; Previous treatment: None; Ready to change: No; Concerns about tobacco use in household: No; Exposure to Tobacco Smoke None; Cigarette Smoking Last 365 Days Yes; Reg Smoking Cessation Counseling No; Number of years: 30; entered on: 06/05/18 Assessment and Plan No data available for this section
[2018-08-20 10:25] VITALS: BP 175/46
--- NOTE | 2018-08-20 12:30 | NUR ---
1155 - pt received for CHANTEL/cardioversion, placed on bedside monitoring. pt positioned for procedure. IV site patent to left AC area , VS wnl, SB (50's) rhythm , anesthesia time out performed 1157 - hurricaine spray (spray 1) to oral cavity by Meng 1202 - hurricaine spray (spray 2) to oral cavity by Meng 1208 - all responsible staff present, Time-out performed 1209 - bite block positioned and CHANTEL probe passed 1215 - CHANTEL probe removed , no gross trauma or distress observed 1223 - pt taken to PACU 20 for further recovery. HOB elevated, side rails up x2, door open, call light at side, bed low and locked
== END | disposition home or self-care (01) ==
LOC: OR 09:08 → EDSTATUS 12:00
PROVIDERS: ATTEND Internal Medicine Interventional Cardiology
DX: I48.0 Paroxysmal atrial fibrillation (principal); I35.8 Other nonrheumatic aortic valve disorders; I25.10 Atherosclerotic heart disease of native coronary artery without angina pectoris; I25.118 Atherosclerotic heart disease of native coronary artery with other forms of angina pectoris; I11.0 Hypertensive heart disease with heart failure; I50.812 Chronic right heart failure; M25.50 Pain in unspecified joint; F17.210 Nicotine dependence, cigarettes, uncomplicated; Z01.812 Encounter for preprocedural laboratory examination; Z79.82 Long term (current) use of aspirin; Z79.01 Long term (current) use of anticoagulants; Z68.32 Body mass index [BMI] 32.0-32.9, adult; Z95.5 Presence of coronary angioplasty implant and graft; Z82.49 Family history of ischemic heart disease and other diseases of the circulatory system
CPT/HCPCS: 36415; 80053; 85025; 85610; 93312; 93320; 93325; J2001; J2250; J2704; J7030

== ENCOUNTER → 2018-08-21 | Outpatient (CLI) | payer MEDICARE ==
[~2018-08-21] MED LIST changes: -BENZOCAINE 20% SPR 60 ML CAN ONE; -FENTANYL CITRATE/PF 100MCG/2 ML INJ ONE; -LIDOCAINE HCL 2% LOCAL INJ 5 ML SDV VIAL INJ ONE; -MIDAZOLAM HCL 2 MG/2 ML VIAL ONE; -PROPOFOL IV EMULSION 10 MG/ML 20 ML VIAL ONE; -SODIUM CHLORIDE 0.9% 1000ML 1,000 ML ONE
--- NOTE | 2018-08-21 10:28 | Diagnostic Imaging Report ---
EXAMINATION: Renal ultrasound. CLINICAL HISTORY :Chronic kidney disease stage IV COMPARISON: CT abdomen and pelvis with contrast 11/21/2017 TECHNIQUE: Grayscale and color Doppler evaluation of the kidneys and bladder was performed in transverse and longitudinal planes. DISCUSSION: RIGHT KIDNEY: The right kidney measures 10.8 cm in length and shows normal echogenicity. Exophytic simple cysts projects from the lower pole and measure 3.4 x 2.9 x 3.1 cm and 4 x 3.9 x 3.2 cm. No hydronephrosis or shadowing calculus. LEFT KIDNEY: The left kidney measures 10 cm in length and shows normal echogenicity. Exophytic cysts projecting from the lower pole and measure 2.3 x 2.1 x 2.7 cm and 10.5 x 5.4 x 9.1 cm. No hydronephrosis or shadowing calculus. BLADDER: Poorly distended. Right ureteral jet is identified. No left ureteral jet is identified likely due to timing of scan acquisition. No post void residual volume could be obtained secondary to inadequate bladder distention. IMPRESSION: Bilateral simple renal cysts, as previously noted on comparison CT. Signed by: Dr. Seamus Cordova M.D. on 08/21/2018 10:25 AM
== END ==
LOC: US 08:19
PROVIDERS: ATTEND Internal Medicine Nephrology
DX: N18.4 Chronic kidney disease, stage 4 (severe) (principal)
CPT/HCPCS: 76770; 76857

== ENCOUNTER 2018-09-25 11:59 | Emergency (ER) | payer MEDICARE ==
[~2018-09-25] VITALS: Ht 157.5 cm; Wt 79.4 kg
--- OUTSIDE RECORDS SUMMARY | 2018-09-25 12:02 | XMS REPORT | Summary of Care ---
Author Author [facility] Organization [facility] Address Unknown Phone Unavailable Encounter [facility] Lgr_[email or web address](FIN) [id number] Date(s): 02/06/18 - 02/06/18 [facility] [address] [place] [address]- Attending Physician: Hamzah Schultz DO Referring Physician: Hamzah Schultz DO Vital Signs No data available for this section Problem List No data available for this section Allergies, Adverse Reactions, Alerts No Known Medication Allergies Medications No data available for this section Results No data available for this section Immunizations Not Given Vaccine Date Status Refusal [...]
--- OUTSIDE RECORDS SUMMARY | 2018-09-25 12:02 | XMS REPORT | Continuity of Care Document ---
Author Author [facility] [employer] [facility] Emergency Department Interface Address Unknown Phone Unavailable Problems Problem Status Onset Date Classification Date Reported Comments Source PREADMIT / WATCHMAN / GA / CHANTEL Active 05/29/2018 [facility] LT HEART CATH / CORONARY STENTS Active 02/01/2018 [facility] a-fib Active Problem 04/26/2018 [facility] Diverticulitis large intestine Active Problem 04/26/2018 [facility] LGI bleed Active Problem 04/26/2018 [facility] Nausea Active Problem 04/26/2018 [facility] SBO Active Problem 04/26/2018 [facility] UTI Active Problem 04/26/2018 [facility] Medications Medication Details Route Status Patient Instructions Ordering Provider Order Date Source Furosemide 40 MG Oral Tablet 40 mg, 1 tab, Route: PO, Drug form: TAB, Daily, Dosing Weight 82.364, kg, Start date: 06/06/18 9:00:00 OFFICE MANAGER EXECUTIVE ASSISTANT, Duration: 30 day, Stop date: 07/05/18 9:00:00 CDTNotes: (Same as: Lasix) May cause GI upset. Give with food or milk. Inactive 06/06/2018 [facility] Warfarin 3 mg, Route: PO, Drug form: TAB, Every Other Day, Dosing Weight 82.364, kg, Start date: 06/06/18 9:00:00 OFFICE MANAGER EXECUTIVE ASSISTANT, Duration: 30 day, Stop date: 07/04/18 9:00:00 CDT Inactive 06/06/2018 [facility] 24 HR Metoprolol Tartrate 50 MG Extended Release Tablet [Toprol] 50 mg, 1 tab, Route: PO, Drug form: ERTAB, Daily, Start date: 06/06/18 9:00:00 OFFICE MANAGER EXECUTIVE ASSISTANT, Duration: 30 day, Stop date: 07/05/18 9:00:00 CDTNotes: (Same as: Toprol XL) May split tab, but do not crush. Inactive 06/06/2018 [facility] Isosorbide 30 mg, 1 tab, Route: PO, Drug form: ERTAB, QAM, Dosing Weight 82.364, kg, Start date: 06/06/18 9:00:00 OFFICE MANAGER EXECUTIVE ASSISTANT, Duration: 30 day, Stop date: 07/05/18 9:00:00 CDTNotes: (Same as:Imdur) "Do Not Crush" Take on empty stomach/ full glass of water. Do not crush Inactive 06/06/2018 [facility] Digoxin 0.125 MG Oral Tablet 125 microgram, 1 tab, Route: PO, Drug form: TAB, Daily, Dosing Weight 82.364, kg, Start date: 06/06/18 9:00:00 OFFICE MANAGER EXECUTIVE ASSISTANT, Duration: 30 day, Stop date: 07/05/18 9:00:00 CDTNotes: Take on an Empty Stomach (Same as: Lanoxin) Inactive 06/06/2018 [facility] Bupropion 150 mg, 1 tab, Route: PO, Drug form: ERTAB, Daily, Dosing Weight 82.364, kg, Start date: 06/06/18 9:00:00 OFFICE MANAGER EXECUTIVE ASSISTANT, Duration: 30 day, Stop date: 07/05/18 9:00:00 CDTNotes: (Do not crush) (Same As: Wellbutrin SR) Inactive 06/06/2018 [facility] Aspirin 81 mg, 1 tab, Route: PO, Drug form: ECTAB, Daily, Dosing Weight 82.364, kg, Start date: 06/06/18 9:00:00 OFFICE MANAGER EXECUTIVE ASSISTANT, Duration: 30 day, Stop date: 07/05/18 9:00:00 CDTNotes: Do not crush or chew. (Same As: Ecotrin) Inactive 06/06/2018 [facility] Magnesium Sulfate 2 gm, 50 mL, Route: IVPB, Drug form: INJ, PRN, Dosing Weight 82.364, kg, PRN Abnormal Lab Result, For NON-ICU Patients Only., Start date: 06/06/18 4:36:00 OFFICE MANAGER EXECUTIVE ASSISTANT, Duration: 30 day, Stop date: 07/06/18 5:35:00 CDTNotes: WASTE: F/P - Sink; E - Municipal Trash Bin Inactive 06/06/2018 [facility] Magnesium Oxide 800 mg, 2 tab, Route: PO, Drug form: TAB, PRN, Dosing Weight 82.364, kg, PRN Abnormal Lab Result, For NON-ICU Patients Only., Start date: 06/06/18 4:36:00 OFFICE MANAGER EXECUTIVE ASSISTANT, Duration: 30 day, Stop date: 07/06/18 5 :35:00 CDTNotes: (Same as: Mag-Ox 400) Magnesium oxide [id number] elemental magnesium Dose=____mg magnesium oxide (___mg elemental magnesium) Inactive 06/06/2018 [facility] Calcium Gluconate 2 gm, 20 mL, Route: IVPB, PRN, Dosing Weight 82.364, kg, PRN Abnormal Lab Result, For NON-ICU Patients Only., Start date: 06/06/18 4:36:00 OFFICE MANAGER EXECUTIVE ASSISTANT, Duration: 30 day, Stop date: 07/06/18 5:35:00 CDTNotes: WASTE: F/P - Sink; E - Municipal Trash Bin Inactive 06/06/2018 [facility] potassium phosphate 15 mmol, 5 mL, Route: IVPB, PRN, Dosing Weight 82.364, kg, PRN Abnormal Lab Result, For NON-ICU Patients Only., Start date: 06/06/18 4:36:00 OFFICE MANAGER EXECUTIVE ASSISTANT, Duration: 30 day, Stop date: 07/06/18 5:35:00 CDTNotes: (Same as: K Phosphate.) Do not infuse phosphorous concurrently in the same line as TPN or IVF that contains calcium. For double lumen central lines, phosphorous may be infused in a separate lumen from TPN. 1 mMol phoshate has 1.47 mEq potassium Infuse over 4 hours Inactive 06/06/2018 [facility] sodium phosphate 15 mmol, 5 mL, Route: IVPB, PRN, Dosing Weight 82.364, kg, PRN Abnormal Lab Result, For NON-ICU Patients Only., Start date: 06/06/18 4:36:00 OFFICE MANAGER EXECUTIVE ASSISTANT, Duration: 30 day, Stop date: 07/06/18 5:35:00 CDTNotes: Infuse over 4 hour. Do not infuse phosphorous concurrently in the same line as TPN or IVF that contains calcium. For double lumen central lines, phosphorous may be infused in a separate lumen from TPN. Inactive 06/06/2018 [facility] potassium phosphate-sodium phosphate 250 mg-280 mg-160 mg oral powder for reconstitution 2 pkt, Route: PO, Drug Form: PDR/REC, Dosing Weight 82.364, kg, PRN, PRN Abnormal Lab Result, For NON-ICU Patients Only, Start date: 06/06/18 4:36:00 OFFICE MANAGER EXECUTIVE ASSISTANT, Duration: 30 day, Stop date: 07/06/18 5:35:00 CDTNotes: (Same as: Phos-NaK) Each 1.5 gm pkt has 250mg phosphorous. Mix w/2.5oz water and stir. Inactive 06/06/2018 [facility] Potassium Chloride 20 mEq, 1 tab, Route: PO, Drug form: ERTAB, PRN, Dosing Weight 82.364, kg, PRN Abnormal Lab Result, For NON-ICU Patients Only, Start date: 06/06/18 4:36:00 OFFICE MANAGER EXECUTIVE ASSISTANT, Duration: 30 day, Stop date: 07/06/18 5:35:00 CDTNotes: (Same as: K-Dur 20) "Do Not Crush" Give with food and full glass of water For patients unable to swallow tablet, dissolve in one half glass of water. Allow about 2 minutes for the tablets to disintegrate. Stir before giving to prepare slurry and administer. Please exclude Patients with feeding tube less than 14 [place] (Dobhoff, J-tube etc) and pediatric and patients. Inactive 06/06/2018 [facility] Warfarin 6 mg, 2 tab, Route: PO, Drug form: TAB, ONCE, Dosing Weight 82.364, kg, Start date: 06/05/18 23:45:00 OFFICE MANAGER EXECUTIVE ASSISTANT, Stop date: 06/05/18 23:45:00 CSTNotes: Nurse to ensure documentation of patient education per a nticoagulation policy. Avoid large intake of vitamin-K containing foods diet. (Same As: Coumadin) WASTE: F/P - P Waste Black; E - P Waste Black No Longer Active 06/06/2018 [facility] Ranexa 500 mg oral tablet, extended release 1,000 mg, 2 tab, Route: PO, Drug form: TAB, BID, Dosing Weight 82.364, kg, Start date: 06/05/18 22:04:00 OFFICE MANAGER EXECUTIVE ASSISTANT, Duration: 30 day, Stop date: 07/05/18 17:00:00 CDTNotes: Same as Ranexa "Do Not Crush" No Longer Active 06/06/2018 [facility] Zyloprim 100 mg, 1 tab, Route: PO, Drug form: TAB, BID, Dosing Weight 82.364, kg, Start date: 06/05/18 22:04:00 OFFICE MANAGER EXECUTIVE ASSISTANT, Duration: 30 day, Stop date: 07/05/18 17:00:00 CDTNotes: (Same as: Zyloprim) No Longer Active 06/06/2018 [facility] Saline Flush 0.9% 10 ml, Route: IVP, Drug Form: INJ, Dosing Weight 82.364, kg, Q12H, Start date: 06/05/18 21:00:00 OFFICE MANAGER EXECUTIVE ASSISTANT, Duration: 30 day, Stop date: 07/05/18 9:00:00 CDTNotes: (Same as: BD Posiflush) No Longer Active 06/06/2018 [facility] Ranexa 1,000 mg, 2 tab, Route: PO, Drug form: TAB, BID, Dosing Weight 82.364, kg, Start date: 06/05/18 17:00:00 OFFICE MANAGER EXECUTIVE ASSISTANT, Duration: 30 day, Stop date: 07/05/18 9:00:00 CDTNotes: Same as Ranexa "Do Not Crush" Inactive 06/05/2018 [facility] Allopurinol 100 mg, 1 tab, Route: PO, Drug form: TAB, BID, Dosing Weight 82.364, kg, Start date: 06/05/18 17:00:00 OFFICE MANAGER EXECUTIVE ASSISTANT, Duration: 30 day, Stop date: 07/05/18 9:00:00 CDTNotes: (Same as: Zyloprim) Inactive 06/05/2018 [facility] Naloxone 0.4 mg, 1 mL, Route: IVP, Drug form: INJ, Q2MIN, Dosing Weight 82.364, kg, PRN Narcotic Reversal, Start date: 06/05/18 12:23:00 OFFICE MANAGER EXECUTIVE ASSISTANT, Duration: 8 doses or times, Stop date: 06/06/18 12:25:00 CSTNotes: Same as Narcan Inactive 06/05/2018 [facility] Flumazenil 0.2 mg, 2 mL, Route: IVP, Drug form: INJ, PRN, Dosing Weight 82.364, kg, PRN Benzodiazepine Reversal, Initial dose, Start date: 06/05/18 12:23:00 OFFICE MANAGER EXECUTIVE ASSISTANT, Duration: 1 day, Stop date: 06/06/18 12:25:00 CS TNotes: (Same as: Romazicon) Inactive 06/05/2018 [facility] Ondansetron 4 mg, 2 mL, Route: IVP, Drug form: INJ, ONCE, Dosing Weight 82.364, kg, PRN Nausea & Vomiting, Start date: 06/05/18 12:23:00 CSTNotes: (Same as: Zofran) MEDICATION WASTE Product Size: 4 mg Product Wasted: ___ mg Inactive 06/05/2018 [facility] Saline Flush 0.9% 10 ml, Route: IVP, Drug Form: INJ, Dosing Weight 82.364, kg, PRN, PRN Line Flush, Start date: 06/05/18 12:14:00 OFFICE MANAGER EXECUTIVE ASSISTANT, Duration: 30 day, Stop date: 07/05/18 13:13:00 CDTNotes: (Same as: BD Posiflush) No Longer Active 06/05/2018 [facility] DME Rx-external wearable defibrillator Inactive 06/05/2018 [facility] glycopyrrolate (ANES) Route: IV, Drug form: INJ, ONCE, Stop date: 06/05/18 12:11:00 OFFICE MANAGER EXECUTIVE ASSISTANT Inactive 06/05/2018 [facility] neostigmine (ANES) Route: IV, Drug form: INJ, ONCE, Stop date: 06/05/18 12:11:00 OFFICE MANAGER EXECUTIVE ASSISTANT Inactive 06/05/2018 [facility] ondansetron (ANES) Route: IV, Drug form: INJ, ONCE, Stop date: 06/05/18 12:11:00 OFFICE MANAGER EXECUTIVE ASSISTANT Inactive 06/05/2018 [facility] heparin (ANES) Route: IV, Drug form: INJ, ONCE, Stop date: 06/05/18 12:11:00 OFFICE MANAGER EXECUTIVE ASSISTANT Inactive 06/05/2018 [facility] protamine (ANES) 10 mg Route: IV, Drug form: INJ, Start date: 06/05/18 12:03:00 OFFICE MANAGER EXECUTIVE ASSISTANT, Stop date: 06/05/18 13:03:00 OFFICE MANAGER EXECUTIVE ASSISTANT Inactive 06/05/2018 [facility] fentaNYL (ANES) Route: IV, Drug form: INJ, ONCE, Stop date: 06/05/18 11:27:00 OFFICE MANAGER EXECUTIVE ASSISTANT Inactive 06/05/2018 [facility] rocuronium (ANES) Route: IV, Drug form: INJ, ONCE, Stop date: 06/05/18 11:27:00 OFFICE MANAGER EXECUTIVE ASSISTANT Inactive 06/05/2018 [facility] propofol (ANES) Route: IV, Drug form: INJ, ONCE, Stop date: 06/05/18 11:27:00 OFFICE MANAGER EXECUTIVE ASSISTANT Inactive 06/05/2018 [facility] lidocaine (ANES) Route: IV, Drug form: INJ, ONCE, Stop date: 06/05/18 11:22:00 OFFICE MANAGER EXECUTIVE ASSISTANT Inactive 06/05/2018 [facility] Sodium Chloride 0.9% IV ([facility]) 1000 mL Route: IV, Total Volume: 1,000, Start date: 06/05/18 10:20:00 OFFICE MANAGER EXECUTIVE ASSISTANT, Stop date: 06/05/18 11:20:00 OFFICE MANAGER EXECUTIVE ASSISTANT Inactive 06/05/2018 [facility] metoprolol succinate 50 mg oral capsule, extended release 50 mg=1 cap, PO, BID, 0 Refill(s) Active 06/05/2018 [facility] isosorbide mononitrate 30 mg oral tablet, extended release 30 mg=1 tab, PO, QAM, 0 Refill(s) Active 06/05/2018 [facility] warfarin 6 mg oral tablet 6 mg=1 tab, PO, Every Other Day, 0 Refill(s) Active 06/05/2018 [facility] warfarin 3 mg oral tablet 3 mg=1 tab, PO, Every Other Day, 0 Refill(s) Active 06/05/2018 [facility] Aspirin 81 mg, PO, Daily, 0 Refill(s) Active 06/05/2018 [facility] Bupropion 150 mg, PO, Daily, 0 Refill(s) Active 06/05/2018 [facility] allopurinol 100 mg oral tablet 100 mg=1 tab, PO, BID, 0 Refill(s) Active 06/05/2018 [facility] Ranexa 1,000 mg, PO, BID, 0 Refill(s) Active 06/05/2018 [facility] pantoprazole 40 mg oral granule =1 Pack, PO, BID, # 30 ea, 0 Refill(s) Active 06/05/2018 [facility] Furosemide 40 MG Oral Tablet 40 mg=1 tab, PO, Daily, 0 Refill(s) Active 06/05/2018 [facility] Digoxin 0.125 MG Oral Tablet 125 microgram=1 tab, PO, Daily, 0 Refill(s) Active 06/05/2018 [facility] NS 1,000 mL 1,000 mL, Rate: 50 ml/hr, Infuse over: 20 hr, Route: IV, Dosing Weight 82.364 kg, Total Volume: 1,000, Start date: 06/05/18 6:36:00 OFFICE MANAGER EXECUTIVE ASSISTANT, Duration: 30 day, Stop date: 07/05/18 6:35:00 CDT, 1.93, m2 No Longer Active 06/05/2018 [facility] Simvastatin 40 Mg Tablet, 40 Mg Oral Today At 9:00PM Active 04/26/2018 [facility] Warfarin Sodium 2.5 Mg Tablet, 2.5 Mg Oral Daily Active 04/26/2018 [facility] Warfarin Sodium 2.5 Mg Tablet, 5 Mg Oral Use As Directed Active 11/24/2017 [facility] Lisinopril 10 Mg Tablet, 20 Mg Oral Daily Active 11/20/2017 [facility] Memantine Hcl (Namenda) 10 Mg Tablet, 10 Mg Oral Daily Active 11/20/2017 [facility] Sotalol Hcl (Sotalol) 80 Mg Tablet, 80 Mg Oral Twice A Day Active 11/20/2017 [facility] Acetaminophen/Diphenhydramine (Ra Acetaminophen Pm Caplet) 1 Each Tablet, 1 Tab Oral Bedtime Active 10/10/2017 [facility] Tramadol Hcl (Ultram 50MG*) 50 Mg Tab, 50 Mg Oral Every 6 Hours as needed for Pain Active 10/10/2017 [facility] Lisinopril/Hydrochlorothiazide (Lisinopril-Hctz 20-25 Mg Tab) 1 Each Tablet, 1 Tab Oral Daily Active 07/28/2016 [facility] Allopurinol 100 Mg Tablet Twice A Day Active [facility] Atorvastatin Calcium 20 Mg Tablet Bedtime Active [facility] Bupropion Hcl 75 Mg Tablet Daily Active [facility] Clopidogrel Bisulfate (Plavix) 75 Mg Tablet Daily Active [facility] Digoxin 125 Mcg Tablet Daily Active [facility] Donepezil Hcl (Aricept) 5 Mg Tablet Bedtime Active [facility] Furosemide 40 Mg Tablet Daily Active [facility] Isosorbide Mononitrate (Isosorbide Mononitrate Er) 30 Mg Tab.er.24h Daily Active [facility] Memantine Hcl (Namenda) 10 Mg Tablet Daily Active [facility] Metoprolol Succinate 50 Mg Tab.er.24h Daily Active [facility] Nitroglycerin (Nitrostat) 0.4 Mg Tab.subl As Needed Active [facility] Ondansetron (Zofran Odt) 4 Mg Tab.rapdis Every 6 Hours as needed for Nausea Active [facility] Pantoprazole Sodium (Protonix) 40 Mg Tablet.dr Daily Active [facility] Ranolazine (Ranexa) 500 Mg Tabsr Twice A Day Active [facility] Allergies, Adverse Reactions, Alerts Substance Category Reaction Severity Reaction type Status Date Reported Comments Source No Known Drug Allergies Unknown Allergy to Substance Active 10/08/2017 [facility] No Known Medication Allergies Assertion Drug allergy [facility] Immunizations Immunization Date Given Site Status Last Updated Comments Source pneumococcal 13-valent vaccine 06/06/2018 Not Given [facility] influenza virus vaccine, inactivated 06/06/2018 Not Given [facility] Results Order Name Results Value Reference Range Date Interpretation Comments Source CHEM PANEL Magnesium Lvl 1.9 mg/dL 1.8 - 2.4 06/06/2018 [facility] CHEM PANEL eGFR 73 mL/min/1.73m2 06/06/2018 Result [...] should be multiplied by the estimated BMI. [facility] CHEM PANEL Calcium Lvl 7.9 mg/dL 8.5 - 10.5 06/06/2018 [facility] CHEM PANEL CO2 25 meq/L 24 - 32 06/06/2018 [facility] CHEM PANEL AGAP 12.7 meq/L 10.0 - 20.0 06/06/2018 [facility] CHEM PANEL Potassium Lvl 3.7 meq/L 3.5 - 5.1 06/06/2018 [facility] CHEM PANEL Chloride Lvl 112 meq/L 95 - 109 06/06/2018 [facility] CHEM PANEL Glucose Lvl 73 mg/dL 70 - 99 06/06/2018 [facility] CHEM PANEL BUN 14 mg/dL 7 - 22 06/06/2018 [facility] CHEM PANEL Creatinine Lvl 0.77 mg/dL 0.50 - 1.40 06/06/2018 [facility] CHEM PANEL Sodium Lvl 146 meq/L 135 - 145 06/06/2018 [facility] CHEM PANEL Phosphorus 3.2 mg/dL 2.5 - 4.5 06/06/2018 [facility] HEMATOLOGY Lymphocytes # 1.5 K/CMM 1.0 - 5.5 06/06/2018 [facility] HEMATOLOGY Monocytes # 0.6 K/CMM 0.0 - 0.8 06/06/2018 [facility] HEMATOLOGY Eosinophils 0.4 % 0.0 - 4.0 06/06/2018 [facility] HEMATOLOGY Basophils 0.4 % 0.0 - 1.0 06/06/2018 [facility] HEMATOLOGY Neutrophils # 4.9 K/CMM 1.5 - 8.1 06/06/2018 [facility] HEMATOLOGY Monocytes 8.0 % 2.0 - 12.0 06/06/2018 [facility] HEMATOLOGY Lymphocytes 21.6 % 20.0 - 40.0 06/06/2018 [facility] HEMATOLOGY Segs 69.6 % 45.0 - 75.0 06/06/2018 [facility] HEMATOLOGY PT 21.5 s 12.0 - 14.7 06/06/2018 [facility] HEMATOLOGY PTT 56.6 s 22.9 - 35.8 06/06/2018 [facility] HEMATOLOGY INR 1.91 0.85 - 1.17 06/06/2018 [facility] HEMATOLOGY Hgb 11.2 g/dL 12.0 - 16.0 06/06/2018 [facility] HEMATOLOGY MPV 9.2 fL 7.4 - 10.4 06/06/2018 [facility] HEMATOLOGY Platelet 260 K/CMM 133 - 450 06/06/2018 [facility] HEMATOLOGY RDW 19.9 % 11.5 - 14.5 06/06/2018 [facility] HEMATOLOGY MCHC 32.8 g/dL 32.0 - 36.0 06/06/2018 [facility] HEMATOLOGY RBC 3.49 M/CMM 4.20 - 5.40 06/06/2018 [facility] HEMATOLOGY WBC 7.0 K/CMM 3.7 - 10.4 06/06/2018 [facility] HEMATOLOGY MCH 32.2 pg 27.0 - 31.0 06/06/2018 [facility] HEMATOLOGY MCV 98.4 fL 80.0 - 98.0 06/06/2018 [facility] HEMATOLOGY Hct 34.3 % 36.0 - 48.0 06/06/2018 [facility] HEMATOLOGY INR 1.83 0.85 - 1.17 06/05/2018 [facility] HEMATOLOGY PT 20.8 s 12.0 - 14.7 06/05/2018 [facility] HEMATOLOGY PTT 61.7 s 22.9 - 35.8 06/05/2018 [facility] BLOOD BANK RESULTS RBC product Product available (06/05/18 6:40 AM) 06/05/2018 [facility] BLOOD BANK RESULTS Antibody Scrn Negative (06/05/18 6:40 AM) 06/05/2018 [facility] BLOOD BANK RESULTS ABO/Rh B POS 06/05/2018 [facility] CHEM PANEL Magnesium Lvl 1.9 mg/dL 1.8 - 2.4 06/05/2018 [facility] CHEM PANEL Phosphorus 3.2 mg/dL 2.5 - 4.5 06/05/2018 [facility] ELECTROLYTES AGAP 12.3 meq/L 10.0 - 20.0 06/05/2018 [facility] ELECTROLYTES Calcium Lvl 8.5 mg/dL 8.5 - 10.5 06/05/2018 [facility] ELECTROLYTES CO2 27 meq/L 24 - 32 06/05/2018 [facility] ELECTROLYTES Chloride Lvl 110 meq/L 95 - 109 06/05/2018 [facility] ELECTROLYTES Potassium Lvl 3.3 meq/L 3.5 - 5.1 06/05/2018 [facility] ELECTROLYTES Sodium Lvl 146 meq/L 135 - 145 06/05/2018 [facility] ELECTROLYTES eGFR 49 mL/min/1.73m2 06/05/2018 Result Comment: [...] should be multiplied by the estimated BMI. [facility] ELECTROLYTES Glucose Lvl 93 mg/dL 70 - 99 06/05/2018 [facility] ELECTROLYTES Creatinine Lvl 1.07 mg/dL 0.50 - 1.40 06/05/2018 [facility] ELECTROLYTES BUN 17 mg/dL 7 - 22 06/05/2018 [facility] HEMATOLOGY Eosinophils # 0.1 K/CMM 0.0 - 0.5 06/05/2018 [facility] HEMATOLOGY Lymphocytes # 1.9 K/CMM 1.0 - 5.5 06/05/2018 [facility] HEMATOLOGY Monocytes # 0.6 K/CMM 0.0 - 0.8 06/05/2018 [facility] HEMATOLOGY Eosinophils 0.6 % 0.0 - 4.0 06/05/2018 [facility] HEMATOLOGY Neutrophils # 5.1 K/CMM 1.5 - 8.1 06/05/2018 [facility] HEMATOLOGY Basophils 0.6 % 0.0 - 1.0 06/05/2018 [facility] HEMATOLOGY Monocytes 8.4 % 2.0 - 12.0 06/05/2018 [facility] HEMATOLOGY Segs 66.0 % 45.0 - 75.0 06/05/2018 [facility] HEMATOLOGY Lymphocytes 24.4 % 20.0 - 40.0 06/05/2018 [facility] HEMATOLOGY MCH 32.7 pg 27.0 - 31.0 06/05/2018 [facility] HEMATOLOGY MCV 98.4 fL 80.0 - 98.0 06/05/2018 [facility] HEMATOLOGY MCHC 33.2 g/dL 32.0 - 36.0 06/05/2018 [facility] HEMATOLOGY Hct 36.4 % 36.0 - 48.0 06/05/2018 [facility] HEMATOLOGY Hgb 12.1 g/dL 12.0 - 16.0 06/05/2018 [facility] HEMATOLOGY MPV 9.1 fL 7.4 - 10.4 06/05/2018 [facility] HEMATOLOGY RDW 20.0 % 11.5 - 14.5 06/05/2018 [facility] HEMATOLOGY Platelet 278 K/CMM 133 - 450 06/05/2018 [facility] HEMATOLOGY WBC 7.7 K/CMM 3.7 - 10.4 06/05/2018 [facility] HEMATOLOGY RBC 3.70 M/CMM 4.20 - 5.40 06/05/2018 [facility] Capillary blood glucose measurement by glucometer (mass/volume) 88 70 - 120 04/24/2018 [facility] Serum or plasma potassium measurement (moles/volume) 3.7 3.5 - 5.1 04/24/2018 [facility] Blood leukocytes automated count (number/volume) 10.44 4.8 - 10.8 04/24/2018 [facility] Blood erythrocytes automated count (number/volume) 3.74 3.6 - 5.1 04/24/2018 [facility] Blood hemoglobin measurement (moles/volume) 11.3 12.0 - 16.0 04/24/2018 [facility] Automated blood hematocrit (volume fraction) 34.0 34.2 - 44.1 04/24/2018 [facility] Automated erythrocyte mean corpuscular volume 90.9 81 - 99 04/24/2018 [facility] Automated erythrocyte mean corpuscular hemoglobin (mass per erythrocyte) 30.2 28 - 32 04/24/2018 [facility] Automated erythrocyte mean corpuscular hemoglobin concentration measurement (mass/volume) 33.2 31 - 35 04/24/2018 [facility] RDW BldCo-Rto 16.6 11.7 - 14.4 04/24/2018 [facility] Automated blood platelet count (count/volume) 263 140 - 360 04/24/2018 [facility] Automated blood segmented neutrophil count as percentage of total leukocytes 66.7 38.7 - 80.0 04/24/2018 [facility] Automated blood lymphocyte count as percentage ot total leukocytes 19.5 18.0 - 39.1 04/24/2018 [facility] Automated blood monocyte count as percentage of total leukocytes 10.6 4.4 - 11.3 04/24/2018 [facility] Automated blood eosinophil count as percentage of total leukocytes 0.8 0.0 - 6.0 04/24/2018 [facility] Automated blood basophil count as percentage of total leukocytes 0.5 0.0 - 1.0 04/24/2018 [facility] IM GRANULOCYTES % 1.9 0.0 - 1.0 04/24/2018 [facility] Automated blood neutrophil count 7.0 2.1 - 6.9 04/24/2018 [facility] Blood lymphocytes count (number/volume) 2.0 1.0 - 3.2 04/24/2018 [facility] Blood monocytes automated count (number/volume) 1.1 0.2 - 0.8 04/24/2018 [facility] Automated blood eosinophil count 0.1 0.0 - 0.4 04/24/2018 [facility] Automated blood basophil count (count/volume) 0.1 0.0 - 0.1 04/24/2018 [facility] Absolute Immature Granulocyte (auto 0.20 0 - 0.1 04/24/2018 [facility] Prothrombin time (PT) in platelet poor plasma by coagulation assay 15.2 11.9 - 14.5 04/24/2018 [facility] INR in Platelet poor plasma by Coagulation assay 1.10 04/24/2018 [facility] Serum or plasma sodium measurement (moles/volume) 139 136 - 145 04/24/2018 [facility] Serum or plasma chloride measurement (moles/volume) 104 98 - 107 04/24/2018 [facility] Serum or plasma carbon dioxide, total measurement (moles/volume) 21 22 - 29 04/24/2018 [facility] Serum or plasma anion gap 16.8 8 - 16 04/24/2018 [facility] Serum or plasma urea nitrogen measurement (mass/volume) 31 7 - 26 04/24/2018 [facility] Serum or plasma creatinine measurement (mass/volume) 1.23 0.57 - 1.11 04/24/2018 [facility] Serum or plasma urea nitrogen/creatinine mass ratio 25 6 - 25 04/24/2018 [facility] Estimated glomerular filtration rate (GFR) determination 42 60 04/24/2018 [facility] Glucose measurement 92 74 - 118 04/24/2018 [facility] Serum or plasma calcium measurement (mass/volume) 8.9 8.4 - 10.2 04/24/2018 [facility] Activated partial thromboplastin time (aPTT) in platelet poor plasma bycoagulation assay 30.9 23.8 - 35.5 04/23/2018 [facility] Differential Total Cells Counted 100 04/21/2018 [facility] Manual blood neutrophils/100 leukocytes 75 40 - 74 04/21/2018 [facility] Manual blood band neutrophils form/100 leukocytes 2 04/21/2018 [facility] Manual blood lymphocytes/100 leukocytes 13 19 - 48 04/21/2018 [facility] Manual blood monocytes/100 leukocytes 10 3.4 - 9.0 04/21/2018 [facility] Blood platelets count by estimate (number/volume) SLIGHTLY DECREASED 04/21/2018 [facility] Platelet morphology NORMAL 04/21/2018 [facility] Blood polychromasia detection by light microscopy FEW 04/21/2018 [facility] Blood poikilocytosis detection by light microscopy MODERATE 04/21/2018 [facility] Blood anisocytosis detection by light microscopy F 04/21/2018 [facility] Blood dacrocytes detection by light microscopy FEW 04/21/2018 [facility] Blood ovalocytes detection by light microscopy FEW 04/21/2018 [facility] Elliptocyte detection SLIGHT 04/21/2018 [facility] RBC morphology ABNORMAL 04/21/2018 [facility] Serum or plasma total bilirubin measurement (mass/volume) 1.1 0.2 - 1.2 04/21/2018 [facility] Aspartate Amino Transf (AST/SGOT) 20 5 - 34 04/21/2018 [facility] Serum or plasma alanine aminotransferase measurement (enzymatic activity/volume) 11 0 - 55 04/21/2018 [facility] Serum or plasma protein measurement (mass/volume) 6.4 6.5 - 8.1 04/21/2018 [facility] Serum or plasma albumin measurement (mass/volume) 3.3 3.5 - 5.0 04/21/2018 [facility] Plasma globulin measurement (mass/volume) 3.1 2.3 - 3.5 04/21/2018 [facility] Serum or plasma albumin/globulin mass ratio 1.1 0.8 - 2.0 04/21/2018 [facility] Serum or plasma alkaline phosphatase measurement (enzymatic activity/volume) 74 40 - 150 04/21/2018 [facility] BNP Bld-mCnc 406.0 0 - 100 04/21/2018 [facility] Serum or plasma creatine kinase measurement (enzymatic activity/volume) 211 29 - 168 04/21/2018 [facility] Serum or plasma creatine kinase MB measurement (mass/volume) 2.00 0 - 5.0 04/21/2018 [facility] Troponin I measurement by highly sensitive enzyme immunoassay 0.009 0 - 0.300 04/21/2018 [facility] Serum or plasma digoxin measurement (mass/volume) 0.55 0.8 - 2.0 04/21/2018 [facility] Stool gastrointestinal hemoglobin detection POSITIVE NEGATIVE 04/21/2018 [facility] Activated clotting time at point of care 343 02/07/2018 [facility] Serum or plasma triglyceride measurement (mass/volume) 129 0 - 149 02/06/2018 [facility] Serum or plasma cholesterol measurement (mass/volume) 167 0 - 199 02/06/2018 [facility] Serum or plasma cholesterol in LDL measurement (mass/volume) 82 60 - 130 02/06/2018 [facility] Serum or plasma cholesterol in HDL measurement (mass/volume) 59 40 - 60 02/06/2018 [facility] Serum or plasma total cholesterol/cholesterol in HDL mass ratio 2.8 3.0 - 3.6 02/06/2018 [facility] Manual blood eosinophil count as percentage of total leukocytes 2 0 - 7 11/23/2017 [facility] Blood hypochromia detection by light microscopy SLIGHT 11/23/2017 [facility] Blood macrocytes detection by light microscopy MODERATE 11/23/2017 [facility] Urine color determination JOHN YELLOW 11/20/2017 [facility] Urine clarity CLEAR CLEAR 11/20/2017 [facility] Specific gravity of Urine by Test strip 1.030 1.010 - 1.025 11/20/2017 [facility] Urine pH measurement by automated test strip 6 5 - 7 11/20/2017 [facility] Urine leukocyte esterase detection by dipstick NEGATIVE NEGATIVE 11/20/2017 [facility] Urine nitrite detection NEGATIVE NEGATIVE 11/20/2017 [facility] Urine protein measurement by test strip (mass/volume) TRACE NEGATIVE 11/20/2017 [facility] Urine glucose detection NEGATIVE NEGATIVE 11/20/2017 [facility] Urine ketones detection by automated test strip NEGATIVE NEGATIVE 11/20/2017 [facility] Urine urobilinogen measurement by test strip (mass/volume) 0.2 0.2 - 1 11/20/2017 [facility] Urine total bilirubin measurement (mass/volume) NEGATIVE NEGATIVE 11/20/2017 [facility] Urine erythrocytes detection NEGATIVE NEGATIVE 11/20/2017 [facility] Automated urine sediment leukocyte count by microscopy (number/high power field) NONE 0 - 5 11/20/2017 [facility] Erythrocytes detection in urine sediment by light microscopy NONE 0 - 5 11/20/2017 [facility] Bacteria detection in urine sediment by light microscopy NONE NONE 11/20/2017 [facility] Epithelial cells detection in urine sediment by light microscopy FEW NONE 11/20/2017 [facility] Mucus detection in urine sediment by light microscopy MODERATE RARE 11/20/2017 [facility] Lactic Acid Level 9.2 4.5 - 19.8 11/20/2017 [facility] Blood culture NO GROWTH AFTER 5 DAYS, FINAL REPORT 11/20/2017 [facility] Serum or plasma amylase measurement (enzymatic activity/volume) 79 25 - 125 11/20/2017 [facility] Serum or plasma lipase measurement (enzymatic activity/volume) 29 8 - 78 11/20/2017 [facility] Fibrin D-dimer DDU measurement in platelet poor plasma (mass/volume) 0.26 0.00 - 0.45 10/08/2017 [facility] Free thyroxine index 1.7312 1.4 - 3.8 10/08/2017 [facility] Serum or plasma thyroxine (T4) measurement (mass/volume) 5.40 4.5 - 10.9 10/08/2017 [facility] Serum or plasma triiodothyronine resin uptake (T3RU) 32.06 22.5 - 37.0 10/08/2017 [facility] Serum or plasma thyrotropin measurement by detection limit <=0.005 miu/l (units/volume) 2.476 0.350 - 4.940 10/08/2017 [facility] Transitional cells detection in urine sediment by light microscopy FEW NONE 10/08/2017 [facility] Vital Signs Vital Sign Value Date Comments Source Systolic (mm Hg) 121 06/06/2018 [facility] Diastolic (mm Hg) 70 06/06/2018 [facility] Systolic (mm Hg) 125 06/06/2018 [facility] Diastolic (mm Hg) 77 06/06/2018 [facility] Systolic (mm Hg) 136 06/06/2018 [facility] Diastolic (mm Hg) 78 06/06/2018 [facility] Temperature Oral (F) 98.5 F 06/06/2018 [facility] Temperature Oral (F) 98.8 F 06/06/2018 [facility] Respitory Rate 13 06/06/2018 [facility] Respitory Rate 13 06/06/2018 [facility] Respitory Rate 13 06/06/2018 [facility] Temperature Oral (F) 99.6 F 06/06/2018 [facility] Height 157.48 cm 06/05/2018 [facility] Weight 82.364 06/05/2018 [facility] BMI Calculated 33.21 06/05/2018 [facility] Encounters Location Location Details Encounter Type Encounter Number Reason For Visit Attending Provider ADM Date DC Date Status Source Discharged Inpatient [id number] ULI ZAPATA MD 10/08/2017 10/10/2017 [facility] Discharged Inpatient [id number] ULI ZAPATA MD 11/21/2017 11/24/2017 [facility] Bedded Outpatient [id number] Hamzah Antoine 02/06/2018 02/06/2018 [facility] Discharged Inpatient (obs) [id number] KEN BAUMANN MD 02/07/2018 02/08/2018 [facility] Discharged Inpatient [id number] ULI ZAPATA MD 04/21/2018 04/26/2018 [facility] Inpatient [id number] Helenosman Louis 06/05/2018 06/06/2018 [facility] Procedures Procedure Code Date Perfomer Comments Source EGD with biopsy [id number] 04/24/2018 [facility] Colonoscopy with polypectomy [id number] 04/24/2018 [facility] ENDOLUMINL IVUS OCT C 1ST [id number] 02/07/2018 [facility] L HRT ARTERY/VENTRICLE ANGIO [id number] 02/07/2018 [facility] Computed tomography of abdomen and pelvis with contrast [id number] 11/21/2017 [facility] US Gallbladder [id number] 11/20/2017 [facility] X-ray of chest, two views [id number] 10/08/2017 [facility] PCI - Percutaneous coronary intervention [id number] [facility] PCI - Percutaneous coronary intervention [id number] [facility]
--- NOTE | 2018-09-25 13:08 | NUR ---
RADIOLOGY AT BEDSIDE AT THIS TIME FOR CXR.
--- NOTE | 2018-09-25 14:07 | Diagnostic Imaging Report ---
Examination: Single AP view of the chest. COMPARISON: 04/21/2018 INDICATION: Cough, rib pain DISCUSSION: The lungs are well-inflated. No focal airspace consolidation, pleural effusion, or pneumothorax. Atherosclerotic calcification of the thoracic aorta. Cardiomediastinal contour is otherwise unremarkable when accounting for portable, AP technique. No acute osseous abnormality. IMPRESSION: No acute cardiopulmonary abnormality. Signed by: Dr. Seamus Cordova M.D. on 09/25/2018 2:03 PM
[2018-09-25] MEDS ORDERED: AZITHROMYCIN250 MG PO (14:18)
[2018-09-25 14:36] VITALS: BP 122/83
== END 2018-09-25 14:35 | disposition home or self-care (01) ==
LOC: ER 11:59
DX: R05 Cough (principal); J00 Acute nasopharyngitis [common cold]
CPT/HCPCS: 71045; 87400; 93005; 99283

== ENCOUNTER 2019-10-27 17:19 | Observation (INO) | payer MEDICARE, OTHER ==
[~2019-10-27] VITALS: Ht 157.5 cm; Wt 76.7 kg
[~2019-10-27 17:19] MED LIST changes: +AZITHROMYCIN250 MG PO
--- NOTE | 2019-10-27 17:42 | NUR ---
report to callie jones
[2019-10-27 18:18] LABS: BASOPHILS # (AUTO) 0.1 (0.0-0.1); BASOPHILS % 0.7 % (0.0-1.0); EOSINOPHILS # (AUTO) 0.1 (0.0-0.4); EOSINOPHILS % 1.1 % (0.0-6.0); HEMATOCRIT 36.2 % (34.2-44.1); HEMOGLOBIN 11.1 g/dL (12.0-16.0); LYMPHOCYTES # (AUTO) 1.7 (1.0-3.2); LYMPHOCYTES % 22.4 % (18.0-39.1); MEAN CORPUSCULAR HEMOGLOBIN 27.5 pg (28-32); MEAN CORPUSCULAR HGB CONC 30.7 g/dL (31-35); MEAN CORPUSCULAR VOLUME 89.8 fL (81-99); MONOCYTES # (AUTO) 0.5 (0.2-0.8); MONOCYTES % 6.6 % (4.4-11.3); NEUTROPHILS # (AUTO) 5.1 (2.1-6.9); NEUTROPHILS % 68.8 % (38.7-80.0); PLATELET COUNT 232 x10e3/uL (140-360); RED BLOOD COUNT 4.03 x10e6/uL (3.6-5.1); RED CELL DISTRIBUTION WIDTH 16.4 % (11.7-14.4)
[2019-10-27 18:23] LABS: INR 0.99; PROTHROMBIN TIME 13.6 seconds (11.9-14.5)
[2019-10-27 18:24] LABS: PARTIAL THROMBOPLASTIN TIME 34.8 seconds (23.8-35.5)
[2019-10-27] MEDS ORDERED: METOPROLOL TARTRATE INJ 1 MG/ML VIAL IV ONE (18:30)
[2019-10-27 18:33] LABS: ALBUMIN 3.5 g/dL (3.5-5.0); ALBUMIN/GLOBULIN RATIO 1.1 (0.8-2.0); ANION GAP 14.5 mmol/L (8-16); CREATININE, SERUM 1.09 mg/dL (0.57-1.11); POTASSIUM 4.5 mmol/L (3.5-5.1)
--- NOTE | 2019-10-27 18:35 | Emergency Department Note ---
History of Present Illnes History of Present Illness Chief Complaint: Respiratory History of Present Illness This is a 84 year old female sent from [facility] (dr simeon) for afib with rvr, pt went to see [facility] secondary to sob with exertion for past 2 weeks, denies chest pain, denies fever . Historian: Patient Arrival Mode: Car Onset (how long ago): week(s) (2) Location: chest Quality: sob Radiation: Reports non-radiation Severity: moderate Onset quality: gradual Duration (how long): week(s) (2) Timing of current episode: intermittent Progression: unchanged Chronicity: recurrent Context: Denies recent illness, Denies recent surgery Relieving factors: rest Exacerbating factors: movement Associated symptoms: Reports denies other symptoms Treatments prior to arrival: none Past Medical/Family History Physician Review I have reviewed the patient's past medical and family history. Any updates have been documented here. 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 simeon per pt informatiom Social History Smoking Cessation: Current every day smoker Counseling Performed: No Alcohol Use: Occasional Any Illegal Drug Use: No Physically hurt or threatened: No Other Last Tetanus: UNKNOWN Any Pre-Existing Lines (PICC,: No Review of Systems Review of Systems Constitutional: Reports no symptoms EENTM: Reports no symptoms Cardiovascular: Reports no symptoms Respiratory: Reports as per HPI Gastrointestinal: Reports no symptoms Genitourinary: Reports no symptoms Musculoskeletal: Reports no symptoms Integumentary: Reports no symptoms Neurological: Reports no symptoms Psychological: Reports no symptoms Endocrine: Reports no symptoms Hematological/Lymphatic: Reports no symptoms Physical Exam Related Data Allergies: Coded Allergies: No Known Drug Allergies (Unverified Allergy, Unknown, 10/08/17) Triage Vital Signs Vital Signs Date Time Temp Pulse Resp B/P (MAP) Pulse Ox O2 Delivery O2 Flow Rate FiO2 10/27/19 17:23 97.8 115 26 130/87 98 Room Air Vital signs reviewed: Yes Physical Exam CONSTITUTIONAL Constitutional: Present well-developed, Present well-nourished HENT HENT: Present normocephalic, Present atraumatic, Present oropharynx clear/moist, Present nose normal HENT L/R: Present left ext ear normal, Present right ext ear normal EYES Eyes: Reports PERRL, Reports conjunctivae normal NECK Neck: Present ROM normal PULMONARY Pulmonary: Present effort normal, Present breath sounds normal CARDIOVASCULAR Cardiovascular: Present irregular rhythm (irregurlary irregular), Present heart sounds normal, Present capillary refill normal, Present tachycardia GASTROINTESTINAL Abdominal: Present soft, Present nontender, Present bowel sounds normal GENITOURINARY Genitourinary: Present exam deferred SKIN Skin: Present warm, Present dry MUSCULOSKELETAL Musculoskeletal: Present ROM normal NEUROLOGICAL Neurological: Present alert, Present oriented x 3, Present no gross motor or sensory deficits PSYCHOLOGICAL Psychological: Present mood/affect normal, Present judgement normal Results Laboratory Result Diagram: 10/27/19 7240 Laboratory Laboratory Tests Test 10/27/19 17:30 White Blood Count 7.44 x10e3/uL (4.8-10.8) Red Blood Count 4.03 x10e6/uL (3.6-5.1) Hemoglobin 11.1 g/dL (12.0-16.0) Hematocrit 36.2 % (34.2-44.1) Mean Corpuscular Volume 89.8 fL (81-99) Mean Corpuscular Hemoglobin 27.5 pg (28-32) Mean Corpuscular Hemoglobin Concent 30.7 g/dL (31-35) Red Cell Distribution Width 16.4 % (11.7-14.4) Platelet Count 232 x10e3/uL (140-360) Neutrophils (%) (Auto) 68.8 % (38.7-80.0) Lymphocytes (%) (Auto) 22.4 % (18.0-39.1) Monocytes (%) (Auto) 6.6 % (4.4-11.3) Eosinophils (%) (Auto) 1.1 % (0.0-6.0) Basophils (%) (Auto) 0.7 % (0.0-1.0) Neutrophils # (Auto) 5.1 (2.1-6.9) Lymphocytes # (Auto) 1.7 (1.0-3.2) Monocytes # (Auto) 0.5 (0.2-0.8) Eosinophils # (Auto) 0.1 (0.0-0.4) Basophils # (Auto) 0.1 (0.0-0.1) Absolute Immature Granulocyte (auto 0.03 x10e3/uL (0-0.1) Prothrombin Time 13.6 seconds (11.9-14.5) Prothromb Time International Ratio 0.99 Activated Partial Thromboplast Time 34.8 seconds (23.8-35.5) Sodium Level 140 mmol/L (136-145) Potassium Level 4.5 mmol/L (3.5-5.1) Chloride Level 110 mmol/L (98-107) Carbon Dioxide Level 20 mmol/L (22-29) Anion Gap 14.5 mmol/L (8-16) Blood Urea Nitrogen 16 mg/dL (7-26) Creatinine 1.09 mg/dL (0.57-1.11) Estimat Glomerular Filtration Rate 48 ML/MIN (60-) BUN/Creatinine Ratio 15 (6-25) Glucose Level 120 mg/dL (74-118) Calcium Level 9.0 mg/dL (8.4-10.2) Total Bilirubin 0.9 mg/dL (0.2-1.2) Aspartate Amino Transf (AST/SGOT) 16 IU/L (5-34) Alanine Aminotransferase (ALT/SGPT) 11 IU/L (0-55) Alkaline Phosphatase 72 IU/L (40-150) Creatine Kinase 52 IU/L (29-168) Creatine Kinase MB 2.90 ng/mL (0-5.0) Troponin I 0.021 ng/mL (0-0.300) Total Protein 6.7 g/dL (6.5-8.1) Albumin 3.5 g/dL (3.5-5.0) Globulin 3.2 g/dL (2.3-3.5) Albumin/Globulin Ratio 1.1 (0.8-2.0) Digoxin Level 0.42 ng/mL (0.8-2.0) Laboratory Tests Test 10/27/19 17:30 White Blood Count 7.44 x10e3/uL (4.8-10.8) Red Blood Count 4.03 x10e6/uL (3.6-5.1) Hemoglobin 11.1 g/dL (12.0-16.0) Hematocrit 36.2 % (34.2-44.1) Mean Corpuscular Volume 89.8 fL (81-99) Mean Corpuscular Hemoglobin 27.5 pg (28-32) Mean Corpuscular Hemoglobin Concent 30.7 g/dL (31-35) Red Cell Distribution Width 16.4 % (11.7-14.4) Platelet Count 232 x10e3/uL (140-360) Neutrophils (%) (Auto) 68.8 % (38.7-80.0) Lymphocytes (%) (Auto) 22.4 % (18.0-39.1) Monocytes (%) (Auto) 6.6 % (4.4-11.3) Eosinophils (%) (Auto) 1.1 % (0.0-6.0) Basophils (%) (Auto) 0.7 % (0.0-1.0) Neutrophils # (Auto) 5.1 (2.1-6.9) Lymphocytes # (Auto) 1.7 (1.0-3.2) Monocytes # (Auto) 0.5 (0.2-0.8) Eosinophils # (Auto) 0.1 (0.0-0.4) Basophils # (Auto) 0.1 (0.0-0.1) Absolute Immature Granulocyte (auto 0.03 x10e3/uL (0-0.1) Prothrombin Time 13.6 seconds (11.9-14.5) Prothromb Time International Ratio 0.99 Activated Partial Thromboplast Time 34.8 seconds (23.8-35.5) Lab results reviewed: Yes Imaging Imaging results reviewed: Yes Impressions Procedure: [id number] DX/CHEST SINGLE (PORTABLE) Exam Date: 10/27/19 Exam Time: 1830 REPORT STATUS: Signed EXAMINATION: CHEST SINGLE (PORTABLE) INDICATION: Shortness of breath. COMPARISON: 09/25/2018. FINDINGS: TUBES and LINES: None. LUNGS: Normal lung volumes. There are hazy opacification of bilateral lung bases. No focal consolidation. The pulmonary vasculature appears prominent. PLEURA: There is probable small left pleural effusion. No pneumothorax. HEART AND MEDIASTINUM: The heart is enlarged. The mediastinal silhouette is otherwise within normal limits and unchanged with atherosclerotic calcification of the thoracic aortic arch. BONES AND SOFT TISSUES: No acute osseous lesion. Soft tissues are unremarkable. UPPER ABDOMEN: No free air under the diaphragm. IMPRESSION: 1. Cardiomegaly with pulmonary vascular congestion. 2. Hazy opacification of bilateral lung bases which may represent atelectasis and/or pneumonia in the proper clinical setting. Signed by: Oksana William MD on 10/27/2019 8:13 PM Dictated By: OKSANA WILLIAM MD 12 Transcribed By: RILEY on 10/27/192012 COPY TO: LIANG GOMEZ MD~ Procedures 12 Lead ECG Interpretation ECG Interpretation : ECG: ECG 1 Cigarette Book Maker: Interpreted by ED physician Date: Oct 27, 2019 Time: 17:58 Rhythm: atrial fibrillation Rate: tachycardia BPM: 124 QRS axis: normal ST segments normal: No T waves normal: Yes Other findings: no other findings Additional Comments mild st segment depression leads v4,v5,v6 Critical Care Time Critcal care necessary due to: circulatory failure Critcal care time spent by me: develop tx plan w patient/surrogate, discussion w consultants, discussion w primary provider, evaluation patient response to tx, examination of patient, obtaining hx from patient/surrogate, order/perform tx or interventions, order/review laboratory studies, order/review radiographic studies, re-evaluation of patient condition, review of old charts Assessment & Plan Medical Decision Making MDM pt with h/o afib with rvr presents with co exertional sob for last 2 weeks, was at [facility] and sent to er due to afib with rvr lopressor 5 mg iv ordered, i spoke with dr simeon and he agrees with this course of action at this time. cbc, cmp, cardiac enzymes, digoxin level, cxr, bnp, pt/ptt, ekg ordered to eval for myocardial infarction, electrolyte abnormality, digoxin level, pulmonary edema, PT FOUND TO BE SUB THERAPEUTIC ON DIGOXIN, 0.5 MG DIGOXIN IV ORDERED, DISCUSSED WITH DR SIMEON I SPOKE WITH DR ZAPATA, ADMIT TO OBSERVATION Reassessment Reassessment time: 20:51 Reassessment AFTER LOPRESSOR 5 MG IV HEART RATE NO 90 TO 105. Assessment & Plan Final Impression: (1) Atrial fibrillation with RVR Depart Disposition: ADMITTED Last Vital Signs Date Time Temp Pulse Resp B/P (MAP) Pulse Ox O2 Delivery O2 Flow Rate FiO2 10/27/19 18:02 92 21 124/86 97 Room Air 10/27/19 17:23 97.8 Home Meds Active Scripts Azithromycin (Z-AYSE) 250 Mg Tablet, 250 MG PO UD, #1 UDPKT Z-Pack Prov:LORRI MOLINA LEADING FIREFIGHTER 09/25/18 Reported Medications Warfarin Sodium (WARFARIN SODIUM) 3 Mg Tablet, 3 MG PO UD, #30 TAB PATIENT TAKES SUNDAY THROUGH Sunday08/16/18 Aspirin (ASPIR 81) 81 Mg Tablet.dr, 81 MG PO DAILY 08/16/18 [Metoprolol] No Conflict Check, 50 MG PO BID 08/16/18 Atorvastatin Calcium (ATORVASTATIN CALCIUM) 20 Mg Tablet, 40 MG PO HS, #30 TAB 02/06/18 Memantine Hcl (NAMENDA) 10 Mg Tablet, 10 MG PO DAILY, #30 TAB 02/06/18 Ondansetron (ZOFRAN ODT) 4 Mg Tab.rapdis, 4 MG PO Q6H PRN for NAUSEA, TAB 11/20/17 Digoxin (DIGOXIN) 125 Mcg Tablet, 0.125 MG PO DAILY, #30 TAB 11/20/17 Allopurinol (ALLOPURINOL) 100 Mg Tablet, 100 MG PO BID, #30 TAB 11/20/17 Pantoprazole Sodium* (PROTONIX) 40 Mg Tablet.dr, 40 MG PO BID, TAB 11/20/17 Donepezil Hcl (ARICEPT) 5 Mg Tablet, 5 MG PO HS, #30 TAB 11/20/17 Bupropion Hcl (BUPROPION HCL) 75 Mg Tablet, 150 MG PO DAILY, #30 TAB 07/28/16 Furosemide (FUROSEMIDE) 40 Mg Tablet, 40 MG PO Daily, #30 TAB 07/28/16 Ranolazine (RANEXA) 500 Mg Tabsr, 1000 MG PO BID, #60 TAB 07/28/16 Isosorbide Mononitrate (ISOSORBIDE MONONITRATE ER) 30 Mg Tab.er.24h, 30 MG PO DAILY, #30 TAB 01/18/15 Nitroglycerin (NITROSTAT) 0.4 Mg Tab.subl, 0.4 MG SL PRN 01/18/15 Medications in the ED Metoprolol Tartrate 5 mg ONCE ONCE IV ; Start 10/27/19 at 18:30; Stop 10/27/19 at 18:31; Status UNV WENDY CHAVEZ MD Oct 27, 2019 18:35
[2019-10-27 18:39] LABS: CREATINE KINASE MB 2.9 ng/mL (0-5.0)
[2019-10-27] MEDS ORDERED: DIGOXIN INJ 0.25 MG/ML 2 ML AMP IV ONE (20:00)
--- NOTE | 2019-10-27 20:16 | Diagnostic Imaging Report ---
EXAMINATION: CHEST SINGLE (PORTABLE) INDICATION: Shortness of breath. COMPARISON: 09/25/2018. FINDINGS: TUBES and LINES: None. LUNGS: Normal lung volumes. There are hazy opacification of bilateral lung bases. No focal consolidation. The pulmonary vasculature appears prominent. PLEURA: There is probable small left pleural effusion. No pneumothorax. HEART AND MEDIASTINUM: The heart is enlarged. The mediastinal silhouette is otherwise within normal limits and unchanged with atherosclerotic calcification of the thoracic aortic arch. BONES AND SOFT TISSUES: No acute osseous lesion. Soft tissues are unremarkable. UPPER ABDOMEN: No free air under the diaphragm. IMPRESSION: 1. Cardiomegaly with pulmonary vascular congestion. 2. Hazy opacification of bilateral lung bases which may represent atelectasis and/or pneumonia in the proper clinical setting. Signed by: Evelin Cruz MD on 10/27/2019 8:13 PM
[2019-10-27] MEDS ORDERED: ONDANSETRON HCL INJ 2MG/ML 2ML 2 MG/ML VIAL IV PRN (21:00)
[2019-10-27] MEDS ORDERED: SODIUM CHLORIDE FLUSH 10 ML SYR INJ PRN (21:00)
[2019-10-28] VITALS (9 sets, daily range): BP systolic 119–174; BP diastolic 58–101
--- NOTE | 2019-10-28 00:10 | NUR ---
Received the patient from er in a wheel chair.aaox3.ambulatory.no chest pain voiced.no resp.distress noted.iv to left hand #20 g is patent.oriented to the unit.pt denied further needs.call light within reach.instructed to call for assistance as needed.
--- NOTE | 2019-10-28 02:00 | NUR ---
Blood marysol and sent to the lab.
[2019-10-28 02:35] LABS: CREATINE KINASE MB 2.4 ng/mL (0-5.0)
--- NOTE | 2019-10-28 07:00 | NUR ---
BEDSIDE SHIFT REPORT RECEIVED FROM THE DIGITAL BUSINESS ANALYST RN. EDUCATED PT ABOUT FALL PRECAUTIONS. PT VERBALIZED UNDERSTANDING. CALL LIGHT WITH IN EASY REACH. INSTRUCTED PT TO USE CALL LIGHT FOR ALL THE NEEDS. BED IS LOW AND LOCKED. SIDE RAILS X2. PT DENIES NEEDS AT THIS TIME.
--- NOTE | 2019-10-28 07:10 | NUR ---
Bed side shift report given to oncoming Rn.stable condition.
[2019-10-28] MEDS ORDERED: ONDANSETRON HCL 4 MG ORAL DISINTEGRATING TAB PO PRN (08:30)
[2019-10-28] MEDS ORDERED: NITROGLYCERIN 0.4 MG SUBL SL PRN (08:30)
[2019-10-28] MEDS ORDERED: WARFARIN SOD 3 MG TAB PO SCH (08:30)
--- NOTE | 2019-10-28 08:42 | History and Physical ---
HISTORY OF PRESENT ILLNESS: Ms. Gomez is an 84-year-old female with history of coronary artery disease, hypertension, hyperlipidemia, tobacco use, atrial fibrillation, coronary artery disease, status post stent, and chronic kidney disease, came to the emergency room, sent by jar capper from his office because of atrial fibrillation with rapid ventricular rate and shortness of breath for the past two weeks. She denies any chest pain or any fever. PAST MEDICAL HISTORY: She has atrial fibrillation, coronary artery disease, status post stent, hypertension, dementia, hyperlipidemia, tobacco use, and chronic kidney disease. SURGICAL HISTORY: She had a stent. SOCIAL HISTORY: She still smokes. She does not drink. ALLERGIES: NO KNOWN DRUG ALLERGIES. PHYSICAL EXAMINATION: GENERAL: Today, she is awake and alert. VITAL SIGNS: Temperature is 98.9, blood pressure is 142/90, heart is irregularly irregular, around 100 per minute. LUNGS: Decreased breath sounds bilaterally. ABDOMEN: Soft. EXTREMITIES: Lower extremity mild edema. LABORATORY DATA: On the blood work, coronavirus is pending. Potassium 4.5, creatinine is 1.09, and GFR is 48. Her white count 7.44, hemoglobin 11.1, and hematocrit 36.2. Chest x-ray shows cardiomegaly with pulmonary vascular congestion and some hazy opacity in bilateral lung bases that may represent atelectasis. ASSESSMENT: 1. Atrial fibrillation with rapid ventricular rate. 2. Shortness of breath. 3. Coronary artery disease, status post stent. 4. Hypertension. 5. Dementia. 6. Hyperlipidemia. 7. Tobacco use. 8. Chronic kidney disease, stage 3. PLAN: At present time is to get a Cardiology consult. Cardiac enzymes x3, EKG, and echocardiogram. The patient received IV metoprolol and digoxin. Continue home medications. All this was discussed in detail with the patient. All questions were answered to satisfaction. MD ALIA Parks/MYESHA /[id number]
[2019-10-28] MEDS ORDERED: FUROSEMIDE 40 MG TAB PO SCH (09:00)
[2019-10-28] MEDS ORDERED: NON-FORMULARY MEDICATION ([Metoprolol] 50 MG) PO SCH (09:00)
[2019-10-28] MEDS ORDERED: BUPROPION HCL 75 MG TAB PO SCH (09:00)
[2019-10-28] MEDS ORDERED: ACETAMINOPHEN 325 MG TAB PO PRN (09:15)
--- NOTE | 2019-10-28 09:30 | NUR ---
HOME MEDS RECONFIRMED WITH PT. STOPPED TAKING WARFARIN PER THE PT.
[2019-10-28] MEDS: ASPIRIN 81 MG ENTERIC COATED PO SCH (09:47)
[2019-10-28] MEDS: RANOLAZINE 500 MG TABSR PO SCH ×2 (09:48→16:40)
[2019-10-28] MEDS: METOPROLOL TARTRATE 50 MG TAB PO SCH ×2 (09:48→21:09)
[2019-10-28] MEDS: ISOSORBIDE MONONITRATE 30 MG TAB CR PO SCH (09:48)
[2019-10-28] MEDS: DIGOXIN 0.125 MG TAB PO SCH (09:48)
[2019-10-28] MEDS: PANTOPRAZOLE SOD 40 MG TABEC PO SCH ×2 (09:48→16:39)
[2019-10-28] MEDS: MEMANTINE 10 MG TAB PO SCH ×2 (09:48→16:39)
[2019-10-28] MEDS: BUPROPION HCL 150 MG TABCR PO SCH (09:49)
[2019-10-28] MEDS: ALLOPURINOL 100 MG TAB PO SCH ×2 (09:49→16:40)
[2019-10-28 09:55] LABS: BASOPHILS % 0.7 % (0.0-1.0); EOSINOPHILS # (AUTO) 0.1 (0.0-0.4); EOSINOPHILS % 1.1 % (0.0-6.0); HEMATOCRIT 37.2 % (34.2-44.1); HEMOGLOBIN 11.2 g/dL (12.0-16.0); LYMPHOCYTES # (AUTO) 1.4 (1.0-3.2); LYMPHOCYTES % 23.2 % (18.0-39.1); MEAN CORPUSCULAR HEMOGLOBIN 27.1 pg (28-32); MEAN CORPUSCULAR HGB CONC 30.1 g/dL (31-35); MEAN CORPUSCULAR VOLUME 89.9 fL (81-99); MONOCYTES # (AUTO) 0.5 (0.2-0.8); MONOCYTES % 8.6 % (4.4-11.3); NEUTROPHILS # (AUTO) 4.1 (2.1-6.9); NEUTROPHILS % 66.2 % (38.7-80.0); PLATELET COUNT 197 x10e3/uL (140-360); RED BLOOD COUNT 4.14 x10e6/uL (3.6-5.1); RED CELL DISTRIBUTION WIDTH 16.3 % (11.7-14.4)
[2019-10-28 10:20] LABS: ALBUMIN 3.3 g/dL (3.5-5.0); ANION GAP 13.3 mmol/L (8-16); CALCIUM 8.8 mg/dL (8.4-10.2); CREATININE, SERUM 0.97 mg/dL (0.57-1.11); POTASSIUM 4.3 mmol/L (3.5-5.1)
[2019-10-28 10:46] LABS: CREATINE KINASE MB 2.5 ng/mL (0-5.0)
--- NOTE | 2019-10-28 12:15 | NUR ---
DR. GONZALEZ AT BEDSIDE. PT STOPPED TAKING WARFARIN INFORMED TO
--- NOTE | 2019-10-28 14:04 | Consultation ---
DATE OF CONSULTATION: Cardiology Consultation HISTORY OF PRESENT ILLNESS: This is an 84-year-old woman with a history of dementia, coronary artery disease, congestive heart failure, paroxysmal atrial fibrillation, hyperlipidemia, tobacco use, and chronic kidney disease, who was seen by my colleague as an outpatient yesterday, was sent over to the emergency department for shortness of breath and atrial fibrillation with rapid ventricular response. The patient has a history of a Watchman and is currently not on anticoagulation. She is currently feeling better. Denies any ongoing chest pain or shortness of breath. PAST MEDICAL HISTORY: As stated above in the HPI. PAST SURGICAL HISTORY: Percutaneous coronary intervention and Watchman. SOCIAL HISTORY: No illicit drug or alcohol use. Tobacco abuse. ALLERGIES: NO KNOWN DRUG ALLERGIES. MEDICATIONS: See medications reconciliation form. PAST FAMILY HISTORY: Noncontributory to current illness. PHYSICAL EXAMINATION: VITAL SIGNS: Temperature is 98.6, heart rate 68, respirations are 21, blood pressure is 147/71, and oxygen saturation 97% on room air. GENERAL: Well appearing, well built, no apparent distress. Alert and oriented x3. HEAD: Normocephalic and atraumatic. EYES: The extraocular muscles intact. Conjunctiva clear. NECK: No JVD. No bruits. CARDIOVASCULAR: She is irregularly irregular. Normal rate. LUNGS: Diminished breath sounds at bases. ABDOMEN: Soft, nontender, and nondistended. EXTREMITIES: No clubbing, cyanosis, or edema. VASCULAR: 2+ pulses. SKIN: Warm, dry, and intact. NEUROLOGIC: No focal deficits noted. LABORATORY DATA: Reviewed. Hemoglobin is 11.2. Creatinine 0.97. Troponins are negative x3. Chest x-ray shows cardiomegaly with pulmonary vascular congestion. A 12-lead electrocardiogram showed atrial fibrillation with rapid ventricular response. Echocardiogram was technically difficult and poor quality, however, showed reduced ejection fraction of approximately 30%. IMPRESSION: 1. Kbaau-ot-jwomnil systolic congestive heart failure. 2. Atrial fibrillation with rapid ventricular response. 3. Hypertension. 4. Hyperlipidemia. 5. Dementia. 6. Tobacco abuse. RECOMMENDATIONS: The patient's rate is better controlled on metoprolol and digoxin. It appears that her ejection fraction has worsened and is approximately 25% to 30%. She is status post Watchman, so no anticoagulation is required at this point in time. Consider aspirin only. Continue rate-controlling agents. We will start optimal medical therapy for heart failure. We will increase Lasix to 40 b.i.d. DO MARIO Hanley/MYESHA /[id number]
[2019-10-28] MEDS: FUROSEMIDE 40 MG TAB PO SCH (16:39)
--- NOTE | 2019-10-28 19:00 | NUR ---
BEDSIDE SHIFT REPORT GIVEN TO THE MAILROOM ASSISTANT RN. PT DENIED FURTHER NEEDS.
--- NOTE | 2019-10-28 19:12 | NUR ---
Received the patient in report.no pain voiced.stable condition.sitting in the recyliner.bed locked and in lowest position.phone and call light within reach.instructed to call for assistance as needed.
--- NOTE | 2019-10-28 20:10 | NUR ---
Assessment done.no resp.distress.no pain voiced.iv to left hand is patent.tele #[id number] showing afib. 84.bed locked and in lowest position.phone and call light within reach.instructed to call for assistance as needed.
[2019-10-28] MEDS ORDERED: DONEPEZIL HCL 5 MG TAB PO SCH (21:00)
[2019-10-28] MEDS ORDERED: ATORVASTATIN 40 MG TAB PO SCH (21:00)
[2019-10-28] MEDS ORDERED: ATORVASTATIN 20 MG TAB PO SCH (21:00)
--- NOTE | 2019-10-28 21:23 | NUR ---
Report given to Joaquim Mosley.Jesus
--- NOTE | 2019-10-28 21:46 | NUR ---
Transferring the patient to room #215 via wheel chair in a stable condition along with all the belongings.
[2019-10-29 00:21] VITALS: BP 128/75
[2019-10-29 04:44] VITALS: BP 146/82
--- NOTE | 2019-10-29 06:58 | NUR ---
Received bedside shift report from off going nurse. Patient is resting in bed. No acute stress noted. Call light within reach. Bed in the lowest position.
[2019-10-29 07:46] VITALS: BP 136/95
[2019-10-29] MEDS: ASPIRIN 81 MG ENTERIC COATED PO SCH (08:57)
[2019-10-29] MEDS: PANTOPRAZOLE SOD 40 MG TABEC PO SCH (08:58)
[2019-10-29] MEDS: DIGOXIN 0.125 MG TAB PO SCH (08:58)
[2019-10-29] MEDS: MEMANTINE 10 MG TAB PO SCH (08:58)
[2019-10-29] MEDS: ISOSORBIDE MONONITRATE 30 MG TAB CR PO SCH (08:58)
[2019-10-29] MEDS: METOPROLOL TARTRATE 50 MG TAB PO SCH (08:58)
[2019-10-29] MEDS: FUROSEMIDE 40 MG TAB PO SCH (08:58)
[2019-10-29] MEDS: BUPROPION HCL 150 MG TABCR PO SCH (08:58)
[2019-10-29] MEDS: RANOLAZINE 500 MG TABSR PO SCH (08:58)
[2019-10-29] MEDS: ALLOPURINOL 100 MG TAB PO SCH (08:59)
[2019-10-29] MEDS ORDERED: LISINOPRIL 10 MG TAB PO SCH (09:00)
[2019-10-29 09:40] VITALS: BP 136/95
--- NOTE | 2019-10-29 09:58 | Discharge Summary ---
HOSPITAL COURSE: Ms. Gomez is an 84-year-old female with history of coronary artery disease, hypertension, hyperlipidemia, tobacco use, atrial fibrillation, chronic kidney disease, came to the emergency room, sent by Cardiology because her heart rate was very fast and she was short of breath. She has been seen by lithoplate maker. She has history of Watchman, so she does not need any anticoagulation. PHYSICAL EXAMINATION: GENERAL: Today, she is awake and alert. She wants to go home. VITAL SIGNS: Temperature is 97.5, blood pressure 136/95. HEART: Irregularly irregular, around 90 per minutes. LUNGS: Clear to auscultation. ABDOMEN: Soft. LABORATORY DATA: On the blood work, white count 6.13, hemoglobin 11.2, hematocrit 37.2, potassium 4.3, creatinine 0.97. Glucose 87. Coronavirus negative. Chest x-ray shows some cardiomegaly with pulmonary vascular congestion. As per lithoplate maker, ejection fraction has been declined, is around 25-30%. IMPRESSION: 1. Ugslu-iy-ocxvqlr systolic congestive heart failure. 2. Atrial fibrillation with rapid ventricular rate. 3. Hypertension. 4. Hyperlipidemia. 5. Dementia. 6. Tobacco use. 7. Chronic kidney disease. PLAN: At present time is continue metoprolol 50 mg twice a day. Digoxin 0.125 mg daily. Increase Lasix to 40 mg twice a day. Continue on aspirin. She does not need any anticoagulation because she has a Watchman. Follow up with me in one week. So, discharge her home if it is okay with lithoplate maker. Please see home medication reconciliation list. All this was discussed with the patient. All questions were answered to satisfaction. MD ALIA Parks/MODL /[id number]
[2019-10-29 11:30] VITALS: BP 119/52
--- NOTE | 2019-10-29 11:45 | NUR ---
DR. GONZALEZ IN TO SEE PATIENT, RECEIVED CLEARANCE FROM MD. PER MD, CONTINUE ALL HOME MEDICATIONS. FOLLOW UP WITH DR. BAUMANN NEXT WEEK.
[2019-10-29] MEDS ORDERED: LOPRESSOR25 MG PO (12:09)
[2019-10-29] MEDS ORDERED: LISINOPRIL5 MG PO (12:11)
--- NOTE | 2019-10-29 12:40 | NUR ---
RECEIVED DISCHARGE ORDER FROM DR. ZAPATA. PATIENT IS IN STABLE CONDITION. IV LINE TO LEFT HAND DISCONTINUED WITH TIP INTACT. DAUGHTER (KELTON) CALLED TO REVIEW DISCHARGE TEACHING, SHE VERBALIZED UNDERSTANDING. PATIENT ALSO RECEIVED DISCHARGE TEACHING AND VERBALIZED UNDERSTANDING. DISCHARGE FOLDER WITH PAPERWORK AND PRESCRIPTIONS ON HAND. ALL PERSONAL ITEMS ON HAND. PATIENT ACCOMPANIED TO PRIVATE AUTO VIA WHEELCHAIR BY STAFF.
--- NOTE | 2019-10-29 12:49 | Progress Note ---
DATE: Cardiology Progress Note SUBJECTIVE: The patient feels well. She is requesting to go home. Denies any chest pain, shortness of breath or palpitations. OBJECTIVE: VITAL SIGNS: Temperature is 97.6, heart rate is 79, respirations are 18, blood pressure is 119/52, and ox saturation 98% on room air. GENERAL: Well-appearing woman, in no apparent distress. Alert and oriented x3. HEAD: Normocephalic, atraumatic. CARDIOVASCULAR: Irregularly irregular. Normal rate. LUNGS: Diminished breath sounds at the bases. ABDOMEN: Soft, nontender, nondistended. EXTREMITIES: Trace edema. CARDIOVASCULAR MEDICATIONS: Reviewed. LABORATORY DATA: Reviewed. TELEMETRY: Telemetry monitoring was personally reviewed by myself and shows atrial fibrillation with controlled ventricular response. IMPRESSION: 1. Acute on chronic systolic heart failure. 2. Atrial fibrillation. 3. Hypertension. 4. Hyperlipidemia. 5. Dementia. 6. Tobacco abuse. RECOMMENDATIONS: Echocardiogram was reviewed. Continue optimal medical therapy with metoprolol, digoxin, and lisinopril. No anticoagulation is needed at this point time as she is status post Watchman. Continue Lasix 40 mg p.o. b.i.d. The patient is stable for discharge from a cardiovascular standpoint with close outpatient followup. DO MARIO Hanley/MODL /[id number]
--- OUTSIDE RECORDS SUMMARY | 2019-10-31 18:59 | XMS REPORT | Continuity of Care Document ---
Author Author [facility] [employer] [facility] [employer] Information [employer] Address Unknown Phone Unavailable Care Team Providers Care Barrel Lathe Operator Inside Name Role Phone [facility] Information Exchange Unavailable Un available Problems Problem Status Onset Date Classification Date Reported Comments Source PREADMIT / WATCHMAN / GA / CHANTEL Active 05/29/2018 [facility] LT HEART CATH / CORONARY STENTS Active 02/01/2018 [facility] Medications Medication Details Route Status Patient Instructions Ordering Provider Order Date Source Furosemide 40 MG Oral Tablet N otes: (Same as: Lasix) May cause GI upset. Give with food or milk. Inactive 06/06/2018 [facility] nter Warfarin 3 mg, Route: PO, Drug form: TAB, Every Other Day, Dosing Weight 82.364, kg, Start date: 06/06/18 9:00:00 EQUITY HOLDER, Duration: 30 day, Stop date: 07/04/18 9:00:00 CDT Inactive 06/06/2018 [facility] nter 24 HR Metoprolol Tartrate 50 MG Extended Release Tablet [Toprol] Notes: (Same as: Toprol XL) May split t ab, but do not crush. Inactive 06/06/2018 [facility] Isosorbide Notes: (Same as:Imd ur) "Do Not Crush" Take on empty stomach/ full glass of water. Do not crush Inactive 06/06/2018 [facility] Digoxin 0.125 MG Oral Tablet N otes: Take on an Empty Stomach (Same as: Lanoxin) Inactive 06/06/2018 [facility] nter Bupropion Notes: (Do not crush ) (Same As: Wellbutrin SR) Inactive 06/06/2018 [facility] Aspirin Notes: Do not crush or chew. (Same As: Ecotrin) Inactive 06/06/2018 [facility] Magnesium Sulfate Notes: WASTE : F/P - Sink; E - Municipal Trash Bin Inactive 06/06/2018 [facility] Magnesium Oxide Notes: (Same a s: Mag-Ox 400) Magnesium oxide [id number] elemental magnesium Dose=____mg magnesium oxide (___mg elemental magnesium) Inactive 06/06/2018 [facility] Calcium Gluconate Notes: WASTE : F/P - Sink; E - Municipal Trash Bin Inactive 06/06/2018 [facility] potassium phosphate Notes: ([facility] as: K Phosphate.) Do not infuse phosphorous concurrently in the same line as TPN or IVF that contains calcium. For double lumen central lines, phosphorous may be infused in a separate lumen from TPN. 1 mMol phoshate has 1.47 mEq potassium Infuse over 4 hours Inactive 06/06/2018 [facility] sodium phosphate Notes: Infuse over 4 hour. Do not infuse phosphorous concurrently in the same line as TPN or IVF that contains calcium. For double lumen central lines, phosphorous may be infused in a separate lumen from TPN. Inactive 06/06/2018 [facility] nter potassium phosphate-sodium phosphate 250 mg-280 mg-160 mg oral powder for reconstitution Notes: (Same as: Phos-NaK) Each 1.5 gm pkt has 250mg phosphorous. Mix w/2.5oz water and stir. Inactive 06/06/2018 [facility] Potassium Chloride Notes: ([facility] e as: K-Dur 20) "Do Not Crush" Give with food and full glass of water For patients unable to swallow tablet, dissolve in one half glass of water. Allow about 2 minutes for the tab lets to disintegrate. Stir before giving to prepare slurry and administer. Please exclude Patients with feeding tube less than 14 [place]ian (Dobhoff, J-tube etc) and pediatric and patients. Inactive 06/06/2018 [facility] nter Warfarin Notes: Nurse to leda e documentation of patient education per anticoagulation policy. Avoid large intake of vitamin-K containing foods diet. (Same As: Coumadin) WASTE: F/P - P Waste Black; E - P Waste Black No Longer Active 06/06/2018 [facility] Ranexa 500 mg oral tablet, extended release Notes: Same as Ranexa "Do Not Crush" No Longer Active 06/06/2018 [facility] nter Zyloprim Notes: (Same as: Zylo prim) No Longer Active 06/06/2018 [facility] Saline Flush 0.9% Notes: (Same as: BD Posiflush) No Longer Active 06/06/2018 [facility] Ranexa Notes: Same as Ranexa " Do Not Crush" Inactive 06/05/2018 [facility] Allopurinol Notes: (Same as: Erendira yloprim) Inactive 06/05/2018 [facility] Naloxone Notes: Same as Narcan Inactive 06/05/2018 [facility] Flumazenil Notes: (Same as: Lora mazicon) Inactive 06/05/2018 [facility] Ondansetron Notes: (Same as: Erendira parra) MEDICATION WASTE Product Size: 4 mg Product Wasted: ___ mg Inactive 06/05/2018 [facility] Saline Flush 0.9% Notes: (Same as: BD Posiflush) No Longer Active 06/05/2018 [facility] DME Rx-external wearable defibrillator Inactive 06/05/2018 [facility] glycopyrrolate (ANES) Route: I V, Drug form: INJ, ONCE, Stop date: 06/05/18 12:11:00 EQUITY HOLDER Inactive 06/05/2018 [facility] nter neostigmine (ANES) Route: IV, Drug form: INJ, ONCE, Stop date: 06/05/18 12:11:00 EQUITY HOLDER Inactive 06/05/2018 [facility] nter ondansetron (ANES) Route: IV, Drug form: INJ, ONCE, Stop date: 06/05/18 12:11:00 EQUITY HOLDER Inactive 06/05/2018 [facility] nter heparin (ANES) Route: IV, Drug form: INJ, ONCE, Stop date: 06/05/18 12:11:00 EQUITY HOLDER Inactive 06/05/2018 [facility] nter protamine (ANES) 10 mg Route: IV, Drug form: INJ, Start date: 06/05/18 12:03:00 EQUITY HOLDER, Stop date: 06/05/18 13:03:00 EQUITY HOLDER Inactive 06/05/2018 [facility] fentaNYL (ANES) Route: IV, Ilir g form: INJ, ONCE, Stop date: 06/05/18 11:27:00 EQUITY HOLDER Inactive 06/05/2018 [facility] nter rocuronium (ANES) Route: IV, D rug form: INJ, ONCE, Stop date: 06/05/18 11:27:00 EQUITY HOLDER Inactive 06/05/2018 [facility] nter propofol (ANES) Route: IV, Ilir g form: INJ, ONCE, Stop date: 06/05/18 11:27:00 EQUITY HOLDER Inactive 06/05/2018 [facility] nter lidocaine (ANES) Route: IV, Dr ug form: INJ, ONCE, Stop date: 06/05/18 11:22:00 EQUITY HOLDER Inactive 06/05/2018 [facility] nter Sodium Chloride 0.9% IV (ANES) 1000 mL Route: IV, Total Volume: 1,000, Start date: 06/05/18 10:20:00 EQUITY HOLDER, Stop date: 06/05/18 11:20:00 EQUITY HOLDER Inactive 06/05/2018 [facility] metoprolol succinate 50 mg oral capsule, extended release 50 mg = 1 cap, PO, BID, 0 Refill(s) Active 06/05/2018 [facility] nt isosorbide mononitrate 30 mg oral tablet , extended release 30 mg = 1 tab, PO, QAM, 0 Refill(s) Active 06/05/2018 [facility] warfarin 6 mg oral tablet 6 mg = 1 tab, PO, Every Other Day, 0 Refill(s) Active 06/05/2018 [facility] warfarin 3 mg oral tablet 3 mg = 1 tab, PO, Every Other Day, 0 Refill(s) Active 06/05/2018 [facility] Aspirin 81 mg, PO, Daily, 0 Re fill(s) Active 06/05/2018 [facility] Bupropion 150 mg, PO, Daily, 0 Refill(s) Active 06/05/2018 [facility] allopurinol 100 mg oral tablet 100 mg = 1 tab, PO, BID, 0 Refill(s) Active 06/05/2018 [facility] Ranexa 1,000 mg, PO, BID, 0 Re fill(s) Active 06/05/2018 [facility] pantoprazole 40 mg oral granule = 1 Pack, PO, BID, # 30 ea, 0 Refill(s) Active 06/05/2018 [facility] Furosemide 40 MG Oral Tablet 4 0 mg = 1 tab, PO, Daily, 0 Refill(s) Active 06/05/2018 [facility] Digoxin 0.125 MG Oral Tablet 1 25 microgram = 1 tab, PO, Daily, 0 Refill(s) Active 06/05/2018 [facility] NS 1,000 mL 1,000 mL, Rate: 50 ml/hr, Infuse over: 20 hr, Route: IV, Dosing Weight 82.364 kg, Total Volume: 1,000, Start date: 06/05/18 6:36:00 EQUITY HOLDER, Duration: 30 day, Stop date: 07/05/18 6:35:00 CDT, 1.93, m2 No Longer Active 06/05/2018 [facility] Allergies, Adverse Reactions, Alerts Substance Category Reaction Severity Reaction type Status Date Reported Comments Source No Known Medication Allergies Assertion Drug aller gy [facility] Immunizations Immunization Date Given Site Status Last Updated Comments Source pneumococcal 13-valent vaccine 06/06/2018 Not Given [facility] out[place] influenza virus vaccine, inactivated 06/06/2018 Not Given [facility] Results Order Name Results Value Reference Range Date Interpretation Comments Source CHEM PANEL Magnesium Lvl 1.9 1.8 - 2.4 06/06/2018 [facility] CHEM PANEL eGFR 73 06/06/2018 Result Comment: The eGFR is calculated [...] should be multiplied by the estimated BMI. [facility] CHEM PANEL Calcium Lvl 7.9 8.5 - 10.5 06/06/2018 [facility] CHEM PANEL CO2 25 24 - 32 06/06/2018 [facility] CHEM PANEL AGAP 12.7 10.0 - 20.0 06/06/2018 [facility] CHEM PANEL Potassium Lvl 3.7 3.5 - 5.1 06/06/2018 [facility] CHEM PANEL Chloride Lvl 112 95 - 109 06/06/2018 [facility] CHEM PANEL Glucose Lvl 73 70 - 99 06/06/2018 [facility] CHEM PANEL BUN 14 7 - 22 06/06/2018 [facility] CHEM PANEL Creatinine Lvl 0.77 0.50 - 1.40 06/06/2018 [facility] CHEM PANEL Sodium Lvl 146 135 - 145 06/06/2018 [facility] CHEM PANEL Phosphorus 3.2 2.5 - 4.5 06/06/2018 [facility] HEMATOLOGY Lymphocytes # 1.5 1.0 - 5.5 06/06/2018 [facility] HEMATOLOGY Monocytes # 0.6 0.0 - 0.8 06/06/2018 [facility] HEMATOLOGY Eosinophils 0.4 0.0 - 4.0 06/06/2018 [facility] HEMATOLOGY Basophils 0.4 0.0 - 1.0 06/06/2018 [facility] HEMATOLOGY Neutrophils # 4.9 1.5 - 8.1 06/06/2018 [facility] HEMATOLOGY Monocytes 8.0 2.0 - 12.0 06/06/2018 [facility] HEMATOLOGY Lymphocytes 21.6 20.0 - 40.0 06/06/2018 [facility] HEMATOLOGY Segs 69.6 45.0 - 75.0 06/06/2018 [facility] HEMATOLOGY PT 21.5 12.0 - 14.7 06/06/2018 [facility] HEMATOLOGY PTT 56.6 22.9 - 35.8 06/06/2018 [facility] HEMATOLOGY INR 1.91 0.85 - 1.17 06/06/2018 [facility] HEMATOLOGY Hgb 11.2 12.0 - 16.0 06/06/2018 [facility] HEMATOLOGY MPV 9.2 7.4 - 10.4 06/06/2018 [facility] HEMATOLOGY Platelet 260 133 - 450 06/06/2018 [facility] HEMATOLOGY RDW 19.9 11.5 - 14.5 06/06/2018 [facility] HEMATOLOGY MCHC 32.8 32.0 - 36.0 06/06/2018 [facility] HEMATOLOGY RBC 3.49 4.20 - 5.40 06/06/2018 [facility] HEMATOLOGY WBC 7.0 3.7 - 10.4 06/06/2018 [facility] HEMATOLOGY MCH 32.2 27.0 - 31.0 06/06/2018 [facility] HEMATOLOGY MCV 98.4 80.0 - 98.0 06/06/2018 [facility] HEMATOLOGY Hct 34.3 36.0 - 48.0 06/06/2018 [facility] HEMATOLOGY INR 1.83 0.85 - 1.17 06/05/2018 [facility] HEMATOLOGY PT 20.8 12.0 - 14.7 06/05/2018 [facility] HEMATOLOGY PTT 61.7 22.9 - 35.8 06/05/2018 [facility] BLOOD BANK RESULTS RBC product Product available (06/05/18 6:40 AM) 06/05/2018 [facility] BLOOD BANK RESULTS Antibody Scrn Negative (06/05/18 6:40 AM) 06/05/2018 [facility] BLOOD BANK RESULTS ABO/Rh B POS 06/05/2018 [facility] CHEM PANEL Magnesium Lvl 1.9 1.8 - 2.4 06/05/2018 [facility] CHEM PANEL Phosphorus 3.2 2.5 - 4.5 06/05/2018 [facility] ELECTROLYTES AGAP 12.3 10.0 - 20.0 06/05/2018 [facility] ELECTROLYTES Calcium Lvl 8.5 8.5 - 10.5 06/05/2018 [facility] ELECTROLYTES CO2 27 24 - 32 06/05/2018 [facility] ELECTROLYTES Chloride Lvl 110 95 - 109 06/05/2018 [facility] ELECTROLYTES Potassium Lvl 3.3 3.5 - 5.1 06/05/2018 [facility] ELECTROLYTES Sodium Lvl 146 135 - 145 06/05/2018 [facility] ELECTROLYTES eGFR 49 06/05/2018 Result Comment: The eGFR is calculated [...] should be multiplied by the estimated BMI. [facility] ELECTROLYTES Glucose Lvl 93 70 - 99 06/05/2018 [facility] ELECTROLYTES Creatinine Lvl 1.0 7 0.50 - 1.40 06/05/2018 [facility] ELECTROLYTES BUN 17 7 - 22 06/05/2018 [facility] HEMATOLOGY Eosinophils # 0.1 0.0 - 0.5 06/05/2018 [facility] HEMATOLOGY Lymphocytes # 1.9 1.0 - 5.5 06/05/2018 [facility] HEMATOLOGY Monocytes # 0.6 0.0 - 0.8 06/05/2018 [facility] HEMATOLOGY Eosinophils 0.6 0.0 - 4.0 06/05/2018 [facility] HEMATOLOGY Neutrophils # 5.1 1.5 - 8.1 06/05/2018 [facility] HEMATOLOGY Basophils 0.6 0.0 - 1.0 06/05/2018 [facility] HEMATOLOGY Monocytes 8.4 2.0 - 12.0 06/05/2018 [facility] HEMATOLOGY Segs 66.0 45.0 - 75.0 06/05/2018 [facility] HEMATOLOGY Lymphocytes 24.4 20.0 - 40.0 06/05/2018 [facility] HEMATOLOGY MCH 32.7 27.0 - 31.0 06/05/2018 [facility] HEMATOLOGY MCV 98.4 80.0 - 98.0 06/05/2018 [facility] HEMATOLOGY MCHC 33.2 32.0 - 36.0 06/05/2018 [facility] HEMATOLOGY Hct 36.4 36.0 - 48.0 06/05/2018 [facility] HEMATOLOGY Hgb 12.1 12.0 - 16.0 06/05/2018 [facility] HEMATOLOGY MPV 9.1 7.4 - 10.4 06/05/2018 [facility] HEMATOLOGY RDW 20.0 11.5 - 14.5 06/05/2018 [facility] HEMATOLOGY Platelet 278 133 - 450 06/05/2018 [facility] HEMATOLOGY WBC 7.7 3.7 - 10.4 06/05/2018 [facility] HEMATOLOGY RBC 3.70 4.20 - 5.40 06/05/2018 [facility] Pathology Reports No Data Provided for This Section Diagnostic Reports No Data Provided for This Section Consultation Notes No Data Provided for This Section Discharge Summaries No Data Provided for This Section History and Physicals No Data Provided for This Section Vital Signs Vital Sign Value Date Comments Source Systolic (mm Hg) 121 06/06/2018 [facility] Diastolic (mm Hg) 70 06/06/2018 [facility] Systolic (mm Hg) 125 06/06/2018 [facility] Diastolic (mm Hg) 77 06/06/2018 [facility] Systolic (mm Hg) 136 06/06/2018 [facility] Diastolic (mm Hg) 78 06/06/2018 [facility] Temperature Oral (F) 98.5 F 06/06/2018 [facility] Temperature Oral (F) 98.8 F 06/06/2018 [facility] Respitory Rate 13 06/06/2018 [facility] Respitory Rate 13 06/06/2018 [facility] Respitory Rate 13 06/06/2018 [facility] Temperature Oral (F) 99.6 F 06/06/2018 [facility] Height 157.48 cm 06/05/2018 [facility] Weight 82.364 06/05/2018 [facility] BMI Calculated 33.21 06/05/2018 [facility] Encounters Location Location Details Encounter Type Encounter Number Reason For Visit Attending Provider ADM Date DC Date Status Source [facility] Bedded Outpatient [id number] Hamzah Schultz 02/06/2018 02/06/2018 [facility] Inpatient [id number] Helen Louis 06/05/2018 06/06/2018 [facility] Procedures Procedure Code Date Perfomer Comments Source PCI - Percutaneous coronary intervention [id number] [facility] Assessment and Plan No Data Provided for This Section Plan of Care No Data Provided for This Section Social History Social History Date Source Social History TypeResponse Smoking Status Current some day smoker; Type: Cigarettes; Previous treatment: None; Ready to change: No; Concerns about tobacco use in household: No; Exposure to Tobacco Smoke None; Cigarette Smoking Last 365 Days Yes; Reg Smoking Cessation Counseling No; Number of years: 30; entered on: 06/05/18 06/05/2018 [facility] Social History TypeResponse Smoking Status Current some day smoker; Type: Cigarettes; Previous treatment: None; Ready to change: No; Concerns about tobacco use in household: No; Exposure to Tobacco Smoke None; Cigarette Smoking Last 365 Days Yes; Reg Smoking Cessation Counseling No; Number of years: 30; entered on: 06/05/18 06/05/2018 [facility] Family History No Data Provided for This Section Advance Directives No Data Provided for This Section Functional Status No Data Provided for This Section
--- OUTSIDE RECORDS SUMMARY | 2019-10-31 18:59 | XMS REPORT | Continuity of Care Document ---
Author Author [facility] t Organization [facility] Address [address] [place] [address] [address] [place] [address] Phone Unavailable Care Team Providers Care Executive Director Of Marketing Name Role Phone BENNY SEQUEIRA, MD MCNALLY PCP Alejandra CHAVEZ Attphys Unavailable Bel ROWLEY Attphys Unavailable ANGELI MATTHEWS Attphys Unavailable Helen Louis Attphys MARCE MILLER Attphys Unavailable Dominic Schultz Attphys BOCGWYN ULI Attphys Unavailable Loan VIVAS Attphys Unavailable Louis Helen Admphys MARCE MILLER Admphys Unavailable ULI ZAPATA Admphys Unavailable Payers Payer Name Policy Type Policy Number Effective Date Expiration Date Bel green [facility] Medicare Complete [id number] 2019 00:00:00 [facility] Problems Condition Name Condition Details Condition Category Status Onset Date Resolution Date Last Treatment Date Treating Clinician Comments Source PREADMIT / WATCHMAN / GA / CHANTEL PREADMIT / WATCHMAN / GA / CHANTEL Active 05/29/2018 [facility] Diagnosis Active 2018-05-29 00:00:00 2018-06-07 12:14:00 Mireya Hua LT HEART CATH / CORONARY STENTS LT HEART CATH / CORONARY STENTS Active 02/01/2018 [facility] Active 2018-02-01 00:00: 00 2018-03-09 15:29:00 [facility] Chronic atrial fibrillation Chronic a-fib Problem Active [facility] Small bowel obstruction SBO (small bowel obstruction) Problem Active [facility] Urinary tract infection UTI (urinary tract infection) Problem Active [facility] Diverticulitis of large intestine Diverticulitis large intestine Pr oblem Active [facility] Lower gastrointestinal hemorrhage LGI bleed Problem Active [facility] Nausea Nausea Problem Active [facility] Atrial fibrillation with rapid ventricular response Problem Active [facility] Allergies, Adverse Reactions, Alerts Allergy Name Allergy Type Status Severity Reaction(s) Onset Date Inacti ve Date Treating Clinician Comments Source No Known Medication Allergies No Known Medication Allergies Active [facility] Social History Social Habit Start Date Stop Date Quantity Comments Source Sex Assigned At 1935 00:00:00 1935 00:00:[address] [facility] Smoking Status Start Date Stop Date Source Social History 2018-06-05 13:41:18 [facility] Medications Ordered Medication Name Filled Medication Name Start Date Stop Da te Current Medication? Ordering Clinician Indication Dosage Frequency Signature (SIG) Comments Components Source Azithromycin (Z-Raheel) 250 Mg TABLET Azithromycin (Z-Raheel) 250 Mg TABLET 2018-09-25 14:18:00 Yes [address] [facility] Furosemide 40 MG Oral Tablet 2018-06-06 15:00:00 No Notes: (Same as: Lasix) May cause GI upset. Give with food or milk. [facility] Warfarin 2018-06-06 15:00:00 No 3 mg, Route: PO, Drug form: TAB, Every Other Day, Dosing Weight 82.364, kg, Start date: 06/06/18 9:00:00 CHANGE ROOM ATTENDANT, Duration: 30 day, Stop date: 07/04/18 9:00:00 CDT [facility] 24 HR Metoprolol Tartrate 50 MG Extended Release Tablet [Top rol] 2018-06-06 15:00:00 No Notes: (Sa me as: Toprol XL) May split tab, but do not crush. [facility] Isosorbide 2018-06-06 15:00:00 No Notes: (Same as:Imdur) "Do Not Crush" Take on empty stomach/ full glass of water. Do not crush [facility] Digoxin 0.125 MG Oral Tablet 2018-06-06 15:00:00 No Notes: Take on an Empty Stomach (Same as: Lanoxin) [facility] orial Javid Bupropion 2018-06-06 15:00:00 No Notes: (Do not crush) (Same As: Wellbutrin SR) [facility] Javid Aspirin 2018-06-06 15:00:00 No Notes: Do not crush or chew. (Same As: Ecotrin) [facility] Magnesium Sulfate 2018-06-06 10:36:00 No Notes: WASTE: F/P - Sink; E - [employer] [facility] Magnesium Oxide 2018-06-06 10:36:00 No Notes: (Same as: Mag-Ox 400) Magnesium oxide [id number] elemental magnesium Dose=____mg magnesium oxide (___mg elemental magnesium) [facility] Her fuentes Calcium Gluconate 2018-06-06 10:36:00 No Notes: WASTE: F/P - Sink; E - [facility] potassium phosphate 2018-06-06 10:36:00 No Notes: (Same as: K Phosphate.) Do not infuse phosphorous concurrently in the same line as TPN or IVF that contains calcium. For double lumen central lines, phosphorous may be infused in a separate lumen from TPN. 1 mMol phoshate has 1.47 mEq potassium Infuse over 4 hours [facility] sodium phosphate 2018-06-06 10:36:00 No Notes: Infuse over 4 hour. Do not infuse phosphorous concurrently in the same line as TPN or IVF that contains calcium. For double lumen central lines, phosphorous may be infused in a separate lumen from TPN. [facility] potassium phosphate-sodium phosphate 250 mg-280 mg-160 mg oral powder for reconstitution 2018-06-06 10:36:00 No Notes: (Same as: Phos-NaK) Each 1.5 gm pkt has 250mg phosphorous. Mix w/2.5oz water and stir. [facility] Potassium Chloride 2018-06-06 10:36:00 No Notes: (Same as: K-Dur 20) "Do Not Crush" Give with food and full glass of water For patients unable to swallow tablet, dissolve in one half glass of water. Allow about 2 minutes for the tablets to disintegrate. Stir before giving to prepare slurry and administer. Please exclude Patient s with feeding tube less than 14 [place] (Dobhoff, J-tube etc) and pediatric and patients. Mireya Pelayoann Warfarin 2018-06-06 05:45:00 No Notes: Nurse to ensure documentation of patient education per anticoagulation policy. Avoid large intake of vitamin- K containing foods diet. (Same As: Coumadin) WASTE: F/P - P Waste Black; E - P Waste Black Mireya Hua Ranexa 500 mg oral tablet, extended release 2018-06-06 04:04:00 No Notes: Same as Ranexa "Do Not Crush" [facility]rial Javid Zyloprim 2018-06-06 04:04:00 No Notes: (Isac e as: Zyloprim) [facility] Javid Saline Flush 0.9% 2018-06-06 03:00:00 No Notes: (Same as: BD Posiflush) [facility] Javid Ranexa 2018-06-05 23:00:00 No Notes : Same as Ranexa "Do Not Crush" [facility] Javid Allopurinol 2018-06-05 23:00:00 No Notes: ( Same as: Zyloprim) [facility] Javid Naloxone 2018-06-05 18:23:00 No Notes: Same as Narcan [facility] Flumazenil 2018-06-05 18:23:00 No Notes: (S allan as: Romazicon) [facility] Ondansetron 2018-06-05 18:23:00 No Notes: (Same as: Zofran) MEDICATION WASTE Product Size: 4 mg Product Wasted: ___ mg [facility] Saline Flush 0.9% 2018-06-05 18:14:00 No Notes: (Same as: BD Posiflush) [facility] Javid DME Rx-external wearable defibrillator 2018-06-05 18:12:00 Yes [facility] Silver glycopyrrolate (ANES) 2018-06-05 18:11:00 No Route: IV, Drug form: INJ, ONCE, Stop date: 06/05/18 12:11:00 CHANGE ROOM ATTENDANT Mireya Hua neostigmine (ANES) 2018-06-05 18:11:00 No Route: IV, Drug form: INJ, ONCE, Stop date: 06/05/18 12:11:00 CHANGE ROOM ATTENDANT [facility] Silver ondansetron (ANES) 2018-06-05 18:11:00 No Route: IV, Drug form: INJ, ONCE, Stop date: 06/05/18 12:11:00 CHANGE ROOM ATTENDANT Mireya Hua heparin (ANES) 2018-06-05 18:11:00 No Route: IV, Drug form: INJ, ONCE, Stop date: 06/05/18 12:11:00 CHANGE ROOM ATTENDANT Jovi Hua protamine (ANES) 10 mg 2018-06-05 18:03:00 No Route: IV, Drug form: INJ, Start date: 06/05/18 12:03:00 CHANGE ROOM ATTENDANT, Stop date: 06/05/18 13:03:00 CHANGE ROOM ATTENDANT Mireya Hua fentaNYL (ANES) 2018-06-05 17:27:00 No Route: IV, Drug form: INJ, ONCE, Stop date: 06/05/18 11:27:00 CHANGE ROOM ATTENDANT Jovi Hua rocuronium (ANES) 2018-06-05 17:27:00 No Route: IV, Drug form: INJ, ONCE, Stop date: 06/05/18 11:27:00 CHANGE ROOM ATTENDANT Jovi salgadorizuri Hua propofol (ANES) 2018-06-05 17:27:00 No Route: IV, Drug form: INJ, ONCE, Stop date: 06/05/18 11:27:00 CHANGE ROOM ATTENDANT Jovi salgadorizuri Hua lidocaine (ANES) 2018-06-05 17:22:00 No Route: IV, Drug form: INJ, ONCE, Stop date: 06/05/18 11:22:00 CHANGE ROOM ATTENDANT Jovi Hua Sodium Chloride 0.9% IV (ANES) 1000 mL 2018-06-05 16:20:00 No Route: IV, Total Volume: 1,000, Start date: 06/05/18 10:20:00 CHANGE ROOM ATTENDANT, Stop date: 06/05/18 11:20:00 CHANGE ROOM ATTENDANT [facility] metoprolol succinate 50 mg oral capsule, extended release 2018-06-05 13:21:00 Yes 50 mg = 1 cap, PO, BID, 0 Refill (s) Mireya Silver isosorbide mononitrate 30 mg oral tablet, extended release 2018-06-05 13:21:00 Yes 30 mg = 1 tab, PO, QAM, 0 Refil l(s) [facility] warfarin 6 mg oral tablet 2018-06-05 13:21:00 Yes 6 mg = 1 tab, PO, Every Other Day, 0 Refill(s) Mireya mittal warfarin 3 mg oral tablet 2018-06-05 13:21:00 Yes 3 mg = 1 tab, PO, Every Other Day, 0 Refill(s) Mireya mittal Aspirin 2018-06-05 13:21:00 Yes 81 mg, PO, D aily, 0 Refill(s) [facility] Bupropion 2018-06-05 13:21:00 Yes 15 0 mg, PO, Daily, 0 Refill(s) [facility] allopurinol 100 mg oral tablet 2018-06-05 13:21:00 Yes 100 mg = 1 tab, PO, BID, 0 Refill(s) [facility] Ranexa 2018-06-05 13:21:00 Yes 1,000 mg, PO, BID, 0 Refill(s) [facility] pantoprazole 40 mg oral granule 2018-06-05 13:21:00 Yes = 1 Pack, PO, BID, # 30 ea, 0 [facility] 40 MG Oral Tablet 2018-06-05 13:07:00 Yes 40 mg = 1 tab, PO, Daily, 0 Refill(s) [facility] Digoxin 0.125 MG Oral Tablet 2018-06-05 13:07:00 Yes 125 microgram = 1 tab, PO, Daily, 0 Refill(s) [facility] NS 1,000 mL 2018-06-05 12:36:00 No 1,000 mL, Rate: 50 ml/hr, Infuse over: 20 hr, Route: IV, Dosing Weight 82.364 kg, Total Volume: 1,000, Start date: 06/05/18 6:36:00 CHANGE ROOM ATTENDANT, Duration: 30 day, Stop date: 07/05/18 6:35:00 CDT, 1.93, m2 [facility] Allopurinol Allopurinol Yes [address] [facility] Aspirin (Aspir 81) 81 Mg TABLET. Aspirin (Aspir 81) 81 Mg TABLET. Yes [address] [facility] Atorvastatin Calcium Atorvastatin Calcium Yes [address] [facility] Bupropion Hcl Bupropion Hcl Yes [address] [facility] Digoxin Digoxin Yes .[address] [facility] Donepezil Hcl (Aricept) 5 Mg TABLET Donepezil Hcl (Aricept) 5 Mg TABL ET Yes 5 Bedtime [facility] Furosemide Furosemide Yes [address] [facility] Isosorbide Mononitrate (Isosorbide Mononitrate Er) 30 Mg TAB.ER.24H Isosorbide Mononitrate (Isosorbide Mononitrate Er) 30 Mg TAB.ER.24H Yes 30 Daily [facility] Lisinopril Lisinopril Yes 5 Daily [facility] Memantine Hcl (Namenda) 10 Mg TABLET Memantine Hcl (Namenda) 10 Mg TABLET Yes 10 Twice A Day [facility] Metoprolol Metoprolol Yes [address] [facility] Metoprolol Tartrate (Lopressor) 25 Mg TAB Metoprolol T artrate (Lopressor) 25 Mg TAB Yes [address] [facility] Nitroglycerin (Nitrostat) 0.4 Mg TAB.SUBL Nitroglyceri n (Nitrostat) 0.4 Mg TAB.SUBL Yes .[address] [facility] Ondansetron (Zofran Odt) 4 Mg TAB.RAPDIS Ondansetron ( Zofran Odt) 4 Mg TAB.RAPDIS Yes 4 Every 6 Hours as needed for Nausea [facility] Pantoprazole Sodium (Protonix) 40 Mg TABLET. Pantopr azole Sodium (Protonix) 40 Mg TABLET. Yes [address] [facility] Ranolazine (Ranexa) 500 Mg TABSR Ranolazine (Ranexa) 500 Mg TABSR Yes [address] [facility] Warfarin Sodium Warfarin Sodium 2019-10-28 00:00:00 No 3 Use As Directed [facility] Clopidogrel Bisulfate (Plavix) 75 Mg TABLET Clopidogre l Bisulfate (Plavix) 75 Mg TABLET 2018-08-16 00:00:[address] [facility] Metoprolol Succinate Metoprolol Succinate 2018-08-16 00:00:00 No 50 Daily [facility] Simvastatin Simvastatin 2018-04-26 00:00:00 No 40 T bart At 9:00PM [facility] Warfarin Sodium Warfarin Sodium 2018-04-26 00:00:[address] [facility] Warfarin Sodium Warfarin Sodium 2017-11-24 00:00:00 No 5 Use As Directed [facility] Lisinopril Lisinopril 2017-11-20 00:00:[address] [facility] Memantine Hcl (Namenda) 10 Mg TABLET Memantine Hcl (Namenda) 10 Mg TABLET 2017-11-20 00:00:[address] [facility] Sotalol Hcl (Sotalol) 80 Mg TABLET Sotalol Hcl (Sotalol) 80 Mg T ABLET 2017-11-20 00:00:00 No [address] [facility] Acetaminophen/Diphenhydramine (Ra Acetaminophen Pm Cap let) 1 Each TABLET Acetaminophen/Diphenhydramine (Ra Acetaminophen Pm Caplet) 1 Each TABLET 2017-10-10 00:00:[address] [facility] Tramadol Hcl (Ultram 50MG*) 50 Mg TAB Tramadol Hcl (Ultram 50MG* ) 50 Mg TAB 2017-10-10 00:00:00 No 50 Every 6 Hours as nee ded for Pain [facility] Lisinopril/Hydrochlorothiazide (Lisinopril-Hctz 20-25 Mg Tab) 1 Each TABLET Lisinopril/Hydrochlorothiazide (Lisinopril-Hctz 20-25 Mg Tab) 1 Each TABLET 2016-07-28 00:00:[address] [facility] Vital Signs Vital Name Observation Time Observation Value Comments Source Body Temperature 2019-10-29 11:30:00 97.6 [degF] [facility] Weight 2019-10-28 00:20:00 169 [lb_av] [facility] BMI (Body Mass Index) 2019-10-28 00:20:00 30.9 kg/m2 [facility] Systolic (mm Hg) 2018-06-06 18:00:00 Dick rial Javid Diastolic (mm Hg) 2018-06-06 18:00:00 Mem orial Silver Systolic (mm Hg) 2018-06-06 17:00:00 Dick rial Javid Diastolic (mm Hg) 2018-06-06 17:00:00 Mem orial Javid Systolic (mm Hg) 2018-06-06 16:00:00 Dick rial Silver Diastolic (mm Hg) 2018-06-06 16:00:00 Mem orial Javid Temperature Oral (F) 2018-06-06 14:00:00 98.5 F [facility] Temperature Oral (F) 2018-06-06 11:37:00 98.8 F [facility] Respitory Rate 2018-06-06 10:00:00 Memori al Silver Respitory Rate 2018-06-06 09:00:00 Memori al Silver Respitory Rate 2018-06-06 08:00:00 Memori al Javid Temperature Oral (F) 2018-06-06 04:30:00 99.6 F [facility] Height 2018-06-05 12:35:00 157.48 cm [facility] Weight 2018-06-05 12:35:00 [facility] BMI Calculated 2018-06-05 12:35:00 Memori al Javid Procedures Procedure Date / Time Performed Performing Clinician Kay e PCI - Percutaneous coronary intervention [facility] Plan of Care Planned Activity Planned Date Details Comments Source Instructions Atrial Fibrillation [facility] Encounters Start Date/Time End Date/Time Encounter Type Admission Type Attendi [facility] Care Department Encounter ID Source 2019-10-27 20:57:00 2019-10-29 12:45:00 Discharged Inpatient (obs) 1 WENDY CHAVEZ [facility] [id number] [facility] 2018-09-25 11:59:00 2018-09-25 14:35:00 Departed Emergency Room 1 MAXIMINO ROWLEY [facility] [id number] [facility] 2018-08-21 08:19:00 2018-08-21 08:19:00 Registered Clinic 3 ANGELI MATTHEWS [facility] [id number] [facility] 2018-08-20 09:08:00 2018-08-20 09:08:00 Registered Surgical Day Care [facility] [id number] [facility] 2018-06-05 06:14:00 2018-06-06 12:10:00 Outpatient Bianca Louis [facility] [id number] 2018-04-21 14:04:00 2018-04-26 13:33:00 Discharged Inpatient 1 MARCE MILLER [facility] [id number] [facility] 2018-02-07 09:57:00 2018-02-08 12:57:00 Discharged Inpatient (obs) [facility] [id number] [facility] 2018-02-06 09:00:00 2018-02-06 09:00:00 Outpatient Cody Schultz [facility] [id number] 2017-11-21 02:10:00 2017-11-24 13:28:00 Discharged Inpatient 1 ULI ZAPATA [facility] [id number] [facility] 2017-10-08 23:50:00 2017-10-10 18:39:00 Discharged Inpatient 1 CARMEN VIVAS [facility] [id number] [facility] Results Test Description Test Time Test Comments Results Result Comments Source Blood leukocytes automated count (number/volume) 2019-10-28 09:51:00 Test Item White Blood Count (test code = 6690-2) 6.13 4.8-10.8 [facility] count (number/volume)2019-10-28 09:51:00* Test Item Value Reference Range Interpretation Comments Red Blood Count (test code = 789-8) 4.14 3.6-5.1 [facility] measurement (moles/volume)2019-10-28 09:51:00* Test Item Value Reference Range Interpretation Comments Hemoglobin (test code = 70154-9) 11.2 12.0-16.0 [facility] hematocrit (volume fraction)2019-10-28 09:51:00* Test Item Value Reference Range Interpretation Comments Hematocrit (test code = 4544-3) 37.2 34.2-44.1 [facility] eryth[facility] mean corpuscular [id number] 09:51:00* Test Item Value Reference Range Interpretation Comments Mean Corpuscular Volume (test code = 787-2) 89.9 81-99 [facility] mean corpuscular hemoglobin (mass per erythrocyte)2019-10-28 09:51:00* Test Item Value Reference Range Interpretation Comments Mean Corpuscular Hemoglobin (test code = 785-6) 27.1 28-32 [facility] mean corpuscular hemoglobin concentration measurement (mass/volume)2019-10-28 09:51:00* Test Item Value Reference Range Interpretation Comments Mean Corpuscular Hemoglobin Concent (test code = 786-4) 30.1 31-35 [facility] HospitalRDW [id number] 09:51:00* Test Item Value Reference Range Interpretation Comments Red Cell Distribution Width (test code = 91153-7) 16.3 11.7 -14.4 [facility] platelet count (count/volume)2019-10-28 09:51:00* Test Item Value Reference Range Interpretation Comments Platelet Count (test code = 777-3) 197 140-360 [facility] segmented neutrophil count as percentage of total yoxilghmhy2324-98-68 09:51:00* Test Item Value Reference Range Interpretation Comments Neutrophils (%) (Auto) (test code = 66104-9) 66.2 38.7-80.0 [facility] lymphocyte count as percentage ot total [id number] 09:51:00* Test Item Value Reference Range Interpretation Comments Lymphocytes (%) (Auto) (test code = 736-9) 23.2 18.0-39.1 [facility] monocyte count as percentage of total hjwulmwguo7446-03-50 09:51:00* Test Item Value Reference Range Interpretation Comments Monocytes (%) (Auto) (test code = 5905-5) 8.6 4.4-11.3 [facility] eosinophil count as percentage of total [id number] 09:51:00* Test Item Value Reference Range Interpretation Comments Eosinophils (%) (Auto) (test code = 713-8) 1.1 0.0-6.0 [facility] basophil count as percentage of total [id number] 09:51:00* Test Item Value Reference Range Interpretation Comments Basophils (%) (Auto) (test code = 706-2) 0.7 0.0-1.0 [facility] HospitalFluoroscopic procedure less than one hour [id number] 09:51:00* Test Item Value Reference Range Interpretation Comments IM GRANULOCYTES % (test code = IM GRANULOCYTES %) 0.2 0.0- 1.0 [facility] neutrophil count 2019-10-28 09:51:00* Test Item Value Reference Range Interpretation Comments Neutrophils # (Auto) (test code = 751-8) 4.1 2.1-6.9 [facility] lymphocytes count (number/volume) 2019-10-28 09:51:00* Test Item Value Reference Range Interpretation Comments Lymphocytes # (Auto) (test code = 74628-3) 1.4 1.0-3.2 [facility] monocytes automated count (number/volume)2019-10-28 09:51:00* Test Item Value Reference Range Interpretation Comments Monocytes # (Auto) (test code = 742-7) 0.5 0.2-0.8 [facility] eosinophil count 2019-10-28 09:51:00* Test Item Value Reference Range Interpretation Comments Eosinophils # (Auto) (test code = 711-2) 0.1 0.0-0.4 [facility] basophil count (count/volume)2019-10-28 09:51:00* Test Item Value Reference Range Interpretation Comments Basophils # (Auto) (test code = 704-7) 0.0 0.0-0.1 [facility]Fluor[facility] procedure less than one hour [id number] 09:51:00* Test Item Value Reference Range Interpretation Comments Absolute Immature Granulocyte (auto (matthew t code = Absolute Immature Granulocyte (auto) 0.01 0-0.1 [facility] plasma sodium measurement (moles/volume)2019-10-28 09:51:00* Test Item Value Reference Range Interpretation Comments Sodium Level (test code = 2951-2) 142 136-145 [facility] or plasma potassium measurement (moles/volume)2019-10-28 09:51:00* Test Item Value Reference Range Interpretation Comments Potassium Level (test code = 2823-3) 4.3 3.5-5.1 [facility] or plasma chloride measurement (moles/volume)2019-10-28 09:51:00* Test Item Value Reference Range Interpretation Comments Chloride Level (test code = 2075-0) 108 98-107 [facility] or plasma carbon dioxide, total measurement (moles/volume)2019-10-28 09:51:00* Test Item Value Reference Range Interpretation Comments Carbon Dioxide Level (test code = 2028-9) 25 22-29 [facility] or plasma anion [id number] 09:51:00* Test Item Value Reference Range Interpretation Comments Anion Gap (test code = 98741-9) 13.3 8-16 [facility] or plasma urea nitrogen measurement (mass/volume)2019-10-28 09:51:00* Test Item Value Reference Range Interpretation Comments Blood Urea Nitrogen (test code = 3094-0) 15 7-26 [facility] or plasma creatinine measurement (mass/volume)2019-10-28 09:51:00* Test Item Value Reference Range Interpretation Comments Creatinine (test code = 2160-0) 0.97 0.57-1.11 [facility] or plasma urea nitrogen/creatinine mass [id number] 09:51:00* Test Item Value Reference Range Interpretation Comments BUN/Creatinine Ratio (test code = 3097-3) 15 6-25 [facility] glomerular filtration rate (GFR) ifdpudjjnnoqb4555-11-68 09:51:00* Test Item Value Reference Range Interpretation Comments Estimat Glomerular Filtration Rate (test code = 405740963) 55 >60 Ranges were taken from the National Kidney Disease Education Program and the [facility] [employer] literature.Reference ranges:60 or greater: [id number] ( for 3 consecutive months): Chronic kidney disease 15 or less: Kidney failureSt. [facility] HospitalGlucose rrimactewvo5236-89-59 09:51:00* Test Item Value Reference Range Interpretation Comments Glucose Level (test code = [id number]) 87 74-118 [facility] Hospitalerum or plasma calcium measurement (mass/volume)2019-10-28 09:51:00* Test Item Value Reference Range Interpretation Comments Calcium Level (test code = 35078-5) 8.8 8.4-10.2 [facility] Hospitalerum or plasma total bilirubin measurement (mass/volume)2019-10-28 09:51:00* Test Item Value Reference Range Interpretation Comments Total Bilirubin (test code = 1975-2) 0.8 0.2-1.2 [facility] HospitalFluoroscopic procedure less than one hour gyythckk5837-71-02 09:51:00* Test Item Value Reference Range Interpretation Comments Aspartate Amino Transf (AST/SGOT) (test code = Aspartate Amino Transf (AST/SGOT)) 16 5-34 [facility] Hospitalerum or plasma alanine aminotransferase measurement (enzymatic activity/volume)2019-10-28 09:51:00* Test Item Value Reference Range Interpretation Comments Alanine Aminotransferase (ALT/SGPT) (test code = 1742-6) 11 0-55 [facility] Hospitalerum or plasma protein measurement (mass/volume)2019-10-28 09:51:00* Test Item Value Reference Range Interpretation Comments Total Protein (test code = 2885-2) 6.6 6.5-8.1 [facility] Hospitalerum or plasma albumin measurement (mass/volume)2019-10-28 09:51:00* Test Item Value Reference Range Interpretation Comments Albumin (test code = 1751-7) 3.3 3.5-5.0 [facility] HospitalPlasma globulin measurement (mass/volume) 2019-10-28 09:51:00* Test Item Value Reference Range Interpretation Comments Globulin (test code = 07804-0) 3.3 2.3-3.5 [facility] Hospitalerum or plasma albumin/globulin mass iriwq1773-49-74 09:51:00* Test Item Value Reference Range Interpretation Comments Albumin/Globulin Ratio (test code = 1759-0) 1.0 0.8-2.0 [facility] Hospitalerum or plasma alkaline phosphatase measurement (enzymatic activity/volume)2019-10-28 09:51:00* Test Item Value Reference Range Interpretation Comments Alkaline Phosphatase (test code = 6768-6) 68 40-150 [facility] Hospitalerum or plasma triglyceride measurement (mass/volume)2019-10-28 09:51:00* Test Item Value Reference Range Interpretation Comments Triglycerides Level (test code = 2571-8) 128 0-149 [facility] Hospitalerum or plasma cholesterol measurement (mass/volume)2019-10-28 09:51:00* Test Item Value Reference Range Interpretation Comments Cholesterol Level (test code = 2093-3) 158 0-199 Less than 200 mg/dL Low Htje924 - 239 mg/dL Borderline Vkcd682 m g/dl and greater High Risk [facility] Hospitalerum or plasma cholesterol in LDL measurement (mass/volume) 2019-10-28 09:51:00* Test Item Value Reference Range Interpretation Comments LDL Cholesterol (test code = 2089-1) 92 60-130 [facility] Hospitalerum or plasma cholesterol in HDL measurement (mass/volume)2019-10-28 09:51:00* Test Item Value Reference Range Interpretation Comments HDL Cholesterol (test code = 2085-9) 40 40-60 [facility] Hospitalerum or plasma total cholesterol/cholesterol in HDL mass yvemk8226-58-78 09:51:00* Test Item Value Reference Range Interpretation Comments Cholesterol/HDL Ratio (test code = 9830-1) 4.0 3.0-3.6 [facility] Hospitalerum or plasma creatine kinase measurement (enzymatic activity/volume)2019-10-28 09:51:00* Test Item Value Reference Range Interpretation Comments Creatine Kinase (test code = 2157-6) 57 29-168 [facility] Hospitalerum or plasma creatine kinase MB measurement (mass/volume)2019-10-28 09:51:00* Test Item Value Reference Range Interpretation Comments Creatine Kinase MB (test code = 28488-9) 2.50 0-5.0 [facility] HospitalTroponin I measurement by highly sensitive enzyme uisguasmgit9538-72-07 09:51:00* Test Item Value Reference Range Interpretation Comments Troponin I (test code = 39822-2) 0.009 0-0.300 [facility] HospitalCHEST SINGLE (PORTABLE)2019-10-27 20:10:00 [facility] [address] [place] [address] Patient Name: NBA SALES MR #: [id number] : 1935 Age/Sex: 84/F Req #: [id number] Adm Physician: Ordered by: LIANG GOMEZ MD Report #: [id number] Location: ER Room/Bed: Procedure: [id number] DX/CHEST SINGLE (PORTABLE) Exam Date: 10/27/19 Exam Time: 1830 REPORT STATUS: Signed EXAMINATION: CHEST SINGLE (PORTABLE) INDICATION: Shortness of breath. COMPARISO N: 09/25/2018. FINDINGS: TUBES and LINES: None. LUNGS: Normal lung volumes. There are hazy opacification of bilateral lung bases. No focal consolidation. The pulmonary vasculature appears prominent. PLEURA: There is probable small left pleural effusion. No pneumothorax. HEART AND MEDIASTINUM: The heart is enlarged. The mediastinal silhouette is otherwise wi thin normal limits and unchanged with atherosclerotic calcification of the tho racic aortic arch. BONES AND SOFT TISSUES: No acute osseous lesion. Soft tissues are unremarkable. UPPER ABDOMEN: No free air under the diaphragm. IMPRESSION: 1. Cardiomegaly with pulmonary vascular congestion. 2. Hazy opacification of bilateral lung bases which may represent atelectasis and/or pneumonia in the proper clinical setting. Signed by: Oksana huggins MD on 10/27/2019 8:13 PM Dictated By: OKSANA WILLIAM MD 12 Transcribed By: RILEY on 10/26 COPY TO: LIANG GOMEZ MD Fluoroscopic procedure less than one hour hpsvpmob6976-79-04 19:52:00* Test Item Value Reference Range Interpretation Comments Coronavirus (PCR) (test code = Coronavirus (PCR)) NOT DETECTED NOTD ETECTED SARS-COV2/RT-PCRNegative results do not preclude SARS-CoV-2 infection and should not be used as the sole basis for patient management decisions. Negative result s must be combined with clinical observations, patient history, and epidemiologi yue information. A false negative result may occur if a specimen is improperly c ollected, transported or handled.The limit of detection for this assay is 250 co pies/mLThe SARS-CoV-2 test is a rapid, real-time RT-PCR test intended for the qu alitative detection of nucleic acid from SARS-CoV-2 in nasopharyngeal swab speci men collected from individuals suspected of COVID-19 by their healthcare provide r. This test has not been Food and Drug Administration (FDA) cleared or approved and has been authorized by FDA under an Emergency Use Authorization (EUA). This EUA will be effective until the declaration that circumstances exist justifying the authorization of the emergency use of in vitro diagnostic test for detectio n and or diagnosis of COVID-19 is terminated under section 564(b) of the Act, or the the EUA is revoked under 564(g) of the ACT.Testing performed by [facility], [place] [address]KYL [facility] CampusProthrombin time (PT) in platelet poor plasma by coagulation arlel6585-24-61 17:30:00* Test Item Value Reference Range Interpretation Comments Prothrombin Time (test code = 5902-2) 13.6 11.9-14.5 [facility] HospitalINR in Platelet poor plasma by Coagulation xjzup3937-52-60 17:30:00* Test Item Value Reference Range Interpretation Comments Prothromb Time International Ratio (test code = 6301-6) 0.99 Oral Anticoagulant Therapy INR Values:1. Low Intensity Therapy 1.5 - 2.02 . Moderate Intensity Therapy 2.0 - 3.03. High Intensity Therapy(1) 2.5 - 3. 54. High Intensity Therapy(2) 3.0 - 4.05. Panic Value INR > 5.0 [facility] HospitalActivated partial thromboplastin time (aPTT) in platelet poor plasma by coagulation bqcho4971-10-85 17:30:00* Test Item Value Reference Range Interpretation Comments Activated Partial Thromboplast Time (test code = 05857-1) 34.8 23.8-35.5 [facility] Hospitalerum or plasma digoxin measurement (mass/volume)2019-10-27 17:30:00* Test Item Value Reference Range Interpretation Comments Digoxin Level (test code = 21600-2) 0.42 0.8-2.0 [facility] HospitalCHEST SINGLE (PORTABLE)2018-09-25 14:01:00 [facility] [address] [place] [address] Patient Name: NBA SALES MR #: [id number] : 1935 Age/Sex: 82/F Req #: [id number] Adm Physician: Ordered by: LORRI MOLINA NP Report #: [id number] Location: ER Room/Bed: Procedure: [id number] DX/ CHEST SINGLE (PORTABLE) Exam Date: 09/25/18 Exam Dillan e: 1300 REPORT STATUS: Signed Ex amination: Single AP view of the chest. COMPARISON: 04/21/2018 INDICATI ON: Cough, rib pain DISCUSSION: The lungs are well-inflated. No f ocal airspace consolidation, pleural effusion, or pneumothorax. Atheroscleroti c calcification of the thoracic aorta. Cardiomediastinal contour is otherwise unremarkable when accounting for portable, AP technique. No acute osseous abnormality. IMPRESSION: No acute cardiopulmonary abnormality. Signed by: Dr. Fidelina Cordova M.D. on 09/25/2018 2:03 PM Dictated By: NILTON CORDOVA MD 1403 Trans cribed By: RILEY on 09/25/18 1403 COPY TO: LORRI MOLINA [employer] Influenza Virus Types A,B Vbpkfhi2688-91-67 13:08:00* Test Item Value Reference Range Interpretation Comments Influenza Virus Types A,B Antigen (test code = 25843-1) NEGATIVE NEGATIVE [facility] CampusUS RENAL RETROPERITONEAL AMXD2289-04-69 10:21:00 [place] [address] Patient Name: NBA SALES MR #: [id number] : 1935 Age/Sex: 82/F Req #: [id number] Adm Physician: Ordered by: ANGELI MATTHEWS MD Report #: [id number] Location: Room/Bed: Procedure: [id number] US/US RENAL RETROPERITONEAL COMP Exam Date: Exam Time: REPORT STATUS: Signed EXAMINATIO N: Renal ultrasound. CLINICAL HISTORY :Chronic kidney disease stage IV COMPARISON: CT abdomen and pelvis with contrast 11/21/2017 TECHNIQUE: Sekou nicholas and color Doppler evaluation of the kidneys and bladder was performed in transverse and longitudinal planes. DISCUSSION: RIGHT KIDNEY: The rig ht kidney measures 10.8 cm in length and shows normal echogenicity. Exophytic simple cysts projects from the lower pole and measure 3.4 x 2.9 x 3.1 cm and 4 x 3.9 x 3.2 cm. No hydronephrosis or shadowing calculus. LEFT KIDNEY: The left kidney measures 10 cm in length and shows normal echogenicity. Exoph ytic cysts projecting from the lower pole and measure 2.3 x 2.1 x 2.7 cm and 1 0.5 x 5.4 x 9.1 cm. No hydronephrosis or shadowing calculus. BLADDER: Poor ly distended. Right ureteral jet is identified. No left ureteral jet is identi fied likely due to timing of scan acquisition. No post void residual volume could be obtained secondary to inadequate bladder distention. I MPRESSION: Bilateral simple renal cysts, as previously noted on compari son CT. Signed by: Dr. Fidelina Cordova M.D. on 08/21/2018 10:25 A M Dictated By: FIDELINA CORDOVA MD 1025 Transcribed By: RILEY on 08/21/18 1025 COPY TO: ANGELI ASHFORD MD US PELVIC (NON OB) NARVAEZ OR F/T9200-55-07 10:21:00 [place] [address] Patient Name: NBA SALES MR #: [id number] : 1935 Age/Sex: 82/F Req #: [id number] Adm Physician: Ordered by: ANGELI MATTHEWS MD Report #: [id number] Location: Room/Bed: Procedure: [id number] US/US PELVIC (NON OB) NARVAEZ OR F/U Exam Date: Exam Time: REPORT STATUS: Signed EXAMINATIO N: Renal ultrasound. CLINICAL HISTORY :Chronic kidney disease stage IV COMPARISON: CT abdomen and pelvis with contrast 11/21/2017 TECHNIQUE: Sekou nicholas and color Doppler evaluation of the kidneys and bladder was performed in transverse and longitudinal planes. DISCUSSION: RIGHT KIDNEY: The rig ht kidney measures 10.8 cm in length and shows normal echogenicity. Exophytic simple cysts projects from the lower pole and measure 3.4 x 2.9 x 3.1 cm and 4 x 3.9 x 3.2 cm. No hydronephrosis or shadowing calculus. LEFT KIDNEY: The left kidney measures 10 cm in length and shows normal echogenicity. Exoph ytic cysts projecting from the lower pole and measure 2.3 x 2.1 x 2.7 cm and 1 0.5 x 5.4 x 9.1 cm. No hydronephrosis or shadowing calculus. BLADDER: Poor ly distended. Right ureteral jet is identified. No left ureteral jet is identi fied likely due to timing of scan acquisition. No post void residual volume could be obtained secondary to inadequate bladder distention. I MPRESSION: Bilateral simple renal cysts, as previously noted on compari son CT. Signed by: Dr. Fidelina Cordova M.D. on 08/21/2018 10:25 A M Dictated By: FIDELINA CORDOVA MD 1029 Transcribed By: RILEY on 08/21/18 1025 COPY TO: ANGELI ASHFORD MD Sodium Asrqr1665-18-18 14:04:00* Test Item Value Reference Range Interpretation Comments Sodium Level (test code = 2951-2) 138 136-145 [facility] HospitalPotassium Kkcii9415-39-64 14:04:00* Test Item Value Reference Range Interpretation Comments Potassium Level (test code = 2823-3) 4.6 3.5-5.1 [facility] HospitalChloride Gxuzd4441-51-39 14:04:00* Test Item Value Reference Range Interpretation Comments Chloride Level (test code = 2075-0) 107 98-107 [facility] HospitalCarbon Dioxide Bcvmy3132-91-87 14:04:00* Test Item Value Reference Range Interpretation Comments Carbon Dioxide Level (test code = 2028-9) 24 22-29 [facility] HospitalAnion Htw1674-13-92 14:04:00* Test Item Value Reference Range Interpretation Comments Anion Gap (test code = 17092-5) 11.6 8-16 [facility] HospitalBlood Urea Bjtexatb2353-92-47 14:04:00* Test Item Value Reference Range Interpretation Comments Blood Urea Nitrogen (test code = 3094-0) 22 7-26 [facility] HospitalCreatinine2019-05-17 14:04:00* Test Item Value Reference Range Interpretation Comments Creatinine (test code = 2160-0) 0.97 0.57-1.11 [facility] HospitalBUN/Creatinine Serde3320-25-78 14:04:00* Test Item Value Reference Range Interpretation Comments BUN/Creatinine Ratio (test code = 3097-3) 23 6-25 [facility] HospitalEstimat Glomerular Filtration Rate 2018-08-16 14:04:00* Test Item Value Reference Range Interpretation Comments Estimat Glomerular Filtration Rate (test code = 572121051) 55 >60 L Ranges were taken from the National Kidney Disease Education Program and the [facility] Kidney Foundation literature.Reference ranges:60 or greater: Zbukzy35-53 ( for 3 consecutive months): Chronic kidney disease 15 or less: Kidney failureSt. Joseph Health [facility] HospitalGlucose Hmavx0016-08-31 14:04:00* Test Item Value Reference Range Interpretation Comments Glucose Level (test code = ISL2377) 88 74-118 [facility] HospitalCalcium Oewpp0509-59-11 14:04:00* Test Item Value Reference Range Interpretation Comments Calcium Level (test code = 72668-8) 9.3 8.4-10.2 [facility] HospitalTotal Oxvvdnslz2819-09-55 14:04:00* Test Item Value Reference Range Interpretation Comments Total Bilirubin (test code = 1975-2) 0.5 0.2-1.2 [facility] HospitalAspartate Amino Transf (AST/SGOT) 2018-08-16 14:04:00* Test Item Value Reference Range Interpretation Comments Aspartate Amino Transf (AST/SGOT) (test code = Aspartate Amino Transf (AST/SGOT)) 14 5-34 [facility] HospitalAlanine Aminotransferase (ALT/SGPT) 2018-08-16 14:04:00* Test Item Value Reference Range Interpretation Comments Alanine Aminotransferase (ALT/SGPT) (test code = 1742-6) 8 0-55 [facility] HospitalTotal Fypbpwr6944-97-98 14:04:00* Test Item Value Reference Range Interpretation Comments Total Protein (test code = 2885-2) 6.7 6.5-8.1 [facility] HospitalAlbumin2019-05-17 14:04:00* Test Item Value Reference Range Interpretation Comments Albumin (test code = 1751-7) 3.4 3.5-5.[address] [facility] HospitalGlobulin2019-05-17 14:04:00* Test Item Value Reference Range Interpretation Comments Globulin (test code = 84858-3) 3.3 2.3-3.5 [facility] HospitalAlbumin/Globulin Bnhsy4782-74-82 14:04:00 * Test Item Value Reference Range Interpretation Comments Albumin/Globulin Ratio (test code = 1759-0) 1.0 0.8-2.0 [facility] HospitalAlkaline Fdchglakpak1897-86-64 14:04:00* Test Item Value Reference Range Interpretation Comments Alkaline Phosphatase (test code = 6768-6) 92 40-150 [facility] HospitalProthrombin Clcw8635-96-17 13:55:00* Test Item Value Reference Range Interpretation Comments Prothrombin Time (test code = 5902-2) 20.5 11.9-14.[address] [facility] HospitalProthromb Time International Ratio 2018-08-16 13:55:00* Test Item Value Reference Range Interpretation Comments Prothromb Time International Ratio (test code = 6301-6) 1.69 Oral Anticoagulant Therapy INR Values:1. Low Intensity Therapy 1.5 - 2.02 . Moderate Intensity Therapy 2.0 - 3.03. High Intensity Therapy(1) 2.5 - 3. 54. High Intensity Therapy(2) 3.0 - 4.05. Panic Value INR > 5.0 [facility] HospitalWhite Blood Oiugy3164-56-75 13:51:00* Test Item Value Reference Range Interpretation Comments White Blood Count (test code = 6690-2) 6.76 4.8-10.8 [facility] HospitalRed Blood Ewked3808-27-80 13:51:00* Test Item Value Reference Range Interpretation Comments Red Blood Count (test code = 789-8) 3.65 3.6-5.1 [facility] HospitalHemoglobin2019-05-17 13:51:00* Test Item Value Reference Range Interpretation Comments Hemoglobin (test code = 33525-6) 11.4 12.0-16.[address] [facility] HospitalHematocrit2019-05-17 13:51:00* Test Item Value Reference Range Interpretation Comments Hematocrit (test code = 4544-3) 35.2 34.2-44.1 [facility] HospitalMean Corpuscular Mkkvmk3766-77-25 13:51:00* Test Item Value Reference Range Interpretation Comments Mean Corpuscular Volume (test code = 787-2) 96.4 81-99 [facility] HospitalMean Corpuscular Yrcyddrply7229-32-41 13:51:00* Test Item Value Reference Range Interpretation Comments Mean Corpuscular Hemoglobin (test code = 785-6) 31.2 28-32 [facility] HospitalMean Corpuscular Hemoglobin Concent 2018-08-16 13:51:00* Test Item Value Reference Range Interpretation Comments Mean Corpuscular Hemoglobin Concent (test code = 786-4) 32.4 31-35 [facility] HospitalRed Cell Distribution Bwult6133-51-59 13:51:00* Test Item Value Reference Range Interpretation Comments Red Cell Distribution Width (test code = 07395-6) 14.6 11.7 -14.[address] [facility] HospitalPlatelet Dmxsa3712-17-56 13:51:00* Test Item Value Reference Range Interpretation Comments Platelet Count (test code = 777-3) 223 140-360 [facility] HospitalNeutrophils (%) (Auto)2018-08-16 13:51:00 * Test Item Value Reference Range Interpretation Comments Neutrophils (%) (Auto) (test code = 06442-3) 62.2 38.7-80.0 [facility] HospitalLymphocytes (%) (Auto)2018-08-16 13:51:00 * Test Item Value Reference Range Interpretation Comments Lymphocytes (%) (Auto) (test code = 736-9) 29.1 18.0-39.1 [facility] HospitalMonocytes (%) (Auto)2018-08-16 13:51:00* Test Item Value Reference Range Interpretation Comments Monocytes (%) (Auto) (test code = 5905-5) 7.0 4.4-11.3 [facility] HospitalEosinophils (%) (Auto)2018-08-16 13:51:00 * Test Item Value Reference Range Interpretation Comments Eosinophils (%) (Auto) (test code = 713-8) 1.0 0.0-6.0 [facility] HospitalBasophils (%) (Auto)2018-08-16 13:51:00* Test Item Value Reference Range Interpretation Comments Basophils (%) (Auto) (test code = 706-2) 0.4 0.0-1.0 [facility] HospitalIM GRANULOCYTES %2018-08-16 13:51:00* Test Item Value Reference Range Interpretation Comments IM GRANULOCYTES % (test code = IM GRANULOCYTES %) 0.3 0.0- 1.0 [facility] HospitalNeutrophils # (Auto)2018-08-16 13:51:00* Test Item Value Reference Range Interpretation Comments Neutrophils # (Auto) (test code = 751-8) 4.2 2.1-6.9 [facility] HospitalLymphocytes # (Auto)2018-08-16 13:51:00* Test Item Value Reference Range Interpretation Comments Lymphocytes # (Auto) (test code = 49122-0) 2.0 1.0-3.2 [facility] HospitalMonocytes # (Auto)2018-08-16 13:51:00* Test Item Value Reference Range Interpretation Comments Monocytes # (Auto) (test code = 742-7) 0.5 0.2-0.8 [facility] HospitalEosinophils # (Auto)2018-08-16 13:51:00* Test Item Value Reference Range Interpretation Comments Eosinophils # (Auto) (test code = 711-2) 0.1 0.0-0.4 [facility] HospitalBasophils # (Auto)2018-08-16 13:51:00* Test Item Value Reference Range Interpretation Comments Basophils # (Auto) (test code = 704-7) 0.0 0.0-0.1 [facility] HospitalAbsolute Immature Granulocyte (auto 2018-08-16 13:51:00* Test Item Value Reference Range Interpretation Comments Absolute Immature Granulocyte (auto (matthew t code = Absolute Immature Granulocyte (auto) 0.02 0-0.1 [facility] HospitalCHEM IDORH0580-72-10 06:53:001.9[facility]annCHEM SWPRM6032-81-19 06:53:0073[facility]annCHEM ADXRW6642-15-52 06:53:007.9[facility]annCHEM PTBUE9452-90-12 06:53:0025[facility]annCHEM KWFUW2283-27-25 06:53:0012.7[facility]annCHEM SMXMJ0352-76-15 06:53:003.7 [facility]annCHEM FMWIG2890-12-59 06:53:15836Iwcueelc HermannCHEM PANEL 2018-06-06 06:53:0073[facility]annCHEM PJSFX4609-30-46 06:53:0014[facility] HermannCHEM CUHXT1883-91-09 06:53:000.77[facility]annCHEM OZBYC8587-20-30 06:53:90812Gwhlsdjc HermannCHEM CDICS4750-33-31 06:53:003.2[facility] Javid VOVZECWGKQ7661-90-98 06:53:001.5[facility] TkzcnekPHJNGCOBQU3800-00-09 06:53:000.6 [facility] PlsbbghJJKYXRQEIL7590-86-86 06:53:000.4[facility] HermannHEMATOLOGY 2018-06-06 06:53:000.4[facility] NeiyxpeSZIKWSTOHU2920-95-80 06:53:004.9[facility] YjldiozYUNURPNWRA9170-43-49 06:53:008.0[facility] JmvyvxfMVYNHOLXHN6920-73-66 06:53:0021.6[facility] CriyfjePLNOZCYHQX1253-30-35 06:53:0069.6[facility] Javid ZTXSJPIISY3776-69-95 06:53:00* Test Item Value Reference Range Interpretation Comments PT (test code = PT) 21.5 s 12.0-14.7 [facility] LnxffntYVVUZAAVSU8733-70-77 06:53:00* Test Item Value Reference Range Interpretation Comments PTT (test code = PTT) 56.6 s 22.9-35.8 [facility] RmzntroSNKFAXODHH6120-37-35 06:53:00* Test Item Value Reference Range Interpretation Comments INR (test code = INR) 1.91 1 0.85-1.17 [facility] KdmeskgDZHVNCLLRM2278-02-10 06:53:0011.2[facility]annHEMATOLOGY 2018-06-06 06:53:009.2[facility] FiqihtuIZDEBZEGCW5360-91-11 06:53:84760Lzovjqtw UztgyxzCSWLVQQVWJ4806-93-88 06:53:0019.9[facility] SkijeoyAAGMIRVOVQ5941-13-57 06:53:0032.8[facility] SdtkpbjAMPVIFMXIK2260-48-04 06:53:003.49[facility] EQEWFONLFK5211-46-36 06:53:007.0[facility] NdqbcgiBPHKFNDSBI4816-23-63 06:53:00* Test Item Value Reference Range Interpretation Comments MCH (test code = MCH) 32.2 pg 27.0-31.0 [facility]SmqfphgZSLYAVRRPG0876-59-95 06:53:0098.4[facility] HermannHEMATOLOGY 2018-06-06 06:53:0034.3[facility] MihzxzpLOGWCMWCWC1800-71-04 13:33:00* Test Item Value Reference Range Interpretation Comments INR (test code = INR) 1.83 1 0.85-1.17 [facility] ZptntugMRAEBJXNQJ4352-14-41 13:33:00* Test Item Value Reference Range Interpretation Comments PT (test code = PT) 20.8 s 12.0-14.7 [facility] HospitalUsqcmnsSLNDDRZLRJ0820-35-95 13:33:00* Test Item Value Reference Range Interpretation Comments PTT (test code = PTT) 61.7 s 22.9-35.8 [facility] LC [employer]Trans[employer] InternationalOOD BANK ZTQXVLZ6475-28-56 12:40:00Product available (06/05/18 6:40 AM)[facility] LC [employer]Feed[employer] BANK ETNYVVE4687-40-93 12:40:00Negative (06/05/18 6:40 AM)[facility] HermannCHEM ICYOZ2360-94-23 12:40:001.9[facility] HermannCHEM HDHEC5072-56-80 12:40:003.2[facility] BfmtgjiFTMMGOCBQBUQ7457-19-20 12:40:0012.3 [facility] PelgnnlWJGJGAFAGOOF0986-59-13 12:40:008.5[facility] HermannELECTROLYTES 2018-06-05 12:40:0027[facility] BrdctolXQEIQVZZTWRJ7718-53-13 12:40:99555Qhnqcqoe YyokzsqMBVCACDVTRRD5956-09-43 12:40:003.3[facility] UrghyjcJRSMUHKHLNYW4079-63-11 12:40:74439Hifcofsw EjkstdjOFHHZKSIZLOY0113-41-92 12:40:0049[facility] Silver UPFHYUZUZYDS7756-70-12 12:40:0093[facility] LfxrsghBLPKKQIMPCTL8413-60-49 12:40:00 1.07[facility] IhcqkryOTSHRUYSMLPC4752-44-82 12:40:0017[facility] HermannHEMATOLOGY 2018-06-05 12:40:000.1[facility] XuqqywhLYJQBUQSUU4755-17-19 12:40:001.9[facility] EgnsldxZHJGPMGYMX3616-23-04 12:40:000.6[facility] EtuzptiVYSVTTSQJB5941-41-44 12:40:000.6[facility] FdyhlqtAFQWFMJIEV6410-87-99 12:40:005.1[facility] Javid KRGMGNWDWP4702-88-76 12:40:000.6[facility] EafqqyaCXJMDIQPTY9491-58-64 12:40:008.4 [facility] MolclygVKFRXIEZZM7734-82-51 12:40:0066.0[facility] HermannHEMATOLOGY 2018-06-05 12:40:0024.4[facility] AvnibqiAWMZKTMZFW3194-95-41 12:40:00* Test Item Value Reference Range Interpretation Comments MCH (test code = MCH) 32.7 pg 27.0-31.0 [facility] JfajaxiWBTRMDTRTB2728-61-95 12:40:0098.4[facility] HermannHEMATOLOGY 2018-06-05 12:40:0033.2[facility] YxsrtgtKETEAIVUML2227-84-79 12:40:0036.4[facility] NvxmmouQPKFPIRMIF9774-26-82 12:40:0012.1[facility] DxrgxprCNRKWHHSNW1066-53-83 12:40:009.1[facility] JzweymiPOLKQWMSUV2392-73-47 12:40:0020.0[facility] MANAYEDQYQ6296-05-19 12:40:94249Ywhptnpe YtwufjwKGOITPDHKO1087-43-16 12:40:007.7 [facility] MsrmnaaDEFCZQOJNH8833-96-43 12:40:003.70[facility] HermannBedside Glucose 2018-04-24 17:57:00* Test Item Value Reference Range Interpretation Comments Bedside Glucose (test code = 98456-3) 88 70-120 Meter ID: [id number] [facility] Glucose 2018-04-24 17:57:00* Test Item Value Reference Range Interpretation Comments Bedside Glucose (test code = 90159-3) 88 70-120 Meter ID: [id number]. [facility] HospitalPotassium Level 2018-04-24 14:22:00* Test Item Value Reference Range Interpretation Comments Potassium Level (test code = 2823-3) 3.7 3.5-5.1 [facility] Hospitalodium Croui8655-95-68 06:06:00* Test Item Value Reference Range Interpretation Comments Sodium Level (test code = 2951-2) 139 136-145 [facility] HospitalChloride Nesbd7370-55-48 06:06:00* Test Item Value Reference Range Interpretation Comments Chloride Level (test code = 2075-0) 104 98-107 [facility] HospitalCarbon Dioxide Bvuhl2311-96-52 06:06:00* Test Item Value Reference Range Interpretation Comments Carbon Dioxide Level (test code = 2028-9) 21 22-[address] [facility] HospitalAnion Gkd1538-79-27 06:06:00* Test Item Value Reference Range Interpretation Comments Anion Gap (test code = 95044-0) 16.8 8-[address] [facility] HospitalBlood Urea Ggzzkaxr2707-31-15 06:06:00* Test Item Value Reference Range Interpretation Comments Blood Urea Nitrogen (test code = 3094-0) 31 7-[address] [facility] HospitalCreatinine2019-01-23 06:06:00* Test Item Value Reference Range Interpretation Comments Creatinine (test code = 2160-0) 1.23 0.57-1.[address] [facility] HospitalBUN/Creatinine Lgktv7209-41-54 06:06:00* Test Item Value Reference Range Interpretation Comments BUN/Creatinine Ratio (test code = 3097-3) 25 6-25 [facility] HospitalEstimat Glomerular Filtration Rate 2018-04-24 06:06:00* Test Item Value Reference Range Interpretation Comments Estimat Glomerular Filtration Rate (test code = 871760405) 42 >60 L Ranges were taken from the National Kidney Disease Education Program and the [facility] Kidney Foundation literature.Reference ranges:60 or greater: Ygjyzo88-16 ( for 3 consecutive months): Chronic kidney disease 15 or less: Kidney failureSt. Joseph Health College [facility] HospitalGlucose Eyhwz1396-19-96 06:06:00* Test Item Value Reference Range Interpretation Comments Glucose Level (test code = FZC5319) 92 74-118 [facility] HospitalCalcium Ckdah2205-43-66 06:06:00* Test Item Value Reference Range Interpretation Comments Calcium Level (test code = 11247-2) 8.9 8.4-10.2 [facility] HospitalProthrombin Gvjv4970-04-34 06:03:00* Test Item Value Reference Range Interpretation Comments Prothrombin Time (test code = 5902-2) 15.2 11.9-14.[address] [facility] HospitalProthromb Time International Ratio 2018-04-24 06:03:00* Test Item Value Reference Range Interpretation Comments Prothromb Time International Ratio (test code = 6301-6) 1.10 Oral Anticoagulant Therapy INR Values:1. Low Intensity Therapy 1.5 - 2.02 . Moderate Intensity Therapy 2.0 - 3.03. High Intensity Therapy(1) 2.5 - 3. 54. High Intensity Therapy(2) 3.0 - 4.05. Panic Value INR > 5.0 [facility] HospitalWhite Blood Xqxxv9684-51-90 05:39:00* Test Item Value Reference Range Interpretation Comments White Blood Count (test code = 6690-2) 10.44 4.8-10.8 [facility] HospitalRed Blood Lhzwt3405-34-92 05:39:00* Test Item Value Reference Range Interpretation Comments Red Blood Count (test code = 789-8) 3.74 3.6-5.1 [facility] HospitalHemoglobin2019-01-23 05:39:00* Test Item Value Reference Range Interpretation Comments Hemoglobin (test code = 70670-0) 11.3 12.0-16.[address] [facility] HospitalHematocrit2019-01-23 05:39:00* Test Item Value Reference Range Interpretation Comments Hematocrit (test code = 4544-3) 34.0 34.2-44.[address] [facility] HospitalMean Corpuscular Uwpxag2057-91-27 05:39:00* Test Item Value Reference Range Interpretation Comments Mean Corpuscular Volume (test code = 787-2) 90.9 81-99 [facility] HospitalMean Corpuscular Ldaaxemshy6040-90-00 05:39:00* Test Item Value Reference Range Interpretation Comments Mean Corpuscular Hemoglobin (test code = 785-6) 30.2 28-32 [facility] HospitalMean Corpuscular Hemoglobin Concent 2018-04-24 05:39:00* Test Item Value Reference Range Interpretation Comments Mean Corpuscular Hemoglobin Concent (test code = 786-4) 33.2 31-35 [facility] HospitalRed Cell Distribution Loojz1482-61-78 05:39:00* Test Item Value Reference Range Interpretation Comments Red Cell Distribution Width (test code = 14196-3) 16.6 11.7 -14.[address] [facility] HospitalPlatelet Ujozc0833-25-27 05:39:00* Test Item Value Reference Range Interpretation Comments Platelet Count (test code = 777-3) 263 140-360 [facility] HospitalNeutrophils (%) (Auto)2018-04-24 05:39:00 * Test Item Value Reference Range Interpretation Comments Neutrophils (%) (Auto) (test code = 53077-9) 66.7 38.7-80.0 [facility] HospitalLymphocytes (%) (Auto)2018-04-24 05:39:00 * Test Item Value Reference Range Interpretation Comments Lymphocytes (%) (Auto) (test code = 736-9) 19.5 18.0-39.1 [facility] HospitalMonocytes (%) (Auto)2018-04-24 05:39:00* Test Item Value Reference Range Interpretation Comments Monocytes (%) (Auto) (test code = 5905-5) 10.6 4.4-11.3 [facility] HospitalEosinophils (%) (Auto)2018-04-24 05:39:00 * Test Item Value Reference Range Interpretation Comments Eosinophils (%) (Auto) (test code = 713-8) 0.8 0.0-6.0 [facility] HospitalBasophils (%) (Auto)2018-04-24 05:39:00* Test Item Value Reference Range Interpretation Comments Basophils (%) (Auto) (test code = 706-2) 0.5 0.0-1.0 [facility] HospitalIM GRANULOCYTES %2018-04-24 05:39:00* Test Item Value Reference Range Interpretation Comments IM GRANULOCYTES % (test code = IM GRANULOCYTES %) 1.9 0.0- 1.[address] [facility] HospitalNeutrophils # (Auto)2018-04-24 05:39:00* Test Item Value Reference Range Interpretation Comments Neutrophils # (Auto) (test code = 751-8) 7.0 2.1-6.[address] [facility] HospitalLymphocytes # (Auto)2018-04-24 05:39:00* Test Item Value Reference Range Interpretation Comments Lymphocytes # (Auto) (test code = 81014-8) 2.0 1.0-3.2 [facility] HospitalMonocytes # (Auto)2018-04-24 05:39:00* Test Item Value Reference Range Interpretation Comments Monocytes # (Auto) (test code = 742-7) 1.1 0.2-0.[address] [facility] HospitalEosinophils # (Auto)2018-04-24 05:39:00* Test Item Value Reference Range Interpretation Comments Eosinophils # (Auto) (test code = 711-2) 0.1 0.0-0.4 [facility] HospitalBasophils # (Auto)2018-04-24 05:39:00* Test Item Value Reference Range Interpretation Comments Basophils # (Auto) (test code = 704-7) 0.1 0.0-0.1 [facility] HospitalAbsolute Immature Granulocyte (auto 2018-04-24 05:39:00* Test Item Value Reference Range Interpretation Comments Absolute Immature Granulocyte (auto (matthew t code = Absolute Immature Granulocyte (auto) 0.20 0-0.[address] [facility] HospitalActivated Partial Thromboplast Time 2018-04-23 23:18:00* Test Item Value Reference Range Interpretation Comments Activated Partial Thromboplast Time (test code = 34071-0) 30.9 23.8-35.5 [facility] HospitalActivated Partial Thromboplast Time 2018-04-23 23:18:00* Test Item Value Reference Range Interpretation Comments Activated Partial Thromboplast Time (test code = 82909-7) 30.9 23.8-35.5 [facility] HospitalG I OYEAD8365-75-87 20:24:00 [facility] [address] [address] Patient Name: NBA SALES MR #: [id number] : 1935 Age/Sex: 82/F Req #: [id number] Adm Physician: MARCE MILLER MD Ordered by: MAXIMINO ROWLYE MD Report #: [id number] Location: [facility] Room/Bed: [place] [address] Procedure: [id number] NM/ G I BLEED Exam Date: 04/21/18 Exam Time: 1840 REPORT STATUS: Signed EXAM: G I BLEED INDICATION: Rectal bleeding, dizziness COMPARISON: CT of the abdomen and p catherine November 21, 2017 FINDINGS: The patient's own red blood cells were la beled with 25.8 mCi of technetium-99m pertechnetate using the in vitro method (UltraTag). Dynamic images of the abdomen were obtained through 60 minutes. Distribution of tracer activity appears physiologic throughout the abdomen. No abnormal accumulation of tracer is seen within the gastrointestinal lumen. IMPRESSION: There is no scan evidence of active gastrointestinal blee ding at this time. Signed by: Dr. Anette Bruce M.D. on 04/21/2018 8:26 PM Dictated By: ANETTE BRUCE MD 25 Transcribed By: RILEY on 04/21/182025 COPY TO: MAXIMINO ROWLEY MD Differential Total Cells Vuofans2545-81-22 15:32:00* Test Item Value Reference Range Interpretation Comments Differential Total Cells Counted (test code = Differmichael tial Total Cells Counted) 100 [facility] HospitalNeutrophils % (Manual)2018-04-21 15:32:00 * Test Item Value Reference Range Interpretation Comments Neutrophils % (Manual) (test code = 69484-7) 75 40-[address] [facility] HospitalBand Neutrophils %2018-04-21 15:32:00* Test Item Value Reference Range Interpretation Comments Band Neutrophils % (test code = 764-1) 2 [facility] HospitalLymphocytes % (Manual)2018-04-21 15:32:00 * Test Item Value Reference Range Interpretation Comments Lymphocytes % (Manual) (test code = 737-7) 13 19-[address] [facility] HospitalMonocytes % (Manual)2018-04-21 15:32:00* Test Item Value Reference Range Interpretation Comments Monocytes % (Manual) (test code = 744-3) 10 3.4-9.[address] [facility] HospitalPlatelet Efdyohcn3770-10-21 15:32:00* Test Item Value Reference Range Interpretation Comments Platelet Estimate (test code = 49336-2) SLIGHTLY DECREASED [facility] HospitalPlatelet Morphology Iccwhwp3139-74-28 15:32:00* Test Item Value Reference Range Interpretation Comments Platelet Morphology Comment (test code = 82540-0) NORMAL [facility] HospitalPolychromasia2019-01-20 15:32:00* Test Item Value Reference Range Interpretation Comments Polychromasia (test code = 54052-1) FEW [facility] HospitalPoikilocytosis2019-01-20 15:32:00* Test Item Value Reference Range Interpretation Comments Poikilocytosis (test code = 779-9) MODERATE [facility] HospitalAnisocytosis2019-01-20 15:32:00* Test Item Value Reference Range Interpretation Comments Anisocytosis (test code = 702-1) F [facility] HospitalTear Drop Vqhvw8078-51-11 15:32:00* Test Item Value Reference Range Interpretation Comments Tear Drop Cells (test code = 7791-7) FEW [facility] HospitalOvalocytes2019-01-20 15:32:00* Test Item Value Reference Range Interpretation Comments Ovalocytes (test code = 774-0) FEW [facility] HospitalElliptocytes2019-01-20 15:32:00* Test Item Value Reference Range Interpretation Comments Elliptocytes (test code = 16519-7) SLIGHT [facility] HospitalRed Cell Morphology Ywsyzlw1373-14-01 15:32:00* Test Item Value Reference Range Interpretation Comments Red Cell Morphology Comment (test code = 6742-1) ABNORMAL [facility] HospitalDifferential Total Cells Counted 2018-04-21 15:32:00* Test Item Value Reference Range Interpretation Comments Differential Total Cells Counted (test code = Differmichael tial Total Cells Counted) 100 [facility] HospitalNeutrophils % (Manual)2018-04-21 15:32:00 * Test Item Value Reference Range Interpretation Comments Neutrophils % (Manual) (test code = 13743-2) 75 40-[address] [facility] HospitalBand Neutrophils %2018-04-21 15:32:00* Test Item Value Reference Range Interpretation Comments Band Neutrophils % (test code = 764-1) 2 [facility] HospitalLymphocytes % (Manual)2018-04-21 15:32:00 * Test Item Value Reference Range Interpretation Comments Lymphocytes % (Manual) (test code = 737-7) 13 19-[address] [facility] HospitalMonocytes % (Manual)2018-04-21 15:32:00* Test Item Value Reference Range Interpretation Comments Monocytes % (Manual) (test code = 744-3) 10 3.4-9.[address] [facility] HospitalPlatelet Ytblseiu2912-38-79 15:32:00* Test Item Value Reference Range Interpretation Comments Platelet Estimate (test code = 95052-0) SLIGHTLY DECREASED [facility] HospitalPlatelet Morphology Pmcorlq2480-21-31 15:32:00* Test Item Value Reference Range Interpretation Comments Platelet Morphology Comment (test code = 34449-6) NORMAL [facility] HospitalPolychromasia2019-01-20 15:32:00* Test Item Value Reference Range Interpretation Comments Polychromasia (test code = 82068-0) FEW [facility] HospitalPoikilocytosis2019-01-20 15:32:00* Test Item Value Reference Range Interpretation Comments Poikilocytosis (test code = 779-9) MODERATE [facility] HospitalAnisocytosis2019-01-20 15:32:00* Test Item Value Reference Range Interpretation Comments Anisocytosis (test code = 702-1) F [facility] HospitalTear Drop Dikao8348-98-71 15:32:00* Test Item Value Reference Range Interpretation Comments Tear Drop Cells (test code = 7791-7) FEW [facility] HospitalOvalocytes2019-01-20 15:32:00* Test Item Value Reference Range Interpretation Comments Ovalocytes (test code = 774-0) FEW [facility] HospitalElliptocytes2019-01-20 15:32:00* Test Item Value Reference Range Interpretation Comments Elliptocytes (test code = 01195-8) SLIGHT [facility] HospitalRed Cell Morphology Uzlcasa8154-61-17 15:32:00* Test Item Value Reference Range Interpretation Comments Red Cell Morphology Comment (test code = 6742-1) ABNORMAL [facility] Hospitaltool Occult Sucks0949-34-50 15:20:00* Test Item Value Reference Range Interpretation Comments Stool Occult Blood (test code = 2335-8) POSITIVE NEGATIVE H [facility] Occult Hxmhg7558-95-59 15:20:00* Test Item Value Reference Range Interpretation Comments Stool Occult Blood (test code = 2335-8) POSITIVE NEGATIVE H [facility] HospitalCHEST SINGLE (PORTABLE)2018-04-21 13:50:00 [facility] [address] [address] Patient Name: NBA SALES MR #: [id number] : 1935 Age/Sex: 82/F Req #: [id number] Adm Physician: Ordered by: MAXIMINO ROWLEY MD Report #: [id number] Location: ER Room/Bed: Procedure: [id number] DX/C HEST SINGLE (PORTABLE) Exam Date: 04/21/18 Exam Time : 1310 REPORT STATUS: Signed A s manuel frontal view of the chest. HISTORY: Chest pain, weakness, shortness of breath, rapid heartbeat COMPARISON: Chest radiograph November 20, 2017 DISCUSSION: Portable technique, limits sensitivity of the exam. Soft t issue attenuation partially limits sensitivity of the exam. Overlying monitori ng leads. Tubes/Lines: None Lungs and pleura: The lungs are well inf lated. No evidence of a consolidative pneumonia or pulmonary alveolar edema. No definite pleural effusion or pneumothorax is identified. Heart and me diastinum: The cardiomediastinal silhouette appears unremarkable. Atherosc lerotic vascular calcifications at the aortic arch. Bones and soft tissues: Appear unremarkable, given this limited exam. IMPRESSION: 1. No acute radiographic abnormality. 2. No significant interval change. Signed by: Dr. Richard Alanis DDoniODoni, M.M.M. on 04/21/2018 1:52 PM Dic tated By: RICHARD ALANIS DO 1 352 Transcribed By: RILEY on 04/21/18 2867 COPY TO: MAXIMINO ROWLEY Digoxin Gzrim1967-44-04 13:42:00* Test Item Value Reference Range Interpretation Comments Digoxin Level (test code = 89944-8) 0.55 0.8-2.[address] [facility] HospitalDigoxin Zewdk4598-95-97 13:42:00* Test Item Value Reference Range Interpretation Comments Digoxin Level (test code = 20580-7) 0.55 0.8-2.[address] [facility] HospitalB-Type Natriuretic Qlcxlcj2267-88-24 13:24:00* Test Item Value Reference Range Interpretation Comments B-Type Natriuretic Peptide (test code = 65883-6) 406.0 0-[address] [facility] HospitalCreatine Kinase TP8012-06-72 13:24:00* Test Item Value Reference Range Interpretation Comments Creatine Kinase MB (test code = 68941-0) 2.00 0-5.0 [facility] HospitalTroponin S8259-30-96 13:24:00* Test Item Value Reference Range Interpretation Comments Troponin I (test code = PKI0569) 0.009 0-0.300 [facility] HospitalB-Type Natriuretic Tvnbmnc7760-66-74 13:24:00* Test Item Value Reference Range Interpretation Comments B-Type Natriuretic Peptide (test code = 00694-8) 406.0 0-[address] [facility] HospitalCreatine Kinase AD9323-10-46 13:24:00* Test Item Value Reference Range Interpretation Comments Creatine Kinase MB (test code = 25813-6) 2.00 0-5.0 [facility] HospitalTrmcleod health dillonn P0995-67-59 13:24:00* Test Item Value Reference Range Interpretation Comments Troponin I (test code = NMZ2411) 0.009 0-0.300 [facility] HospitalTotal Ybajxomdo0696-44-57 13:21:00* Test Item Value Reference Range Interpretation Comments Total Bilirubin (test code = 1975-2) 1.1 0.2-1.2 [facility] HospitalAspartate Amino Transf (AST/SGOT) 2018-04-21 13:21:00* Test Item Value Reference Range Interpretation Comments Aspartate Amino Transf (AST/SGOT) (test code = Aspartate Amino Transf (AST/SGOT)) 20 5-34 [facility] HospitalAlanine Aminotransferase (ALT/SGPT) 2018-04-21 13:21:00* Test Item Value Reference Range Interpretation Comments Alanine Aminotransferase (ALT/SGPT) (test code = 1742-6) 11 0-55 [facility] HospitalTotal Mopuorc4794-13-63 13:21:00* Test Item Value Reference Range Interpretation Comments Total Protein (test code = 2885-2) 6.4 6.5-8.[address] [facility] HospitalAlbumin2019-01-20 13:21:00* Test Item Value Reference Range Interpretation Comments Albumin (test code = 1751-7) 3.3 3.5-5.[address] [facility] HospitalGlobulin2019-01-20 13:21:00* Test Item Value Reference Range Interpretation Comments Globulin (test code = 99721-6) 3.1 2.3-3.5 [facility] HospitalAlbumin/Globulin Njktd2841-36-67 13:21:00 * Test Item Value Reference Range Interpretation Comments Albumin/Globulin Ratio (test code = 1759-0) 1.1 0.8-2.0 [facility] HospitalAlkaline Mlkwtrkwqzo1338-76-15 13:21:00* Test Item Value Reference Range Interpretation Comments Alkaline Phosphatase (test code = 6768-6) 74 40-150 [facility] HospitalCreatine Ikzuty3855-36-82 13:21:00* Test Item Value Reference Range Interpretation Comments Creatine Kinase (test code = 2157-6) 211 29-[address] [facility] HospitalCreatine Bvditd6904-03-10 13:21:00* Test Item Value Reference Range Interpretation Comments Creatine Kinase (test code = 2157-6) 211 29-[address] [facility] HospitalActivated Clotting Onge8831-18-79 09:10:00* Test Item Value Reference Range Interpretation Comments Activated Clotting Time (test code = AFM5750) 343 Line pull <170 sec or baselinePeripheral and Neuroradiology <400 secAngioplasty 220 secSt. Joseph Health College Station HospitalActivated Clotting Kqvc4334-29-56 09:10:00* Test Item Value Reference Range Interpretation Comments Activated Clotting Time (test code = BYI6525) 343 Line pull <170 sec or baselinePeripheral and Neuroradiology <400 secAngioplasty 220 secSt. Joseph Health College [facility] HospitalTriglycerides Obwvz7009-25-42 13:37:00* Test Item Value Reference Range Interpretation Comments Triglycerides Level (test code = 2571-8) 129 0-149 [facility] HospitalCholesterol Bgeuf7641-17-22 13:37:00* Test Item Value Reference Range Interpretation Comments Cholesterol Level (test code = 2093-3) 167 0-199 Less than 200 mg/dL Low Niir182 - 239 mg/dL Borderline Ffok529 m g/dl and greater High Risk [facility] HospitalLDL Iwmvsojpeqw0228-03-79 13:37:00* Test Item Value Reference Range Interpretation Comments LDL Cholesterol (test code = 2089-1) 82 60-130 [facility] Tmokcbczwvj8251-63-44 13:37:00* Test Item Value Reference Range Interpretation Comments HDL Cholesterol (test code = 2085-9) 59 40-60 [facility] HospitalCholesterol/HDL Gvsci4226-13-75 13:37:00 * Test Item Value Reference Range Interpretation Comments Cholesterol/HDL Ratio (test code = 9830-1) 2.8 3.0-3.[address] [facility] HospitalTriglycerides Oabej8747-98-12 13:37:00* Test Item Value Reference Range Interpretation Comments Triglycerides Level (test code = 2571-8) 129 0-149 [facility] HospitalCholesterol Dyeph4076-19-71 13:37:00* Test Item Value Reference Range Interpretation Comments Cholesterol Level (test code = 2093-3) 167 0-199 Less than 200 mg/dL Low Ebyw570 - 239 mg/dL Borderline Nxux681 m g/dl and greater High Risk [facility] HospitalLDL Qjrligqhfch5724-65-43 13:37:00* Test Item Value Reference Range Interpretation Comments LDL Cholesterol (test code = 2089-1) 82 60-130 [facility] Jvoibzsmxzq0357-13-11 13:37:00* Test Item Value Reference Range Interpretation Comments HDL Cholesterol (test code = 2085-9) 59 40-60 [facility] HospitalCholesterol/HDL Xjqwf2698-48-51 13:37:00 * Test Item Value Reference Range Interpretation Comments Cholesterol/HDL Ratio (test code = 9830-1) 2.8 3.0-3.6 L [facility] Fhhbjrq3230-55-33 19:25:00* Test Item Value Reference Range Interpretation Comments Blood Culture (test code = 86264263) NO GROWTH AFTER 5 DAYS, FINAL REPORT [facility] [facility] HospitalProthrombin Ecfz4328-87-39 05:08:00* Test Item Value Reference Range Interpretation Comments Prothrombin Time (test code = 5902-2) 18.8 11.9-14.[address] [facility] HospitalProthromb Time International Ratio 2017-11-24 05:08:00* Test Item Value Reference Range Interpretation Comments Prothromb Time International Ratio (test code = 6301-6) 1.70 Oral Anticoagulant Therapy INR Values:1. Low Intensity Therapy 1.5 - 2.02 . Moderate Intensity Therapy 2.0 - 3.03. High Intensity Therapy(1) 2.5 - 3. 54. High Intensity Therapy(2) 3.0 - 4.05. Panic Value INR > 5.0 [facility] Vkjjxrj1502-72-80 19:25:00* Test Item Value Reference Range Interpretation Comments Blood Culture (test code = 99481176) NO GROWTH AFTER [address] [facility] HospitalDifferential Total Cells Counted 2017-11-23 09:11:00* Test Item Value Reference Range Interpretation Comments Differential Total Cells Counted (test code = Differen tial Total Cells Counted) 100 [facility] HospitalNeutrophils % (Manual)2017-11-23 09:11:00 * Test Item Value Reference Range Interpretation Comments Neutrophils % (Manual) (test code = 64844-9) 70 40-74 [facility] HospitalLymphocytes % (Manual)2017-11-23 09:11:00 * Test Item Value Reference Range Interpretation Comments Lymphocytes % (Manual) (test code = 737-7) 23 19-48 [facility] HospitalMonocytes % (Manual)2017-11-23 09:11:00* Test Item Value Reference Range Interpretation Comments Monocytes % (Manual) (test code = 744-3) 5 3.4-9.0 [facility] HospitalEosinophils % (Manual)2017-11-23 09:11:00 * Test Item Value Reference Range Interpretation Comments Eosinophils % (Manual) (test code = 714-6) 2 0-7 [facility] HospitalPlatelet Tuvazoxj9336-79-93 09:11:00* Test Item Value Reference Range Interpretation Comments Platelet Estimate (test code = 31948-2) ADEQUATE [facility] HospitalPlatelet Morphology Penuqlt2706-78-32 09:11:00* Test Item Value Reference Range Interpretation Comments Platelet Morphology Comment (test code = 14729-5) NORMAL [facility] HospitalHypochromasia2018-08-24 09:11:00* Test Item Value Reference Range Interpretation Comments Hypochromasia (test code = 728-6) SLIGHT [facility] HospitalPoikilocytosis2018-08-24 09:11:00* Test Item Value Reference Range Interpretation Comments Poikilocytosis (test code = 779-9) SLIGHT [facility] HospitalAnisocytosis2018-08-24 09:11:00* Test Item Value Reference Range Interpretation Comments Anisocytosis (test code = 702-1) SLIGHT [facility] HospitalMacrocytosis2018-08-24 09:11:00* Test Item Value Reference Range Interpretation Comments Macrocytosis (test code = 738-5) MODERATE [facility] HospitalRed Cell Morphology Vfbhbow4040-28-79 09:11:00* Test Item Value Reference Range Interpretation Comments Red Cell Morphology Comment (test code = 6742-1) NORMAL [facility] HospitalEosinophils % (Manual)2017-11-23 09:11:00 * Test Item Value Reference Range Interpretation Comments Eosinophils % (Manual) (test code = 714-6) 2 0-7 [facility] HospitalHypochromasia2018-08-24 09:11:00* Test Item Value Reference Range Interpretation Comments Hypochromasia (test code = 728-6) SLIGHT [facility] HospitalMacrocytosis2018-08-24 09:11:00* Test Item Value Reference Range Interpretation Comments Macrocytosis (test code = 738-5) MODERATE [facility] HospitalWhite Blood Dcpae3209-66-88 06:20:00* Test Item Value Reference Range Interpretation Comments White Blood Count (test code = 6690-2) 8.49 4.8-10.8 [facility] HospitalRed Blood Xtiif9870-91-98 06:20:00* Test Item Value Reference Range Interpretation Comments Red Blood Count (test code = 789-8) 3.22 3.6-5.[address] [facility] HospitalHemoglobin2018-08-24 06:20:00* Test Item Value Reference Range Interpretation Comments Hemoglobin (test code = 15428-9) 9.7 12.0-16.[address] [facility] HospitalHematocrit2018-08-24 06:20:00* Test Item Value Reference Range Interpretation Comments Hematocrit (test code = 4544-3) 30.3 34.2-44.[address] [facility] HospitalMean Corpuscular Rppkja2654-96-16 06:20:00* Test Item Value Reference Range Interpretation Comments Mean Corpuscular Volume (test code = 787-2) 94.1 81-99 [facility] HospitalMean Corpuscular Dyxsdywdqv6444-25-45 06:20:00* Test Item Value Reference Range Interpretation Comments Mean Corpuscular Hemoglobin (test code = 785-6) 30.1 28-32 [facility] HospitalMean Corpuscular Hemoglobin Concent 2017-11-23 06:20:00* Test Item Value Reference Range Interpretation Comments Mean Corpuscular Hemoglobin Concent (test code = 786-4) 32.0 31-35 [facility] HospitalRed Cell Distribution Bqnjw7541-53-27 06:20:00* Test Item Value Reference Range Interpretation Comments Red Cell Distribution Width (test code = 19145-5) 17.3 11.7 -14.[address] [facility] HospitalPlatelet Bhord9437-71-68 06:20:00* Test Item Value Reference Range Interpretation Comments Platelet Count (test code = 777-3) 220 140-360 [facility] Hospitalodium Gqvra2437-60-35 06:01:00* Test Item Value Reference Range Interpretation Comments Sodium Level (test code = 2951-2) 142 136-145 [facility] HospitalPotassium Lwyvv9549-31-75 06:01:00* Test Item Value Reference Range Interpretation Comments Potassium Level (test code = 2823-3) 3.0 3.5-5.[address] [facility] HospitalChloride Xxrtn5555-54-29 06:01:00* Test Item Value Reference Range Interpretation Comments Chloride Level (test code = 2075-0) 110 98-[address] [facility] HospitalCarbon Dioxide Msppk1110-76-99 06:01:00* Test Item Value Reference Range Interpretation Comments Carbon Dioxide Level (test code = 2028-9) 22 22-29 [facility] HospitalAnion Gwb2999-90-66 06:01:00* Test Item Value Reference Range Interpretation Comments Anion Gap (test code = 24035-1) 13.0 8-16 [facility] HospitalBlood Urea Uzuiwegq6620-76-05 06:01:00* Test Item Value Reference Range Interpretation Comments Blood Urea Nitrogen (test code = 3094-0) 17 7-26 [facility] HospitalCreatinine2018-08-24 06:01:00* Test Item Value Reference Range Interpretation Comments Creatinine (test code = 2160-0) 0.85 0.57-1.11 [facility] HospitalBUN/Creatinine Eiwqt3982-10-23 06:01:00* Test Item Value Reference Range Interpretation Comments BUN/Creatinine Ratio (test code = 3097-3) 20 6-25 [facility] HospitalEstimat Glomerular Filtration Rate 2017-11-23 06:01:00* Test Item Value Reference Range Interpretation Comments Estimat Glomerular Filtration Rate (test code = 73326-7) 60- >60 Ranges were taken from the National Kidney Disease Education Program and the [place] [facility] hospital[facility] Kidney Foundation literature.Reference ranges:60 or greater: Bpbglg12-50 ( for 3 consecutive months): Chronic kidney disease 15 or less: Kidney failureCHI [facility] CampusGlucose Zltcq1166-28-94 06:01:00* Test Item Value Reference Range Interpretation Comments Glucose Level (test code = XLF7035) 88 74-118 [facility] HospitalCalcium Jxorp0883-80-55 06:01:00* Test Item Value Reference Range Interpretation Comments Calcium Level (test code = 17021-8) 8.3 8.4-10.[address] [facility] HospitalHOULDER RIGHT OKUKFVYG2390-82-25 10:39:00 [facility] [address] [address] Patient Name: NBA SALES MR #: [id number] : 1935 Age/Sex: 82/F Req #: [id number] Adm Physician: ULI ZAPATA MD Ordered by: ULI ZAPATA MD Report #: [id number] Location: MED/SURG Room/Bed: [facility] Procedure: [id number] D X/SHOULDER RIGHT COMPLETE Exam Date: 11/22/17 Exam T narda: [id number] REPORT STATUS: Signed PROCEDURE: X-RAY RIGHT SHOULDER, COMP LETE COMPARISON: None. INDICATIONS: SHOULDER PAIN FINDINGS : There are no fractures, dislocations, lytic or blastic lesions. Mild AC joint irregularity and degenerative changes. The bones are well-mineralized . The soft-tissues are unremarkable. CONCLUSION: Mild degenerative changes. Cyrus Gentile D.O. Dictated by: Cyrus Gentile D.O. on at 10:39 Electronically approved by: Cyrus Gentile D.O. on 11/22 at 10:39 Dictated By: CYRUS GENTILE DO Electronically S igned By: CYRUS GENTILE DO on 11/22/17 1039 Transcribed By: EZIO on 11/22/17 1 039 COPY TO: ULI ZAPATA MD Total Nkblgwmvy5035-99-09 05:52:00* Test Item Value Reference Range Interpretation Comments Total Bilirubin (test code = 1975-2) 1.2 0.2-1.2 [facility] HospitalAspartate Amino Transf (AST/SGOT) 2017-11-22 05:52:00* Test Item Value Reference Range Interpretation Comments Aspartate Amino Transf (AST/SGOT) (test code = Aspartate Amino Transf (AST/SGOT)) 13 5-34 [facility] HospitalAlanine Aminotransferase (ALT/SGPT) 2017-11-22 05:52:00* Test Item Value Reference Range Interpretation Comments Alanine Aminotransferase (ALT/SGPT) (test code = 1742-6) 11 0-55 [facility] HospitalTotal Kqjbfmt8470-22-28 05:52:00* Test Item Value Reference Range Interpretation Comments Total Protein (test code = 2885-2) 5.6 6.5-8.[address] [facility] HospitalAlbumin2018-08-23 05:52:00* Test Item Value Reference Range Interpretation Comments Albumin (test code = 1751-7) 2.5 3.5-5.[address] [facility] HospitalGlobulin2018-08-23 05:52:00* Test Item Value Reference Range Interpretation Comments Globulin (test code = 50098-0) 3.1 2.3-3.5 [facility] HospitalAlbumin/Globulin Sqmpv0129-50-46 05:52:00 * Test Item Value Reference Range Interpretation Comments Albumin/Globulin Ratio (test code = 1759-0) 0.8 0.8-2.0 [facility] HospitalAlkaline Feissnfbpvr8558-05-77 05:52:00* Test Item Value Reference Range Interpretation Comments Alkaline Phosphatase (test code = 6768-6) 63 40-150 [facility] HospitalActivated Partial Thromboplast Time 2017-11-21 07:20:00* Test Item Value Reference Range Interpretation Comments Activated Partial Thromboplast Time (test code = 59576-9) 200.0- 23.8-35.5 HH Results called to Bowen Mtz RN at 0719 on 11/21/17[facility] HospitalCT ABDOMEN/PELVIS D4685-10-87 00:41:00 [facility] [address] [address] Patient Name: NBA SALES MR #: [id number] : 1935 Age/Sex: 82/F Req #: [id number] Adm Physician: Ordered by: LORRI MOLINA NP Report #: [id number] Location: ER Room/Bed: Procedure: [id number] CT/CT ABDOMEN/PELVIS W Exam D ate: 11/21/17 Exam Time: 4 REPORT STATUS: Si gned EXAM: CT ABDOMEN/PELVIS W DATE: 11/21/2017 9:24 PM INDICATION: S mild RUQ pain COMPARISON: 07/28/2016 TECHNIQUE: The abdomen and pelvis were scanned using a multidetector helical scanner. Coronal and sagittal reformatio ns were obtained. IV Contrast: 100 ml Isovue 300/370 FINDINGS: LOWER T HORAX: Cardiomegaly with mitral annulus calcification. Minimal bibasilar atele ctasis. Several small left basilar nodules measuring up to 4 to 5 mm. LIVER /BILIARY: No masses. No ductal dilatation. GALLBLADDER: Unremarkable SP GORGE: Unremarkable PANCREAS: Unremarkable ADRENALS: Diffuse bilateral nod ular thickening. KIDNEYS: Bilateral renal cysts and too small to characterize hypodensities, overall increased in size from 2017. The largest cyst on the l eft measures 10.4 cm of the lower pole, prior 9.3 cm. One lesion of the left posterior kidney is hyperattenuating (HU 54, 1.6 cm), hyperdense on prior nonc ontrast study (HU 47, 1.4 cm). GI TRACT: No obstruction. Diverticulosis with inflammatory changes at the proximal descending colon. Moderate stool burden . Appendix is not seen. VESSELS: Severe atherosclerotic changes with occlu teressa of the left SFA and narrowing of the SMA origin. PERITONEUM/RETROPERITO NEUM: No free air or fluid LYMPH NODES: No lymphadenopathy REPRODUCTIVE O RGANS/BLADDER: Hysterectomy. Stable 1.9 cm right posterior bladder diverticulu m. SOFT TISSUES: Stable ventral hernia containing nonobstructed small bowel . BONES: Multilevel degenerative changes. IMPRESSION: 1. Acute uncompli cated diverticulitis of the proximal descending colon. 2. New left basilar nod ularity, nonspecific, and possibly postinfectious/inflammatory. Consider 1 ye ar follow up chest CT. Signed by: Dr Terrence Kate MD on 11/21/2017 1:02 AM Dictated By: TERRENCE KATE MD 1 Transcribed By: RILEY on 11/21/17101 COPY TO: LORRI MOLINA NP OYSAEJRTXNP5737-20-65 00:10:[address] [address] Patient Name: NBA SALES MR #: [id number] : 1935 Age/Sex: 82/F Req #: [id number] Adm Physician: Ordered by: LORRI MOLINA NP Report #: [id number] Location: ER Room/Bed: Procedure: [id number] US/US GALLBLADDER Exam Date: 11/20/17 Exam Time: 1135 REPORT STATUS: Signed EXAM: US GALLBLADDER DATE: 11/20/2017 12:00 AM INDICATION: S mild upp er abd pain with leukocytosis, COMPARISON: None TECHNIQUE: Transverse a nd longitudinal mosqueda scale and color doppler sonographic images of the upper a bdomen were obtained. FINDINGS: LIVER 14.7 cm in the right midcla vicular line. Normal echogenicity, normal contour, no masses. GALLBLAD LYDIA No stones. Possible sludge. No wall-thickening or pericholecystic fluid. Negative sonographic Olmedo's sign. BILE DUCTS No intra nor extra-hepa tic biliary dilation. Common bile duct measures 0.4 cm PANCREAS: Visualiz ed portions are normal. RIGHT KIDNEY: 12.1 cm Echogenicity: Normal Inderjit ecting System: No hydronephrosis Stones: None Cyst/Mass: Right interpolar and lower renal cysts measuring 4.7 x 3.2 x 3.2 cm and 3.1 x 2.4 x 2.4 cm, res pectively. VESSELS: Aorta: Visualized portions are within normal size narvaez its Inferior Vena Cava: Visualized portions are normal Main Portal Vein: 0.5 cm, normal size with hepatopetal flow. FREE FLUID: None IMPRESSION: Possible layering sludge. No cholelithiasis or evidence of acute cholecystit is. Signed by: Dr Terrence Kate MD on 11/21/2017 12:41 AM Dictated By: TERRENCE KATE MD Transcribed By: RILEY on 11/21/1740 COPY TO: LORRI MOLINA [employer] Urine [id number] 21:34:00* Test Item Value Reference Range Interpretation Comments Urine WBC (test code = 5821-4) NONE 0-5 [facility] HospitalU[facility] [id number] 21:34:00* Test Item Value Reference Range Interpretation Comments Urine RBC (test code = 94220-1) NONE 0-5 [facility] HospitalU[facility] Ykrloijq6199-20-71 21:34:00* Test Item Value Reference Range Interpretation Comments Urine Bacteria (test code = 46591-0) NONE NONE [facility] Epithelial Ojrix6276-66-17 21:34:00 * Test Item Value Reference Range Interpretation Comments Urine Epithelial Cells (test code = 71559-3) FEW NONE [facility] Fywoo7773-66-86 21:34:00* Test Item Value Reference Range Interpretation Comments Urine Mucus (test code = 8247-9) MODERATE RARE H [facility] TWN0904-49-77 21:34:00* Test Item Value Reference Range Interpretation Comments Urine WBC (test code = 5821-4) NONE 0-5 [facility] [id number] 21:34:00* Test Item Value Reference Range Interpretation Comments Urine RBC (test code = 24583-3) NONE 0-5 [facility] Ndocxpit0424-59-14 21:34:00* Test Item Value Reference Range Interpretation Comments Urine Bacteria (test code = 73898-0) NONE NONE [facility] Epithelial Pzfly6040-83-25 21:34:00 * Test Item Value Reference Range Interpretation Comments Urine Epithelial Cells (test code = 73242-6) FEW NONE [facility] Gcqho9644-33-61 21:34:00* Test Item Value Reference Range Interpretation Comments Urine Mucus (test code = 8247-9) MODERATE RARE H [facility] Mkfxd5769-60-34 21:13:00* Test Item Value Reference Range Interpretation Comments Urine Color (test code = 5778-6) JOHN YELLOW H [facility] Pziysgz5420-56-39 21:13:00* Test Item Value Reference Range Interpretation Comments Urine Clarity (test code = 32921-1) CLEAR CLEAR [facility] Specific Ukelamv2696-24-91 21:13:00 * Test Item Value Reference Range Interpretation Comments Urine Specific [place] (test code = 5811-5) 1.030 1.010-1.[address] [facility] oU1922-85-99 21:13:00* Test Item Value Reference Range Interpretation Comments Urine pH (test code = 79324-4) 6 5-7 [facility] Leukocyte Kbgzepxx9905-13-10 21:13:00* Test Item Value Reference Range Interpretation Comments Urine Leukocyte Esterase (test code = 5799-2) NEGATIVE NEGATIVE [facility] Plvywbb5333-12-50 21:13:00* Test Item Value Reference Range Interpretation Comments Urine Nitrite (test code = 21450-3) NEGATIVE NEGATIVE [facility] Qympceo1877-95-09 21:13:00* Test Item Value Reference Range Interpretation Comments Urine Protein (test code = 5804-0) TRACE NEGATIVE H [facility] Glucose (UA)2017-11-20 21:13:00* Test Item Value Reference Range Interpretation Comments Urine Glucose (UA) (test code = 2349-9) NEGATIVE NEGATIVE [facility] Ipbpvnr9949 21:13:00* Test Item Value Reference Range Interpretation Comments Urine Ketones (test code = 65288-3) NEGATIVE NEGATIVE [facility] Bkrrzwagzpsi1759-62-20 21:13:00* Test Item Value Reference Range Interpretation Comments Urine Urobilinogen (test code = 48697-2) 0.2 0.2-1 [facility] Qoxodrvfa9853-38-32 21:13:00* Test Item Value Reference Range Interpretation Comments Urine Bilirubin (test code = 1978-6) NEGATIVE NEGATIVE [facility] Shrlr8491-80-13 21:13:00* Test Item Value Reference Range Interpretation Comments Urine Blood (test code = 85529-4) NEGATIVE NEGATIVE [facility] Rejla5310-02-47 21:13:00* Test Item Value Reference Range Interpretation Comments Urine Color (test code = 5778-6) JOHN YELLOW [facility] Iypgynh5580-81-98 21:13:00* Test Item Value Reference Range Interpretation Comments Urine Clarity (test code = 39939-9) CLEAR CLEAR [facility] Specific Jfmavro3113-09-33 21:13:00 * Test Item Value Reference Range Interpretation Comments Urine Specific [place] (test code = 5811-5) 1.030 1.010-1.[address] [facility] sN7654-01-20 21:13:00* Test Item Value Reference Range Interpretation Comments Urine pH (test code = 25485-5) 6 5-7 [facility] Leukocyte Ggvltbfu1199-15-66 21:13:00* Test Item Value Reference Range Interpretation Comments Urine Leukocyte Esterase (test code = 5799-2) NEGATIVE NEGATIVE [facility] Bwuvxjx5782-37-88 21:13:00* Test Item Value Reference Range Interpretation Comments Urine Nitrite (test code = 83181-3) NEGATIVE NEGATIVE [facility] Lzgclwk5151-26-66 21:13:00* Test Item Value Reference Range Interpretation Comments Urine Protein (test code = 5804-0) TRACE NEGATIVE H [facility] Glucose (UA)2017-11-20 21:13:00* Test Item Value Reference Range Interpretation Comments Urine Glucose (UA) (test code = 2349-9) NEGATIVE NEGATIVE [facility] Xpyjcnq5283-46-86 21:13:00* Test Item Value Reference Range Interpretation Comments Urine Ketones (test code = 83370-0) NEGATIVE [facility]IVE [facility] Bsnrewufkoqf8140-58-54 21:13:00* Test Item Value Reference Range Interpretation Comments Urine Urobilinogen (test code = 81009-0) 0.2 0.2-1 [facility] Ywodexjuw9644-58-05 21:13:00* Test Item Value Reference Range Interpretation Comments Urine Bilirubin (test code = 1978-6) NEGATIVE NEGATIVE [facility] Tvsfc0288-66-08 21:13:00* Test Item Value Reference Range Interpretation Comments Urine Blood (test code = 64385-3) NEGATIVE NEGATIVE [facility] HospitalDigoxin Rqxzw9159-78-00 20:18:00* Test Item Value Reference Range Interpretation Comments Digoxin Level (test code = 84113-9) 0.47 0.8-2.[address] [facility] HospitalLactic Acid Rrhce6474-23-15 19:39:00* Test Item Value Reference Range Interpretation Comments Lactic Acid Level (test code = Lactic Acid Level) 9.2 4.5- 19.8 [facility] HospitalL[facility] Acid Gwslx2506-27-62 19:39:00* Test Item Value Reference Range Interpretation Comments Lactic Acid Level (test code = Lactic Acid Level) 9.2 4.5- 19.8 [facility] HospitalCHEST SINGLE (PORTABLE)2017-11-20 19:24:00 [facility] [address] [address] Patient Name: NBA SALES MR #: [id number] : 1935 Age/Sex: 82/F Req #: [id number] Adm Physician: Ordered by: CARMEN VIVAS MD Report #: [id number] Location: ER Room/Bed: Procedure: [id number] DX/CHEST SINGLE (PORTABLE) Exa m Date: 11/20/17 Exam Time: 1909 REPORT STATUS: Signed EXAMINATION: CHEST SINGLE (PORTABLE) 11/20/2017 6:38 PM TERESITA RISON: 10/08/2017 INDICATION: Nausea DISCUSSION: LINES: None. LUNGS: Mild scarlike opacities in the lung bases. No pneumonia or pulmonary edema. PLEURA: No pleural effusion or pneumothorax. HEART AND MEDI ASTINUM: Normal heart size. Atherosclerotic, mildly tortuous thoracic aorta. BONES AND SOFT TISSUES: Multilevel degenerative changes of the thoracic spine.. The soft tissues are normal. IMPRESSION: No acute cardiopulmo nary disease. Joanna Palomo MD Signed by: Dr. Joanna Palomo M.D. on 11/20/2017 7:26 PM Dictated By: JOANNA PALOMO MD Electronically Sig christine By: JOANNA PALOMO MD on 11/20/171925 Transcribed By: RILEY on 1925 COPY TO: CARMEN VIVAS MD Creatine Kinase WA4928-49-58 19:12:00* Test Item Value Reference Range Interpretation Comments Creatine Kinase MB (test code = 26874-9) 0.70 0-5.0 [facility] HospitalTroponin Q4299-83-97 19:12:00* Test Item Value Reference Range Interpretation Comments Troponin I (test code = FDX4955) 0.006 0-0.300 [facility] HospitalCreatine Ksuupf6478-84-46 19:06:00* Test Item Value Reference Range Interpretation Comments Creatine Kinase (test code = 2157-6) 31 29-168 [facility] HospitalAmylase Qjxud6858-63-70 19:06:00* Test Item Value Reference Range Interpretation Comments Amylase Level (test code = 1798-8) 79 25-125 [facility] HospitalLipase2018-08-21 19:06:00* Test Item Value Reference Range Interpretation Comments Lipase (test code = 3040-3) 29 8-78 [facility] HospitalAmylase Wshnp2200-83-05 19:06:00* Test Item Value Reference Range Interpretation Comments Amylase Level (test code = 1798-8) 79 25-125 [facility] HospitalLipase2018-08-21 19:06:00* Test Item Value Reference Range Interpretation Comments Lipase (test code = 3040-3) 29 8-78 [facility] HospitalNeutrophils (%) (Auto)2017-11-20 18:47:00 * Test Item Value Reference Range Interpretation Comments Neutrophils (%) (Auto) (test code = 26650-9) 83.8 38.7-80.[address] [facility] HospitalLymphocytes (%) (Auto)2017-11-20 18:47:00 * Test Item Value Reference Range Interpretation Comments Lymphocytes (%) (Auto) (test code = 736-9) 8.8 18.0-39.[address] [facility] HospitalMonocytes (%) (Auto)2017-11-20 18:47:00* Test Item Value Reference Range Interpretation Comments Monocytes (%) (Auto) (test code = 5905-5) 6.5 4.4-11.3 [facility] (%) (Auto)2017-11-20 18:47:00 * Test Item Value Reference Range Interpretation Comments Eosinophils (%) (Auto) (test code = 713-8) 0.1 0.0-6.0 [facility] HospitalBasophils (%) (Auto)2017-11-20 18:47:00* Test Item Value Reference Range Interpretation Comments Basophils (%) (Auto) (test code = 706-2) 0.2 0.0-1.0 [facility] HospitalIM GRANULOCYTES %2017-11-20 18:47:00* Test Item Value Reference Range Interpretation Comments IM GRANULOCYTES % (test code = IM GRANULOCYTES %) 0.6 0.0- 1.0 [facility] HospitalNeutrophils # (Auto)2017-11-20 18:47:00* Test Item Value Reference Range Interpretation Comments Neutrophils # (Auto) (test code = 751-8) 13.6 2.1-6.[address] [facility] HospitalLymphocytes # (Auto)2017-11-20 18:47:00* Test Item Value Reference Range Interpretation Comments Lymphocytes # (Auto) (test code = 23842-4) 1.4 1.0-3.2 [facility] HospitalMonocytes # (Auto)2017-11-20 18:47:00* Test Item Value Reference Range Interpretation Comments Monocytes # (Auto) (test code = 742-7) 1.1 0.2-0.[address] [facility] HospitalEosinophils # (Auto)2017-11-20 18:47:00* Test Item Value Reference Range Interpretation Comments Eosinophils # (Auto) (test code = 711-2) 0.0 0.0-0.4 [facility] HospitalBasophils # (Auto)2017-11-20 18:47:00* Test Item Value Reference Range Interpretation Comments Basophils # (Auto) (test code = 704-7) 0.0 0.0-0.1 [facility] HospitalAbsolute Immature Granulocyte (auto 2017-11-20 18:47:00* Test Item Value Reference Range Interpretation Comments Absolute Immature Granulocyte (auto (matthew t code = Absolute Immature Granulocyte (auto) 0.10 0-0.1 [facility] HospitalBlood Wmprwoc6397-92-85 23:25:00* Test Item Value Reference Range Interpretation Comments Blood Culture (test code = 90790066) NO GROWTH AFTER [address] [facility] HospitalCreatine Kinase HI9211-94-91 21:45:00* Test Item Value Reference Range Interpretation Comments Creatine Kinase MB (test code = 56002-5) 2.20 0-5.0 [facility] HospitalTroponin [id number] 21:45:00* Test Item Value Reference Range Interpretation Comments Troponin I (test code = PBJ3157) 0.014 0-0.300 [facility] HospitalCreatine Gdlmbn8406-17-98 21:27:00* Test Item Value Reference Range Interpretation Comments Creatine Kinase (test code = 2157-6) 64 29-168 [facility] Hospitalodium Igqrc4729-15-15 05:20:00* Test Item Value Reference Range Interpretation Comments Sodium Level (test code = 2951-2) 142 136-145 [facility] HospitalPotassium Fusrd8019-45-58 05:20:00* Test Item Value Reference Range Interpretation Comments Potassium Level (test code = 2823-3) 3.7 3.5-5.1 [facility] HospitalChloride Rtvze3474-76-70 05:20:00* Test Item Value Reference Range Interpretation Comments Chloride Level (test code = 2075-0) 110 98-[address] [facility] HospitalCarbon Dioxide Zdajh0060-26-56 05:20:00* Test Item Value Reference Range Interpretation Comments Carbon Dioxide Level (test code = 2028-9) 24 22-29 [facility] HospitalAnion Sdi2486-44-96 05:20:00* Test Item Value Reference Range Interpretation Comments Anion Gap (test code = 96966-2) 11.7 8-16 [facility] HospitalBlood Urea Qvwyiawk1566-07-54 05:20:00* Test Item Value Reference Range Interpretation Comments Blood Urea Nitrogen (test code = 3094-0) 30 7-[address] [facility] HospitalCreatinine2018-07-10 05:20:00* Test Item Value Reference Range Interpretation Comments Creatinine (test code = 2160-0) 1.21 0.57-1.[address] [facility] HospitalBUN/Creatinine Hsycf3900-42-69 05:20:00* Test Item Value Reference Range Interpretation Comments BUN/Creatinine Ratio (test code = 3097-3) 25 6-25 [facility] HospitalEstimat Glomerular Filtration Rate 2017-10-09 05:20:00* Test Item Value Reference Range Interpretation Comments Estimat Glomerular Filtration Rate (test code = 95392-4) 43 >60 L Ranges were taken from the National Kidney Disease Education Program and the [facility] [employer] literature.Reference ranges:60 or greater: Qmqtyu55-04 ( for 3 consecutive months): Chronic kidney disease 15 or less: Kidney failureSt. [facility] HospitalGlucose Gwics9242-85-61 05:20:00* Test Item Value Reference Range Interpretation Comments Glucose Level (test code = BSG8856) 100 74-118 [facility] HospitalCalcium Prcxc9656-16-80 05:20:00* Test Item Value Reference Range Interpretation Comments Calcium Level (test code = 11595-9) 8.7 8.4-10.2 [facility] HospitalTotal Wfmsvaele8845-04-75 05:20:00* Test Item Value Reference Range Interpretation Comments Total Bilirubin (test code = 1975-2) 0.5 0.2-1.2 [facility] HospitalAspartate Amino Transf (AST/SGOT) 2017-10-09 05:20:00* Test Item Value Reference Range Interpretation Comments Aspartate Amino Transf (AST/SGOT) (test code = Aspartate Amino Transf (AST/SGOT)) 15 5-34 [facility] HospitalAlanine Aminotransferase (ALT/SGPT) 2017-10-09 05:20:00* Test Item Value Reference Range Interpretation Comments Alanine Aminotransferase (ALT/SGPT) (test code = 1742-6) 8 0-55 [facility] HospitalTotal Rpcuxky2092-70-04 05:20:00* Test Item Value Reference Range Interpretation Comments Total Protein (test code = 2885-2) 5.7 6.5-8.[address] [facility] HospitalAlbumin2018-07-10 05:20:00* Test Item Value Reference Range Interpretation Comments Albumin (test code = 1751-7) 3.0 3.5-5.[address] [facility] HospitalGlobulin2018-07-10 05:20:00* Test Item Value Reference Range Interpretation Comments Globulin (test code = 08374-6) 2.7 2.3-3.5 [facility] HospitalAlbumin/Globulin Majgv2460-43-36 05:20:00 * Test Item Value Reference Range Interpretation Comments Albumin/Globulin Ratio (test code = 1759-0) 1.1 0.8-2.0 [facility] HospitalAlkaline Kuygdofrfns0667-21-39 05:20:00* Test Item Value Reference Range Interpretation Comments Alkaline Phosphatase (test code = 6768-6) 66 40-150 [facility] HospitalWhite Blood Puhst8395-90-79 04:59:00* Test Item Value Reference Range Interpretation Comments White Blood Count (test code = 6690-2) 8.37 4.8-10.8 [facility] HospitalRed Blood Wjayr2570-95-95 04:59:00* Test Item Value Reference Range Interpretation Comments Red Blood Count (test code = 789-8) 3.54 3.6-5.[address] [facility] HospitalHemoglobin2018-07-10 04:59:00* Test Item Value Reference Range Interpretation Comments Hemoglobin (test code = 02594-3) 10.4 12.0-16.[address] [facility] HospitalHematocrit2018-07-10 04:59:00* Test Item Value Reference Range Interpretation Comments Hematocrit (test code = 4544-3) 32.4 34.2-44.[address] [facility] HospitalMean Corpuscular Uhmgam0939-75-73 04:59:00* Test Item Value Reference Range Interpretation Comments Mean Corpuscular Volume (test code = 787-2) 91.5 81-99 [facility] HospitalMean Corpuscular Acgpvlvsux0203-90-22 04:59:00* Test Item Value Reference Range Interpretation Comments Mean Corpuscular Hemoglobin (test code = 785-6) 29.4 28-32 [facility] HospitalMean Corpuscular Hemoglobin Concent 2017-10-09 04:59:00* Test Item Value Reference Range Interpretation Comments Mean Corpuscular Hemoglobin Concent (test code = 786-4) 32.1 31-35 [facility] HospitalRed Cell Distribution Dfbpw2925-75-96 04:59:00* Test Item Value Reference Range Interpretation Comments Red Cell Distribution Width (test code = 71301-3) 17.2 11.7 -14.[address] [facility] HospitalPlatelet Utnet8661-83-18 04:59:00* Test Item Value Reference Range Interpretation Comments Platelet Count (test code = 777-3) 248 140-360 [facility] HospitalNeutrophils (%) (Auto)2017-10-09 04:59:00 * Test Item Value Reference Range Interpretation Comments Neutrophils (%) (Auto) (test code = 92853-6) 56.5 38.7-80.0 [facility] HospitalLymphocytes (%) (Auto)2017-10-09 04:59:00 * Test Item Value Reference Range Interpretation Comments Lymphocytes (%) (Auto) (test code = 736-9) 32.1 18.0-39.1 [facility] HospitalMonocytes (%) (Auto)2017-10-09 04:59:00* Test Item Value Reference Range Interpretation Comments Monocytes (%) (Auto) (test code = 5905-5) 8.5 4.4-11.3 [facility] HospitalEosinophils (%) (Auto)2017-10-09 04:59:00 * Test Item Value Reference Range Interpretation Comments Eosinophils (%) (Auto) (test code = 713-8) 1.9 0.0-6.0 [facility] HospitalBasophils (%) (Auto)2017-10-09 04:59:00* Test Item Value Reference Range Interpretation Comments Basophils (%) (Auto) (test code = 706-2) 0.6 0.0-1.0 [facility] HospitalIM GRANULOCYTES %2017-10-09 04:59:00* Test Item Value Reference Range Interpretation Comments IM GRANULOCYTES % (test code = IM GRANULOCYTES %) 0.4 0.0- 1.0 [facility] HospitalNeutrophils # (Auto)2017-10-09 04:59:00* Test Item Value Reference Range Interpretation Comments Neutrophils # (Auto) (test code = 751-8) 4.7 2.1-6.9 [facility] HospitalLymphocytes # (Auto)2017-10-09 04:59:00* Test Item Value Reference Range Interpretation Comments Lymphocytes # (Auto) (test code = 73113-4) 2.7 1.0-3.2 [facility] HospitalMonocytes # (Auto)2017-10-09 04:59:00* Test Item Value Reference Range Interpretation Comments Monocytes # (Auto) (test code = 742-7) 0.7 0.2-0.8 [facility] HospitalEosinophils # (Auto)2017-10-09 04:59:00* Test Item Value Reference Range Interpretation Comments Eosinophils # (Auto) (test code = 711-2) 0.2 0.0-0.4 [facility] HospitalBasophils # (Auto)2017-10-09 04:59:00* Test Item Value Reference Range Interpretation Comments Basophils # (Auto) (test code = 704-7) 0.1 0.0-0.1 [facility] HospitalAbsolute Immature Granulocyte (auto 2017-10-09 04:59:00* Test Item Value Reference Range Interpretation Comments Absolute Immature Granulocyte (auto (matthew t code = Absolute Immature Granulocyte (auto) 0.03 0-0.1 [facility] HospitalFr Thyroxine Rnvpu1069-21-12 20:54:00* Test Item Value Reference Range Interpretation Comments Free Thyroxine Index (test code = 46110-6) 1.7312 1.4-3.8 [facility] HospitalThyroxine (T4)2017-10-08 20:54:00* Test Item Value Reference Range Interpretation Comments Thyroxine (T4) (test code = 3026-2) 5.40 4.5-10.9 Our current method for Total T4 is not recommended for use as the only marker fo r evaluating patients for thyroid disorders.[facility] HospitalTriiodothyronine (T3) Ajlrwj0568-17-00 20:54:00* Test Item Value Reference Range Interpretation Comments Triiodothyronine (T3) Uptake (test code = 3050-2) 32.06 22.5 -37.0 [facility] HospitalThyroid Stimulating Hormone (TSH) 2017-10-08 20:54:00* Test Item Value Reference Range Interpretation Comments Thyroid Stimulating Hormone (TSH) (test code = 83579-4) 2.476 0.350-4.940 [facility] Thyroxine Wkzvd2525-44-05 20:54:00* Test Item Value Reference Range Interpretation Comments Free Thyroxine Index (test code = 37561-1) 1.7312 1.4-3.8 [facility] HospitalThyroxine (T4)2017-10-08 20:54:00* Test Item Value Reference Range Interpretation Comments Thyroxine (T4) (test code = 3026-2) 5.40 4.5-10.9 Our current method for Total T4 is not recommended for use as the only marker fo r evaluating patients for thyroid disorders.[facility] HospitalTriiodothyronine (T3) Ebxfyb9456-71-60 20:54:00* Test Item Value Reference Range Interpretation Comments Triiodothyronine (T3) Uptake (test code = 3050-2) 32.06 22.5 -37.0 [facility] HospitalThyroid Stimulating Hormone (TSH) 2017-10-08 20:54:00* Test Item Value Reference Range Interpretation Comments Thyroid Stimulating Hormone (TSH) (test code = 47343-5) 2.476 0.350-4.940 [facility] HospitalFree Thyroxine Qkcqk6311-34-02 20:54:00* Test Item Value Reference Range Interpretation Comments Free Thyroxine Index (test code = 96169-4) 1.7312 1.4-3.8 [facility] HospitalThyroxine (T4)2017-10-08 20:54:00* Test Item Value Reference Range Interpretation Comments Thyroxine (T4) (test code = 3026-2) 5.40 4.5-10.9 Our current method for Total T4 is not recommended for use as the only marker fo r evaluating patients for thyroid disorders.[facility] HospitalTriiodothyronine (T3) Jfomtr1512-78-18 20:54:00* Test Item Value Reference Range Interpretation Comments Triiodothyronine (T3) Uptake (test code = 3050-2) 32.06 22.5 -37.0 [facility] HospitalThyroid Stimulating Hormone (TSH) 2017-10-08 20:54:00* Test Item Value Reference Range Interpretation Comments Thyroid Stimulating Hormone (TSH) (test code = 51868-8) 2.476 0.350-4.940 [facility] HospitalB-Type Natriuretic Zhqqesi1762-95-04 20:37:00* Test Item Value Reference Range Interpretation Comments B-Type Natriuretic Peptide (test code = 79164-6) 358.5 0-[address] [facility] HospitalB-Type Natriuretic Mvfyzwo8978-15-08 20:37:00* Test Item Value Reference Range Interpretation Comments B-Type Natriuretic Peptide (test code = 84603-0) 358.5 0-[address] [facility] HospitalD-Dimer Quantitative (PE/DVT)2017-10-08 20:27:00* Test Item Value Reference Range Interpretation Comments D-Dimer Quantitative (PE/DVT) (test code = 80177-0) 0.26 0. 00-0.45 As with all in vitro diagnostic tests, the test results should be interpreted by the physician in conjunction with clinical findings and other test results.Test results are reported in NEW D-dimer units(ug/mLFEU).[facility] HospitalD-Dimer Quantitative (PE/DVT)2017-10-08 20:27:00* Test Item Value Reference Range Interpretation Comments D-Dimer Quantitative (PE/DVT) (test code = 61807-7) 0.26 0. 00-0.45 As with all in vitro diagnostic tests, the test results should be interpreted by the physician in conjunction with clinical findings and other test results.Test results are reported in NEW D-dimer units(ug/mLFEU).[facility] HospitalD-Dimer Quantitative (PE/DVT)2017-10-08 20:27:00* Test Item Value Reference Range Interpretation Comments D-Dimer Quantitative (PE/DVT) (test code = 98422-9) 0.26 0. 00-0.45 As with all in vitro diagnostic tests, the test results should be interpreted by the physician in conjunction with clinical findings and other test results.Test results are reported in NEW D-dimer units(ug/mLFEU).[facility] HospitalProthrombin Zmlz2985-69-12 20:25:00* Test Item Value Reference Range Interpretation Comments Prothrombin Time (test code = 5902-2) 21.2 11.9-14.[address] [facility] HospitalProthromb Time International Ratio 2017-10-08 20:25:00* Test Item Value Reference Range Interpretation Comments Prothromb Time International Ratio (test code = 6301-6) 1.99 Oral Anticoagulant Therapy INR Values:1. Low Intensity Therapy 1.5 - 2.02 . Moderate Intensity Therapy 2.0 - 3.03. High Intensity Therapy(1) 2.5 - 3. 54. High Intensity Therapy(2) 3.0 - 4.05. Panic Value INR > 5.0 [facility] HospitalActivated Partial Thromboplast Time 2017-10-08 20:25:00* Test Item Value Reference Range Interpretation Comments Activated Partial Thromboplast Time (test code = 52061-2) 37.7 23.8-35.[address] [facility] HospitalLactic Acid Vnkns1573-17-97 20:22:00* Test Item Value Reference Range Interpretation Comments Lactic Acid Level (test code = Lactic Acid Level) 7.4 4.5- 19.8 [facility] HospitalCHES 2 LXMUQ2309-32-09 20:15:00 [facility] [address] [address] Patient Name: NBA SALES MR #: [id number] : Age/Sex: 81/F Req #: [id number] Adm Physician: Ordered by: WENDY CHAVEZ MD Report #: [id number] Location: ER Room /Bed: Procedure: [id number] DX/CHEST 2 VIEWS Exam Kirill e: 10/08/17 Exam Time: 1937 REPORT STATUS: Sign ed EXAMINATION: CHEST 2 VIEWS INDICATION: Shortness of breath COMPARISON: Chest x-ray 07/30/2016 FINDINGS: PA and lateral view s TUBES and LINES: None. LUNGS: Lungs are well inflated. Unchanged r esidual scarring in the lung bases. Lungs are clear. There is no evidence of pneumonia or pulmonary edema. PLEURA: No pleural effusion or pneumothorax. HEART AND MEDIASTINUM: The cardiomediastinal silhouette is unremarkable. There are atherosclerotic calcifications within the aorta. BONES AND SOFT TISSUES: No acute osseous lesion. Soft tissues are unremarkable. UPPER ABDOMEN: No free air under the diaphragm. IMPRESSION: Unchanged mil d residual scar in the lung bases. No acute pulmonary opacities. Signed by: Dr. Sushant Martinez M.D. on 10/08/2017 8:17 PM Dictated By: SUSHANT MARTINEZ MD Electr onically Signed By: SUSHANT MARTINEZ MD on 10/08/172016 Transcribed By: RILEY on 12/18 COPY TO: WENDY CHAVEZ MD Urine [id number] 19:47:00* Test Item Value Reference Range Interpretation Comments Urine WBC (test code = 5821-4) 11-20 0-[address] [facility] HospitalU[facility] EWQ6426-89-07 19:47:00* Test Item Value Reference Range Interpretation Comments Urine RBC (test code = 07518-3) NONE 0-5 [facility] HospitalUrine Yzwhzmuu8353-43-81 19:47:00* Test Item Value Reference Range Interpretation Comments Urine Bacteria (test code = 31514-4) MODERATE NONE [facility] Epithelial Prloy1467-24-20 19:47:00 * Test Item Value Reference Range Interpretation Comments Urine Epithelial Cells (test code = 05105-9) MODERATE NONE [facility] HospitalUrine Transitional Epithelial Cells 2017-10-08 19:47:00* Test Item Value Reference Range Interpretation Comments Urine Transitional Epithelial Cells (test code = 8249-5) FEW NONE [facility] Transitional Epithelial Cells 2017-10-08 19:47:00* Test Item Value Reference Range Interpretation Comments Urine Transitional Epithelial Cells (test code = 8249-5) FEW NONE [facility] Transitional Epithelial Cells 2017-10-08 19:47:00* Test Item Value Reference Range Interpretation Comments Urine Transitional Epithelial Cells (test code = 8249-5) FEW NONE [facility] HospitalUrine Kkfpi1659-56-06 19:29:00* Test Item Value Reference Range Interpretation Comments Urine Color (test code = 5778-6) YELLOW YELLOW [facility] HospitalUrine Lyvzeho9179-99-68 19:29:00* Test Item Value Reference Range Interpretation Comments Urine Clarity (test code = 62152-0) SL CLOUDY CLEAR [facility] HospitalUrine Specific Mbhejfd6815-39-05 19:29:00 * Test Item Value Reference Range Interpretation Comments Urine Specific [place] (test code = 5811-5) 1.030 1.010-1.[address] [facility] HospitalUrine oP7721-07-39 19:29:00* Test Item Value Reference Range Interpretation Comments Urine pH (test code = 80667-0) 5 5-7 [facility] HospitalU[facility] Leukocyte Cadtxlbg7488-52-57 19:29:00* Test Item Value Reference Range Interpretation Comments Urine Leukocyte Esterase (test code = 5799-2) 1+ NEGATIVE [facility] HospitalU[facility] Vqmjdfg1522-01-97 19:29:00* Test Item Value Reference Range Interpretation Comments Urine Nitrite (test code = 97675-4) NEGATIVE NEGATIVE [facility] HospitalUrine Lxsvnez3323-97-88 19:29:00* Test Item Value Reference Range Interpretation Comments Urine Protein (test code = 5804-0) NEGATIVE NEGATIVE [facility] HospitalUrine Glucose (UA)2017-10-08 19:29:00* Test Item Value Reference Range Interpretation Comments Urine Glucose (UA) (test code = 2349-9) NEGATIVE NEGATIVE [facility] HospitalU[facility] Tnkdllc8356-54-48 19:29:00* Test Item Value Reference Range Interpretation Comments Urine Ketones (test code = 06680-9) NEGATIVE NEGATIVE [facility] HospitalUrine Ipmgailmittt8105-32-56 19:29:00* Test Item Value Reference Range Interpretation Comments Urine Urobilinogen (test code = 68743-8) 0.2 0.2-1 [facility] HospitalU[facility] Qundmcutc3088-46-51 19:29:00* Test Item Value Reference Range Interpretation Comments Urine Bilirubin (test code = 1978-6) NEGATIVE NEGATIVE [facility] HospitalU[facility] Xmoqs9895-93-56 19:29:00* Test Item Value Reference Range Interpretation Comments Urine Blood (test code = 61071-5) NEGATIVE NEGATIVE [facility]
--- OUTSIDE RECORDS SUMMARY | 2019-10-31 19:03 | XMS REPORT | Continuity of Care Document ---
Author Author [facility] t Organization [facility] Address [address] [place] [address] [address] [place] [address] Phone Unavailable Care Team Providers Care Furnace Process Supervisor Name Role Phone BENNY SEQUEIRA, MD MCNALLY PCP Alejandra CHAVEZ Attphys Unavailable Bel ROWLEY Attphys Unavailable ANGELI MATTHEWS Attphys Unavailable Helen Louis Attphys MARCE MILLER Attphys Unavailable Dominic Schultz Attphys BOCGWYN ULI Attphys Unavailable Loan VIVAS Attphys Unavailable Louis Helen Admphys MARCE MILLER Admphys Unavailable ULI ZAPATA Admphys Unavailable Payers Payer Name Policy Type Policy Number Effective Date Expiration Date [place] [facility] Medicare Complete [id number] 2019 00:00:00 [facility] Problems Condition Name Condition Details Condition Category Status Onset Date Resolution Date Last Treatment Date Treating Clinician Comments Source PREADMIT / WATCHMAN / GA / CHANTEL PREADMIT / WATCHMAN / GA / CHANTEL Active 05/29/2018 [facility] Diagnosis Active 2018-05-29 00:00:00 2018-06-07 12:14:00 Mireya Hua LT HEART CATH / CORONARY STENTS LT HEART CATH / CORONARY STENTS Active 02/01/2018 [facility] Active 2018-02-01 00:00: 00 2018-03-09 15:29:00 [facility] Chronic atrial fibrillation Chronic a-fib Problem Active [facility] Small bowel obstruction SBO (small bowel obstruction) Problem Active [facility] Urinary tract infection UTI (urinary tract infection) Problem Active [facility] Diverticulitis of large intestine Diverticulitis large intestine Pr oblem Active [facility] Lower gastrointestinal hemorrhage LGI bleed Problem Active [facility] Nausea Nausea Problem Active [facility] Atrial fibrillation with rapid ventricular response Problem Active [facility] Allergies, Adverse Reactions, Alerts Allergy Name Allergy Type Status Severity Reaction(s) Onset Date Inacti ve Date Treating Clinician Comments Source No Known Medication Allergies No Known Medication Allergies Active [facility] Social History Social Habit Start Date Stop Date Quantity Comments Source Sex Assigned At 1935 00:00:00 1935 00:00:00 Female [facility] Smoking Status Start Date Stop Date Source Social History 2018-06-05 13:41:18 [facility] Medications Ordered Medication Name Filled Medication Name Start Date Stop Da te Current Medication? Ordering Clinician Indication Dosage Frequency Signature (SIG) Comments Components Source Azithromycin (Z-Raheel) 250 Mg TABLET Azithromycin (Z-Raheel) 250 Mg TABLET 2018-09-25 14:18:00 Yes 250 Use As Directed [facility] Furosemide 40 MG Oral Tablet 2018-06-06 15:00:00 No Notes: (Same as: Lasix) May cause GI upset. Give with food or milk. 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 [facility] Isosorbide 2018-06-06 15:00:00 No Notes: (Same as:Imdur) "Do Not Crush" Take on empty stomach/ full glass of water. Do not crush [facility] Digoxin 0.125 MG Oral Tablet 2018-06-06 15:00:00 No Notes: Take on an Empty Stomach (Same as: Lanoxin) [facility] orial Javid Bupropion 2018-06-06 15:00:00 No Notes: (Do not crush) (Same As: Wellbutrin SR) [facility] Javid Aspirin 2018-06-06 15:00:00 No Notes: Do not crush or chew. (Same As: Ecotrin) [facility] Magnesium Sulfate 2018-06-06 10:36:00 No Notes: WASTE: F/P - Sink; E - [employer]ash [employer] [facility] Magnesium Oxide 2018-06-06 10:36:00 No Notes: (Same as: Mag-Ox 400) Magnesium oxide [id number] elemental magnesium Dose=____mg magnesium oxide (___mg elemental magnesium) [facility] Her fuentes Calcium Gluconate 2018-06-06 10:36:00 No Notes: WASTE: F/P - Sink; [facility] phosphate 2018-06-06 10:36:00 No Notes: (Same as: K Phosphate.) Do not infuse phosphorous concurrently in the same line as TPN or IVF that contains calcium. For double lumen central lines, phosphorous may be infused in a separate lumen from TPN. 1 mMol phoshate has 1.47 mEq potassium Infuse over 4 hours [facility] sodium phosphate 2018-06-06 10:36:00 No Notes: Infuse over 4 hour. Do not infuse phosphorous concurrently in the same line as TPN or IVF that contains calcium. For double lumen central lines, phosphorous may be infused in a separate lumen from TPN. [facility] anette potassium phosphate-sodium phosphate 250 mg-280 mg-160 mg oral powder for reconstitution 2018-06-06 10:36:00 No Notes: (Same as: Phos-NaK) Each 1.5 gm pkt has 250mg phosphorous. Mix w/2.5oz water and stir. [facility] Potassium Chloride 2018-06-06 10:36:00 No Notes: (Same as: K-Dur 20) "Do Not Crush" Give with food and full glass of water For patients unable to swallow tablet, dissolve in one half glass of water. Allow about 2 minutes for the tablets to disintegrate. Stir before giving to prepare slurry and administer. Please exclude Patient s with feeding tube less than 14 Estonian (Dobhoff, J-tube etc) and pediatric and patients. [...] Notes: Same as Ranexa "Do Not Crush" [facility] orial Javid Zyloprim 2018-06-06 04:04:00 No Notes: (Isac e as: Zyloprim) [facility] Javid Saline Flush 0.9% 2018-06-06 03:00:00 No Notes: (Same as: BD Posiflush) [facility] Javid Ranexa 2018-06-05 23:00:00 No Notes : Same as Ranexa "Do Not Crush" [facility] Javid Allopurinol 2018-06-05 23:00:00 No Notes: ( Same as: Zyloprim) [facility] Javid Naloxone 2018-06-05 18:23:00 No Notes: Same as Narcan [facility] Flumazenil 2018-06-05 18:23:00 No Notes: (S allan as: Romazicon) [facility] Ondansetron 2018-06-05 18:23:00 No Notes: (Same as: Zofran) MEDICATION WASTE Product Size: 4 mg Product Wasted: ___ mg [facility] Saline Flush 0.9% 2018-06-05 18:14:00 No Notes: (Same as: BD Posiflush) [facility] Javid DME Rx-external wearable defibrillator 2018-06-05 18:12:00 Yes [facility] [place] glycopyrrolate (ANES) 2018-06-05 18:11:00 No Route: IV, Drug form: INJ, ONCE, Stop date: 06/05/18 12:11:00 T[employer]ICE ATTENDANT Mireya Hua neostigmine (ANES) 2018-06-05 18:11:00 No Route: IV, Drug form: INJ, ONCE, Stop date: 06/05/18 12:11:00 TITLE VEHICLE SERVICE ATTENDANT [facility] [place] ondansetron (ANES) 2018-06-05 18:11:00 No Route: IV, Drug form: INJ, ONCE, Stop date: 06/05/18 12:11:00 TITLE VEHICLE SERVICE ATTENDANT Mireya Hua heparin (ANES) 2018-06-05 18:11:00 No Route: IV, Drug form: INJ, ONCE, Stop date: 06/05/18 12:11:00 TITLE VEHICLE SERVICE ATTENDANT Jovi Hua protamine (ANES) 10 mg 2018-06-05 18:03:00 No Route: IV, Drug form: INJ, Start date: 06/05/18 12:03:00 TITLE VEHICLE SERVICE ATTENDANT, Stop date: 06/05/18 13:03:00 TITLE VEHICLE SERVICE ATTENDANT Mireya Hua fentaNYL (ANES) 2018-06-05 17:27:00 No Route: IV, Drug form: INJ, ONCE, Stop date: 06/05/18 11:27:00 TITLE VEHICLE SERVICE ATTENDANT Jovi Hua rocuronium (ANES) 2018-06-05 17:27:00 No Route: IV, Drug form: INJ, ONCE, Stop date: 06/05/18 11:27:00 TITLE VEHICLE SERVICE ATTENDANT Jovi salgadorizuri Hua propofol (ANES) 2018-06-05 17:27:00 No Route: IV, Drug form: INJ, ONCE, Stop date: 06/05/18 11:27:00 TITLE VEHICLE SERVICE ATTENDANT Jovi salgadorizuri Hua lidocaine (ANES) 2018-06-05 17:22:00 No Route: IV, Drug form: INJ, ONCE, Stop date: 06/05/18 11:22:00 TITLE VEHICLE SERVICE ATTENDANT Jovi Hua Sodium Chloride 0.9% IV (ANES) 1000 mL 2018-06-05 16:20:00 No Route: IV, Total Volume: 1,000, Start date: 06/05/18 10:20:00 TITLE VEHICLE SERVICE ATTENDANT, Stop date: 06/05/18 11:20:00 TITLE VEHICLE SERVICE ATTENDANT [facility] metoprolol succinate 50 mg oral capsule, extended release 2018-06-05 13:21:00 Yes 50 mg = 1 cap, PO, BID, 0 Refill (s) Mireya [place] isosorbide mononitrate 30 mg oral tablet, extended release 2018-06-05 13:21:00 Yes 30 mg = 1 tab, PO, QAM, 0 Refil l(s) [facility] warfarin 6 mg oral tablet 2018-06-05 13:21:00 Yes 6 mg = 1 tab, PO, Every Other Day, 0 Refill(s) Mireya mittal warfarin 3 mg oral tablet 2018-06-05 13:21:00 Yes 3 mg = 1 tab, PO, Every Other Day, 0 Refill(s) Mireya mittal Aspirin 2018-06-05 13:21:00 Yes 81 mg, PO, D aily, 0 Refill(s) [facility] Bupropion 2018-06-05 13:21:00 Yes 15 0 mg, PO, Daily, 0 Refill(s) [facility] allopurinol 100 mg oral tablet 2018-06-05 13:21:00 Yes 100 mg = 1 tab, PO, BID, 0 Refill(s) [facility] nn Ranexa 2018-06-05 13:21:00 Yes 1,000 mg, PO, BID, 0 Refill(s) [facility] pantoprazole 40 mg oral granule 2018-06-05 13:21:00 Yes = 1 Pack, PO, BID, # 30 ea, 0 [facility] MG Oral Tablet 2018-06-05 13:07:00 Yes 40 mg = 1 tab, PO, Daily, 0 Refill(s) [facility] Digoxin 0.125 MG Oral Tablet 2018-06-05 13:07:00 Yes 125 microgram = 1 tab, PO, Daily, 0 Refill(s) [facility] NS 1,000 mL 2018-06-05 12:36:00 No 1,000 mL, Rate: 50 ml/hr, Infuse over: 20 hr, Route: IV, Dosing Weight 82.364 kg, Total Volume: 1,000, Start date: 06/05/18 6:36:00 TITLE VEHICLE SERVICE ATTENDANT, Duration: 30 day, Stop date: 07/05/18 6:35:00 CDT, 1.93, m2 [facility] Allopurinol Allopurinol Yes 100 Twice A Day [facility] Aspirin (Aspir 81) 81 Mg TABLET. Aspirin (Aspir 81) 81 Mg TABLET. Yes 81 Daily [facility] Atorvastatin Calcium Atorvastatin Calcium Yes 40 Bedtime [facility] Bupropion Hcl Bupropion Hcl Yes 150 Daily [facility] Digoxin Digoxin Yes .125 Daily [facility] Donepezil Hcl (Aricept) 5 Mg TABLET Donepezil Hcl (Aricept) 5 Mg TABL ET Yes 5 Bedtime [facility] Furosemide Furosemide Yes 40 Twice A Day [facility] Isosorbide Mononitrate (Isosorbide Mononitrate Er) 30 Mg TAB.ER.24H Isosorbide Mononitrate (Isosorbide Mononitrate Er) 30 Mg TAB.ER.24H Yes 30 Daily [facility] Lisinopril Lisinopril Yes 5 Daily [facility] Memantine Hcl (Namenda) 10 Mg TABLET Memantine Hcl (Namenda) 10 Mg TABLET Yes 10 Twice A Day [facility] Metoprolol Metoprolol Yes 50 Twice A Day [facility] Metoprolol Tartrate (Lopressor) 25 Mg TAB Metoprolol T artrate (Lopressor) 25 Mg TAB Yes 50 Twice A Day [facility] Nitroglycerin (Nitrostat) 0.4 Mg TAB.SUBL Nitroglyceri n (Nitrostat) 0.4 Mg TAB.SUBL Yes .4 As Needed [facility] Ondansetron (Zofran Odt) 4 Mg TAB.RAPDIS Ondansetron ( Zofran Odt) 4 Mg TAB.RAPDIS Yes 4 Every 6 Hours as needed for Nausea [facility] Pantoprazole Sodium (Protonix) 40 Mg TABLET. Pantopr azole Sodium (Protonix) 40 Mg TABLET. Yes 40 Twice A Day [facility] Ranolazine (Ranexa) 500 Mg TABSR Ranolazine (Ranexa) 500 Mg TABSR Yes 1000 Twice A Day [facility] Warfarin Sodium Warfarin Sodium 2019-10-28 00:00:00 No 3 Use As Directed [facility] Clopidogrel Bisulfate (Plavix) 75 Mg TABLET Clopidogre l Bisulfate (Plavix) 75 Mg TABLET 2018-08-16 00:00:00 No 75 Daily [facility] Metoprolol Succinate Metoprolol Succinate 2018-08-16 00:00:00 No 50 Daily [facility] Simvastatin Simvastatin 2018-04-26 00:00:00 No 40 T bart At 9:00PM [facility] Warfarin Sodium Warfarin Sodium 2018-04-26 00:00:00 No 2.5 Daily [facility] Warfarin Sodium Warfarin Sodium 2017-11-24 00:00:00 No 5 Use As Directed [facility] Lisinopril Lisinopril 2017-11-20 00:00:00 No 20 Ethel ly [facility] Memantine Hcl (Namenda) 10 Mg TABLET Memantine Hcl (Namenda) 10 Mg TABLET 2017-11-20 00:00:00 No 10 Daily [facility] Sotalol Hcl (Sotalol) 80 Mg TABLET Sotalol Hcl (Sotalol) 80 Mg T ABLET 2017-11-20 00:00:00 No 80 Twice A Day [facility] Acetaminophen/Diphenhydramine (Ra Acetaminophen Pm Cap let) 1 Each TABLET Acetaminophen/Diphenhydramine (Ra Acetaminophen Pm Caplet) 1 Each TABLET 2017-10-10 00:00:00 No 1 Bedtime [facility] Tramadol Hcl (Ultram 50MG*) 50 Mg TAB Tramadol Hcl (Ultram 50MG* ) 50 Mg TAB 2017-10-10 00:00:00 No 50 Every 6 Hours as nee ded for Pain [facility] Lisinopril/Hydrochlorothiazide (Lisinopril-Hctz 20-25 Mg Tab) 1 Each TABLET Lisinopril/Hydrochlorothiazide (Lisinopril-Hctz 20-25 Mg Tab) 1 Each TABLET 2016-07-28 00:00:00 No 1 Daily [facility] Vital Signs Vital Name Observation Time Observation Value Comments Source Body Temperature 2019-10-29 11:30:00 97.6 [degF] [facility] Weight 2019-10-28 00:20:00 169 [lb_av] [facility] BMI (Body Mass Index) 2019-10-28 00:20:00 30.9 kg/m2 [facility] Systolic (mm Hg) 2018-06-06 18:00:00 Dick rial Javid Diastolic (mm Hg) 2018-06-06 18:00:00 Mem orial [place] Systolic (mm Hg) 2018-06-06 17:00:00 Idck rial Javid Diastolic (mm Hg) 2018-06-06 17:00:00 Mem orial [place] Systolic (mm Hg) 2018-06-06 16:00:00 Dick rial [place] Diastolic (mm Hg) 2018-06-06 16:00:00 Mem orial [facility] Temperature Oral (F) 2018-06-06 14:00:00 98.5 F [facility] Temperature Oral (F) 2018-06-06 11:37:00 98.8 F [facility] [place] Respitory Rate 2018-06-06 10:00:00 Memori al [place] Respitory Rate 2018-06-06 09:00:00 Memori [facility] [place] Respitory Rate 2018-06-06 08:00:00 Memori al [facility] Temperature Oral (F) 2018-06-06 04:30:00 99.6 F [facility] Height 2018-06-05 12:35:00 157.48 cm [facility] [place] Weight 2018-06-05 12:35:00 [facility] [place] BMI Calculated 2018-06-05 12:35:00 Memori al [facility] Procedures Procedure Date / Time Performed Performing Clinician Kay e PCI - Percutaneous coronary intervention [facility] Plan of Care Planned Activity Planned Date Details Comments Source Instructions Atrial Fibrillation [facility] Encounters Start Date/Time End Date/Time Encounter Type Admission Type Attendi [facility] Care Department Encounter ID Source 2019-10-27 20:57:00 2019-10-29 12:45:00 Discharged Inpatient (obs) 1 WENDY CHAVEZ [facility] [id number] [facility] 2018-09-25 11:59:00 2018-09-25 14:35:00 Departed Emergency Room 1 MAXIMINO ROWLEY [facility] [id number] [facility] 2018-08-21 08:19:00 2018-08-21 08:19:00 Registered Clinic 3 ANGELI MATTHEWS [facility] [id number] [facility] 2018-08-20 09:08:00 2018-08-20 09:08:00 Registered Surgical Day Care [facility] [id number] [facility] 2018-06-05 06:14:00 2018-06-06 12:10:00 Outpatient Bianca Louis [facility] [id number] 2018-04-21 14:04:00 2018-04-26 13:33:00 Discharged Inpatient 1 MARCE MILLER [facility] [id number] [facility] 2018-02-07 09:57:00 2018-02-08 12:57:00 Discharged Inpatient (obs) [facility] [id number] [facility] 2018-02-06 09:00:00 2018-02-06 09:00:00 Outpatient Cody Schultz [facility] [id number] 2017-11-21 02:10:00 2017-11-24 13:28:00 Discharged Inpatient 1 ULI ZAPATA [facility] [id number] [facility] 2017-10-08 23:50:00 2017-10-10 18:39:00 Discharged Inpatient 1 CARMEN VIVAS [facility] [id number] [facility] Results Test Description Test Time Test Comments Results Result Comments Source Blood leukocytes automated count (number/volume) 2019-10-28 09:51:00 Test Item White Blood Count (test code = 6690-2) 6.13 4.8-10.8 [facility] count (number/volume)2019-10-28 09:51:00* Test Item Value Reference Range Interpretation Comments Red Blood Count (test code = 789-8) 4.14 3.6-5.1 [facility] measurement (moles/volume)2019-10-28 09:51:00* Test Item Value Reference Range Interpretation Comments Hemoglobin (test code = 32968-3) 11.2 12.0-16.0 [facility] blood hematocrit (volume fraction)2019-10-28 09:51:00* Test Item Value Reference Range Interpretation Comments Hematocrit (test code = 4544-3) 37.2 34.2-44.1 [facility] erythrocyte mean corpuscular [id number] 09:51:00* Test Item Value Reference Range Interpretation Comments Mean Corpuscular Volume (test code = 787-2) 89.9 81-99 [facility] mean corpuscular hemoglobin (mass per erythrocyte)2019-10-28 09:51:00* Test Item Value Reference Range Interpretation Comments Mean Corpuscular Hemoglobin (test code = 785-6) 27.1 28-32 [facility] eryth[facility] mean corpuscular hemoglobin concentration measurement (mass/volume)2019-10-28 09:51:00* Test Item Value Reference Range Interpretation Comments Mean Corpuscular Hemoglobin Concent (test code = 786-4) 30.1 31-35 [facility] CenterRDW [id number] 09:51:00* Test Item Value Reference Range Interpretation Comments Red Cell Distribution Width (test code = 98442-8) 16.3 11.7 -14.4 [facility] blood platelet count (count/volume)2019-10-28 09:51:00* Test Item Value Reference Range Interpretation Comments Platelet Count (test code = 777-3) 197 140-360 [facility] blood segmented neutrophil count as percentage of total [id number] 09:51:00* Test Item Value Reference Range Interpretation Comments Neutrophils (%) (Auto) (test code = 00986-3) 66.2 38.7-80.0 [facility] Center[facility] lymphocyte count as percentage ot total kqpzsuzogy3118-95-70 09:51:00* Test Item Value Reference Range Interpretation Comments Lymphocytes (%) (Auto) (test code = 736-9) 23.2 18.0-39.1 [facility] Center[facility] monocyte count as percentage of total [id number] 09:51:00* Test Item Value Reference Range Interpretation Comments Monocytes (%) (Auto) (test code = 5905-5) 8.6 4.4-11.3 [facility] Center[facility] blood eosinophil count as percentage of total [id number] 09:51:00* Test Item Value Reference Range Interpretation Comments Eosinophils (%) (Auto) (test code = 713-8) 1.1 0.0-6.0 [facility] CenterAutom[facility] blood basophil count as percentage of total [id number] 09:51:00* Test Item Value Reference Range Interpretation Comments Basophils (%) (Auto) (test code = 706-2) 0.7 0.0-1.0 [facility] CenterFluoroscopic procedure less than one hour [id number] 09:51:00* Test Item Value Reference Range Interpretation Comments IM GRANULOCYTES % (test code = IM GRANULOCYTES %) 0.2 0.0- 1.0 [facility] CenterAutom[facility] blood neutrophil count 2019-10-28 09:51:00* Test Item Value Reference Range Interpretation Comments Neutrophils # (Auto) (test code = 751-8) 4.1 2.1-6.9 [facility] lymphocytes count (number/volume) 2019-10-28 09:51:00* Test Item Value Reference Range Interpretation Comments Lymphocytes # (Auto) (test code = 43837-6) 1.4 1.0-3.2 [facility] CenterBlood monocytes automated count (number/volume)2019-10-28 09:51:00* Test Item Value Reference Range Interpretation Comments Monocytes # (Auto) (test code = 742-7) 0.5 0.2-0.8 [facility] CenterAutom[facility] blood eosinophil count 2019-10-28 09:51:00* Test Item Value Reference Range Interpretation Comments Eosinophils # (Auto) (test code = 711-2) 0.1 0.0-0.4 [facility] CenterAutom[facility] blood basophil count (count/volume)2019-10-28 09:51:00* Test Item Value Reference Range Interpretation Comments Basophils # (Auto) (test code = 704-7) 0.0 0.0-0.1 [facility] CenterFluoroscopic procedure less than one hour [id number] 09:51:00* Test Item Value Reference Range Interpretation Comments Absolute Immature Granulocyte (auto (matthew t code = Absolute Immature Granulocyte (auto) 0.01 0-0.1 [facility] sodium measurement (moles/volume)2019-10-28 09:51:00* Test Item Value Reference Range Interpretation Comments Sodium Level (test code = 2951-2) 142 136-145 [facility] potassium measurement (moles/volume)2019-10-28 09:51:00* Test Item Value Reference Range Interpretation Comments Potassium Level (test code = 2823-3) 4.3 3.5-5.1 [facility] chloride measurement (moles/volume)2019-10-28 09:51:00* Test Item Value Reference Range Interpretation Comments Chloride Level (test code = 2075-0) 108 98-107 [facility] or plasma carbon dioxide, total measurement (moles/volume)2019-10-28 09:51:00* Test Item Value Reference Range Interpretation Comments Carbon Dioxide Level (test code = 2028-9) 25 22-29 [facility] or plasma anion [id number] 09:51:00* Test Item Value Reference Range Interpretation Comments Anion Gap (test code = 87968-8) 13.3 8-16 [facility] plasma urea nitrogen measurement (mass/volume)2019-10-28 09:51:00* Test Item Value Reference Range Interpretation Comments Blood Urea Nitrogen (test code = 3094-0) 15 7-26 [facility] plasma creatinine measurement (mass/volume)2019-10-28 09:51:00* Test Item Value Reference Range Interpretation Comments Creatinine (test code = 2160-0) 0.97 0.57-1.11 [facility] or plasma urea nitrogen/creatinine mass [id number] 09:51:00* Test Item Value Reference Range Interpretation Comments BUN/Creatinine Ratio (test code = 3097-3) 15 6-25 [facility] CenterEstimated glomerular filtration rate (GFR) xxwihqyregojf4365-53-81 09:51:00* Test Item Value Reference Range Interpretation Comments Estimat Glomerular Filtration Rate (test code = 089965995) 55 >60 Ranges were taken from the National Kidney Disease Education Program and the [facility] Kidney Foundation literature.Reference ranges:60 or greater: Kynkrv22-29 ( for 3 consecutive months): Chronic kidney disease 15 or less: Kidney failureShannon Medical CenterGlucose qhhrerstkdh7030-71-75 09:51:00* Test Item Value Reference Range Interpretation Comments Glucose Level (test code = GHK1463) 87 74-118 [facility] or plasma calcium measurement (mass/volume)2019-10-28 09:51:00* Test Item Value Reference Range Interpretation Comments Calcium Level (test code = 50001-9) 8.8 8.4-10.2 [facility] or plasma total bilirubin measurement (mass/volume)2019-10-28 09:51:00* Test Item Value Reference Range Interpretation Comments Total Bilirubin (test code = 1975-2) 0.8 0.2-1.2 [facility] CenterFluoroscopic procedure less than one hour [id number] 09:51:00* Test Item Value Reference Range Interpretation Comments Aspartate Amino Transf (AST/SGOT) (test code = Aspartate Amino Transf (AST/SGOT)) 16 5-34 [facility]ererum or plasma alanine aminotransferase measurement (enzymatic activity/volume)2019-10-28 09:51:00* Test Item Value Reference Range Interpretation Comments Alanine Aminotransferase (ALT/SGPT) (test code = 1742-6) 11 0-55 [facility] or plasma protein measurement (mass/volume)2019-10-28 09:51:00* Test Item Value Reference Range Interpretation Comments Total Protein (test code = 2885-2) 6.6 6.5-8.1 [facility] Centererum or plasma albumin measurement (mass/volume)2019-10-28 09:51:00* Test Item Value Reference Range Interpretation Comments Albumin (test code = 1751-7) 3.3 3.5-5.0 [facility] CenterPlasma globulin measurement (mass/volume) 2019-10-28 09:51:00* Test Item Value Reference Range Interpretation Comments Globulin (test code = 95543-3) 3.3 2.3-3.5 [facility] or plasma albumin/globulin mass kebug6848-59-06 09:51:00* Test Item Value Reference Range Interpretation Comments Albumin/Globulin Ratio (test code = 1759-0) 1.0 0.8-2.0 [facility]ererum or plasma alkaline phosphatase measurement (enzymatic activity/volume)2019-10-28 09:51:00* Test Item Value Reference Range Interpretation Comments Alkaline Phosphatase (test code = 6768-6) 68 40-150 [facility]ererum or plasma triglyceride measurement (mass/volume)2019-10-28 09:51:00* Test Item Value Reference Range Interpretation Comments Triglycerides Level (test code = 2571-8) 128 0-149 [facility]ererum or plasma cholesterol measurement (mass/volume)2019-10-28 09:51:00* Test Item Value Reference Range Interpretation Comments Cholesterol Level (test code = 2093-3) 158 0-199 Less than 200 mg/dL Low Epyc212 - 239 mg/dL Borderline Geaf359 m g/dl and greater High Risk [facility] Centererum or plasma cholesterol in LDL measurement (mass/volume) 2019-10-28 09:51:00* Test Item Value Reference Range Interpretation Comments LDL Cholesterol (test code = 2089-1) 92 60-130 [facility] Centererum or plasma cholesterol in HDL measurement (mass/volume)2019-10-28 09:51:00* Test Item Value Reference Range Interpretation Comments HDL Cholesterol (test code = 2085-9) 40 40-60 [facility] Centererum or plasma total cholesterol/cholesterol in HDL mass cvsjp6032-11-87 09:51:00* Test Item Value Reference Range Interpretation Comments Cholesterol/HDL Ratio (test code = 9830-1) 4.0 3.0-3.6 [facility]ererum or plasma creatine kinase measurement (enzymatic activity/volume)2019-10-28 09:51:00* Test Item Value Reference Range Interpretation Comments Creatine Kinase (test code = 2157-6) 57 29-168 [facility] Centererum or plasma creatine kinase MB measurement (mass/volume)2019-10-28 09:51:00* Test Item Value Reference Range Interpretation Comments Creatine Kinase MB (test code = 51977-9) 2.50 0-5.0 [facility] CenterTroponin I measurement by highly sensitive enzyme skrllcxvpub2858-52-20 09:51:00* Test Item Value Reference Range Interpretation Comments Troponin I (test code = 31141-2) 0.009 0-0.300 [facility] CenterCHEST SINGLE (PORTABLE)2019-10-27 20:10:00 [facility] [address] [place] [address] Patient Name: NBA SALES MR #: [id number] : 1935 Age/Sex: 84/F Req #: [id number] Adm Physician: Ordered by: LAING GOMEZ MD Report #: [id number] Location: ER Room/Bed: Procedure: [id number] DX/CHEST SINGLE (PORTABLE) Exam Date: 10/27/19 Exam [...] MD Fluoroscopic procedure less than one hour adzasdbf2300-82-13 19:52:00* Test Item Value Reference Range Interpretation [...] under 564(g) of the ACT.Testing performed by [facility] [place], [place] [address] HospitalProthrombin time (PT) in platelet poor plasma by coagulation biorj8950-05-56 17:30:00* Test Item Value Reference Range Interpretation Comments Prothrombin Time (test code = 5902-2) 13.6 11.9-14.5 [facility] CenterINR in Platelet poor plasma by Coagulation zjtio4679-66-27 17:30:00* Test Item Value Reference Range Interpretation Comments Prothromb Time International Ratio (test code = 6301-6) 0.99 Oral Anticoagulant Therapy INR Values:1. Low Intensity Therapy 1.5 - 2.02 . Moderate Intensity Therapy 2.0 - 3.03. High Intensity Therapy(1) 2.5 - 3. 54. High Intensity Therapy(2) 3.0 - 4.05. Panic Value INR > 5.0 [facility] CenterActivated partial thromboplastin time (aPTT) in platelet poor plasma by coagulation dkaco2782-53-42 17:30:00* Test Item Value Reference Range Interpretation Comments Activated Partial Thromboplast Time (test code = 96395-8) 34.8 23.8-35.5 [facility]ererum or plasma digoxin measurement (mass/volume)2019-10-27 17:30:00* Test Item Value Reference Range Interpretation Comments Digoxin Level (test code = 64733-1) 0.42 0.8-2.0 [facility] CenterCHEST SINGLE (PORTABLE)2018-09-25 14:01:00 [facility] [address] [place] [address] Patient Name: NBA SALES MR #: [id number] : 1935 Age/Sex: 82/F Req #: [id number] Adm Physician: Ordered by: LORRI MOLINA NP Report #: [id number] Location: ER Room/Bed: Procedure: [id number] DX/ CHEST SINGLE (PORTABLE) Exam Date: 09/25/18 [...] on 09/25/18 1403 COPY TO: LORRI MOLINA PILOT SUPERVISOR Influenza Virus Types A,B Mfvskhv8546-94-24 13:08:00* Test Item Value Reference Range Interpretation Comments Influenza Virus Types A,B Antigen (test code = 61749-1) NEGATIVE NEGATIVE [facility] HospitalUS RENAL RETROPERITONEAL FXRA4548-26-91 10:21:00 [place] [address] Patient Name: NBA SALES MR #: [id number] : 1935 Age/Sex: 82/F Req #: [id number] Adm Physician: Ordered by: ANGELI MATTHEWS MD Report #: [id number] Location: Room/Bed: Procedure: [id number] US/US RENAL RETROPERITONEAL COMP Exam Date: Exam [...] MD US PELVIC (NON OB) NARVAEZ OR F/C7026-81-74 10:21:00 [place] [address] Patient Name: NBA SALES MR #: [id number] : 1935 Age/Sex: 82/F Req #: [id number] Adm Physician: Ordered by: ANGELI MATTHEWS MD Report #: [id number] Location: Room/Bed: Procedure: [id number] US/US PELVIC (NON OB) NARVAEZ OR F/U [...] A M Dictated By: FIDELINA CORDOVA MD 1028 Transcribed By: RILEY on 08/21/18 1025 COPY TO: ANGELI ASHFORD MD Sodium Ejkpc5672-14-44 14:04:00* Test Item Value Reference Range Interpretation Comments Sodium Level (test code = 2951-2) 138 136-145 [facility] CenterPotassium Bmhus3801-73-75 14:04:00* Test Item Value Reference Range Interpretation Comments Potassium Level (test code = 2823-3) 4.6 3.5-5.1 [facility] CenterChloride Itrfi5709-94-34 14:04:00* Test Item Value Reference Range Interpretation Comments Chloride Level (test code = 2075-0) 107 98-107 [facility] CenterCarbon Dioxide Isbmd0272-48-24 14:04:00* Test Item Value Reference Range Interpretation Comments Carbon Dioxide Level (test code = 2028-9) 24 22-29 [facility] CenterAnion Lhm4424-16-33 14:04:00* Test Item Value Reference Range Interpretation Comments Anion Gap (test code = 98873-2) 11.6 8-16 [facility] CenterBlood Urea Crmgadwn7636-88-10 14:04:00* Test Item Value Reference Range Interpretation Comments Blood Urea Nitrogen (test code = 3094-0) 22 7-26 [facility] CenterCreatinine2019-05-17 14:04:00* Test Item Value Reference Range Interpretation Comments Creatinine (test code = 2160-0) 0.97 0.57-1.11 [facility] CenterBUN/Creatinine Ypxzx4195-11-11 14:04:00* Test Item Value Reference Range Interpretation Comments BUN/Creatinine Ratio (test code = 3097-3) 23 6-25 [facility] CenterEstimat Glomerular Filtration Rate 2018-08-16 14:04:00* Test Item Value Reference Range Interpretation Comments Estimat Glomerular Filtration Rate (test code = 717747896) 55 >60 L Ranges were taken from the National Kidney Disease Education Program and the [place] [facility] literature.Reference ranges:60 or greater: Aeuvfr64-96 ( for 3 consecutive months): Chronic kidney disease 15 or less: Kidney failureShannon Medical CenterGlucose Bwcoi4657-63-35 14:04:00* Test Item Value Reference Range Interpretation Comments Glucose Level (test code = YUD7367) 88 74-118 [facility] CenterCalcium Qurje8263-60-37 14:04:00* Test Item Value Reference Range Interpretation Comments Calcium Level (test code = 09232-5) 9.3 8.4-10.2 [facility] CenterTotal Zhyofzjyt6888-67-56 14:04:00* Test Item Value Reference Range Interpretation Comments Total Bilirubin (test code = 1975-2) 0.5 0.2-1.2 [facility] CenterAspartate Amino Transf (AST/SGOT) 2018-08-16 14:04:00* Test Item Value Reference Range Interpretation Comments Aspartate Amino Transf (AST/SGOT) (test code = Aspartate Amino Transf (AST/SGOT)) 14 5-34 [facility] CenterAlanine Aminotransferase (ALT/SGPT) 2018-08-16 14:04:00* Test Item Value Reference Range Interpretation Comments Alanine Aminotransferase (ALT/SGPT) (test code = 1742-6) 8 0-55 [facility] CenterTotal Xblvbqf4199-94-68 14:04:00* Test Item Value Reference Range Interpretation Comments Total Protein (test code = 2885-2) 6.7 6.5-8.1 [facility] CenterAlbumin2019-05-17 14:04:00* Test Item Value Reference Range Interpretation Comments Albumin (test code = 1751-7) 3.4 3.5-5.0 L [facility] CenterGlobulin2019-05-17 14:04:00* Test Item Value Reference Range Interpretation Comments Globulin (test code = 50153-7) 3.3 2.3-3.5 [facility] CenterAlbumin/Globulin Jsejd6498-24-70 14:04:00 * Test Item Value Reference Range Interpretation Comments Albumin/Globulin Ratio (test code = 1759-0) 1.0 0.8-2.0 [facility] CenterAlkaline Eckgwdjhcsa1529-48-89 14:04:00* Test Item Value Reference Range Interpretation Comments Alkaline Phosphatase (test code = 6768-6) 92 40-150 [facility] CenterProthrombin Mbmf3257-58-96 13:55:00* Test Item Value Reference Range Interpretation Comments Prothrombin Time (test code = 5902-2) 20.5 11.9-14.5 H [facility] CenterProthromb Time International Ratio 2018-08-16 13:55:00* Test Item Value Reference Range Interpretation Comments Prothromb Time International Ratio (test code = 6301-6) 1.69 Oral Anticoagulant Therapy INR Values:1. Low Intensity Therapy 1.5 - 2.02 . Moderate Intensity Therapy 2.0 - 3.03. High Intensity Therapy(1) 2.5 - 3. 54. High Intensity Therapy(2) 3.0 - 4.05. Panic Value INR > 5.0 [facility] CenterWhite Blood Ervbk6146-16-03 13:51:00* Test Item Value Reference Range Interpretation Comments White Blood Count (test code = 6690-2) 6.76 4.8-10.8 [facility] CenterRed Blood Kivvh8203-39-28 13:51:00* Test Item Value Reference Range Interpretation Comments Red Blood Count (test code = 789-8) 3.65 3.6-5.1 [facility] CenterHemoglobin2019-05-17 13:51:00* Test Item Value Reference Range Interpretation Comments Hemoglobin (test code = 13551-1) 11.4 12.0-16.0 L [facility] CenterHematocrit2019-05-17 13:51:00* Test Item Value Reference Range Interpretation Comments Hematocrit (test code = 4544-3) 35.2 34.2-44.1 [facility] CenterMean Corpuscular Dsswqw7147-52-33 13:51:00* Test Item Value Reference Range Interpretation Comments Mean Corpuscular Volume (test code = 787-2) 96.4 81-99 [facility] CenterMean Corpuscular Nmmluaypam2452-31-71 13:51:00* Test Item Value Reference Range Interpretation Comments Mean Corpuscular Hemoglobin (test code = 785-6) 31.2 28-32 [facility] CenterMean Corpuscular Hemoglobin Concent 2018-08-16 13:51:00* Test Item Value Reference Range Interpretation Comments Mean Corpuscular Hemoglobin Concent (test code = 786-4) 32.4 31-35 [facility] CenterRed Cell Distribution Agxgl6552-50-06 13:51:00* Test Item Value Reference Range Interpretation Comments Red Cell Distribution Width (test code = 80329-0) 14.6 11.7 -14.4 H [facility] CenterPlatelet Egiem2868-40-48 13:51:00* Test Item Value Reference Range Interpretation Comments Platelet Count (test code = 777-3) 223 140-360 [facility] CenterNeutrophils (%) (Auto)2018-08-16 13:51:00 * Test Item Value Reference Range Interpretation Comments Neutrophils (%) (Auto) (test code = 11249-6) 62.2 38.7-80.0 [facility] CenterLymphocytes (%) (Auto)2018-08-16 13:51:00 * Test Item Value Reference Range Interpretation Comments Lymphocytes (%) (Auto) (test code = 736-9) 29.1 18.0-39.1 [facility] CenterMonocytes (%) (Auto)2018-08-16 13:51:00* Test Item Value Reference Range Interpretation Comments Monocytes (%) (Auto) (test code = 5905-5) 7.0 4.4-11.3 [facility] CenterEosinophils (%) (Auto)2018-08-16 13:51:00 * Test Item Value Reference Range Interpretation Comments Eosinophils (%) (Auto) (test code = 713-8) 1.0 0.0-6.0 [facility] CenterBasophils (%) (Auto)2018-08-16 13:51:00* Test Item Value Reference Range Interpretation Comments Basophils (%) (Auto) (test code = 706-2) 0.4 0.0-1.0 [facility] CenterIM GRANULOCYTES %2018-08-16 13:51:00* Test Item Value Reference Range Interpretation Comments IM GRANULOCYTES % (test code = IM GRANULOCYTES %) 0.3 0.0- 1.0 [facility] CenterNeutrophils # (Auto)2018-08-16 13:51:00* Test Item Value Reference Range Interpretation Comments Neutrophils # (Auto) (test code = 751-8) 4.2 2.1-6.9 [facility] CenterLymphocytes # (Auto)2018-08-16 13:51:00* Test Item Value Reference Range Interpretation Comments Lymphocytes # (Auto) (test code = 38329-6) 2.0 1.0-3.2 [facility] CenterMonocytes # (Auto)2018-08-16 13:51:00* Test Item Value Reference Range Interpretation Comments Monocytes # (Auto) (test code = 742-7) 0.5 0.2-0.8 [facility] CenterEosinophils # (Auto)2018-08-16 13:51:00* Test Item Value Reference Range Interpretation Comments Eosinophils # (Auto) (test code = 711-2) 0.1 0.0-0.4 [facility] CenterBasophils # (Auto)2018-08-16 13:51:00* Test Item Value Reference Range Interpretation Comments Basophils # (Auto) (test code = 704-7) 0.0 0.0-0.1 [facility] CenterAbsolute Immature Granulocyte (auto 2018-08-16 13:51:00* Test Item Value Reference Range Interpretation Comments Absolute Immature Granulocyte (auto (matthew t code = Absolute Immature Granulocyte (auto) 0.02 0-0.1 [facility] CenterCHEM VXMXH0073-48-61 06:53:001.9[facility]annCHEM XSEBV2413-73-34 06:53:0073[facility]annCHEM LEXKG9676-84-89 06:53:007.9[facility] HermannCHEM SBKFB0940-72-63 06:53:0025[facility] HermannCHEM WNLJC4388-01-81 06:53:0012.7[facility] HermannCHEM ZNKMC5231-64-55 06:53:003.7 [facility]annCHEM HQFSS2914-27-42 06:53:65840Ulaazufj HermannCHEM PANEL 2018-06-06 06:53:0073[facility] HermannCHEM YJRCV4556-56-36 06:53:0014[facility] HermannCHEM KTXVV6269-58-54 06:53:000.77[facility] HermannCHEM TRRFN2812-22-45 06:53:85985Uozepydj HermannCHEM SMEIM8952-06-31 06:53:003.2[facility] Javid KQUGQVRYGD8236-34-90 06:53:001.5[facility] OlnfubcFOYTVGAJND9900-58-27 06:53:000.6 Memorial JtatvtyITDXQITDLI1107-16-71 06:53:000.4[facility] HermannHEMATOLOGY 2018-06-06 06:53:000.4[facility] GvixyiwYNACSGJFKY4137-82-70 06:53:004.9[facility] MsteanjIPQLHAQKNZ7606-46-08 06:53:008.0[facility] CualgstEAGZVSXNCI9623-71-48 06:53:0021.6[facility] OybycqiSFABIOQHNT5583-59-12 06:53:0069.6[facility] HJSCZOJXNV2106-68-44 06:53:00* Test Item Value Reference Range Interpretation Comments PT (test code = PT) 21.5 s 12.0-14.7 [facility] PvpihwpQARLMDPPOE2788-23-39 06:53:00* Test Item Value Reference Range Interpretation Comments PTT (test code = PTT) 56.6 s 22.9-35.8 [facility] TejsydeLJGUZIVQHZ0587-59-48 06:53:00* Test Item Value Reference Range Interpretation Comments INR (test code = INR) 1.91 1 0.85-1.17 [facility] FfcnfwqWJMDVOICHX1750-35-67 06:53:0011.2[facility] HermannHEMATOLOGY 2018-06-06 06:53:009.2[facility]orial LnbqirbOXGPQEWGSD3630-26-97 06:53:35659Adotpama XenzrzwYTWHGCWFOK9024-71-42 06:53:0019.9[facility] LeigmpfELCUQWYPCL2088-13-35 06:53:0032.8[facility] KrxmuqwRVWHQMMATQ2678-11-32 06:53:003.49[facility] EKCGGBVPHW0843-45-03 06:53:007.0[facility] OtfmsyfWVEYZHNXHP8977-53-27 06:53:00* Test Item Value Reference Range Interpretation Comments MCH (test code = MCH) 32.2 pg 27.0-31.0 [facility] TomballGtktauoDAOALGATLU2604-95-14 06:53:0098.4[facility] HermannHEMATOLOGY 2018-06-06 06:53:0034.3[facility] QbpstkdWWGQWCBPXZ6825-03-20 13:33:00* Test Item Value Reference Range Interpretation Comments INR (test code = INR) 1.83 1 0.85-1.17 Memorial FxxswfjDWNQBCHPZE8229-31-11 13:33:00* Test Item Value Reference Range Interpretation Comments PT (test code = PT) 20.8 s 12.0-14.7 [facility] TomballQclzztuUEDCGFHZRB1930-75-49 13:33:00* Test Item Value Reference Range Interpretation Comments PTT (test code = PTT) 61.7 s 22.9-35.8 [facility] PhotorankannIntelligent Mechatronic SystemsOOD BANK EXOADHN6057-50-54 12:40:00Product available (06/05/18 6:40 AM)[facility] PhotorankannNovafora BANK JMMSRLQ3945-97-26 12:40:00Negative (06/05/18 6:40 AM)[facility] HermannCHEM ZXRVR8533-77-97 12:40:001.9[facility] HermannCHEM AXBIG9716-79-22 12:40:003.2[facility]orial CggcphrIIVVVHWXJVUV2485-41-65 12:40:0012.3 Memorial AifoelgZTDTVXKZQJUV2582-03-76 12:40:008.5[facility] HermannELECTROLYTES 2018-06-05 12:40:0027[facility] OrxxlkyRKHHUSHOIRFI9901-45-13 12:40:15094Mcalvgdc AghtednSWJPUVSIOTGW0395-49-66 12:40:003.3[facility]orial EaubivlRQQHRNOPKMMX7662-11-07 12:40:58310Xxelelsh JybfisyJELGZEVGECDP9792-37-01 12:40:0049[facility] WQYHWAGEDWXW7652-01-41 12:40:0093[facility] YoqliwpKOZSIBOVGQYD6803-91-12 12:40:00 1.07Mem[facility] LejeucfJJEQAOOGYIDV2386-75-39 12:40:0017[facility] HermannHEMATOLOGY 2018-06-05 12:40:000.1[facility] KksmqacYCXPYYCCSP9567-91-31 12:40:001.9[facility] WralgxvLCZILVCUGS9372-67-47 12:40:000.6[facility] LqlzmzeMQRRVLUOOA7306-27-09 12:40:000.6[facility] VsixxcsLRPWMPEKON5267-79-04 12:40:005.1[facility] SJPRCQPYBK4624-15-91 12:40:000.6[facility] PohqrcuVUPCBTJXON0941-49-98 12:40:008.4 Memorial TmbmokjWPYPVXDDSL6707-29-36 12:40:0066.0[facility] HermannHEMATOLOGY 2018-06-05 12:40:0024.4[facility] LelfjsyIOPNJMCUEJ4361-42-44 12:40:00* Test Item Value Reference Range Interpretation Comments MCH (test code = MCH) 32.7 pg 27.0-31.0 [facility] YeqyqinGWUPMRXFMO9366-55-48 12:40:0098.4[facility] HermannHEMATOLOGY 2018-06-05 12:40:0033.2[facility]orial CpeegfvYGTPFMLPGN6539-25-25 12:40:0036.4[facility]orial PzbgbluDLSTYZFIKF6513-48-36 12:40:0012.1[facility] HhopafqWMFWNSGKKG6850-22-99 12:40:009.1[facility] DzyefmlVOBMCBCQCD6329-41-50 12:40:0020.0[facility] LXNPFMXBLS0133-69-47 12:40:75894Cjvttola TlfgvvvDFLCLSUEGB8805-75-77 12:40:007.7 [facility] KtyehtwVEQXHJDIDA8651-53-24 12:40:003.70[facility] HermannBedside Glucose 2018-04-24 17:57:00* Test Item Value Reference Range Interpretation Comments Bedside Glucose (test code = 59018-2) 88 70-120 Meter ID: [id number] [facility]Bed[facility] Glucose 2018-04-24 17:57:00* Test Item Value Reference Range Interpretation Comments Bedside Glucose (test code = 20685-4) 88 70-120 Meter ID: [id number] Medical CenterPotassium Level 2018-04-24 14:22:00* Test Item Value Reference Range Interpretation Comments Potassium Level (test code = 2823-3) 3.7 3.5-5.1 [facility] Centerodium Hjaes0640-39-64 06:06:00* Test Item Value Reference Range Interpretation Comments Sodium Level (test code = 2951-2) 139 136-145 [facility] CenterChloride Hnhfw3585-11-76 06:06:00* Test Item Value Reference Range Interpretation Comments Chloride Level (test code = 2075-0) 104 98-107 [facility] CenterCarbon Dioxide Gyxnm2465-37-85 06:06:00* Test Item Value Reference Range Interpretation Comments Carbon Dioxide Level (test code = 2028-9) 21 22-29 L [facility] CenterAnion Jro4450-98-08 06:06:00* Test Item Value Reference Range Interpretation Comments Anion Gap (test code = 34629-6) 16.8 8-16 H [facility] CenterBlood Urea Zjshfusm9237-16-21 06:06:00* Test Item Value Reference Range Interpretation Comments Blood Urea Nitrogen (test code = 3094-0) 31 7-26 H [facility] CenterCreatinine2019-01-23 06:06:00* Test Item Value Reference Range Interpretation Comments Creatinine (test code = 2160-0) 1.23 0.57-1.11 H [facility] CenterBUN/Creatinine Nryeu1170-46-27 06:06:00* Test Item Value Reference Range Interpretation Comments BUN/Creatinine Ratio (test code = 3097-3) 25 6-25 [facility] CenterEstimat Glomerular Filtration Rate 2018-04-24 06:06:00* Test Item Value Reference Range Interpretation Comments Estimat Glomerular Filtration Rate (test code = 142783597) 42 >60 L Ranges were taken from the National Kidney Disease Education Program and the [place] [facility] Kidney Foundation literature.Reference ranges:60 or greater: Rmxpkl97-87 ( for 3 consecutive months): Chronic kidney disease 15 or less: Kidney failureShannon Medical CenterGlucose Xvsuh4238-24-34 06:06:00* Test Item Value Reference Range Interpretation Comments Glucose Level (test code = AXZ9424) 92 74-118 [facility] CenterCalcium Qicyi3814-00-27 06:06:00* Test Item Value Reference Range Interpretation Comments Calcium Level (test code = 16373-7) 8.9 8.4-10.2 [facility] CenterProthrombin Oetb4146-74-99 06:03:00* Test Item Value Reference Range Interpretation Comments Prothrombin Time (test code = 5902-2) 15.2 11.9-14.5 H [facility] CenterProthromb Time International Ratio 2018-04-24 06:03:00* Test Item Value Reference Range Interpretation Comments Prothromb Time International Ratio (test code = 6301-6) 1.10 Oral Anticoagulant Therapy INR Values:1. Low Intensity Therapy 1.5 - 2.02 . Moderate Intensity Therapy 2.0 - 3.03. High Intensity Therapy(1) 2.5 - 3. 54. High Intensity Therapy(2) 3.0 - 4.05. Panic Value INR > 5.0 [facility] CenterWhite Blood Metkb4216-75-99 05:39:00* Test Item Value Reference Range Interpretation Comments White Blood Count (test code = 6690-2) 10.44 4.8-10.8 [facility] CenterRed Blood Mmtrs4512-24-68 05:39:00* Test Item Value Reference Range Interpretation Comments Red Blood Count (test code = 789-8) 3.74 3.6-5.1 [facility] CenterHemoglobin2019-01-23 05:39:00* Test Item Value Reference Range Interpretation Comments Hemoglobin (test code = 48690-2) 11.3 12.0-16.0 L [facility] CenterHematocrit2019-01-23 05:39:00* Test Item Value Reference Range Interpretation Comments Hematocrit (test code = 4544-3) 34.0 34.2-44.1 L [facility] CenterMean Corpuscular Cuouet9116-65-90 05:39:00* Test Item Value Reference Range Interpretation Comments Mean Corpuscular Volume (test code = 787-2) 90.9 81-99 [facility] CenterMean Corpuscular Qvuzugnsob2164-93-06 05:39:00* Test Item Value Reference Range Interpretation Comments Mean Corpuscular Hemoglobin (test code = 785-6) 30.2 28-32 [facility] CenterMean Corpuscular Hemoglobin Concent 2018-04-24 05:39:00* Test Item Value Reference Range Interpretation Comments Mean Corpuscular Hemoglobin Concent (test code = 786-4) 33.2 31-35 [facility] CenterRed Cell Distribution Ffbux0322-74-56 05:39:00* Test Item Value Reference Range Interpretation Comments Red Cell Distribution Width (test code = 15992-7) 16.6 11.7 -14.4 H [facility] CenterPlatelet Nwdqx7187-85-28 05:39:00* Test Item Value Reference Range Interpretation Comments Platelet Count (test code = 777-3) 263 140-360 [facility] CenterNeutrophils (%) (Auto)2018-04-24 05:39:00 * Test Item Value Reference Range Interpretation Comments Neutrophils (%) (Auto) (test code = 72489-9) 66.7 38.7-80.0 [facility] CenterLymphocytes (%) (Auto)2018-04-24 05:39:00 * Test Item Value Reference Range Interpretation Comments Lymphocytes (%) (Auto) (test code = 736-9) 19.5 18.0-39.1 [facility] CenterMonocytes (%) (Auto)2018-04-24 05:39:00* Test Item Value Reference Range Interpretation Comments Monocytes (%) (Auto) (test code = 5905-5) 10.6 4.4-11.3 [facility] CenterEosinophils (%) (Auto)2018-04-24 05:39:00 * Test Item Value Reference Range Interpretation Comments Eosinophils (%) (Auto) (test code = 713-8) 0.8 0.0-6.0 [facility] CenterBasophils (%) (Auto)2018-04-24 05:39:00* Test Item Value Reference Range Interpretation Comments Basophils (%) (Auto) (test code = 706-2) 0.5 0.0-1.0 [facility] CenterIM GRANULOCYTES %2018-04-24 05:39:00* Test Item Value Reference Range Interpretation Comments IM GRANULOCYTES % (test code = IM GRANULOCYTES %) 1.9 0.0- 1.0 H [facility] CenterNeutrophils # (Auto)2018-04-24 05:39:00* Test Item Value Reference Range Interpretation Comments Neutrophils # (Auto) (test code = 751-8) 7.0 2.1-6.9 H [facility] CenterLymphocytes # (Auto)2018-04-24 05:39:00* Test Item Value Reference Range Interpretation Comments Lymphocytes # (Auto) (test code = 62767-0) 2.0 1.0-3.2 [facility] CenterMonocytes # (Auto)2018-04-24 05:39:00* Test Item Value Reference Range Interpretation Comments Monocytes # (Auto) (test code = 742-7) 1.1 0.2-0.8 [facility] CenterEosinophils # (Auto)2018-04-24 05:39:00* Test Item Value Reference Range Interpretation Comments Eosinophils # (Auto) (test code = 711-2) 0.1 0.0-0.4 [facility] CenterBasophils # (Auto)2018-04-24 05:39:00* Test Item Value Reference Range Interpretation Comments Basophils # (Auto) (test code = 704-7) 0.1 0.0-0.1 [facility] CenterAbsolute Immature Granulocyte (auto 2018-04-24 05:39:00* Test Item Value Reference Range Interpretation Comments Absolute Immature Granulocyte (auto (matthew t code = Absolute Immature Granulocyte (auto) 0.20 0-0.1 H [facility] CenterActivated Partial Thromboplast Time 2018-04-23 23:18:00* Test Item Value Reference Range Interpretation Comments Activated Partial Thromboplast Time (test code = 07504-2) 30.9 23.8-35.5 [facility] CenterActivated Partial Thromboplast Time 2018-04-23 23:18:00* Test Item Value Reference Range Interpretation Comments Activated Partial Thromboplast Time (test code = 22216-0) 30.9 23.8-35.5 [facility] CenterG I TMQQE8560-62-97 20:24:00 [facility] [address] [address] Patient Name: NBA SALES MR #: [id number] : 1935 Age/Sex: 82/F Req #: [id number] Adm Physician: MARCE MILLER MD Ordered by: MAXIMINO ROWLEY MD Report #: [id number] Location: [facility] Room/Bed: [place] [address] Procedure: [id number] NM/ G I BLEED Exam Date: 04/21/18 [...] TO: MAXIMINO ROWLEY MD Differential Total Cells Oiuxbjc6870-39-50 15:32:00* Test Item Value Reference Range Interpretation Comments Differential Total Cells Counted (test code = Differmichael tial Total Cells Counted) 100 [facility] CenterNeutrophils % (Manual)2018-04-21 15:32:00 * Test Item Value Reference Range Interpretation Comments Neutrophils % (Manual) (test code = 77616-1) 75 40-74 H [facility] CenterBand Neutrophils %2018-04-21 15:32:00* Test Item Value Reference Range Interpretation Comments Band Neutrophils % (test code = 764-1) 2 [facility] CenterLymphocytes % (Manual)2018-04-21 15:32:00 * Test Item Value Reference Range Interpretation Comments Lymphocytes % (Manual) (test code = 737-7) 13 19-48 L [facility] CenterMonocytes % (Manual)2018-04-21 15:32:00* Test Item Value Reference Range Interpretation Comments Monocytes % (Manual) (test code = 744-3) 10 3.4-9.0 H [facility] CenterPlatelet Cbdzawmp2367-61-45 15:32:00* Test Item Value Reference Range Interpretation Comments Platelet Estimate (test code = 59504-2) SLIGHTLY DECREASED [facility] CenterPlatelet Morphology Vmhpecc7029-51-17 15:32:00* Test Item Value Reference Range Interpretation Comments Platelet Morphology Comment (test code = 84159-4) NORMAL [facility] CenterPolychromasia2019-01-20 15:32:00* Test Item Value Reference Range Interpretation Comments Polychromasia (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) FEW [facility] CenterPoikilocytosis2019-01-20 15:32:00* Test Item Value Reference Range Interpretation Comments Poikilocytosis (test code = 779-9) MODERATE [facility] CenterAnisocytosis2019-01-20 15:32:00* Test Item Value Reference Range Interpretation Comments Anisocytosis (test code = 702-1) F [facility] CenterTear Drop Tnlay5888-71-40 15:32:00* Test Item Value Reference Range Interpretation Comments Tear Drop Cells (test code = 7791-7) FEW [facility] CenterOvalocytes2019-01-20 15:32:00* Test Item Value Reference Range Interpretation Comments Ovalocytes (test code = 774-0) FEW [facility] CenterElliptocytes2019-01-20 15:32:00* Test Item Value Reference Range Interpretation Comments Elliptocytes (test code = 38534-9) SLIGHT [facility] CenterRed Cell Morphology Yrjcgfl1026-86-18 15:32:00* Test Item Value Reference Range Interpretation Comments Red Cell Morphology Comment (test code = 6742-1) ABNORMAL [facility] CenterDifferential Total Cells Counted 2018-04-21 15:32:00* Test Item Value Reference Range Interpretation Comments Differential Total Cells Counted (test code = Differmichael tial Total Cells Counted) 100 [facility] CenterNeutrophils % (Manual)2018-04-21 15:32:00 * Test Item Value Reference Range Interpretation Comments Neutrophils % (Manual) (test code = 28669-9) 75 40-74 H [facility] CenterBand Neutrophils %2018-04-21 15:32:00* Test Item Value Reference Range Interpretation Comments Band Neutrophils % (test code = 764-1) 2 [facility] CenterLymphocytes % (Manual)2018-04-21 15:32:00 * Test Item Value Reference Range Interpretation Comments Lymphocytes % (Manual) (test code = 737-7) 13 19-48 L [facility] CenterMonocytes % (Manual)2018-04-21 15:32:00* Test Item Value Reference Range Interpretation Comments Monocytes % (Manual) (test code = 744-3) 10 3.4-9.0 H [facility] CenterPlatelet Mnnkphwj5233-21-19 15:32:00* Test Item Value Reference Range Interpretation Comments Platelet Estimate (test code = 15529-6) SLIGHTLY DECREASED [facility] CenterPlatelet Morphology Dcqrhda0702-31-67 15:32:00* Test Item Value Reference Range Interpretation Comments Platelet Morphology Comment (test code = 29346-5) NORMAL [facility] CenterPolychromasia2019-01-20 15:32:00* Test Item Value Reference Range Interpretation Comments Polychromasia (test code = 23904-7) FEW [facility] CenterPoikilocytosis2019-01-20 15:32:00* Test Item Value Reference Range Interpretation Comments Poikilocytosis (test code = 779-9) MODERATE [facility] CenterAnisocytosis2019-01-20 15:32:00* Test Item Value Reference Range Interpretation Comments Anisocytosis (test code = 702-1) F [facility] CenterTear Drop Oktnt7101-58-95 15:32:00* Test Item Value Reference Range Interpretation Comments Tear Drop Cells (test code = 7791-7) FEW [facility] CenterOvalocytes2019-01-20 15:32:00* Test Item Value Reference Range Interpretation Comments Ovalocytes (test code = 774-0) FEW [facility] CenterElliptocytes2019-01-20 15:32:00* Test Item Value Reference Range Interpretation Comments Elliptocytes (test code = 60809-8) SLIGHT [facility] CenterRed Cell Morphology Jyqirve0430-23-47 15:32:00* Test Item Value Reference Range Interpretation Comments Red Cell Morphology Comment (test code = 6742-1) ABNORMAL [facility]ertool Occult Zqlru3755-00-43 15:20:00* Test Item Value Reference Range Interpretation Comments Stool Occult Blood (test code = 2335-8) POSITIVE NEGATIVE H [facility] Occult Vycif4008-36-27 15:20:00* Test Item Value Reference Range Interpretation Comments Stool Occult Blood (test code = 2335-8) POSITIVE NEGATIVE H [facility] CenterCHEST SINGLE (PORTABLE)2018-04-21 13:50:00 [facility] [address] [address] Patient Name: NBA SALES MR #: [id number] : 1935 Age/Sex: 82/F Req #: [id number] Adm Physician: Ordered by: MAXIMINO ROWLEY MD Report #: [id number] Location: ER Room/Bed: Procedure: [id number] DX/C HEST SINGLE (PORTABLE) Exam Date: 04/21/18 [...] 1 352 Transcribed By: RILEY on 04/21/18 1785 COPY TO: MAXIMINO ROWLEY Digoxin Hbslv7124-12-18 13:42:00* Test Item Value Reference Range Interpretation Comments Digoxin Level (test code = 39020-2) 0.55 0.8-2.0 L [facility] CenterDigoxin Cngyl5793-68-65 13:42:00* Test Item Value Reference Range Interpretation Comments Digoxin Level (test code = 35602-0) 0.55 0.8-2.0 L [facility] CenterB-Type Natriuretic Fgevsxr4696-07-67 13:24:00* Test Item Value Reference Range Interpretation Comments B-Type Natriuretic Peptide (test code = 76344-4) 406.0 0-100 H [facility] CenterCreatine Kinase NO8638-48-28 13:24:00* Test Item Value Reference Range Interpretation Comments Creatine Kinase MB (test code = 52864-3) 2.00 0-5.0 [facility] CenterTroponin D3626-51-11 13:24:00* Test Item Value Reference Range Interpretation Comments Troponin I (test code = HFS7695) 0.009 0-0.300 [facility] CenterB-Type Natriuretic Kekmzfe5835-66-99 13:24:00* Test Item Value Reference Range Interpretation Comments B-Type Natriuretic Peptide (test code = 92716-1) 406.0 0-100 H [facility] CenterCreatine Kinase UH6242-08-25 13:24:00* Test Item Value Reference Range Interpretation Comments Creatine Kinase MB (test code = 96017-9) 2.00 0-5.0 [facility] CenterTrmcle[facility] chera[facility] K6009-98-38 13:24:00* Test Item Value Reference Range Interpretation Comments Troponin I (test code = KYN7812) 0.009 0-0.300 [facility] CenterTotal Aynhrsizu3228-44-46 13:21:00* Test Item Value Reference Range Interpretation Comments Total Bilirubin (test code = 1975-2) 1.1 0.2-1.2 [facility] CenterAspartate Amino Transf (AST/SGOT) 2018-04-21 13:21:00* Test Item Value Reference Range Interpretation Comments Aspartate Amino Transf (AST/SGOT) (test code = Aspartate Amino Transf (AST/SGOT)) 20 5-34 [facility] CenterAlanine Aminotransferase (ALT/SGPT) 2018-04-21 13:21:00* Test Item Value Reference Range Interpretation Comments Alanine Aminotransferase (ALT/SGPT) (test code = 1742-6) 11 0-55 [facility] CenterTotal Pgubhdt6162-78-99 13:21:00* Test Item Value Reference Range Interpretation Comments Total Protein (test code = 2885-2) 6.4 6.5-8.1 L [facility] CenterAlbumin2019-01-20 13:21:00* Test Item Value Reference Range Interpretation Comments Albumin (test code = 1751-7) 3.3 3.5-5.0 L [facility] CenterGlobulin2019-01-20 13:21:00* Test Item Value Reference Range Interpretation Comments Globulin (test code = 23625-1) 3.1 2.3-3.5 [facility] CenterAlbumin/Globulin Lluwp9073-62-69 13:21:00 * Test Item Value Reference Range Interpretation Comments Albumin/Globulin Ratio (test code = 1759-0) 1.1 0.8-2.0 [facility] CenterAlkaline Srindicchyd1374-75-82 13:21:00* Test Item Value Reference Range Interpretation Comments Alkaline Phosphatase (test code = 6768-6) 74 40-150 [facility] CenterCreatine Nndyrg3072-08-17 13:21:00* Test Item Value Reference Range Interpretation Comments Creatine Kinase (test code = 2157-6) 211 29-168 H [facility] CenterCreatine Tuvrvn5915-85-54 13:21:00* Test Item Value Reference Range Interpretation Comments Creatine Kinase (test code = 2157-6) 211 29-168 H [facility] CenterActivated Clotting Peaq0504-77-52 09:10:00* Test Item Value Reference Range Interpretation Comments Activated Clotting Time (test code = SRK6264) 343 Line pull <170 sec or baselinePeripheral and Neuroradiology <400 secAngioplasty 220 secShannon Medical CenterActivated Clotting Vveo0965-52-03 09:10:00* Test Item Value Reference Range Interpretation Comments Activated Clotting Time (test code = SLG3792) 343 Line pull <170 sec or baselinePeripheral and Neuroradiology <400 secAngioplasty 220 secShannon Medical CenterTriglycerides Tqrtm2551-02-30 13:37:00* Test Item Value Reference Range Interpretation Comments Triglycerides Level (test code = 2571-8) 129 0-149 [facility] CenterCholesterol Wwvtz4902-67-07 13:37:00* Test Item Value Reference Range Interpretation Comments Cholesterol Level (test code = 2093-3) 167 0-199 Less than 200 mg/dL Low Copr593 - 239 mg/dL Borderline Wgan313 m g/dl and greater High Risk [facility] CenterLDL Urlozvwzpxj3455-67-20 13:37:00* Test Item Value Reference Range Interpretation Comments LDL Cholesterol (test code = 2089-1) 82 60-130 [facility] Eyqyafpmkfd0940-10-77 13:37:00* Test Item Value Reference Range Interpretation Comments HDL Cholesterol (test code = 2085-9) 59 40-60 [facility] CenterCholesterol/HDL Qxzay3868-18-49 13:37:00 * Test Item Value Reference Range Interpretation Comments Cholesterol/HDL Ratio (test code = 9830-1) 2.8 3.0-3.6 L [facility] CenterTriglycerides Bxmpa4040-31-89 13:37:00* Test Item Value Reference Range Interpretation Comments Triglycerides Level (test code = 2571-8) 129 0-149 [facility] CenterCholesterol Pcebf3591-24-68 13:37:00* Test Item Value Reference Range Interpretation Comments Cholesterol Level (test code = 2093-3) 167 0-199 Less than 200 mg/dL Low Jiqd902 - 239 mg/dL Borderline Zqzw326 m g/dl and greater High Risk [facility] CenterLDL Ajmovihmhuv9865-28-20 13:37:00* Test Item Value Reference Range Interpretation Comments LDL Cholesterol (test code = 2089-1) 82 60-130 [facility] Fyrmelurbdv3116-10-01 13:37:00* Test Item Value Reference Range Interpretation Comments HDL Cholesterol (test code = 2085-9) 59 40-60 [facility] CenterCholesterol/HDL Jrlqa0851-13-01 13:37:00 * Test Item Value Reference Range Interpretation Comments Cholesterol/HDL Ratio (test code = 9830-1) 2.8 3.0-3.6 L [facility] Kgaaubd0841-50-55 19:25:00* Test Item Value Reference Range Interpretation Comments Blood Culture (test code = 01396796) NO GROWTH AFTER 5 DAYS, FINAL REPORT [facility] CenterProthrombin Naus5270-97-53 05:08:00* Test Item Value Reference Range Interpretation Comments Prothrombin Time (test code = 5902-2) 18.8 11.9-14.5 H [facility] CenterProthromb Time International Ratio 2017-11-24 05:08:00* Test Item Value Reference Range Interpretation Comments Prothromb Time International Ratio (test code = 6301-6) 1.70 Oral Anticoagulant Therapy INR Values:1. Low Intensity Therapy 1.5 - 2.02 . Moderate Intensity Therapy 2.0 - 3.03. High Intensity Therapy(1) 2.5 - 3. 54. High Intensity Therapy(2) 3.0 - 4.05. Panic Value INR > 5.0 [facility] Tvhzkaz3965-87-19 19:25:00* Test Item Value Reference Range Interpretation Comments Blood Culture (test code = 63874809) NO GROWTH AFTER 72 HOURS [facility] CenterDifferential Total Cells Counted 2017-11-23 09:11:00* Test Item Value Reference Range Interpretation Comments Differential Total Cells Counted (test code = Differen tial Total Cells Counted) 100 [facility] CenterNeutrophils % (Manual)2017-11-23 09:11:00 * Test Item Value Reference Range Interpretation Comments Neutrophils % (Manual) (test code = 68955-7) 70 40-74 [facility] CenterLymphocytes % (Manual)2017-11-23 09:11:00 * Test Item Value Reference Range Interpretation Comments Lymphocytes % (Manual) (test code = 737-7) 23 19-48 [facility] CenterMonocytes % (Manual)2017-11-23 09:11:00* Test Item Value Reference Range Interpretation Comments Monocytes % (Manual) (test code = 744-3) 5 3.4-9.0 [facility] CenterEosinophils % (Manual)2017-11-23 09:11:00 * Test Item Value Reference Range Interpretation Comments Eosinophils % (Manual) (test code = 714-6) 2 0-7 [facility] CenterPlatelet Trefgbhs0031-13-32 09:11:00* Test Item Value Reference Range Interpretation Comments Platelet Estimate (test code = 47206-8) ADEQUATE [facility] CenterPlatelet Morphology Fkrdxam0759-33-53 09:11:00* Test Item Value Reference Range Interpretation Comments Platelet Morphology Comment (test code = 23142-1) NORMAL [facility] CenterHypochromasia2018-08-24 09:11:00* Test Item Value Reference Range Interpretation Comments Hypochromasia (test code = 728-6) SLIGHT [facility] CenterPoikilocytosis2018-08-24 09:11:00* Test Item Value Reference Range Interpretation Comments Poikilocytosis (test code = 779-9) SLIGHT [facility] CenterAnisocytosis2018-08-24 09:11:00* Test Item Value Reference Range Interpretation Comments Anisocytosis (test code = 702-1) SLIGHT [facility] CenterMacrocytosis2018-08-24 09:11:00* Test Item Value Reference Range Interpretation Comments Macrocytosis (test code = 738-5) MODERATE [facility] CenterRed Cell Morphology Nhxroyu0071-43-71 09:11:00* Test Item Value Reference Range Interpretation Comments Red Cell Morphology Comment (test code = 6742-1) NORMAL [facility] CenterEosinophils % (Manual)2017-11-23 09:11:00 * Test Item Value Reference Range Interpretation Comments Eosinophils % (Manual) (test code = 714-6) 2 0-7 [facility] CenterHypochromasia2018-08-24 09:11:00* Test Item Value Reference Range Interpretation Comments Hypochromasia (test code = 728-6) SLIGHT [facility] CenterMacrocytosis2018-08-24 09:11:00* Test Item Value Reference Range Interpretation Comments Macrocytosis (test code = 738-5) MODERATE [facility] CenterWhite Blood Wjwax6898-69-20 06:20:00* Test Item Value Reference Range Interpretation Comments White Blood Count (test code = 6690-2) 8.49 4.8-10.8 [facility] CenterRed Blood Fgtgd4124-69-45 06:20:00* Test Item Value Reference Range Interpretation Comments Red Blood Count (test code = 789-8) 3.22 3.6-5.1 L [facility] CenterHemoglobin2018-08-24 06:20:00* Test Item Value Reference Range Interpretation Comments Hemoglobin (test code = 09172-9) 9.7 12.0-16.0 L [facility] CenterHematocrit2018-08-24 06:20:00* Test Item Value Reference Range Interpretation Comments Hematocrit (test code = 4544-3) 30.3 34.2-44.1 L [facility] CenterMean Corpuscular Dqbwxe1686-50-14 06:20:00* Test Item Value Reference Range Interpretation Comments Mean Corpuscular Volume (test code = 787-2) 94.1 81-99 [facility] CenterMean Corpuscular Xjizkzlays7216-73-63 06:20:00* Test Item Value Reference Range Interpretation Comments Mean Corpuscular Hemoglobin (test code = 785-6) 30.1 28-32 [facility] CenterMean Corpuscular Hemoglobin Concent 2017-11-23 06:20:00* Test Item Value Reference Range Interpretation Comments Mean Corpuscular Hemoglobin Concent (test code = 786-4) 32.0 31-35 [facility] CenterRed Cell Distribution Qlwhh9066-25-06 06:20:00* Test Item Value Reference Range Interpretation Comments Red Cell Distribution Width (test code = 42521-1) 17.3 11.7 -14.4 H [facility] CenterPlatelet Igzkp3719-11-65 06:20:00* Test Item Value Reference Range Interpretation Comments Platelet Count (test code = 777-3) 220 140-360 [facility] Centerodium Tktta0686-75-25 06:01:00* Test Item Value Reference Range Interpretation Comments Sodium Level (test code = 2951-2) 142 136-145 [facility] CenterPotassium Kpgaw1451-24-96 06:01:00* Test Item Value Reference Range Interpretation Comments Potassium Level (test code = 2823-3) 3.0 3.5-5.1 L [facility] CenterChloride Pejkc7080-61-04 06:01:00* Test Item Value Reference Range Interpretation Comments Chloride Level (test code = 2075-0) 110 98-107 H [facility] CenterCarbon Dioxide Rqehx7979-72-90 06:01:00* Test Item Value Reference Range Interpretation Comments Carbon Dioxide Level (test code = 2028-9) 22 22-29 [facility] CenterAnion Vxi9831-06-16 06:01:00* Test Item Value Reference Range Interpretation Comments Anion Gap (test code = 81251-4) 13.0 8-16 [facility] CenterBlood Urea Jgqmldvh3437-86-52 06:01:00* Test Item Value Reference Range Interpretation Comments Blood Urea Nitrogen (test code = 3094-0) 17 7-26 [facility] CenterCreatinine2018-08-24 06:01:00* Test Item Value Reference Range Interpretation Comments Creatinine (test code = 2160-0) 0.85 0.57-1.11 [facility] CenterBUN/Creatinine Dxarb0903-07-97 06:01:00* Test Item Value Reference Range Interpretation Comments BUN/Creatinine Ratio (test code = 3097-3) 20 6-25 [facility] CenterEstimat Glomerular Filtration Rate 2017-11-23 06:01:00* Test Item Value Reference Range Interpretation Comments Estimat Glomerular Filtration Rate (test code = 12358-7) 60- >60 Ranges were taken from the National Kidney Disease Education Program and the [facility] literature.Reference ranges:60 or greater: Mucaet46-28 ( for 3 consecutive months): Chronic kidney disease 15 or less: Kidney failureCHI Texas Orthopedic HospitalGlucose Ausha6813-60-51 06:01:00* Test Item Value Reference Range Interpretation Comments Glucose Level (test code = PRD1687) 88 74-118 [facility] CenterCalcium Dngwk0867-49-39 06:01:00* Test Item Value Reference Range Interpretation Comments Calcium Level (test code = 43501-2) 8.3 8.4-10.2 L [facility] CenterHOULDER RIGHT YXBMZJYM6771-70-03 10:39:00 [facility] [address] [address] Patient Name: NBA SALES MR #: [id number] : 1935 Age/Sex: 82/F Req #: [id number] Adm Physician: ULI ZAPATA MD Ordered by: ULI ZAPATA MD Report #: [id number] Location: MED/SURG Room/Bed: [facility] Procedure: [id number] D X/SHOULDER RIGHT COMPLETE Exam Date: 11/22/17 Exam T narda: 0972 REPORT STATUS: Signed PROCEDURE: X-RAY RIGHT SHOULDER, [...] 039 COPY TO: ULI ZAPATA MD Total Qiewenqwr3286-45-98 05:52:00* Test Item Value Reference Range Interpretation Comments Total Bilirubin (test code = 1975-2) 1.2 0.2-1.2 [facility] CenterAspartate Amino Transf (AST/SGOT) 2017-11-22 05:52:00* Test Item Value Reference Range Interpretation Comments Aspartate Amino Transf (AST/SGOT) (test code = Aspartate Amino Transf (AST/SGOT)) 13 5-34 [facility] CenterAlanine Aminotransferase (ALT/SGPT) 2017-11-22 05:52:00* Test Item Value Reference Range Interpretation Comments Alanine Aminotransferase (ALT/SGPT) (test code = 1742-6) 11 0-55 [facility] CenterTotal Bbbdvqz2267-72-68 05:52:00* Test Item Value Reference Range Interpretation Comments Total Protein (test code = 2885-2) 5.6 6.5-8.1 L [facility] CenterAlbumin2018-08-23 05:52:00* Test Item Value Reference Range Interpretation Comments Albumin (test code = 1751-7) 2.5 3.5-5.0 L [facility] CenterGlobulin2018-08-23 05:52:00* Test Item Value Reference Range Interpretation Comments Globulin (test code = 84196-0) 3.1 2.3-3.5 [facility] CenterAlbumin/Globulin Wcjsj2764-91-77 05:52:00 * Test Item Value Reference Range Interpretation Comments Albumin/Globulin Ratio (test code = 1759-0) 0.8 0.8-2.0 [facility] CenterAlkaline Bfqcjomqeld4180-73-48 05:52:00* Test Item Value Reference Range Interpretation Comments Alkaline Phosphatase (test code = 6768-6) 63 40-150 [facility] CenterActivated Partial Thromboplast Time 2017-11-21 07:20:00* Test Item Value Reference Range Interpretation Comments Activated Partial Thromboplast Time (test code = 21511-3) 200.0- 23.8-35.5 HH Results called to Bowen Mtz RN at 0719 on 11/21/17[facility] CenterCT ABDOMEN/PELVIS A3124-40-02 00:41:00 [facility] [address] [address] Patient Name: NBA SALES MR #: [id number] : 1935 Age/Sex: 82/F Req #: [id number] Adm Physician: Ordered by: LORRI MOLINA NP Report #: [id number] Location: ER Room/Bed: Procedure: [id number] CT/CT ABDOMEN/PELVIS W Exam D ate: 11/21/17 [...] on 11/21/17101 COPY TO: LORRI MOLINA NP IKKAYPZHYJO7136-23-53 00:10:00 [address] [address] Patient Name: NBA SALES MR #: [id number] : 1935 Age/Sex: 82/F Req #: [id number] Adm Physician: Ordered by: LORRI MOLINA NP Report #: [id number] Location: ER Room/Bed: Procedure: [id number] US/US GALLBLADDER Exam Date: 11/20/17 Exam Time: [...] RILEY on 11/21/1740 COPY TO: LORRI MOLINA PILOT SUPERVISOR Urine XNT5115-25-88 21:34:00* Test Item Value Reference Range Interpretation Comments Urine WBC (test code = 5821-4) NONE 0-5 [facility] CenterUrine JJW2063-17-94 21:34:00* Test Item Value Reference Range Interpretation Comments Urine RBC (test code = 50096-5) NONE 0-5 [facility] CenterUrine Cippbrod2889-26-84 21:34:00* Test Item Value Reference Range Interpretation Comments Urine Bacteria (test code = 83224-9) NONE NONE [facility] CenterUrine Epithelial Kcnwg6112-80-72 21:34:00 * Test Item Value Reference Range Interpretation Comments Urine Epithelial Cells (test code = 48558-2) FEW NONE [facility] CenterUrine Umjve6657-20-20 21:34:00* Test Item Value Reference Range Interpretation Comments Urine Mucus (test code = 8247-9) MODERATE RARE H [facility] CenterUrine BYY1809-07-66 21:34:00* Test Item Value Reference Range Interpretation Comments Urine WBC (test code = 5821-4) NONE 0-5 [facility] CenterUrine QGA3375-30-45 21:34:00* Test Item Value Reference Range Interpretation Comments Urine RBC (test code = 53436-0) NONE 0-5 [facility] CenterUrine Gwbqsxak9259-72-55 21:34:00* Test Item Value Reference Range Interpretation Comments Urine Bacteria (test code = 79232-0) NONE NONE [facility] CenterUrine Epithelial Zyjhm4461-44-06 21:34:00 * Test Item Value Reference Range Interpretation Comments Urine Epithelial Cells (test code = 17495-6) FEW NONE [facility] CenterUrine Uwzqs3157-67-48 21:34:00* Test Item Value Reference Range Interpretation Comments Urine Mucus (test code = 8247-9) MODERATE [facility] CenterUrine Paxuz1496-01-48 21:13:00* Test Item Value Reference Range Interpretation Comments Urine Color (test code = 5778-6) JOHN YELLOW [facility] CenterU[facility] Mmzybbb9902-73-16 21:13:00* Test Item Value Reference Range Interpretation Comments Urine Clarity (test code = 50115-1) CLEAR CLEAR [facility] Specific Ycqhrms8904-81-31 21:13:00 * Test Item Value Reference Range Interpretation Comments Urine Specific [place] (test code = 5811-5) 1.030 1.010-1.02 5 [facility] CenterU[facility] nT4535-18-58 21:13:00* Test Item Value Reference Range Interpretation Comments Urine pH (test code = 50435-9) 6 5-7 [facility] Leukocyte Iszmzelf3374-98-03 21:13:00* Test Item Value Reference Range Interpretation Comments Urine Leukocyte Esterase (test code = 5799-2) NEGATIVE NEGATIVE [facility] CenterU[facility] Nlkkzgv9208-80-53 21:13:00* Test Item Value Reference Range Interpretation Comments Urine Nitrite (test code = 10861-4) NEGATIVE NEGATIVE [facility] Fxmrnau4853-88-57 21:13:00* Test Item Value Reference Range Interpretation Comments Urine Protein (test code = 5804-0) TRACE NEGATIVE [facility] CenterU[facility] Glucose (UA)2017-11-20 21:13:00* Test Item Value Reference Range Interpretation Comments Urine Glucose (UA) (test code = 2349-9) NEGATIVE NEGATIVE [facility] Twldwlg0755-97-30 21:13:00* Test Item Value Reference Range Interpretation Comments Urine Ketones (test code = 19014-0) NEGATIVE NEGATIVE [facility] Cujbzrrofsqg3715-87-03 21:13:00* Test Item Value Reference Range Interpretation Comments Urine Urobilinogen (test code = 51420-0) 0.2 0.2-1 [facility] Uuwqnbnhe5594-67-24 21:13:00* Test Item Value Reference Range Interpretation Comments Urine Bilirubin (test code = 1978-6) NEGATIVE NEGATIVE [facility] Crnhk1961-76-72 21:13:00* Test Item Value Reference Range Interpretation Comments Urine Blood (test code = 67478-8) NEGATIVE NEGATIVE [facility] Sdchc4943-27-56 21:13:00* Test Item Value Reference Range Interpretation Comments Urine Color (test code = 5778-6) JOHN YELLOW [facility] CenterU[facility] Exhaawm6240-26-97 21:13:00* Test Item Value Reference Range Interpretation Comments Urine Clarity (test code = 93631-6) CLEAR CLEAR [facility] CenterU[facility] Specific Wuloypf7210-91-06 21:13:00 * Test Item Value Reference Range Interpretation Comments Urine Specific [place] (test code = 5811-5) 1.030 1.010-1.02 5 [facility] CenterU[facility] iA8887-75-06 21:13:00* Test Item Value Reference Range Interpretation Comments Urine pH (test code = 42294-0) 6 5-7 [facility] Center[facility] Leukocyte Nyricfyn4980-49-55 21:13:00* Test Item Value Reference Range Interpretation Comments Urine Leukocyte Esterase (test code = 5799-2) NEGATIVE NEGATIVE [facility] Srcqkpb5010-61-73 21:13:00* Test Item Value Reference Range Interpretation Comments Urine Nitrite (test code = 79336-2) NEGATIVE NEGATIVE [facility] CenterU[facility] Oronywn0913-89-43 21:13:00* Test Item Value Reference Range Interpretation Comments Urine Protein (test code = 5804-0) TRACE NEGATIVE [facility] CenterU[facility] Glucose (UA)2017-11-20 21:13:00* Test Item Value Reference Range Interpretation Comments Urine Glucose (UA) (test code = 2349-9) NEGATIVE NEGATIVE [facility] Ntamskb3316-08-20 21:13:00* Test Item Value Reference Range Interpretation Comments Urine Ketones (test code = 98292-8) NEGATIVE NEGATIVE [facility] Uyfbvcqunpgp4640-89-54 21:13:00* Test Item Value Reference Range Interpretation Comments Urine Urobilinogen (test code = 40660-6) 0.2 0.2-1 [facility] Yqqxjtslm9408-93-70 21:13:00* Test Item Value Reference Range Interpretation Comments Urine Bilirubin (test code = 1978-6) NEGATIVE NEGATIVE [facility] CenterU[facility] Gbily0601-91-99 21:13:00* Test Item Value Reference Range Interpretation Comments Urine Blood (test code = 20826-2) NEGATIVE NEGATIVE [facility] CenterDigoxin Dyqgw6372-02-63 20:18:00* Test Item Value Reference Range Interpretation Comments Digoxin Level (test code = 13031-3) 0.47 0.8-2.0 L [facility] CenterLactic Acid Fnytq6703-39-68 19:39:00* Test Item Value Reference Range Interpretation Comments Lactic Acid Level (test code = Lactic Acid Level) 9.2 4.5- 19.8 [facility] CenterLactic Acid Uylzp6244-24-72 19:39:00* Test Item Value Reference Range Interpretation Comments Lactic Acid Level (test code = Lactic Acid Level) 9.2 4.5- 19.8 [facility] CenterCHEST SINGLE (PORTABLE)2017-11-20 19:24:00 [facility] [address] [address] Patient Name: NBA SALES MR #: [id number] : 1935 Age/Sex: 82/F Req #: [id number] Adm Physician: Ordered by: CARMEN VIVAS MD Report #: [id number] Location: ER Room/Bed: Procedure: [id number] DX/CHEST SINGLE (PORTABLE) Exa m Date: 11/20/17 [...] COPY TO: CARMEN VIVAS MD Creatine Kinase DS6035-86-07 19:12:00* Test Item Value Reference Range Interpretation Comments Creatine Kinase MB (test code = 09668-2) 0.70 0-5.0 [facility] CenterTroponin F6581-81-30 19:12:00* Test Item Value Reference Range Interpretation Comments Troponin I (test code = XBG6183) 0.006 0-0.300 [facility] CenterCreatine Ouzbbh9977-94-43 19:06:00* Test Item Value Reference Range Interpretation Comments Creatine Kinase (test code = 2157-6) 31 29-168 [facility] CenterAmylase Jbyel7519-44-13 19:06:00* Test Item Value Reference Range Interpretation Comments Amylase Level (test code = 1798-8) 79 25-125 [facility] CenterLipase2018-08-21 19:06:00* Test Item Value Reference Range Interpretation Comments Lipase (test code = 3040-3) 29 8-78 [facility] CenterAmylase Xrmvm0734-24-75 19:06:00* Test Item Value Reference Range Interpretation Comments Amylase Level (test code = 1798-8) 79 25-125 [facility] CenterLipase2018-08-21 19:06:00* Test Item Value Reference Range Interpretation Comments Lipase (test code = 3040-3) 29 8-78 [facility] CenterNeutrophils (%) (Auto)2017-11-20 18:47:00 * Test Item Value Reference Range Interpretation Comments Neutrophils (%) (Auto) (test code = 98036-7) 83.8 38.7-80.0 H [facility] CenterLymphocytes (%) (Auto)2017-11-20 18:47:00 * Test Item Value Reference Range Interpretation Comments Lymphocytes (%) (Auto) (test code = 736-9) 8.8 18.0-39.1 L [facility] CenterMonocytes (%) (Auto)2017-11-20 18:47:00* Test Item Value Reference Range Interpretation Comments Monocytes (%) (Auto) (test code = 5905-5) 6.5 4.4-11.3 [facility] CenterEosinophils (%) (Auto)2017-11-20 18:47:00 * Test Item Value Reference Range Interpretation Comments Eosinophils (%) (Auto) (test code = 713-8) 0.1 0.0-6.0 [facility] CenterBasophils (%) (Auto)2017-11-20 18:47:00* Test Item Value Reference Range Interpretation Comments Basophils (%) (Auto) (test code = 706-2) 0.2 0.0-1.0 [facility] CenterIM GRANULOCYTES %2017-11-20 18:47:00* Test Item Value Reference Range Interpretation Comments IM GRANULOCYTES % (test code = IM GRANULOCYTES %) 0.6 0.0- 1.0 [facility] CenterNeutrophils # (Auto)2017-11-20 18:47:00* Test Item Value Reference Range Interpretation Comments Neutrophils # (Auto) (test code = 751-8) 13.6 2.1-6.9 [facility] CenterLymphocytes # (Auto)2017-11-20 18:47:00* Test Item Value Reference Range Interpretation Comments Lymphocytes # (Auto) (test code = 50654-8) 1.4 1.0-3.2 [facility] CenterMonocytes # (Auto)2017-11-20 18:47:00* Test Item Value Reference Range Interpretation Comments Monocytes # (Auto) (test code = 742-7) 1.1 0.2-0.8 [facility] CenterEosinophils # (Auto)2017-11-20 18:47:00* Test Item Value Reference Range Interpretation Comments Eosinophils # (Auto) (test code = 711-2) 0.0 0.0-0.4 [facility] CenterBasophils # (Auto)2017-11-20 18:47:00* Test Item Value Reference Range Interpretation Comments Basophils # (Auto) (test code = 704-7) 0.0 0.0-0.1 [facility] CenterAbsolute Immature Granulocyte (auto 2017-11-20 18:47:00* Test Item Value Reference Range Interpretation Comments Absolute Immature Granulocyte (auto (matthew t code = Absolute Immature Granulocyte (auto) 0.10 0-0.1 [facility] CenterBlood Jjzuapy9322-09-91 23:25:00* Test Item Value Reference Range Interpretation Comments Blood Culture (test code = 26854422) NO GROWTH AFTER 24 HOURS [facility] CenterCreatine Kinase VQ5671-29-02 21:45:00* Test Item Value Reference Range Interpretation Comments Creatine Kinase MB (test code = 43704-5) 2.20 0-5.0 [facility] CenterTroponin R4872-40-13 21:45:00* Test Item Value Reference Range Interpretation Comments Troponin I (test code = CJY2257) 0.014 0-0.300 [facility] CenterCreatine Kzymdz7614-60-70 21:27:00* Test Item Value Reference Range Interpretation Comments Creatine Kinase (test code = 2157-6) 64 29-168 [facility] Onems9112-43-55 05:20:00* Test Item Value Reference Range Interpretation Comments Sodium Level (test code = 2951-2) 142 136-145 [facility] CenterPotassium Bxhkj3943-26-88 05:20:00* Test Item Value Reference Range Interpretation Comments Potassium Level (test code = 2823-3) 3.7 3.5-5.1 [facility] CenterChloride Mruzd1370-28-33 05:20:00* Test Item Value Reference Range Interpretation Comments Chloride Level (test code = 2075-0) 110 98-107 [facility] CenterCarbon Dioxide Budtf7073-49-41 05:20:00* Test Item Value Reference Range Interpretation Comments Carbon Dioxide Level (test code = 2028-9) 24 22-29 [facility] CenterAnion Koc9846-77-13 05:20:00* Test Item Value Reference Range Interpretation Comments Anion Gap (test code = 98175-6) 11.7 8-16 [facility] CenterBlood Urea Zeiqyiti5798-92-23 05:20:00* Test Item Value Reference Range Interpretation Comments Blood Urea Nitrogen (test code = 3094-0) 30 7-26 H [facility] CenterCreatinine2018-07-10 05:20:00* Test Item Value Reference Range Interpretation Comments Creatinine (test code = 2160-0) 1.21 0.57-1.11 H [facility] CenterBUN/Creatinine Ienfj2514-72-28 05:20:00* Test Item Value Reference Range Interpretation Comments BUN/Creatinine Ratio (test code = 3097-3) 25 6-25 [facility] CenterEstimat Glomerular Filtration Rate 2017-10-09 05:20:00* Test Item Value Reference Range Interpretation Comments Estimat Glomerular Filtration Rate (test code = 87877-8) 43 >60 L Ranges were taken from the National Kidney Disease Education Program and the [facility] Kidney Foundation literature.Reference ranges:60 or greater: Ztsviv61-63 ( for 3 consecutive months): Chronic kidney disease 15 or less: Kidney failureShannon Medical CenterGlucose Jeggr8716-47-96 05:20:00* Test Item Value Reference Range Interpretation Comments Glucose Level (test code = GRE7530) 100 74-118 [facility] CenterCalcium Etgky3228-22-48 05:20:00* Test Item Value Reference Range Interpretation Comments Calcium Level (test code = 00060-4) 8.7 8.4-10.2 [facility] CenterTotal Pdgghyzxh6765-29-12 05:20:00* Test Item Value Reference Range Interpretation Comments Total Bilirubin (test code = 1975-2) 0.5 0.2-1.2 [facility] CenterAspartate Amino Transf (AST/SGOT) 2017-10-09 05:20:00* Test Item Value Reference Range Interpretation Comments Aspartate Amino Transf (AST/SGOT) (test code = Aspartate Amino Transf (AST/SGOT)) 15 5-34 [facility] CenterAlanine Aminotransferase (ALT/SGPT) 2017-10-09 05:20:00* Test Item Value Reference Range Interpretation Comments Alanine Aminotransferase (ALT/SGPT) (test code = 1742-6) 8 0-55 [facility] CenterTotal Sugurfj3382-84-36 05:20:00* Test Item Value Reference Range Interpretation Comments Total Protein (test code = 2885-2) 5.7 6.5-8.1 L [facility] CenterAlbumin2018-07-10 05:20:00* Test Item Value Reference Range Interpretation Comments Albumin (test code = 1751-7) 3.0 3.5-5.0 L [facility] CenterGlobulin2018-07-10 05:20:00* Test Item Value Reference Range Interpretation Comments Globulin (test code = 35736-4) 2.7 2.3-3.5 [facility] CenterAlbumin/Globulin Ywjtu6695-11-85 05:20:00 * Test Item Value Reference Range Interpretation Comments Albumin/Globulin Ratio (test code = 1759-0) 1.1 0.8-2.0 [facility] CenterAlkaline Xzyacvtzjva9232-05-73 05:20:00* Test Item Value Reference Range Interpretation Comments Alkaline Phosphatase (test code = 6768-6) 66 40-150 [facility] CenterWhite Blood Xttzs5765-08-03 04:59:00* Test Item Value Reference Range Interpretation Comments White Blood Count (test code = 6690-2) 8.37 4.8-10.8 [facility] CenterRed Blood Vugwg9974-85-46 04:59:00* Test Item Value Reference Range Interpretation Comments Red Blood Count (test code = 789-8) 3.54 3.6-5.1 L [facility] CenterHemoglobin2018-07-10 04:59:00* Test Item Value Reference Range Interpretation Comments Hemoglobin (test code = 32177-7) 10.4 12.0-16.0 L [facility] CenterHematocrit2018-07-10 04:59:00* Test Item Value Reference Range Interpretation Comments Hematocrit (test code = 4544-3) 32.4 34.2-44.1 L [facility] CenterMean Corpuscular Gcaijj7653-50-91 04:59:00* Test Item Value Reference Range Interpretation Comments Mean Corpuscular Volume (test code = 787-2) 91.5 81-99 [facility] CenterMean Corpuscular Yeucotjkzz8466-63-34 04:59:00* Test Item Value Reference Range Interpretation Comments Mean Corpuscular Hemoglobin (test code = 785-6) 29.4 28-32 [facility] CenterMean Corpuscular Hemoglobin Concent 2017-10-09 04:59:00* Test Item Value Reference Range Interpretation Comments Mean Corpuscular Hemoglobin Concent (test code = 786-4) 32.1 31-35 [facility] CenterRed Cell Distribution Dacez1960-21-41 04:59:00* Test Item Value Reference Range Interpretation Comments Red Cell Distribution Width (test code = 20567-3) 17.2 11.7 -14.4 H [facility] CenterPlatelet Awgul9371-53-14 04:59:00* Test Item Value Reference Range Interpretation Comments Platelet Count (test code = 777-3) 248 140-360 [facility] CenterNeutrophils (%) (Auto)2017-10-09 04:59:00 * Test Item Value Reference Range Interpretation Comments Neutrophils (%) (Auto) (test code = 60115-2) 56.5 38.7-80.0 [facility] CenterLymphocytes (%) (Auto)2017-10-09 04:59:00 * Test Item Value Reference Range Interpretation Comments Lymphocytes (%) (Auto) (test code = 736-9) 32.1 18.0-39.1 [facility] CenterMonocytes (%) (Auto)2017-10-09 04:59:00* Test Item Value Reference Range Interpretation Comments Monocytes (%) (Auto) (test code = 5905-5) 8.5 4.4-11.3 [facility] CenterEosinophils (%) (Auto)2017-10-09 04:59:00 * Test Item Value Reference Range Interpretation Comments Eosinophils (%) (Auto) (test code = 713-8) 1.9 0.0-6.0 [facility] CenterBasophils (%) (Auto)2017-10-09 04:59:00* Test Item Value Reference Range Interpretation Comments Basophils (%) (Auto) (test code = 706-2) 0.6 0.0-1.0 [facility] CenterIM GRANULOCYTES %2017-10-09 04:59:00* Test Item Value Reference Range Interpretation Comments IM GRANULOCYTES % (test code = IM GRANULOCYTES %) 0.4 0.0- 1.0 [facility] CenterNeutrophils # (Auto)2017-10-09 04:59:00* Test Item Value Reference Range Interpretation Comments Neutrophils # (Auto) (test code = 751-8) 4.7 2.1-6.9 [facility] CenterLymphocytes # (Auto)2017-10-09 04:59:00* Test Item Value Reference Range Interpretation Comments Lymphocytes # (Auto) (test code = 21428-5) 2.7 1.0-3.2 [facility] CenterMonocytes # (Auto)2017-10-09 04:59:00* Test Item Value Reference Range Interpretation Comments Monocytes # (Auto) (test code = 742-7) 0.7 0.2-0.8 [facility] CenterEosinophils # (Auto)2017-10-09 04:59:00* Test Item Value Reference Range Interpretation Comments Eosinophils # (Auto) (test code = 711-2) 0.2 0.0-0.4 [facility] CenterBasophils # (Auto)2017-10-09 04:59:00* Test Item Value Reference Range Interpretation Comments Basophils # (Auto) (test code = 704-7) 0.1 0.0-0.1 [facility] CenterAbsolute Immature Granulocyte (auto 2017-10-09 04:59:00* Test Item Value Reference Range Interpretation Comments Absolute Immature Granulocyte (auto (matthew t code = Absolute Immature Granulocyte (auto) 0.03 0-0.1 [facility] CenterFr Thyroxine Mgusp4439-99-83 20:54:00* Test Item Value Reference Range Interpretation Comments Free Thyroxine Index (test code = 90891-3) 1.7312 1.4-3.8 [facility] CenterThyroxine (T4)2017-10-08 20:54:00* Test Item Value Reference Range Interpretation Comments Thyroxine (T4) (test code = 3026-2) 5.40 4.5-10.9 Our current method for Total T4 is not recommended for use as the only marker fo r evaluating patients for thyroid disorders.[facility] CenterTriiodothyronine (T3) Oahrla0171-88-83 20:54:00* Test Item Value Reference Range Interpretation Comments Triiodothyronine (T3) Uptake (test code = 3050-2) 32.06 22.5 -37.0 [facility] CenterThyroid Stimulating Hormone (TSH) 2017-10-08 20:54:00* Test Item Value Reference Range Interpretation Comments Thyroid Stimulating Hormone (TSH) (test code = 85468-8) 2.476 0.350-4.940 [facility] Thyroxine Zyhtv6365-02-02 20:54:00* Test Item Value Reference Range Interpretation Comments Free Thyroxine Index (test code = 99673-6) 1.7312 1.4-3.8 [facility] CenterThyroxine (T4)2017-10-08 20:54:00* Test Item Value Reference Range Interpretation Comments Thyroxine (T4) (test code = 3026-2) 5.40 4.5-10.9 Our current method for Total T4 is not recommended for use as the only marker fo r evaluating patients for thyroid disorders.[facility] CenterTriiodothyronine (T3) Zldwyf4283-28-03 20:54:00* Test Item Value Reference Range Interpretation Comments Triiodothyronine (T3) Uptake (test code = 3050-2) 32.06 22.5 -37.0 [facility] CenterThyroid Stimulating Hormone (TSH) 2017-10-08 20:54:00* Test Item Value Reference Range Interpretation Comments Thyroid Stimulating Hormone (TSH) (test code = 08120-3) 2.476 0.350-4.940 [facility] CenterFree Thyroxine Fjjkn8139-10-19 20:54:00* Test Item Value Reference Range Interpretation Comments Free Thyroxine Index (test code = 22092-3) 1.7312 1.4-3.8 [facility] CenterThyroxine (T4)2017-10-08 20:54:00* Test Item Value Reference Range Interpretation Comments Thyroxine (T4) (test code = 3026-2) 5.40 4.5-10.9 Our current method for Total T4 is not recommended for use as the only marker fo r evaluating patients for thyroid disorders.[facility] CenterTriiodothyronine (T3) Embrng9745-74-27 20:54:00* Test Item Value Reference Range Interpretation Comments Triiodothyronine (T3) Uptake (test code = 3050-2) 32.06 22.5 -37.0 [facility] CenterThyroid Stimulating Hormone (TSH) 2017-10-08 20:54:00* Test Item Value Reference Range Interpretation Comments Thyroid Stimulating Hormone (TSH) (test code = 39531-7) 2.476 0.350-4.940 [facility] CenterB-Type Natriuretic Lkwjcuf7523-91-06 20:37:00* Test Item Value Reference Range Interpretation Comments B-Type Natriuretic Peptide (test code = 22112-1) 358.5 0-100 H [facility] CenterB-Type Natriuretic Exathtf7063-17-92 20:37:00* Test Item Value Reference Range Interpretation Comments B-Type Natriuretic Peptide (test code = 26264-2) 358.5 0-100 H [facility] CenterD-Dimer Quantitative (PE/DVT)2017-10-08 20:27:00* Test Item Value Reference Range Interpretation Comments D-Dimer Quantitative (PE/DVT) (test code = 56785-5) 0.26 0. 00-0.45 As with all in vitro diagnostic tests, the test results should be interpreted by the physician in conjunction with clinical findings and other test results.Test results are reported in NEW D-dimer units(ug/mLFEU).[facility] CenterD-Dimer Quantitative (PE/DVT)2017-10-08 20:27:00* Test Item Value Reference Range Interpretation Comments D-Dimer Quantitative (PE/DVT) (test code = 33343-0) 0.26 0. 00-0.45 As with all in vitro diagnostic tests, the test results should be interpreted by the physician in conjunction with clinical findings and other test results.Test results are reported in NEW D-dimer units(ug/mLFEU).[facility] CenterD-Dimer Quantitative (PE/DVT)2017-10-08 20:27:00* Test Item Value Reference Range Interpretation Comments D-Dimer Quantitative (PE/DVT) (test code = 49634-4) 0.26 0. 00-0.45 As with all in vitro diagnostic tests, the test results should be interpreted by the physician in conjunction with clinical findings and other test results.Test results are reported in NEW D-dimer units(ug/mLFEU).[facility] CenterProthrombin Rsnl3714-65-66 20:25:00* Test Item Value Reference Range Interpretation Comments Prothrombin Time (test code = 5902-2) 21.2 11.9-14.5 H [facility] CenterProthromb Time International Ratio 2017-10-08 20:25:00* Test Item Value Reference Range Interpretation Comments Prothromb Time International Ratio (test code = 6301-6) 1.99 Oral Anticoagulant Therapy INR Values:1. Low Intensity Therapy 1.5 - 2.02 . Moderate Intensity Therapy 2.0 - 3.03. High Intensity Therapy(1) 2.5 - 3. 54. High Intensity Therapy(2) 3.0 - 4.05. Panic Value INR > 5.0 [facility] CenterActivated Partial Thromboplast Time 2017-10-08 20:25:00* Test Item Value Reference Range Interpretation Comments Activated Partial Thromboplast Time (test code = 62157-4) 37.7 23.8-35.5 H [facility] CenterLactic Acid Jthkn6257-43-60 20:22:00* Test Item Value Reference Range Interpretation Comments Lactic Acid Level (test code = Lactic Acid Level) 7.4 4.5- 19.8 [facility] CenterCHES 2 VNIVF7650-29-64 20:15:00 [facility] [address] [address] Patient Name: NBA SALES MR #: [id number] : Age/Sex: 81/F Req #: [id number] Adm Physician: Ordered by: WENDY CHAVEZ MD Report #: [id number] Location: ER Room /Bed: Procedure: [id number] DX/CHEST 2 VIEWS Exam Kirill e: 10/08/17 [...] 12/18 COPY TO: WENDY CHAVEZ MD Urine PQA1619-68-85 19:47:00* Test Item Value Reference Range Interpretation Comments Urine WBC (test code = 5821-4) 11-20 0-5 H [facility] CenterUrine AZT4677-62-74 19:47:00* Test Item Value Reference Range Interpretation Comments Urine RBC (test code = 81097-9) NONE 0-5 [facility] CenterUrine Ovcuaoyk3562-64-66 19:47:00* Test Item Value Reference Range Interpretation Comments Urine Bacteria (test code = 33647-1) MODERATE NONE [facility] Ypapf3350-42-88 19:47:00 * Test Item Value Reference Range Interpretation Comments Urine Epithelial Cells (test code = 87544-7) MODERATE NONE [facility] CenterUrine Transitional Epithelial Cells 2017-10-08 19:47:00* Test Item Value Reference Range Interpretation Comments Urine Transitional Epithelial Cells (test code = 8249-5) FEW NONE [facility] Transitional Epithelial Cells 2017-10-08 19:47:00* Test Item Value Reference Range Interpretation Comments Urine Transitional Epithelial Cells (test code = 8249-5) FEW NONE H [facility] CenterUrine Transitional Epithelial Cells 2017-10-08 19:47:00* Test Item Value Reference Range Interpretation Comments Urine Transitional Epithelial Cells (test code = 8249-5) FEW NONE H [facility] CenterUrine Ccopw3204-99-58 19:29:00* Test Item Value Reference Range Interpretation Comments Urine Color (test code = 5778-6) YELLOW YELLOW [facility] CenterUrine Ulrceny2745-78-49 19:29:00* Test Item Value Reference Range Interpretation Comments Urine Clarity (test code = 21831-9) SL CLOUDY CLEAR [facility] CenterUrine Specific Twswter5920-40-14 19:29:00 * Test Item Value Reference Range Interpretation Comments Urine Specific [place] (test code = 5811-5) 1.030 1.010-1.02 5 H [facility] CenterUrine xN1477-55-00 19:29:00* Test Item Value Reference Range Interpretation Comments Urine pH (test code = 59037-6) 5 5-7 [facility] CenterUrine Leukocyte Jvdjllhs9202-25-42 19:29:00* Test Item Value Reference Range Interpretation Comments Urine Leukocyte Esterase (test code = 5799-2) 1+ NEGATIVE H [facility] CenterUrine Bvjhilz6497-65-46 19:29:00* Test Item Value Reference Range Interpretation Comments Urine Nitrite (test code = 55304-4) NEGATIVE NEGATIVE [facility] CenterUrine Akdrazd0990-21-81 19:29:00* Test Item Value Reference Range Interpretation Comments Urine Protein (test code = 5804-0) NEGATIVE [facility] 19:29:00* Test Item Value Reference Range Interpretation Comments Urine Glucose (UA) (test code = 2349-9) [facility] [id number] 19:29:00* Test Item Value Reference Range Interpretation Comments Urine Ketones (test code = 09503-7) [facility] [id number] 19:29:00* Test Item Value Reference Range Interpretation Comments Urine Urobilinogen (test code = 42040-7) 0.2 0.2-1 [facility] [id number] 19:29:00* Test Item Value Reference Range Interpretation Comments Urine Bilirubin (test code = 1978-6) [facility]IVE [facility] [id number] 19:29:00* Test Item Value Reference Range Interpretation Comments Urine Blood (test code = 01262-8) NEGATIVE NEGATIVE [facility]
--- OUTSIDE RECORDS SUMMARY | 2019-10-31 19:03 | XMS REPORT | Continuity of Care Document ---
Author Author [facility] [employer] [facility] AM Analytics Information Pressly Address Unknown Phone Unavailable Care Team Providers Care Drafter Detail Name Role [facility] Information Exchange Unavailable Un available Problems Problem Status Onset Date Classification Date Reported Comments Source PREADMIT / WATCHMAN / GA / CHANTEL Active 05/29/2018 [facility] LT HEART CATH / CORONARY STENTS Active 02/01/2018 [facility] Medications Medication Details Route Status Patient Instructions Ordering Provider Order Date Source Furosemide 40 MG Oral Tablet N otes: (Same as: Lasix) May cause GI upset. Give with food or milk. Inactive 06/06/2018 [facility] nter Warfarin 3 mg, Route: PO, Drug form: TAB, Every Other Day, Dosing Weight 82.364, kg, Start date: 06/06/18 9:00:00 BOAT RENTAL CLERK, Duration: 30 day, Stop date: 07/04/18 9:00:00 CDT Inactive 06/06/2018 [facility] nter 24 HR Metoprolol Tartrate 50 MG Extended Release Tablet [Toprol] Notes: (Same as: Toprol XL) May split t ab, but do not crush. Inactive 06/06/2018 [facility] Isosorbide Notes: (Same as:Imd ur) "Do Not Crush" Take on empty stomach/ full glass of water. Do not crush Inactive 06/06/2018 [facility] Digoxin 0.125 MG Oral Tablet N otes: Take on an Empty Stomach (Same as: Lanoxin) Inactive 06/06/2018 [facility] nter Bupropion Notes: (Do not crush ) (Same As: Wellbutrin SR) Inactive 06/06/2018 [facility] Aspirin Notes: Do not crush or chew. (Same As: Ecotrin) Inactive 06/06/2018 [facility] Magnesium Sulfate Notes: WASTE : F/P - Sink; E - Municipal Trash Bin Inactive 06/06/2018 [facility] Magnesium Oxide Notes: (Same a s: Mag-Ox 400) Magnesium oxide [id number] elemental magnesium Dose=____mg magnesium oxide (___mg elemental magnesium) Inactive 06/06/2018 [facility] Calcium Gluconate Notes: WASTE : F/P - Sink; E - Municipal Trash Bin Inactive 06/06/2018 [facility] potassium phosphate Notes: ([facility] as: K Phosphate.) Do not infuse phosphorous concurrently in the same line as TPN or IVF that contains calcium. For double lumen central lines, phosphorous may be infused in a separate lumen from TPN. 1 mMol phoshate has 1.47 mEq potassium Infuse over 4 hours Inactive 06/06/2018 [facility] sodium phosphate Notes: Infuse over 4 hour. Do not infuse phosphorous concurrently in the same line as TPN or IVF that contains calcium. For double lumen central lines, phosphorous may be infused in a separate lumen from TPN. Inactive 06/06/2018 [facility] nter potassium phosphate-sodium phosphate 250 mg-280 mg-160 mg oral powder for reconstitution Notes: (Same as: Phos-NaK) Each 1.5 gm pkt has 250mg phosphorous. Mix w/2.5oz water and stir. Inactive 06/06/2018 [facility] Potassium Chloride Notes: ([facility] e as: K-Dur 20) "Do Not Crush" Give with food and full glass of water For patients unable to swallow tablet, dissolve in one half glass of water. Allow about 2 minutes for the tab lets to disintegrate. Stir before giving to prepare slurry and administer. Please exclude Patients with feeding tube less than 14 Macanese (Dobhoff, J-tube etc) and pediatric and patients. Inactive 06/06/2018 [facility] nter Warfarin Notes: Nurse to leda e documentation of patient education per anticoagulation policy. Avoid large intake of vitamin-K containing foods diet. (Same As: Coumadin) WASTE: F/P - P Waste Black; E - P Waste Black No Longer Active 06/06/2018 [facility] Ranexa 500 mg oral tablet, extended release Notes: Same as Ranexa "Do Not Crush" No Longer Active 06/06/2018 [facility] nter Zyloprim Notes: (Same as: Zylo prim) No Longer Active 06/06/2018 [facility] Saline Flush 0.9% Notes: (Same as: BD Posiflush) No Longer Active 06/06/2018 [facility] Ranexa Notes: Same as Ranexa " Do Not Crush" Inactive 06/05/2018 [facility] Allopurinol Notes: (Same as: Erendira yloprim) Inactive 06/05/2018 [facility] Naloxone Notes: Same as Narcan Inactive 06/05/2018 [facility] Flumazenil Notes: (Same as: Lora mazicon) Inactive 06/05/2018 [facility] Ondansetron Notes: (Same as: Erendira parra) MEDICATION WASTE Product Size: 4 mg Product Wasted: ___ mg Inactive 06/05/2018 [facility] Saline Flush 0.9% Notes: (Same as: BD Posiflush) No Longer Active 06/05/2018 [facility] DME Rx-external wearable defibrillator Inactive 06/05/2018 [facility] glycopyrrolate (ANES) Route: I V, Drug form: INJ, ONCE, Stop date: 06/05/18 12:11:00 BOAT RENTAL CLERK Inactive 06/05/2018 [facility] nter neostigmine (ANES) Route: IV, Drug form: INJ, ONCE, Stop date: 06/05/18 12:11:00 BOAT RENTAL CLERK Inactive 06/05/2018 [facility] nter ondansetron (ANES) Route: IV, Drug form: INJ, ONCE, Stop date: 06/05/18 12:11:00 BOAT RENTAL CLERK Inactive 06/05/2018 [facility] nter heparin (ANES) Route: IV, Drug form: INJ, ONCE, Stop date: 06/05/18 12:11:00 BOAT RENTAL CLERK Inactive 06/05/2018 [facility] nter protamine (ANES) 10 mg Route: IV, Drug form: INJ, Start date: 06/05/18 12:03:00 BOAT RENTAL CLERK, Stop date: 06/05/18 13:03:00 BOAT RENTAL CLERK Inactive 06/05/2018 [facility] fentaNYL (ANES) Route: IV, Ilir g form: INJ, ONCE, Stop date: 06/05/18 11:27:00 BOAT RENTAL CLERK Inactive 06/05/2018 [facility] nter rocuronium (ANES) Route: IV, D rug form: INJ, ONCE, Stop date: 06/05/18 11:27:00 BOAT RENTAL CLERK Inactive 06/05/2018 [facility] nter propofol (ANES) Route: IV, Ilir g form: INJ, ONCE, Stop date: 06/05/18 11:27:00 BOAT RENTAL CLERK Inactive 06/05/2018 [facility] nter lidocaine (ANES) Route: IV, Dr ug form: INJ, ONCE, Stop date: 06/05/18 11:22:00 BOAT RENTAL CLERK Inactive 06/05/2018 [facility] nter Sodium Chloride 0.9% IV (ANES) 1000 mL Route: IV, Total Volume: 1,000, Start date: 06/05/18 10:20:00 BOAT RENTAL CLERK, Stop date: 06/05/18 11:20:00 BOAT RENTAL CLERK Inactive 06/05/2018 [facility] metoprolol succinate 50 mg oral capsule, extended release 50 mg = 1 cap, PO, BID, 0 Refill(s) Active 06/05/2018 [facility] nt isosorbide mononitrate 30 mg oral tablet , extended release 30 mg = 1 tab, PO, QAM, 0 Refill(s) Active 06/05/2018 [facility] warfarin 6 mg oral tablet 6 mg = 1 tab, PO, Every Other Day, 0 Refill(s) Active 06/05/2018 [facility] warfarin 3 mg oral tablet 3 mg = 1 tab, PO, Every Other Day, 0 Refill(s) Active 06/05/2018 [facility] Aspirin 81 mg, PO, Daily, 0 Re fill(s) Active 06/05/2018 [facility] Bupropion 150 mg, PO, Daily, 0 Refill(s) Active 06/05/2018 [facility] allopurinol 100 mg oral tablet 100 mg = 1 tab, PO, BID, 0 Refill(s) Active 06/05/2018 [facility] Ranexa 1,000 mg, PO, BID, 0 Re fill(s) Active 06/05/2018 [facility] pantoprazole 40 mg oral granule = 1 Pack, PO, BID, # 30 ea, 0 Refill(s) Active 06/05/2018 [facility] Furosemide 40 MG Oral Tablet 4 0 mg = 1 tab, PO, Daily, 0 Refill(s) Active 06/05/2018 [facility] Digoxin 0.125 MG Oral Tablet 1 25 microgram = 1 tab, PO, Daily, 0 Refill(s) Active 06/05/2018 [facility] NS 1,000 mL 1,000 mL, Rate: 50 ml/hr, Infuse over: 20 hr, Route: IV, Dosing Weight 82.364 kg, Total Volume: 1,000, Start date: 06/05/18 6:36:00 BOAT RENTAL CLERK, Duration: 30 day, Stop date: 07/05/18 6:35:00 CDT, 1.93, m2 No Longer Active 06/05/2018 [facility] Allergies, Adverse Reactions, Alerts Substance Category Reaction Severity Reaction type Status Date Reported Comments Source No Known Medication Allergies Assertion Drug aller gy [facility] Immunizations Immunization Date Given Site Status Last Updated Comments Source pneumococcal 13-valent vaccine 06/06/2018 Not Given [facility] [place] influenza virus vaccine, inactivated 06/06/[address] [facility] [place] [place] Results Order Name Results Value Reference Range Date Interpretation Comments Source CHEM PANEL Magnesium Lvl 1.9 1.8 - 2.4 06/06/2018 [facility] CHEM PANEL eGFR 73 06/06/2018 Result [...] should be multiplied by the estimated BMI. [facility] CHEM PANEL Calcium Lvl 7.9 8.5 - 10.5 06/06/2018 [facility] CHEM PANEL CO2 25 24 - 32 06/06/2018 [facility] CHEM PANEL AGAP 12.7 10.0 - 20.0 06/06/2018 [facility] CHEM PANEL Potassium Lvl 3.7 3.5 - 5.1 06/06/2018 [facility] CHEM PANEL Chloride Lvl 112 95 - 109 06/06/2018 [facility] CHEM PANEL Glucose Lvl 73 70 - 99 06/06/2018 [facility] CHEM PANEL BUN 14 7 - 22 06/06/2018 [facility] CHEM PANEL Creatinine Lvl 0.77 0.50 - 1.40 06/06/2018 [facility] CHEM PANEL Sodium Lvl 146 135 - 145 06/06/2018 [facility] CHEM PANEL Phosphorus 3.2 2.5 - 4.5 06/06/2018 [facility] HEMATOLOGY Lymphocytes # 1.5 1.0 - 5.5 06/06/2018 [facility] HEMATOLOGY Monocytes # 0.6 0.0 - 0.8 06/06/2018 [facility] HEMATOLOGY Eosinophils 0.4 0.0 - 4.0 06/06/2018 [facility] HEMATOLOGY Basophils 0.4 0.0 - 1.0 06/06/2018 [facility] HEMATOLOGY Neutrophils # 4.9 1.5 - 8.1 06/06/2018 [facility] HEMATOLOGY Monocytes 8.0 2.0 - 12.0 06/06/2018 [facility] HEMATOLOGY Lymphocytes 21.6 20.0 - 40.0 06/06/2018 [facility] HEMATOLOGY Segs 69.6 45.0 - 75.0 06/06/2018 [facility] HEMATOLOGY PT 21.5 12.0 - 14.7 06/06/2018 [facility] HEMATOLOGY PTT 56.6 22.9 - 35.8 06/06/2018 [facility] HEMATOLOGY INR 1.91 0.85 - 1.17 06/06/2018 [facility] HEMATOLOGY Hgb 11.2 12.0 - 16.0 06/06/2018 [facility] HEMATOLOGY MPV 9.2 7.4 - 10.4 06/06/2018 [facility] HEMATOLOGY Platelet 260 133 - 450 06/06/2018 [facility] HEMATOLOGY RDW 19.9 11.5 - 14.5 06/06/2018 [facility] HEMATOLOGY MCHC 32.8 32.0 - 36.0 06/06/2018 [facility] HEMATOLOGY RBC 3.49 4.20 - 5.40 06/06/2018 [facility] HEMATOLOGY WBC 7.0 3.7 - 10.4 06/06/2018 [facility] HEMATOLOGY MCH 32.2 27.0 - 31.0 06/06/2018 [facility] HEMATOLOGY MCV 98.4 80.0 - 98.0 06/06/2018 [facility] HEMATOLOGY Hct 34.3 36.0 - 48.0 06/06/2018 [facility] HEMATOLOGY INR 1.83 0.85 - 1.17 06/05/2018 [facility] HEMATOLOGY PT 20.8 12.0 - 14.7 06/05/2018 [facility] HEMATOLOGY PTT 61.7 22.9 - 35.8 06/05/2018 [facility] BLOOD BANK RESULTS RBC product Product available (06/05/18 6:40 AM) 06/05/2018 [facility] BLOOD BANK RESULTS Antibody Scrn Negative (06/05/18 6:40 AM) 06/05/2018 [facility] BLOOD BANK RESULTS ABO/Rh B POS 06/05/2018 [facility] CHEM PANEL Magnesium Lvl 1.9 1.8 - 2.4 06/05/2018 [facility] CHEM PANEL Phosphorus 3.2 2.5 - 4.5 06/05/2018 [facility] ELECTROLYTES AGAP 12.3 10.0 - 20.0 06/05/2018 [facility] ELECTROLYTES Calcium Lvl 8.5 8.5 - 10.5 06/05/2018 [facility] ELECTROLYTES CO2 27 24 - 32 06/05/2018 [facility] ELECTROLYTES Chloride Lvl 110 95 - 109 06/05/2018 [facility] ELECTROLYTES Potassium Lvl 3.3 3.5 - 5.1 06/05/2018 [facility] ELECTROLYTES Sodium Lvl 146 135 - 145 06/05/2018 [facility] ELECTROLYTES eGFR 49 06/05/2018 Result Comment: [...] should be multiplied by the estimated BMI. [facility] ELECTROLYTES Glucose Lvl 93 70 - 99 06/05/2018 [facility] ELECTROLYTES Creatinine Lvl 1.0 7 0.50 - 1.40 06/05/2018 [facility] ELECTROLYTES BUN 17 7 - 22 06/05/2018 [facility] HEMATOLOGY Eosinophils # 0.1 0.0 - 0.5 06/05/2018 [facility] HEMATOLOGY Lymphocytes # 1.9 1.0 - 5.5 06/05/2018 [facility] HEMATOLOGY Monocytes # 0.6 0.0 - 0.8 06/05/2018 [facility] HEMATOLOGY Eosinophils 0.6 0.0 - 4.0 06/05/2018 [facility] HEMATOLOGY Neutrophils # 5.1 1.5 - 8.1 06/05/2018 [facility] HEMATOLOGY Basophils 0.6 0.0 - 1.0 06/05/2018 [facility] HEMATOLOGY Monocytes 8.4 2.0 - 12.0 06/05/2018 [facility] HEMATOLOGY Segs 66.0 45.0 - 75.0 06/05/2018 [facility] HEMATOLOGY Lymphocytes 24.4 20.0 - 40.0 06/05/2018 [facility] HEMATOLOGY MCH 32.7 27.0 - 31.0 06/05/2018 [facility] HEMATOLOGY MCV 98.4 80.0 - 98.0 06/05/2018 [facility] HEMATOLOGY MCHC 33.2 32.0 - 36.0 06/05/2018 [facility] HEMATOLOGY Hct 36.4 36.0 - 48.0 06/05/2018 [facility] HEMATOLOGY Hgb 12.1 12.0 - 16.0 06/05/2018 [facility] HEMATOLOGY MPV 9.1 7.4 - 10.4 06/05/2018 [facility] HEMATOLOGY RDW 20.0 11.5 - 14.5 06/05/2018 [facility] HEMATOLOGY Platelet 278 133 - 450 06/05/2018 [facility] HEMATOLOGY WBC 7.7 3.7 - 10.4 06/05/2018 [facility] HEMATOLOGY RBC 3.70 4.20 - 5.40 06/05/2018 [facility] Pathology Reports No Data Provided for This Section Diagnostic Reports No Data Provided for This Section Consultation Notes No Data Provided for This Section Discharge Summaries No Data Provided for This Section History and Physicals No Data Provided for This Section Vital Signs Vital Sign Value Date Comments Source Systolic (mm Hg) 121 06/06/2018 [facility] Diastolic (mm Hg) 70 06/06/2018 [facility] Systolic (mm Hg) 125 06/06/2018 [facility] Diastolic (mm Hg) 77 06/06/2018 [facility] Systolic (mm Hg) 136 06/06/2018 [facility] Diastolic (mm Hg) 78 06/06/2018 [facility] Temperature Oral (F) 98.5 F 06/06/2018 [facility] Temperature Oral (F) 98.8 F 06/06/2018 [facility] Respitory Rate 13 06/06/2018 [facility] Respitory Rate 13 06/06/2018 [facility] Respitory Rate 13 06/06/2018 [facility] Temperature Oral (F) 99.6 F 06/06/2018 [facility] Height 157.48 cm 06/05/2018 [facility] Weight 82.364 06/05/2018 [facility] BMI Calculated 33.21 06/05/2018 [facility] Encounters Location Location Details Encounter Type Encounter Number Reason For Visit Attending Provider ADM Date DC Date Status Source [facility] Bedded Outpatient [id number] Hamzah Schultz 02/06/2018 02/06/2018 [facility] Inpatient [id number] Helen Louis 06/05/2018 06/06/2018 [facility] Procedures Procedure Code Date Perfomer Comments Source PCI - Percutaneous coronary intervention [id number] [facility] Assessment and Plan No Data Provided for [...] of years: 30; entered on: 06/05/18 06/05/2018 [facility] Social History TypeResponse Smoking Status Current some day smoker; Type: Cigarettes; Previous treatment: None; Ready to change: No; Concerns about tobacco use in household: No; Exposure to Tobacco Smoke None; Cigarette Smoking Last 365 Days Yes; Reg Smoking Cessation Counseling No; Number of years: 30; entered on: 06/05/18 06/05/2018 [facility] Family History No Data Provided for This Section Advance Directives No Data Provided for This Section Functional Status No Data Provided for This Section
== END 2019-10-29 12:45 | disposition home or self-care (01) ==
LOC: ER 17:35 → ERHOLD 20:57 → MED/SURG3 10-28 00:38 → MED/SURG2 10-28 21:45
PROVIDERS: ADMIT Internal Medicine; ATTEND Internal Medicine
DX: I50.23 Acute on chronic systolic (congestive) heart failure (principal); I48.19 Other persistent atrial fibrillation; Z79.01 Long term (current) use of anticoagulants; I13.0 Hypertensive heart and chronic kidney disease with heart failure and stage 1 through stage 4 chronic kidney disease, or unspecified chronic kidney disease; N18.9 Chronic kidney disease, unspecified; E78.5 Hyperlipidemia, unspecified; F03.90 Unspecified dementia, unspecified severity, without behavioral disturbance, psychotic disturbance, mood disturbance, and anxiety; Z11.59 Encounter for screening for other viral diseases; Z72.0 Tobacco use; I25.10 Atherosclerotic heart disease of native coronary artery without angina pectoris
CPT/HCPCS: 36415 ×2; 71045; 80053 ×2; 80061; 80162; 82550 ×2; 82553 ×2; 84484 ×2; 85025 ×2; 85610; 85730; 93005; 93306; 99284; G0378 ×3; J1160; S0164 ×2; U0002

== ENCOUNTER 2021-06-08 15:58 | Inpatient (IN) | payer MEDICARE ==
[~2021-06-08] VITALS: Ht 157.5 cm; Wt 76.7 kg
[~2021-06-08 15:58] MED LIST changes: +LISINOPRIL5 MG PO; +LOPRESSOR25 MG PO
[2021-06-08] MEDS ORDERED: SODIUM CHLORIDE 0.9% 1000ML 1,000 ML IV ONE (16:45)
[2021-06-08 16:55] LABS: BASOPHILS # (AUTO) 0.1 (0.0-0.1); EOSINOPHILS # (AUTO) 0.1 (0.0-0.4); EOSINOPHILS % 0.8 % (0.0-6.0); HEMATOCRIT 48.9 % (34.2-44.1); HEMOGLOBIN 15.9 g/dL (12.0-16.0); LYMPHOCYTES # (AUTO) 1.2 (1.0-3.2); LYMPHOCYTES % 17.1 % (18.0-39.1); MEAN CORPUSCULAR HEMOGLOBIN 28.6 pg (28-32); MEAN CORPUSCULAR HGB CONC 32.5 g/dL (31-35); MEAN CORPUSCULAR VOLUME 88.1 fL (81-99); MONOCYTES # (AUTO) 0.5 (0.2-0.8); MONOCYTES % 6.4 % (4.4-11.3); NEUTROPHILS # (AUTO) 5.3 (2.1-6.9); NEUTROPHILS % 74.3 % (38.7-80.0); PLATELET COUNT 219 x10e3/uL (140-360); RED BLOOD COUNT 5.55 x10e6/uL (3.6-5.1); RED CELL DISTRIBUTION WIDTH 15.8 % (11.7-14.4)
[2021-06-08 17:11] LABS: CLARITY,URINE CLEAR (CLEAR); COLOR,URINE YELLOW (YELLOW); LEUKOCYTE ESTERASE ,URINE NEGATIVE (NEGATIVE); NITRITE,URINE NEGATIVE (NEGATIVE); PROTEIN,URINE DIPSTICK NEGATIVE (NEGATIVE)
[2021-06-08 17:12] LABS: KETONES,URINE NEGATIVE (NEGATIVE); URINE UROBILINOGEN 0.2 mg/dL (0.2 - 1)
[2021-06-08 17:15] LABS: ALBUMIN 3.7 g/dL (3.5-5.0); ANION GAP 14.4 mmol/L (8-16); CALCIUM 12.2 mg/dL (8.4-10.2); CREATININE, SERUM 1.59 mg/dL (0.57-1.11); POTASSIUM 4.4 mmol/L (3.5-5.1)
[2021-06-08] MEDS ORDERED: ONDANSETRON HCL INJ 2MG/ML 2ML 2 MG/ML VIAL IV PRN (17:15)
[2021-06-08] MEDS ORDERED: SODIUM CHLORIDE FLUSH 10 ML SYR INJ PRN (17:15)
[2021-06-08] MEDS ORDERED: ASPIRIN 81 MG CHEW TAB PO ONE (17:15)
[2021-06-08 17:25] LABS: BACTERIA,URINE MODERATE /HPF; EPITHELIAL CELLS,URINE FEW /LPF; HYALINE CASTS >15 (0-1)
[2021-06-08 17:26] LABS: RENAL EPITHELIAL CELLS,URINE FEW
[2021-06-08 19:05] VITALS: BP 140/67
[2021-06-08 20:00] VITALS: BP 140/67
[2021-06-08 21:00] VITALS: BP 140/67
[2021-06-09] VITALS (12 sets, daily range): BP systolic 83–131; BP diastolic 46–96
[2021-06-09 01:19] LABS: CREATINE KINASE MB 1.6 ng/mL (0-5.0)
[2021-06-09 06:09] LABS: BASOPHILS % 0.5 % (0.0-1.0); EOSINOPHILS % 0.5 % (0.0-6.0); HEMATOCRIT 45.6 % (34.2-44.1); HEMOGLOBIN 14.6 g/dL (12.0-16.0); LYMPHOCYTES # (AUTO) 1.6 (1.0-3.2); LYMPHOCYTES % 27.1 % (18.0-39.1); MEAN CORPUSCULAR HEMOGLOBIN 28.2 pg (28-32); MONOCYTES # (AUTO) 0.5 (0.2-0.8); MONOCYTES % 8.7 % (4.4-11.3); NEUTROPHILS # (AUTO) 3.8 (2.1-6.9); NEUTROPHILS % 62.9 % (38.7-80.0); PLATELET COUNT 180 x10e3/uL (140-360); RED BLOOD COUNT 5.18 x10e6/uL (3.6-5.1); RED CELL DISTRIBUTION WIDTH 15.4 % (11.7-14.4)
[2021-06-09 06:30] LABS: ANION GAP 12.9 mmol/L (8-16); CALCIUM 9.1 mg/dL (8.4-10.2); CREATININE, SERUM 1.37 mg/dL (0.57-1.11); POTASSIUM 3.9 mmol/L (3.5-5.1)
[2021-06-09] MEDS: ASPIRIN 81 MG ENTERIC COATED PO SCH (09:25)
[2021-06-09 10:07] LABS: CREATINE KINASE MB 1.8 ng/mL (0-5.0)
[2021-06-09 17:50] LABS: CREATINE KINASE MB 1.8 ng/mL (0-5.0)
[2021-06-09] MEDS: SODIUM CHLORIDE 0.9% 1000ML 1,000 ML IV SCH (22:17)
[2021-06-10] VITALS (8 sets, daily range): BP systolic 98–131; BP diastolic 60–95
[2021-06-10 04:55] LABS: HEMATOCRIT 46.6 % (34.2-44.1); MEAN CORPUSCULAR HEMOGLOBIN 28.4 pg (28-32); MEAN CORPUSCULAR HGB CONC 32.2 g/dL (31-35); MEAN CORPUSCULAR VOLUME 88.1 fL (81-99); PLATELET COUNT 167 x10e3/uL (140-360); RED BLOOD COUNT 5.29 x10e6/uL (3.6-5.1); RED CELL DISTRIBUTION WIDTH 15.5 % (11.7-14.4)
[2021-06-10 05:18] LABS: ANION GAP 10.8 mmol/L (8-16); CALCIUM 9.2 mg/dL (8.4-10.2); CREATININE, SERUM 1.06 mg/dL (0.57-1.11); POTASSIUM 3.8 mmol/L (3.5-5.1)
[2021-06-10 06:32] LABS: EOSINOPHILS % (MANUAL) 1 % (0-7); LYMPHOCYTES % (MANUAL) 18 % (19-48); MONOCYTES % (MANUAL) 9 % (3.4-9.0); NEUTROPHILS % (MANUAL) 72 % (40-74); PLATELET ESTIMATE ADEQUATE; PLATELET MORPHOLOGY COMMENT NORMAL; RBC MORPHOLOGY COMMENT NORMAL
[2021-06-10] MEDS: ASPIRIN 81 MG ENTERIC COATED PO SCH (09:20)
[2021-06-10] MEDS ORDERED: ONDANSETRON HCL 4 MG ORAL DISINTEGRATING TAB PO PRN (19:00)
[2021-06-10] MEDS: SODIUM CHLORIDE 0.9% 1000ML 1,000 ML IV SCH (19:34)
[2021-06-11] VITALS: BP 127/78
[2021-06-11 04:00] VITALS: BP 135/65
[2021-06-11 06:06] LABS: BASOPHILS % 0.8 % (0.0-1.0); EOSINOPHILS # (AUTO) 0.1 (0.0-0.4); EOSINOPHILS % 1.1 % (0.0-6.0); HEMATOCRIT 45.4 % (34.2-44.1); HEMOGLOBIN 14.6 g/dL (12.0-16.0); LYMPHOCYTES # (AUTO) 1.4 (1.0-3.2); LYMPHOCYTES % 26.3 % (18.0-39.1); MEAN CORPUSCULAR HEMOGLOBIN 28.2 pg (28-32); MEAN CORPUSCULAR HGB CONC 32.2 g/dL (31-35); MEAN CORPUSCULAR VOLUME 87.8 fL (81-99); MONOCYTES # (AUTO) 0.5 (0.2-0.8); MONOCYTES % 9.2 % (4.4-11.3); NEUTROPHILS # (AUTO) 3.3 (2.1-6.9); NEUTROPHILS % 62.4 % (38.7-80.0); PLATELET COUNT 161 x10e3/uL (140-360); RED BLOOD COUNT 5.17 x10e6/uL (3.6-5.1); RED CELL DISTRIBUTION WIDTH 15.2 % (11.7-14.4)
[2021-06-11 06:28] LABS: ALBUMIN 2.9 g/dL (3.5-5.0); ANION GAP 10.6 mmol/L (8-16); CALCIUM 8.8 mg/dL (8.4-10.2); CREATININE, SERUM 0.95 mg/dL (0.57-1.11); POTASSIUM 3.6 mmol/L (3.5-5.1)
[2021-06-11 07:44] VITALS: BP 133/65
[2021-06-11] MEDS: ASPIRIN 81 MG ENTERIC COATED PO SCH (10:20)
== END 2021-06-11 11:48 | disposition home or self-care (01) | DRG 308 ==
LOC: ER 16:00 → INTOOBSV 17:36 → ERHOLD 17:36 → MED/SURG2 18:30 → OBSVTOIN 06-10 12:13
PROVIDERS: ADMIT Internal Medicine; ATTEND Internal Medicine
DX: I48.91 Unspecified atrial fibrillation (principal); I50.23 Acute on chronic systolic (congestive) heart failure; N17.9 Acute kidney failure, unspecified; I13.0 Hypertensive heart and chronic kidney disease with heart failure and stage 1 through stage 4 chronic kidney disease, or unspecified chronic kidney disease; Z79.01 Long term (current) use of anticoagulants; I25.10 Atherosclerotic heart disease of native coronary artery without angina pectoris; Z95.5 Presence of coronary angioplasty implant and graft; F17.210 Nicotine dependence, cigarettes, uncomplicated; J44.9 Chronic obstructive pulmonary disease, unspecified; E78.5 Hyperlipidemia, unspecified; I95.89 Other hypotension; F03.90 Unspecified dementia, unspecified severity, without behavioral disturbance, psychotic disturbance, mood disturbance, and anxiety; N18.30 Chronic kidney disease, stage 3 unspecified; E86.0 Dehydration; Z20.822 Contact with and (suspected) exposure to COVID-19
CPT/HCPCS: 36415; 71045; 80048; 80053; 81001; 82550; 82553; 83605; 84484; 85007; 85025; 85027; 87040; 87086; 93005; 94799; 99251; 99284; G0378; J7030; U0002

== ENCOUNTER 2022-05-01 01:01 | Inpatient (IN) | payer MEDICARE ==
[~2022-05-01] VITALS: Ht 157.5 cm; Wt 76.7 kg
[2022-05-01] MEDS ORDERED: SODIUM CHLORIDE 0.9% 1000ML 1,000 ML IV SCH (01:30)
[2022-05-01] MEDS ORDERED: ONDANSETRON HCL INJ 2MG/ML 2ML 2 MG/ML VIAL IV STA (01:54)
[2022-05-01] MEDS ORDERED: ONDANSETRON HCL INJ 2MG/ML 2ML 2 MG/ML VIAL ONE (02:12)
[2022-05-01 02:16] LABS: BASOPHILS % 0.2 % (0.0-1.0); EOSINOPHILS % 0.2 % (0.0-6.0); HEMOGLOBIN 14.3 g/dL (12.0-16.0); LYMPHOCYTES # (AUTO) 1.2 (1.0-3.2); LYMPHOCYTES % 24.7 % (18.0-39.1); MEAN CORPUSCULAR HGB CONC 30.4 g/dL (31-35); MEAN CORPUSCULAR VOLUME 98.7 fL (81-99); MONOCYTES # (AUTO) 0.6 (0.2-0.8); MONOCYTES % 11.5 % (4.4-11.3); NEUTROPHILS # (AUTO) 3.1 (2.1-6.9); PLATELET COUNT 143 x10e3/uL (140-360); RED BLOOD COUNT 4.76 x10e6/uL (3.6-5.1); RED CELL DISTRIBUTION WIDTH 15.2 % (11.7-14.4)
[2022-05-01 02:24] LABS: CLARITY,URINE CLEAR (CLEAR); COLOR,URINE YELLOW (YELLOW); EPITHELIAL CELLS,URINE FEW /LPF; INR 0.96; KETONES,URINE NEGATIVE (NEGATIVE); LEUKOCYTE ESTERASE ,URINE NEGATIVE (NEGATIVE); NITRITE,URINE NEGATIVE (NEGATIVE); PROTEIN,URINE DIPSTICK 1+ (NEGATIVE); RBC,URINE 0-5 /HPF (0-5); URINE UROBILINOGEN 0.2 mg/dL (0.2 - 1); WBC,URINE (MAN) 0-5 /HPF (0-5)
[2022-05-01 02:25] LABS: PARTIAL THROMBOPLASTIN TIME 34.1 seconds (23.8-35.5)
[2022-05-01 02:34] LABS: ALBUMIN 3.3 g/dL (3.5-5.0); ALBUMIN/GLOBULIN RATIO 0.9 (0.8-2.0); ANION GAP 15.4 mmol/L (8-16); CALCIUM 8.3 mg/dL (8.4-10.2); CREATININE, SERUM 1.18 mg/dL (0.57-1.11); POTASSIUM 4.4 mmol/L (3.5-5.1)
[2022-05-01 02:38] LABS: BACTERIA,URINE MODERATE /HPF
[2022-05-01 02:39] LABS: MUCUS,URINE MODERATE (RARE)
[2022-05-01 02:40] LABS: CREATINE KINASE MB 2.7 ng/mL (0-5.0)
[2022-05-01] MEDS ORDERED: ONDANSETRON HCL INJ 2MG/ML 2ML 2 MG/ML VIAL IV PRN (04:45)
[2022-05-01] MEDS: SODIUM CHLORIDE 0.9% 1000ML 1,000 ML IV SCH ×2 (06:50→18:05)
[2022-05-01 12:01] VITALS: BP 115/54
[2022-05-01 12:13] VITALS: BP 115/54
[2022-05-01 17:34] VITALS: BP 142/82
[2022-05-01 20:00] VITALS: BP_SYST 143; BP_SYST 153; BP_DIAS 64; BP_DIAS 77
[2022-05-01 21:00] VITALS: BP 153/77
[2022-05-02 06:16] LABS: HEMATOCRIT 40.3 % (34.2-44.1); HEMOGLOBIN 13.1 g/dL (12.0-16.0); MEAN CORPUSCULAR HEMOGLOBIN 30.5 pg (28-32); MEAN CORPUSCULAR HGB CONC 32.5 g/dL (31-35); MEAN CORPUSCULAR VOLUME 93.9 fL (81-99); PLATELET COUNT 130 x10e3/uL (140-360); RED BLOOD COUNT 4.29 x10e6/uL (3.6-5.1); RED CELL DISTRIBUTION WIDTH 15.9 % (11.7-14.4)
[2022-05-02 06:46] LABS: CALCIUM 7.8 mg/dL (8.4-10.2); CREATININE, SERUM 0.78 mg/dL (0.57-1.11)
[2022-05-02 07:45] VITALS: BP 148/85
[2022-05-02 08:33] LABS: LYMPHOCYTES % (MANUAL) 23 % (19-48); MONOCYTES % (MANUAL) 6 % (3.4-9.0); NEUTROPHILS % (MANUAL) 60 % (40-74); PLATELET ESTIMATE SLIGHTLY DECREASED; PLATELET MORPHOLOGY COMMENT NORMAL
[2022-05-02 08:34] LABS: RBC MORPHOLOGY COMMENT NORMAL
[2022-05-02] MEDS ORDERED: NITROGLYCERIN 0.4 MG SUBL SL SCH (08:45)
[2022-05-02 08:56] VITALS: BP 148/85
[2022-05-02] MEDS ORDERED: NITROGLYCERIN 0.4 MG SUBL SL PRN ×2 (09:00)
[2022-05-02] MEDS ORDERED: ENOXAPARIN SOD INJ 40 MG/0.4 ML SYR SC ONE (09:30)
[2022-05-02] MEDS: METOPROLOL TARTRATE 25 MG TAB PO SCH ×2 (10:01→17:36)
[2022-05-02] MEDS: MEMANTINE 10 MG TAB PO SCH ×2 (10:01→17:35)
[2022-05-02] MEDS: ALLOPURINOL 100 MG TAB PO SCH ×2 (10:02→17:35)
[2022-05-02] MEDS: BUPROPION HCL 75 MG TAB PO SCH (10:02)
[2022-05-02] MEDS: ASPIRIN 81 MG CHEW TAB PO SCH (10:02)
[2022-05-02] MEDS: SODIUM CHLORIDE 0.9% 1000ML 1,000 ML IV SCH ×2 (10:10→20:45)
[2022-05-02] MEDS ORDERED: ONDANSETRON HCL 4 MG ORAL DISINTEGRATING TAB SL PRN (10:30)
[2022-05-02 12:00] VITALS: BP 138/79
[2022-05-02 17:14] VITALS: BP 161/141
[2022-05-02 20:00] VITALS: BP 149/91
[2022-05-02 21:00] VITALS: BP 149/91
[2022-05-02] MEDS ORDERED: DONEPEZIL HCL 5 MG TAB PO SCH (21:00)
[2022-05-02] MEDS ORDERED: ATORVASTATIN 40 MG TAB PO SCH (21:00)
[2022-05-02] MEDS: ENOXAPARIN INJ 80 MG/0.8 ML SYR SC SCH (23:16)
[2022-05-03] VITALS: BP 160/86
[2022-05-03 04:00] VITALS: BP 158/75
[2022-05-03 05:51] LABS: HEMATOCRIT 46.9 % (34.2-44.1); HEMOGLOBIN 14.2 g/dL (12.0-16.0); MEAN CORPUSCULAR HEMOGLOBIN 30.5 pg (28-32); MEAN CORPUSCULAR HGB CONC 30.3 g/dL (31-35); MEAN CORPUSCULAR VOLUME 100.6 fL (81-99); PLATELET COUNT 116 x10e3/uL (140-360); RED BLOOD COUNT 4.66 x10e6/uL (3.6-5.1); RED CELL DISTRIBUTION WIDTH 15.4 % (11.7-14.4)
[2022-05-03 06:17] LABS: ANION GAP 14.3 mmol/L (8-16); CALCIUM 7.8 mg/dL (8.4-10.2); CREATININE, SERUM 0.73 mg/dL (0.57-1.11); POTASSIUM 4.3 mmol/L (3.5-5.1)
[2022-05-03 07:06] LABS: LYMPHOCYTES % (MANUAL) 30 % (19-48); MONOCYTES % (MANUAL) 7 % (3.4-9.0); NEUTROPHILS % (MANUAL) 63 % (40-74); PLATELET ESTIMATE ADEQUATE; PLATELET MORPHOLOGY COMMENT NORMAL; RBC MORPHOLOGY COMMENT NORMAL
[2022-05-03 07:50] VITALS: BP 163/89
[2022-05-03 07:54] VITALS: BP 163/89
[2022-05-03] MEDS: ENOXAPARIN INJ 80 MG/0.8 ML SYR SC SCH (09:00)
[2022-05-03] MEDS: MEMANTINE 10 MG TAB PO SCH (09:10)
[2022-05-03] MEDS: ALLOPURINOL 100 MG TAB PO SCH (09:10)
[2022-05-03] MEDS: BUPROPION HCL 75 MG TAB PO SCH (09:10)
[2022-05-03] MEDS: ASPIRIN 81 MG CHEW TAB PO SCH (09:10)
[2022-05-03] MEDS: METOPROLOL TARTRATE 25 MG TAB PO SCH (09:11)
[2022-05-03 12:47] VITALS: BP 140/65
== END 2022-05-03 15:30 | disposition home or self-care (01) | DRG 177 ==
LOC: ER 01:11 → INTOOBSV 04:36 → ERHOLD 04:36 → MED/SURG2 10:46 → OBSVTOIN 05-03 15:05
PROVIDERS: ADMIT Internal Medicine; ATTEND Internal Medicine
DX: U07.1 COVID-19 (principal); I50.23 Acute on chronic systolic (congestive) heart failure; I13.0 Hypertensive heart and chronic kidney disease with heart failure and stage 1 through stage 4 chronic kidney disease, or unspecified chronic kidney disease; I25.10 Atherosclerotic heart disease of native coronary artery without angina pectoris; J44.9 Chronic obstructive pulmonary disease, unspecified; I25.2 Old myocardial infarction; G30.9 Alzheimer's disease, unspecified; N18.30 Chronic kidney disease, stage 3 unspecified; F02.80 Dementia in other diseases classified elsewhere, unspecified severity, without behavioral disturbance, psychotic disturbance, mood disturbance, and anxiety; R53.81 Other malaise; F17.200 Nicotine dependence, unspecified, uncomplicated; I48.91 Unspecified atrial fibrillation; K21.9 Gastro-esophageal reflux disease without esophagitis; E78.5 Hyperlipidemia, unspecified; M10.9 Gout, unspecified; Z79.899 Other long term (current) drug therapy; Z79.82 Long term (current) use of aspirin; Z95.5 Presence of coronary angioplasty implant and graft; Z86.2 Personal history of diseases of the blood and blood-forming organs and certain disorders involving the immune mechanism
CPT/HCPCS: 36415; 71045; 80048; 80053; 81001; 82550; 82553; 83605; 83880; 84484; 85007; 85025; 85027; 85610; 85730; 87040; 87086; 93306; 99252; 99284; G0378; J0456; J0696; J1650; J2405; J7030; J7050